=== PATIENT | female | born 1950 | race Caucasian/White ===

== ENCOUNTER 2019-10-28 10:25 | Outpatient (CLI) | payer MEDICARE, SELFPAY ==
--- NOTE | ~2019-10-28 | MM_ITS ---
EXAMINATION: screening [facility] BI w ashia HISTORY: Screening mammogram TECHNIQUE: Craniocaudal and mediolateral oblique 3-D tomosynthesis images were obtained and synthetic 2-D images were generated. CAD analysis was submitted and interpreted. COMPARISON: 10/14/2018, 09/26/2017, 02/28/2016, 02/22/2016 BREAST PARENCHYMAL COMPOSITION: The breasts are almost entirely fatty. FINDINGS: A stable mass in the middle third of the upper outer quadrant of the right breast is consis tent with a benign finding. There is no evidence of suspicious mass, calcification, or architectural distortion to suggest malignancy in either breast. There has been no suspicious interval change. IMPRESSION: 1. No mammographic evidence of malignancy. 2. Recommend routine screening mammography in one year. BI-RADS Category 2: Benign finding(s). Reviewed, dictated and finalized at location A. RINARY PHARMACOLOGIST
== END 2019-10-28 10:26 | disposition home or self-care (01) ==
PROVIDERS: PCP Family Medicine; Visit Provider Family Medicine
DX: Z12.31 Encounter for screening mammogram for malignant neoplasm of breast (principal)
CPT/HCPCS: 77063; 77067

== ENCOUNTER 2019-11-13 07:04 | Outpatient (CLI) | payer MEDICARE, SELFPAY ==
[2019-11-12 16:46] VITALS: BMI 50.1
[2019-11-13] VITALS (9 sets, daily range): BP systolic 119–151; BP diastolic 69–85; PULSE 66–72; RESP 14–19; TEMP 36.4–36.6; O2SAT 95–100
[2019-11-13 07:37] LABS: Basophils Percent Auto 0.5 % (0.2-1.2); Eosinophils Absolute Auto 0.3 K/mm3 (0-0.3); Eosinophils Percent Auto 3.4 % (0-4.4); Hematocrit 46.7 % (37.0-47.0); Hemoglobin 14.6 g/dL (12.0-15.0); Immature Granulocyte Absolute 0.04 K/mm3 (0.00-0.031); Immature Granulocyte Percent A 0.5 % (0-0.5); Lymphocytes Absolute Auto 1.58 K/mm3 (0.9-3.2); Lymphocytes Percent Auto 21.3 % (18.3-44.2); Mean Corpuscular HGB Conc 31.3 g/dl (32-36); Mean Corpuscular Hemoglobin 28.7 pg (26-34); Mean Corpuscular Volume 91.7 fl (80-100); Mean Platelet Volume 8.1 fl (7.4-10.4); Monocytes Absolute Auto 0.7 K/mm3 (0.1-0.6); Monocytes Percent Auto 8.8 % (2.6-8.5); Neutrophils Absolute Auto 4.9 K/mm3 (1.3-6.7); Neutrophils Percent Auto 65.5 % (45.5-73.1); Platelet Count Result 195 k/mm3 (150-375); Red Blood Count 5.09 M/mm3 (4.2-5.4); Red Cell Distribution Width 13.2 % (11.5-14.5); White Blood Count 7.4 K/mm3 (4.5-10.0)
--- NOTE | 2019-11-13 07:41 | SUR.PREOP ---
PATIENT ARRIVES TO [facility] ROOM [address] MADERA, ORIENTED TO UNIT, PROCEDURE EXPLAINED, ALL QUESTIONS ANSWERED, IV STARTED, LABS DRAWN AND SENT, CONSENT SIGNED AND VITALS OBTAINED.
[2019-11-13 07:49] LABS: Blood Urea Nitrogen 25 mg/dL (7-17); Calcium 9.2 mg/dL (8.4-10.2); Carbon Dioxide 28 mmol/L (22-30); Chloride 99 mmol/L (98-107); Estimated CRCL calculation 79 ml/min; Estimated Glomerular Filt Rate > 60; Glucose 103 mg/dL (65-105); Potassium 4.1 mmol/L (3.4-5.0); Sodium 142 mmol/L (137-145)
--- NOTE | 2019-11-13 08:36 | P.PCNCC_ITS ---
Cardiac Cath Procedure Note Date of procedure:: 11/13/19 Performing physician:: Ginger Mendoza MD DOS: 11/13/2019 Indication:: chest pain on exertion Brief clinical history:: this 69-year-old female with past medical history of hypertension, hyperlipidemia morbid obesity and strong family history for CAD who comes to my office for the evaluation for exertional chest pain. Last stress test January 2018 shows mild LVH and no ischemia. Due to persistence of symptoms she was brought into chemical laboratory tester to define coronary anatomy. Procedure Procedure performed:: 1-Moderate sedation that started at and ended at using mg of Versed and mg fentanyl. The registered nurse Miley Molina 2-Selective left and right coronary angiogram. 3-Left heart catheterization with measurement of LVEDP and measurement of gradient across aortic valve. 4-Right common femoral arterial angiogram. 5-Deployment of 6 [place] Angio-Seal. Sedation/Medication given:: Moderate sedation. Access site:: Right common femoral artery. Estimated blood loss:: 10cc Procedure note:: After informed consent patient was brought in to chemical laboratory tester with the was draped and prepped in usual manner. Moderate sedation was given and the right groin was infiltrated using 1% lidocaine. Five [place] sheath was obtained using micropuncture needle and the modified Seldinger technique. Selective left coronary angiogram was done using JL4 catheter with the tip of the catheter placed in the left main coronary artery. Selective right coronary angiogram was done using JR4 catheter with the tip of the catheter placed to the right coronary artery. After that 5 [place] pigtail catheter was advanced across the aortic valve into the left ventricle with measurement of LVEDP and measurement of gradient across aortic valve. LV angiogram was done as well. Right common femoral arterial angiogram was done. Findings:: 1- left coronary artery is a large artery that divides into large LAD, large circumflex artery. Left main is Free of disease. 2- left anterior descending artery is a large artery that runs and wraps around the apex. it is a free of disease. Gives rise to a large diagonal 1 branch proximally that is free of disease and small diagonal 2 branch in the mid segment that is free of disease. 3- left circumflex artery is a large artery And free of disease. Proximally and right after takes from the left main gives rise to a large OM1 branch that is free of disease and in the mid segment gives rise to small OM 2 branch that is free disease. 4- right coronary artery is large and dominant and has minimal coronary irregularities. 5- LVEDP was 22 mm Hg and no gradient across aortic valve. 6- opening arterial pressure was 120/80and closing pressure was 110/80. 6- LV angiogram shows normal LV systolic function with no wall motion abnormalities and estimated ejection fraction 55%. Ascending aortic caliber is normal. 7- right femoral artery angiogram shows no significant disease in the right common femoral artery. Conclusion:: 1- Minimal coronary irregularities in the right coronary artery otherwise no coronary artery disease. 2- normal LV systolic function and ascending aorta. Assessment and Plan Additional Plan continue aggressive risk factor modification for CAD
--- NOTE | 2019-11-13 08:36 | WPDMODSED ---
Moderate Sedation Note-Pt Data Patient Data Allergies Allergy/AdvReac Type Severity Reaction Status Date / Time No Known Allergies Allergy Unverified 12/25/17 06:45 Home Medications Medication Instructions Recorded Confirmed Type aspirin 81 mg tablet,delayed 81 mg PO DAILY 07/31/19 11/13/19 History release sertraline 50 mg tablet 50 mg PO BID #60 tablet 10/23/19 11/13/19 Rx carvedilol 3.125 mg tablet 3.125 mg PO Q12H #180 tablet 10/27/19 11/13/19 Rx fenofibrate 160 mg tablet 160 mg PO DAILY #90 tablet 10/27/19 11/13/19 Rx hydrochlorothiazide 12.5 mg tablet 12.5 mg PO DAILY #90 tablet 10/27/19 11/13/19 Rx losartan 100 mg tablet 100 mg PO DAILY #90 tablet 10/27/19 11/13/19 Rx simvastatin 40 mg tablet 40 mg PO DAILY #90 tablet 10/27/19 11/13/19 Rx cholecalciferol (vitamin D3) 25 mcg PO DAILY 11/13/19 11/13/19 History exenatide microspheres 2 mg SUBCUT WEEKLY 11/13/19 11/13/19 History furosemide 20 mg PO EVERY OTHER DAY 11/13/19 11/13/19 History ginkgo biloba 40 mg PO TID 11/13/19 11/13/19 History lutein 20 mg PO DAILY 11/13/19 11/13/19 History multivitamin 1 cap PO DAILY 11/13/19 11/13/19 History Current Medications: Active Medications Sodium Chloride (Normal Saline Iv) 500 mls @ 100 mls/hr IV CONT .Q5H GARY Sedation/Anesthesia: No previous sedation/anesthesia problems (including family history). [facility] Past Medical History Medical History Benign reactive hypertension CHF (congestive heart failure) Elevated cholesterol with high triglycerides Morbid obesity due to excess calories Family History Family History Sibling Patient's brother is in good health Family history of diabetes mellitus in first degree relative Mother Family history of heart disease in male family member before age 55, Onset Age: 88 Patient's mother is Other Diabetes mellitus Family history of arthritis Hypertension Social History Social History Social History: Single Smoking status: Never smoker Second hand tobacco smoke exposure: No Alcohol intake: never Substance use: never Substance use type: does not use Gender identity (if verbalized by the patient): Female Mod Sed Physical Exam Physical Exam Pre Procedural Exam: Normal: Appearance, Eyes, Ears, Nose, Neck, Throat, Airway, Lungs, Heart Size, Heart Rate, Heart Rhythm, Neuro Exam, Abdomen, Liver, Kidneys, Spleen, Breasts, Genitalia, Extremities and Skin Hours since solid foods: 8 Hours since liquid intake: 8 Internal Medicine - PN: Obj Da Vital Signs Vital Signs: Vital Signs - 24 hr 11/13/19 07:23 Temperature 36.4 C Pulse Rate 72 Respiratory Rate 19 Blood Pressure 151/83 H Pulse Oximetry 95 Meds/Results Medications: Active Medications Generic Name Dose Route Start Last Admin Trade Name Freq PRN Reason Stop Dose Admin Sodium Chloride 500 mls @ 100 mls/hr 11/13/19 06:05 Normal Saline Iv IV CONT .Q5H GARY Labs CBC & Chem 7: 11/13/19 07:29 11/13/19 07:29 Labs: Laboratory Results - last 24 hr 11/13/19 11/13/19 07:29 07:29 WBC 7.4 RBC 5.09 Hgb 14.6 Hct 46.7 MCV 91.7 MCH 28.7 MCHC 31.3 L RDW 13.2 Plt Count 195 MPV 8.1 Immature Gran % (Auto) 0.5 Neut % (Auto) 65.5 Lymph % (Auto) 21.3 Barry % (Auto) 8.8 H Eos % (Auto) 3.4 Baso % (Auto) 0.5 Lymph # (Auto) 1.58 Barry # (Auto) 0.7 H Eos # (Auto) 0.3 Baso # (Auto) 0.0 Abs Immat Gran (auto) 0.04 H Absolute Neuts (auto) 4.9 Absolute Nucleated RBC 0.0 Nucleated RBC % 0.0 Sodium 142 Potassium 4.1 Chloride 99 Carbon Dioxide 28 BUN 25 H Creatinine 0.80 Estim Creat Clear Calc 79 Estimated GFR > 60 Glucose 103 Calcium 9.2 ASA Classification/Sedation ASA Classification/Sedation ASA Class
--- NOTE | 2019-11-13 08:36 | WPDHPUPDATE1 ---
History and Physical Update Update Date/Time: 11/13/19 08:36 History and Physical has been reviewed, including an updated exam of the patient. There are NO changes in the patient's condition. Risks, benefits, and alternatives have been discussed and questions answered. Patient agrees to proceed with procedure.
--- NOTE | 2019-11-13 11:46 | SUR.PHASEII ---
PATIENT AMBULATED TO BATHROOM, AND THEN TO THE CHAIR BY MONCHO LEVIN. NO SIGNS OF BLEEDING OR HEMATOMA NOTED, WILL CONTINUE TO MONITOR. VITAL SIGNS STABLE.
== END 2019-11-13 12:30 | disposition home or self-care (01) ==
PROVIDERS: PCP Family Medicine; Visit Provider Internal Medicine Cardiovascular Disease
PROC: 4A023N7 Measurement of Cardiac Sampling and Pressure, Left Heart, Percutaneous Approach (ICD-10-PCS; CPT 93452; principal; 2019-11-13 08:30)
DX: R07.89 Other chest pain (principal); I10 Essential (primary) hypertension; E78.5 Hyperlipidemia, unspecified; I25.2 Old myocardial infarction; F32.9 Major depressive disorder, single episode, unspecified; Z82.49 Family history of ischemic heart disease and other diseases of the circulatory system; E66.01 Morbid (severe) obesity due to excess calories; Z68.43 Body mass index [BMI] 50.0-59.9, adult; Z79.82 Long term (current) use of aspirin
CPT/HCPCS: 36415; 80048; 85025; 93458; C1760; C1887; C1894; G0269; J1644; J2250; J3010; J7040

== ENCOUNTER 2020-11-05 07:55 | Outpatient (CLI) | payer MEDICARE, OTHER, SELFPAY ==
--- NOTE | ~2020-11-05 | US_ITS ---
US art doppler w press LE BI INDICATION: Peripheral vascular disease. Leg pain. TECHNIQUE: Segmental pressures and plethysmographic and Doppler waveforms of the brachial and lower e xtremity arteries were obtained. COMPARISON: None. FINDINGS: Right and left brachial artery pressures of 152 mm Hg and 147 mm Hg, respectively, are concordant (no rmal difference <= 30 mmHg). The right ankle-brachial index (ADILENE) is 1.18 (normal >= 0.9-1.0). The left ADILENE is 1.2. IMPRESSION: 1. Normal ankle-brachial indices. Reviewed, dictated and finalized at location B. ATTENDANT
== END 2020-11-05 07:56 | disposition home or self-care (01) ==
LOC: ANHIMG 08:00
PROVIDERS: PCP Family Medicine; Visit Provider Family Medicine
DX: I73.9 Peripheral vascular disease, unspecified (principal)
CPT/HCPCS: 93923

== ENCOUNTER 2020-11-26 09:09 | Outpatient (CLI) | payer MEDICARE, OTHER, SELFPAY ==
--- NOTE | ~2020-11-26 | MM_ITS ---
EXAMINATION: MM screening [facility] BI w ashia HISTORY: Screening TECHNIQUE: Craniocaudal and mediolateral oblique 3-D tomosynthesis images were obtained and synthetic 2-D images were generated. CAD analysis was submitted and interpreted. COMPARISON: Comparison to multiple prior studies sequentially, with oldest reviewed study dated 02/21. BREAST PARENCHYMAL COMPOSITION: There are scattered areas of fibroglandular density. FINDINGS: There is no evidence of suspicious mass, calcification, or architectural distortion to sugg est malignancy in either breast. There has been no suspicious interval change. IMPRESSION: 1. No mammographic evidence of malignancy. 2. Recommend routine screening mammography in one year. BI-RADS Category 1: Negative Reviewed, dictated and finalized at location A. TORING AND EVALUATION ADVISOR
== END 2020-11-26 09:10 | disposition home or self-care (01) ==
LOC: ANHIMG 09:11
PROVIDERS: PCP Family Medicine; Visit Provider Family Medicine
DX: Z12.31 Encounter for screening mammogram for malignant neoplasm of breast (principal)
CPT/HCPCS: 77063; 77067

== ENCOUNTER 2021-11-30 14:31 | Outpatient (CLI) | payer MEDICARE, OTHER, SELFPAY ==
--- NOTE | ~2021-11-30 | MM_ITS ---
EXAMINATION: MM screening [facility] BI w ashia HISTORY: Screening TECHNIQUE: Craniocaudal and mediolateral oblique 3-D tomosynthesis images were obtained and synthetic 2-D images were generated. CAD analysis was submitted and interpreted. COMPARISON: Comparison to multiple prior studies sequentially, with oldest reviewed study dated Gaston rison to multiple prior studies sequentially, with oldest reviewed study dated 02/22/2016. . BREAST PARENCHYMAL COMPOSITION: There are scattered areas of fibroglandular density. FINDINGS: There is no evidence of suspicious mass, calcification, or architectural distortion to sugg est malignancy in either breast. There has been no suspicious interval change. IMPRESSION: 1. No mammographic evidence of malignancy. 2. Recommend routine screening mammography in one year. BI-RADS Category 1: Negative Reviewed, dictated and finalized at location A. AZZO LAYER HELPER
== END 2021-11-30 14:32 | disposition home or self-care (01) ==
PROVIDERS: PCP Family Medicine; Visit Provider Nurse Practitioner Gerontology
DX: Z12.31 Encounter for screening mammogram for malignant neoplasm of breast (principal)
CPT/HCPCS: 77063; 77067

== ENCOUNTER 2022-03-08 14:54 | Outpatient (CLI) | payer MEDICARE, OTHER, SELFPAY ==
--- NOTE | ~2022-03-08 | DEXA_ITS ---
Bone Density Report Name: SUPRIYA SIDDIQUI Age: 71 Sex: Female Ethnicity: White Date of : 1950 Indication: postmenopausal; screening for osteoporosis; height loss; hysterectomy; Referring Provider: LUC CRUZ Study: Bone densitometry was performed. Exam Date: March 08, 2022 Accession number: [id number] Bone Density: Region BMD T-score Z-score Classification AP Spine(L1-L4) 1.057 0.1 2.3 Normal Femoral Neck (Left) 0.750 -0.9 0.9 Normal Total Hip (Left) 0.779 -1.3 0.2 Osteopenia World Health Organization criteria for BMD impression classify patients as: Normal (T-score at or above -1.0), Osteopenia (T-score between -1.0 and -2.5), or Osteoporosis (T-score at or below -2.5). 10-year Fracture Risk(1): Major Osteoporotic Fracture 7.3% Hip Fracture 0.7% Reported Risk Factors: [place] (), Neck BMD=0.750, BMI=46.6 Input outside FRAX(R) limits. Adjusted to:Ldsfpp=181 kg (1) FRAX(R) Version 3.08. Fracture probability calculated for an untreated patient. Fracture probability may be lower if the patient has received treatment. Clinical Information Provided by Patient: Has used the following medications: Vitamin D, Calcium Has the following medical conditions: Hysterectomy Patient maximum height was 66 Menopause Age: 55 No regular weight bearing exercise Drinks caffeinated beverages Onset of menses at age 12 Number of children 0 Impression: The patient has low bone mass, based on the Left Total Hip T-score. The patient has an estimated ten-year risk of hip fracture of 0.7% and an estimated ten-year risk of major fracture of 7.3%, based on the WHO FRAX algorithm. Discussion: BONE DENSITY IS LOW AT ONE OR MORE SKELETAL SITES. This patient's lowest T-score is low at one or more skeletal sites. It meets the World Health Organization's (WHO) criteria for ?low bone mass? (T-score between -1.0 and -2.5). The patient's 10-year risk of fracture as calculated by FRAX is less than the threshold where pharmacological therapy is recommended by the National Osteoporosis Foundation (NOF). However, all treatment decisions require clinical judgment and consideration of individual patient factors, including patient preferences, comorbidities, previous drug use, risk factors not captured in the FRAX model (e.g., frailty, falls, vitamin D deficiency, increased bone turnover, interval significant decline in bone density) and possible under or overestimation of fracture risk by FRAX. The patient should follow a healthful lifestyle (good nutrition with adequate calcium and vitamin D, and appropriate weight-bearing exercise). Follow-Up: Consider repeating this study in 2 to 3 years to reassess this patient's status, or sooner if there is some new clinical indication. Reported by: BRETT on 03/08/2022 3:24:00 PM.
== END 2022-03-08 14:55 | disposition home or self-care (01) ==
LOC: ANHIMG 14:55
PROVIDERS: PCP Family Medicine; Visit Provider Nurse Practitioner Gerontology
DX: Z78.0 Asymptomatic menopausal state (principal); M85.852 Other specified disorders of bone density and structure, left thigh
CPT/HCPCS: 77080

== ENCOUNTER 2022-09-13 12:10 | Inpatient (IN) | payer MEDICARE, OTHER, SELFPAY ==
[2022-09-13] VITALS (10 sets, daily range): BP systolic 122–152; BP diastolic 55–95; PULSE 74–94; RESP 17–26; TEMP 36.4–36.6; O2SAT 87–98; BMI 50.8
--- NOTE | ~2022-09-13 | US_ITS ---
EXAMINATION: US venous doppler [facility] DATE: 09/14/2022 09:11 INDICATION: Lower limb edema. TECHNIQUE: Grayscale ultrasound images without and with compression and Doppler ultrasound images of the bilateral lower extremity veins were obtained. COMPARISON: None. FINDINGS: The visualized portions of right common femoral vein, profunda (deep) femoral vein, femoral vein, pop liteal vein, peroneal veins, posterior tibial veins, and greater saphenous vein outflow are patent. The visualized portions of left common femoral vein, profunda femoral vein, femoral vein, popliteal v ein, peroneal veins, posterior tibial veins, and greater saphenous vein outflow are patent. IMPRESSION: 1. No deep venous thrombosis. Reviewed, dictated and finalized at location [facility]. [facility]
--- NOTE | ~2022-09-13 | XR_ITS ---
EXAMINATION: XR chest 2V DATE: 09/15/2022 08:28 INDICATION: Congestive heart failure. TECHNIQUE: Frontal and lateral views of the chest were obtained. COMPARISON: Chest single view 09/13/2022 FINDINGS: There are airspace opacities in the mid and lower lung zones. There are small pleural effus ions. No pneumothorax. Cardiomegaly is noted. IMPRESSION: 1. Stable airspace opacities in the mid and lower lung zones, consistent with pneumonia with or witho ut superimposed pulmonary edema. 2. Small pleural effusions. 3. Cardiomegaly. Reviewed, dictated and finalized at location A. SOLUTION ARCHITECT IMPRESSION: 1. Stable airspace opacities in the mid and lower lung zones, consistent with p neumonia with or without superimposed pulmonary edema. 2. Small pleural effusions. 3. Cardiomegaly.
--- NOTE | ~2022-09-13 | XR_ITS ---
Portable chest x-ray Comparison: None Clinical History: Cough Findings: There is extensive groundglass pulmonary disease in the perihilar regions and lung bases. No pleural effusion or pneumothorax. Cardiomediastinal silhouette is prominent, possibly due to AP t echnique. Bones and soft tissues are unremarkable. Impression: Moderate pulmonary edema pattern. Correlate clinically for infection. Reviewed, dictated and finalized at [facility]. ICAL ENGRAVER Impression: Moderate pulmonary edema pattern. Correlate clinically for infection.
--- NOTE | ~2022-09-13 | CT_ITS ---
CT Scan of the Chest without Contrast: Clinical Indication: Pulmonary edema Technique: Contiguous sections were acquired throughout the chest without intravenous contrast. Dose reduction technique was used on this scan by utilizing automated exposure control and iterative recon struction technique. The dose-length product (DLP) was 964.49 mGy-cm. Findings: There is no evidence of any significant mediastinal, hilar or axillary lymphadenopathy. The mediastin al soft tissues appear normal. There is no evidence of pleural or pericardial effusion. There is patchy bibasilar consolidative change, at the bilateral lung bases and in the anteromedial r ight middle lobe. Images through the upper abdomen reveal 2.5 cm right adrenal nodule, indeterminate by Hounsfield unit s. Impression: Patchy bibasilar consolidation. Findings are suspicious for pneumonia versus possibly bibasilar atele ctatic change. Indeterminate 2.5 cm right adrenal nodule. Follow-up abdominal MR recommended to attempt to confirm a denoma. Reviewed, dictated and finalized at location . MECHANIC Impression: Patchy bibasilar consolidation. Findings are suspicious for pneumonia versus po ssibly bibasilar atelectatic change. Indeterminate 2.5 cm right adrenal nodule. Follow-up abdominal MR recommended t o attempt to confirm adenoma.
--- NOTE | 2022-09-13 12:17 | ECG_ITS ---
Measurements Intervals [place] Rate: 81 P: 156 MD: 198 QRS: 230 QRSD: 135 T: 145 QT: 393 QTc: 457 Interpretive Statements SINUS RHYTHM WITH ABERRANT CONDUCTED PAC ARM LEADS REVERSED [INVERTED P AND QRS IN I] NO PREVIOUS ECG AVAILABLE FOR COMPARISON Electronically Signed On 09-13-2022 18:00:01 COOKER TENDER by Denise Cabrera M.D.
[2022-09-13 13:05] LABS: Basophils Percent Auto 0.3 % (0.2-1.2); Eosinophils Absolute Auto 0.1 K/mm3 (0-0.3); Eosinophils Percent Auto 1.4 % (0-4.4); Hematocrit 45.4 % (37.0-47.0); Immature Granulocyte Absolute 0.08 K/mm3 (0.00-0.031); Immature Granulocyte Percent A 0.8 % (0-0.5); Lymphocytes Absolute Auto 0.96 K/mm3 (0.9-3.2); Lymphocytes Percent Auto 9.5 % (18.3-44.2); Mean Corpuscular HGB Conc 30.8 g/dl (32-36); Mean Corpuscular Hemoglobin 28.2 pg (26-34); Mean Corpuscular Volume 91.3 fl (80-100); Mean Platelet Volume 7.8 fl (7.4-10.4); Monocytes Absolute Auto 0.6 K/mm3 (0.1-0.6); Monocytes Percent Auto 5.8 % (2.6-8.5); Neutrophils Absolute Auto 8.3 K/mm3 (1.3-6.7); Neutrophils Percent Auto 82.2 % (45.5-73.1); Platelet Count Result 209 k/mm3 (150-375); Red Blood Count 4.97 M/mm3 (4.2-5.4); Red Cell Distribution Width 14.5 % (11.5-14.5); White Blood Count 10.1 K/mm3 (4.5-10.0)
--- NOTE | 2022-09-13 13:05 | ED.GENADULT ---
HPI - General Adult General Chief complaint: Upper Respiratory Infection Stated complaint: URI Time Seen by Provider: 09/13/22 13:01 Source: RN notes reviewed History of Present Illness HPI narrative: Patient presents emergency department from home for shortness of breath. Patient states that she has been battling upper respiratory infection since . States that its been associate with a cough that been productive of yellow sputum as well as shortness of breath. She states that she has been feeling progressively worse this week and called her PCP and referred to the ER for further evaluation. She does note subjective fevers. States she does have a history of CHF and has chronic swelling of her lower extremities. She denies any chest pain she denies any abdominal pain nausea or vomiting or any other symptoms. Denies currently being on any antibiotics Related Data Home Medications Medication Instructions Recorded Confirmed aspirin 81 mg tablet,delayed 81 mg PO DAILY 07/31/19 07/27/22 release (Aspir-) ginkgo biloba 40 mg tablet 40 mg PO DAILY 11/13/19 07/27/22 lutein 20 mg capsule 20 mg PO DAILY 11/13/19 07/27/22 multivitamin 1 cap PO DAILY 11/13/19 07/27/22 Allergies Allergy/AdvReac Type Severity Reaction Status Date / Time No Known Allergies Allergy Verified 07/27/22 10:07 Review of Systems Review of Systems: Gen.: Report subjective fevers ENT: Denies congestion Respiratory: see HPI CV: Denies chest pain or palpitations GI: Denies abdominal pain nausea, emesis or diarrhea Musculoskeletal: Denies back pain or muscle pain Neuro: Denies numbness, tingling, weakness or focal weakness Skin: Denies rash Except as documented, all other systems reviewed and negative [facility] Past Medical History Medical History Benign reactive hypertension CHF (congestive heart failure) CHF (NYHA class II, ACC/AHA stage C) Elevated cholesterol with high triglycerides Major depressive disorder, recurrent, moderate Morbid obesity due to excess calories Family History Family History Sibling Patient's brother is in good health Family history of diabetes mellitus in first degree relative Mother Family history of heart disease in male family member before age 55, Onset Age: 88 Patient's mother is Other Diabetes mellitus Family history of arthritis Hypertension Social History Social History Social History: Single Smoking status: Never smoker Second hand tobacco smoke exposure: No Alcohol intake: never Substance use: never Substance use type: does not use Gender identity (if verbalized by the patient): Female Sexual Orientation (if Verbalized by the Patient): Straight or Heterosexual Exam Narrative: APPEARANCE: No acute distress, nontoxic, resting in bed EYES: EOMI HEENT: Normocephalic, atraumatic, OMM RESPIRATORY: No respiratory distress Clear to auscultation bilaterally with no rhonchi wheezing or rales. CARDIOVASCULAR: Regular rate and rhythm without murmurs rubs or gallops. ABDOMINAL: Soft, nontender, nondistended, no rebound or guarding MUSCULOSKELETAl: Moves all extremities. No clubbing, cyanosis 3+ edema of the bilateral lower extremities NEURO: Awake and alert. Following commands, speech normal, no focal deficits SKIN:: Warm, dry. No rashes lesions or abrasions PSYCHIATRIC: Normal affect/mood, Course Course Emergency Course: Discussed with MODELING AGENCY MANAGER Ludy Tracey agrees with admission Discussed with MUMTAZ Cabrera agrees with consult Discussed with patient and family results of workup and diagnosis. Discussed need for admission. Patient and family understand and agree to current treatment plan Vital Signs Vital signs: Vital Signs Temperature 97.6 F 09/13/22 12:14 Pulse Rate 94 1
[2022-09-13 13:16] LABS: Alanine Aminotransferase 29 U/L (6-35); Albumin Level 3.8 g/dL (3.5-5.1); Alkaline Phosphatase 55 U/L (38-126); Anion Gap 6 mmol/L (8-16); Aspartate Amino Transferase 30 U/L (14-36); Bilirubin,Total 0.4 mg/dL (0.2-1.3); Blood Urea Nitrogen 22 mg/dL (7-17); Calcium 8.8 mg/dL (8.4-10.2); Carbon Dioxide 37 mmol/L (22-30); Chloride 98 mmol/L (98-107); Estimated CRCL calculation 76 ml/min; Estimated Glomerular Filt Rate > 60; Glucose 134 mg/dL (65-110); Sodium 141 mmol/L (137-145)
[2022-09-13] MEDS: POTASSIUM CHLORIDE 20 MEQ TABLET 40 MEQ PO (14:07)
[2022-09-13 14:26] LABS: Influenza A QL RT-PCR Negative (Negative); Influenza B QL RT-PCR Negative (Negative); RSV RNA, RT-PCR Negative (Negative); SARS-CoV-2 RNA PCR Negative
[2022-09-13 14:58] LABS: NT Pro B Type Natriuretic Pept 1970 pg/mL (5-100)
[2022-09-13] MEDS: FUROSEMIDE INJ 40 MG/4 ML VIAL IV PUSH (16:06)
[2022-09-13 19:35] LABS: Troponin I 0.031 ng/mL (0.000-0.034)
--- NOTE | 2022-09-13 20:30 | PM.IMHP ---
H&P: HPI History of Present Illness Date/Time: 09/13/22 20:30 Chief Complaint: Upper respiratory infection Narrative: This is a 72-year-old female patient who has a history of congestive heart failure. The patient came to the emergency room with complaints of shortness of breath. The patient stated that she thought that she had the flu initially. The patient has had this upper respiratory infection since . She has had a cough of yellow sputum as well some shortness of breath. The patient has been feeling progressively feeling worse over the last week. She also has increased swelling to her lower extremities. The patient has been on Keflex for chronic cellulitis to left lower extremity. She has yellow drainage from the left lower extremity. She also missed a couple days of going to the wound care clinic for her wounds to her left lower extremity. Chest x-ray was read as moderate pulmonary edema pattern correlate clinically for infection. Her white counts 10.1. Her potassium was 3.0. The patient is not on a daily potassium but is on daily Lasix. Troponins have been nonreactive x2. She is found to be negative for influenza A/B RSV and COVID. The patient is being admitted to observation status on the date of service of 09/13/2022. Review of Systems Review of Systems: See HPI All systems reviewed & are unremarkable except as noted in HPI and below Constitutional: Constitutional: Reports as per HPI and Reports no additional constitutional complaints Eyes: Eyes: Reports as per HPI and Reports no additional eye complaints ENT: Reports system reviewed and no additional complaints, except as documented and Reports Normal hearing present Cardiovascular: Cardiovascular: Reports no additional cardiovascular complaints Respiratory: Respiratory: Reports no additional respiratory complaints and Reports no additional respiratory complaints Gastrointestinal: Gastrointestinal: Reports as per HPI and Reports no additional gastrointestinal complaints Musculoskeletal: Musculoskeletal: Reports no additional musculoskeletal complaints Integumentary/Breasts: Skin/Breast: Reports system reviewed and no additional complaints, except as docu and Reports as per HPI Neurologic: Reports system reviewed and no additional complaints, except as documented, Reports as per HPI and Reports Normal hearing present Psychiatric: Psychiatric: Reports no additional psychiatric complaints and Reports as per HPI Endocrine: Endocrine: Reports no additional endocrine complaints Hematologic/Lymphatic: Hematologic/Lymphatic: Reports no additional hematologic/lymphatic complaints Allergic/Immunologic: Allergic/Immunologic: Reports no additional allergic/immunologic complaints [facility] Past Medical History Medical History Benign reactive hypertension CHF (congestive heart failure) CHF (NYHA class II, ACC/AHA stage C) Elevated cholesterol with high triglycerides Major depressive disorder, recurrent, moderate Morbid obesity due to excess calories Surgical History Surgical History (Updated 09/13/22 @ 23:12 by Ludy Bull NP) H/O arthroscopic knee surgery Right side H/O cardiac catheterization History of partial hysterectomy History of tonsillectomy and adenoidectomy S/P hip replacement Family History Family History Sibling Patient's brother is in good health Family history of diabetes mellitus in first degree relative Mother Family history of heart disease in male family member before age 55, Onset Age: 88 Patient's mother is Other Diabetes mellitus Family history of arthritis Hypertension Social History Social History (Updated 09/13/22 @ 23:07 by Ludy Bull NP) Social History: The patient lives home alone and is Single. She has no biological children. She is a lifelong nonsmoker. She reti
--- NOTE | 2022-09-13 20:50 | PC.NURSE ---
report received from Esther OREILLY RN
--- NOTE | 2022-09-13 20:59 | PC.NURSE ---
This patient, Kelly Atkinson, was admitted to 3 [facility] Room 316-02. Patient/family oriented to hospital policies and general routines including ID bracelet, bed and alarms, visiting hours, pain management, procedures, bathroom and other care routines, personal items, smoking policy, room service/diet, and visiting hours. Information on how to activate the Rapid Response Team has been discussed. Patient/Family are encouraged to report perceived risks to care and to ask questions if they do not understand what they are told or what they should do. arrived at [id number]
--- NOTE | 2022-09-13 22:39 | PC.NURSE ---
unable to obtain wound photos, unable to find camera for photos at this time
--- NOTE | 2022-09-13 22:41 | PC.NURSE ---
trop trending up wnl still 0.031 reported to [facility].
--- NOTE | 2022-09-13 22:45 | PC.NURSE ---
wound rle culture sent to lab
--- NOTE | 2022-09-13 23:15 | PC.NURSE ---
arrived medication from pharmacy
[2022-09-13] MEDS: SERTRALINE HCL 50 MG TABLET BY MOUTH (23:23)
[2022-09-13] MEDS: carvediloL 6.25 MG TABLET BY MOUTH (23:23)
[2022-09-13] MEDS: ASPIRIN 81 MG ENTERIC TABLET PO (23:23)
[2022-09-13] MEDS: SIMVASTATIN 20 MG TABLET 40 MG PO (23:24)
[2022-09-14] VITALS (11 sets, daily range): BP systolic 108–122; BP diastolic 68–86; PULSE 51–84; RESP 18–20; TEMP 36–36.8; O2SAT 92–97
--- NOTE | 2022-09-14 | ECHO_ITS ---
Patient Info Name: Kelly Atkinson Age: 72 years : 1950 Gender: Female Ht: 65 in Wt: 310 lbs BSA: 2.63 m2 HR: 88 bpm BP: 122 / 84 mmHg Heart Rhythm: Sinus Rhythm Technical Quality: Fair Exam Date: 09/14/2022 10:11 AM Exam Location: [facility] Pulmonary Exam Room: [facility] Patient Status: Inpatient Admit Date: 09/14/2022 Staff Ordering Physician: Ludy Bull NP Brush Machine Setter: Kelly Gilbert RDCS Attending Provider: James Tracey MD Referring Physician: Jorgito ALDRICH; Exam Type: CA echo dop color flow w con Study Info Indications - edema plus pulmonary edema Complete two-dimensional, color flow and Doppler transthoracic echocardiogram is performed with contrast to opacify the left ventricle and to improve the deliniation of the left ventricle endocardial borders. Contrast/Agitated Saline Contrast/Ag. Saline: Definity Amount: 2.00 ml Administered By: Kelly Gilbert [facility] Existing IV Access: Yes Summary 1. Left ventricular chamber dimension is mildly enlarged. 2. Left ventricular systolic function is normal, estimated at 55-60%. 3. There is mildly increased left ventricular wall thickness. 4. The left ventricular diastolic function is grade I diastolic dysfunction. 5. The basal inferolateral wall is hypokinetic. 6. Right ventricular chamber dimension is moderately enlarged. 7. Right ventricular systolic function is reduced. 8. Left atrial chamber dimension is mildly enlarged. 9. There is mild mitral valve regurgitation. 10. There is mild tricuspid valve regurgitation. 11. Moderate pulmonary hypertension, estimated pulmonary arterial systolic pressure is 56 mmHg. Left Ventricle Left ventricular chamber dimension is mildly enlarged. Left ventricular systolic function is normal, estimated at 55-60%. There is mildly increased left ventricular wall thickness. The left ventricular diastolic function is grade I diastolic dysfunction. The basal inferolateral wall is hypokinetic. Right Ventricle Right ventricular chamber dimension is moderately enlarged. Right ventricular systolic function is reduced. Left Atria Left atrial chamber dimension is mildly enlarged. Right Atria Right atrial chamber dimension is normal. Atrial Septum Intact interatrial septum visualized by color flow imaging. Aortic Valve The aortic valve is trileaflet. There is mild aortic valve sclerosis. There is no aortic valve stenosis. There is trace aortic valve regurgitation. Pulmonic Valve The pulmonic valve is normal. There is no pulmonic valve stenosis. There is trace pulmonic regurgitation. Mitral Valve The mitral valve has normal leaflets. There is no mitral valve stenosis. There is mild mitral valve regurgitation. Tricuspid Valve The tricuspid valve leaflets are normal. There is no significant tricuspid valve stenosis. There is mild tricuspid valve regurgitation. Moderate pulmonary hypertension, estimated pulmonary arterial systolic pressure is 56 mmHg. Pericardium/Pleural The pericardium appears normal. There is trivial pericardial effusion. Inferior Vena Cava Normal inferior vena cava with >50% collapse upon inspiration consistent with normal right atrial pressure, 10 mmHg. Aorta The aortic root size at the sinus of Valsalva is normal. Left Ventricular Outflow Tract Name
[2022-09-14 00:10] LABS: Troponin I 0.027 ng/mL (0.000-0.034)
[2022-09-14 06:37] LABS: Basophils Percent Auto 0.3 % (0.2-1.2); Eosinophils Absolute Auto 0.1 K/mm3 (0-0.3); Eosinophils Percent Auto 0.9 % (0-4.4); Hematocrit 45.9 % (37.0-47.0); Hemoglobin 13.6 g/dL (12.0-15.0); Immature Granulocyte Absolute 0.09 K/mm3 (0.00-0.031); Immature Granulocyte Percent A 0.8 % (0-0.5); Lymphocytes Absolute Auto 0.97 K/mm3 (0.9-3.2); Lymphocytes Percent Auto 9.2 % (18.3-44.2); Mean Corpuscular HGB Conc 29.6 g/dl (32-36); Mean Corpuscular Hemoglobin 27.5 pg (26-34); Mean Corpuscular Volume 92.9 fl (80-100); Mean Platelet Volume 8.1 fl (7.4-10.4); Monocytes Absolute Auto 0.8 K/mm3 (0.1-0.6); Monocytes Percent Auto 7.5 % (2.6-8.5); Neutrophils Absolute Auto 8.6 K/mm3 (1.3-6.7); Neutrophils Percent Auto 81.3 % (45.5-73.1); Platelet Count Result 202 k/mm3 (150-375); Red Blood Count 4.94 M/mm3 (4.2-5.4); Red Cell Distribution Width 14.6 % (11.5-14.5); White Blood Count 10.6 K/mm3 (4.5-10.0)
[2022-09-14 06:42] LABS: Lactic Acid Reflex 0.8 mmol/L (0.7-2.0)
[2022-09-14 06:49] LABS: Alanine Aminotransferase 28 U/L (6-35); Albumin Level 3.7 g/dL (3.5-5.1); Alkaline Phosphatase 55 U/L (38-126); Anion Gap 7 mmol/L (8-16); Aspartate Amino Transferase 31 U/L (14-36); Bilirubin,Total 0.6 mg/dL (0.2-1.3); Blood Urea Nitrogen 21 mg/dL (7-17); Calcium 8.4 mg/dL (8.4-10.2); Carbon Dioxide 37 mmol/L (22-30); Chloride 99 mmol/L (98-107); Estimated CRCL calculation 91 ml/min; Estimated Glomerular Filt Rate > 60; Glucose 111 mg/dL (65-110); Magnesium 2.1 mg/dL (1.6-2.3); Potassium 3.4 mmol/L (3.4-5.0); Sodium 143 mmol/L (137-145)
--- NOTE | 2022-09-14 08:28 | PM.CNCAR ---
Assessment and Plan Assessment and plan (1) CHF (congestive heart failure): Code(s): I50.9 - Heart failure, unspecified Status: Acute Assessment and Plan: This is likely acute on chronic diastolic or right-sided heart failure. She has evidence of worsening CHF possibly brought on by pneumonia/bronchitis. Will increase her furosemide to 40 mg IV q.12 hours. Will check a basic metabolic panel tomorrow. Replace potassium 40 mg p.o. x1. Intake and output as well as daily weights will be monitored. 2D echocardiogram Doppler will also be ordered and reviewed. She will remain on her carvedilol but I am going to increase her dose of 12.5 mg p.o. b.i.d.. Continue losartan (2) Morbid obesity due to excess calories: Code(s): E66.01 - Morbid (severe) obesity due to excess calories Status: Acute Assessment and Plan: Dietary and lifestyle modification for weight loss (3) Acute respiratory failure with hypoxia: Code(s): J96.01 - Acute respiratory failure with hypoxia Status: Acute Assessment and Plan: CHF plus-minus pneumonia. Diuresis and antibiotic (4) Hypertension: Code(s): I10 - Essential (primary) hypertension Status: Acute Assessment and Plan: Losartan, carvedilol to be continued (5) Dyslipidemia: Code(s): E78.5 - Hyperlipidemia, unspecified Status: Acute Assessment and Plan: Continue statin (6) Hypokalemia: Code(s): E87.6 - Hypokalemia Status: Acute Assessment and Plan: KCL 40 mg p.o. x1 History of Present Illness History of Present Illness Consult date/time: 09/14/22 08:28 Requesting physician: Ap Goldberg DO Consult reason: congestive heart failure Reason For Visit: Acute Respiratory failure with hypoxia, CHF Narrative: Date of service 09/14/2022: Reason consultation: CHF Requesting provider: Dr. Goldberg History: Patient is a 72-year-old female with a history of CHF. Follows with Dr. Mendoza. She has not been feeling well since . She has had an upper respiratory tract infection as well as subjective fevers. She has had productive cough and sputum with multiple different color the sputum she states including some blood. Her sputum production has declined and it has cleared up somewhat but she is still coughing. Because she feels and has felt like she has not been getting significantly better she decided come to hospital for further evaluation. She is having shortness of breath but doing 10 in walking to and from the car. She denies any chest pain. No paroxysmal nocturnal dyspnea. She has worsening edema bilateral lower extremities also. She denies any palpitations, syncope or presyncope. She was given diuretics and is feeling a little bit better today. Review of Systems Review of Systems: All systems reviewed & are unremarkable except as noted in HPI and below Constitutional: Constitutional: Reports body ache(s) and Reports fatigue Eyes: Eyes: Denies blurry vision ENT: Reports Normal hearing present Cardiovascular: Cardiovascular: Denies chest pain, Denies diaphoresis and Reports leg edema Respiratory: Respiratory: Reports cough, Reports hemoptysis, Reports dyspnea and Reports dyspnea on exertion Gastrointestinal: Gastrointestinal: Denies abdominal pain Genitourinary: Genitourinary: Denies hematuria Musculoskeletal: Musculoskeletal: Denies myalgias Integumentary/Breasts: Skin/Breast: Denies skin pain Neurologic: Denies Abnormal speech present Psychiatric: Psychiatric: Denies behavioral changes and Denies confusion Endocrine: Endocrine: Denies excessive sweating Hematologic/Lymphatic: Hematologic/Lymphatic: Denies easy bleeding Allergic/Immunologic: Allergic/Immunologic: Denies GI upset with certain foods PMFSH Past Medical History Medical History Benign reactive hypertension CHF (congestive heart f
[2022-09-14 10:11] LABS: Thyroid Stimulating Hormone Reflex 0.719 uIU/mL (0.465-4.68)
[2022-09-14] MEDS: PERFLUTREN LIPID MICROSPHERES 1.5 ML VIAL DILUTED TO 10 ML TOTAL VOLUME IV PUSH (10:45)
[2022-09-14] MEDS: POTASSIUM CHLORIDE 20 MEQ PACKET (FOR LIQUID) 40 MEQ PO (10:54)
[2022-09-14] MEDS: POTASSIUM CHLORIDE 20 MEQ TABLET 40 MEQ PO (10:54)
[2022-09-14] MEDS: FENOFIBRATE 160 MG TABLET PO (10:54)
[2022-09-14] MEDS: ENOXAPARIN 40 MG/0.4 ML SYRINGE SUB-Q (10:54)
[2022-09-14] MEDS: MULTIVITAMINS THERAPEUTIC TAB (*BKC) 1 TABLET PO (10:54)
[2022-09-14] MEDS: SERTRALINE HCL 50 MG TABLET BY MOUTH ×2 (10:54→17:58)
[2022-09-14] MEDS: LOSARTAN POTASSIUM 100 MG TABLET BY MOUTH (10:54)
[2022-09-14] MEDS: hydroCHLOROthiazide 12.5 MG CAPSULE PO (10:54)
[2022-09-14] MEDS: TOLNAFTATE 1% POWDER 45 GM BTL 1 APPLIC TOPICAL ×2 (10:55→20:41)
[2022-09-14] MEDS: carvediloL 12.5 MG TABLET BY MOUTH ×2 (10:56→20:41)
[2022-09-14] MEDS: FUROSEMIDE INJ 40 MG/4 ML VIAL IV PUSH ×2 (12:04→17:58)
[2022-09-14] MEDS: SILVERGEL (ELTA) 45 ML 1 APPLIC TOPICAL (18:00)
--- NOTE | 2022-09-14 18:52 | PM.IMPN ---
Progress Note: A&P Assessment and Plan (1) Acute respiratory failure with hypoxia: Code(s): J96.01 - Acute respiratory failure with hypoxia Status: Acute Assessment and Plan: -the patient does not use any oxygen at home. She is currently placed on 2 L per nasal cannula. -patient has moderate pulmonary edema pattern. -the patient was given IV Lasix in the emergency room and has been diuresing without difficulty. (2) CHF (congestive heart failure): Code(s): I50.9 - Heart failure, unspecified Status: Acute Assessment and Plan: No recent echo is showing up in our system so I will order 1 for tomorrow. -continue with IV Lasix and I have added potassium supplement. Continue with Coreg Continue with hydrochlorothiazide Continue to monitor electrolytes (3) Recurrent cellulitis of lower extremity: Code(s): L03.119 - Cellulitis of unspecified part of limb Status: Acute Assessment and Plan: I started the patient on Ancef. Please tailor antibiotics to blood and wound cultures. -the patient has been going to the wound care clinic. She did miss some days going to the wound care clinic. (4) Major depressive disorder, recurrent, moderate: Code(s): F33.1 - Major depressive disorder, recurrent, moderate Status: Acute Assessment and Plan: -continue with the sertraline (5) Morbid obesity due to excess calories: Code(s): E66.01 - Morbid (severe) obesity due to excess calories Status: Acute Assessment and Plan: Heart healthy diet (6) Elevated cholesterol with high triglycerides: Code(s): E78.2 - Mixed hyperlipidemia Status: Acute Assessment and Plan: Continue with simvastatin and fenofibrate (7) Benign reactive hypertension: Code(s): I10 - Essential (primary) hypertension Status: Acute Assessment and Plan: -continue with losartan and Coreg. Subjective Date/time seen: 09/14/22 18:52 Patient is feeling slightly better. Decreased shortness of breath. No chest pain. No abdominal pain, nausea, no vomiting. Mood stable. Review of Systems Review of Systems: All systems reviewed & are unremarkable except as noted in HPI and below Constitutional: Constitutional: Reports as per HPI and Reports no additional constitutional complaints Eyes: Eyes: Reports as per HPI and Reports no additional eye complaints ENT: Reports system reviewed and no additional complaints, except as documented and Reports Normal hearing present Cardiovascular: Cardiovascular: Reports no additional cardiovascular complaints Respiratory: Respiratory: Reports no additional respiratory complaints and Reports no additional respiratory complaints Gastrointestinal: Gastrointestinal: Reports as per HPI and Reports no additional gastrointestinal complaints Musculoskeletal: Musculoskeletal: Reports no additional musculoskeletal complaints Integumentary/Breasts: Skin/Breast: Reports system reviewed and no additional complaints, except as docu and Reports as per HPI Neurologic: Reports system reviewed and no additional complaints, except as documented, Reports as per HPI and Reports Normal hearing present Psychiatric: Psychiatric: Reports no additional psychiatric complaints and Reports as per HPI Endocrine: Endocrine: Reports no additional endocrine complaints Hematologic/Lymphatic: Hematologic/Lymphatic: Reports no additional hematologic/lymphatic complaints Allergic/Immunologic: Allergic/Immunologic: Reports no additional allergic/immunologic complaints Exam Const: General: cooperative, healthy appearing, comfortable, no acute distress, well developed, alert, awake, Physically active and obese Nutritional Appearance: obese Orientation/consciousness: oriented to person, oriented to place, oriented to time and patient oriented x3 Limitations: no limitations HENMT: Head: normal to inspection, No palpable skull fracture present, no
[2022-09-14] MEDS: SIMVASTATIN 20 MG TABLET 40 MG PO (20:41)
[2022-09-14] MEDS: ASPIRIN 81 MG ENTERIC TABLET PO (20:41)
[2022-09-15] VITALS (11 sets, daily range): BP systolic 110–160; BP diastolic 66–87; PULSE 62–79; RESP 20; TEMP 36.1–37.3; O2SAT 96–100
--- NOTE | 2022-09-15 06:53 | PC.NURSE ---
iv bad, removed, unable to restart at this time, several RN attempts made. 6am cefazolin still needs to infuse, passed on to next RN in report.
--- NOTE | 2022-09-15 07:20 | PC.NURSE ---
Md Weinstein informed IV when bad, will continue to attempt restart for IV abt.
[2022-09-15] MEDS: hydroCHLOROthiazide 12.5 MG CAPSULE PO (08:41)
[2022-09-15] MEDS: SERTRALINE HCL 50 MG TABLET BY MOUTH ×2 (08:41→16:58)
[2022-09-15] MEDS: FENOFIBRATE 160 MG TABLET PO (08:41)
[2022-09-15] MEDS: LOSARTAN POTASSIUM 100 MG TABLET BY MOUTH (08:41)
[2022-09-15] MEDS: MULTIVITAMINS THERAPEUTIC TAB (*BKC) 1 TABLET PO (08:41)
[2022-09-15] MEDS: carvediloL 12.5 MG TABLET BY MOUTH ×2 (08:42→21:46)
[2022-09-15] MEDS: POTASSIUM CHLORIDE 20 MEQ PACKET (FOR LIQUID) 40 MEQ PO (08:42)
[2022-09-15] MEDS: ENOXAPARIN 40 MG/0.4 ML SYRINGE SUB-Q (08:42)
[2022-09-15] MEDS: SILVERGEL (ELTA) 45 ML 1 APPLIC TOPICAL (08:43)
[2022-09-15] MEDS: TOLNAFTATE 1% POWDER 45 GM BTL 1 APPLIC TOPICAL ×2 (08:43→21:46)
--- NOTE | 2022-09-15 11:48 | PM.IMPN ---
Progress Note: A&P Assessment and Plan (1) Acute respiratory failure with hypoxia: Code(s): J96.01 - Acute respiratory failure with hypoxia Status: Acute Assessment and Plan: -the patient does not use any oxygen at home. She is currently placed on 2 L per nasal cannula. -Home O2 evaluation by respiratory therapy. -patient has moderate pulmonary edema pattern. -the patient was given IV Lasix in the emergency room and has been diuresing without difficulty. Unable to find IV access today. Lasix was switched to 80 mg p.o. b.i.d.. (2) CHF (congestive heart failure): Code(s): I50.9 - Heart failure, unspecified Status: Acute Assessment and Plan: Heart failure with preserved ejection fraction EF 55-60%. -patient was started with IV Lasix and potassium supplement. -due to lack of access she was switched to Lasix 80 mg p.o. b.i.d. -potassium was supplemented. Continue with Coreg Continue with hydrochlorothiazide Continue to monitor electrolytes (3) Recurrent cellulitis of lower extremity: Code(s): L03.119 - Cellulitis of unspecified part of limb Status: Acute Assessment and Plan: Patient was originally started on Ancef. Blood culture with Gram-positive coccal in chains. No IV access available today patient was switched to K -the patient has been going to the wound care clinic. She did miss some days going to the wound care clinic. Wound care ordered. (4) Major depressive disorder, recurrent, moderate: Code(s): F33.1 - Major depressive disorder, recurrent, moderate Status: Acute Assessment and Plan: -continue with the sertraline (5) Morbid obesity due to excess calories: Code(s): E66.01 - Morbid (severe) obesity due to excess calories Status: Acute Assessment and Plan: Caloric restriction. Heart healthy diet Referral to obesity medicine as an outpatient at the time of discharge (6) Elevated cholesterol with high triglycerides: Code(s): E78.2 - Mixed hyperlipidemia Status: Acute Assessment and Plan: Continue with simvastatin and fenofibrate (7) Benign reactive hypertension: Code(s): I10 - Essential (primary) hypertension Status: Acute Assessment and Plan: -continue with losartan and Coreg. Time Spent With Patient Time with patient: 15 - 25 minutes Subjective Date/time seen: 12/23/22 11:48 Interval history: Patient was seen examined at the bedside. She was seated at the side of the bed. She was on oxygen 2 L per nasal cannula. She denies any complaint. She feels weak and requires physical therapy. Review of Systems Review of Systems: All systems reviewed & are unremarkable except as noted in HPI and below Constitutional: Constitutional: Reports as per HPI and Reports no additional constitutional complaints Eyes: Eyes: Reports as per HPI and Reports no additional eye complaints ENT: Reports system reviewed and no additional complaints, except as documented and Reports Normal hearing present Cardiovascular: Cardiovascular: Reports no additional cardiovascular complaints Respiratory: Respiratory: Reports no additional respiratory complaints and Reports no additional respiratory complaints Gastrointestinal: Gastrointestinal: Reports as per HPI and Reports no additional gastrointestinal complaints Musculoskeletal: Musculoskeletal: Reports no additional musculoskeletal complaints Integumentary/Breasts: Skin/Breast: Reports system reviewed and no additional complaints, except as docu and Reports as per HPI Neurologic: Reports system reviewed and no additional complaints, except as documented, Reports as per HPI and Reports Normal hearing present Psychiatric: Psychiatric: Reports no additional psychiatric complaints and Reports as per HPI Endocrine: Endocrine: Reports no additional endocrine complaints Hematologic/Lymphatic: Hematologic/Lymphatic: Reports no additional hematologic/lym
--- NOTE | 2022-09-15 16:17 | PM.PNCARD ---
Progress Note: A&P Assessment and Plan (1) CHF (congestive heart failure): Code(s): I50.9 - Heart failure, unspecified Status: Acute Plan this is a 72-year-old lady with chronic morbid obesity and edema came into the hospital with some shortness of breath some volume overload not much evidence of pulmonary congestion on exam or by admitting chest x-ray. There is really not much history that this lady has any serious cardiac pathology. She tells me today during this appointment that she has had over the years evaluations in the radiographer cardiac catheterization at several institutions as I mentioned above all with normal results. For some reason another echocardiogram was ordered and I will look at that when I am done making rounds today. At this point I would simply recommend continuing furosemide intravenously to improve her edema. There is no need for additional cardiac workup as she has undergone thorough evaluation a number of occasions. Obviously weight loss would be of great benefit Singh Mojica MD [facility] Subjective Date/time seen: date of service:09/15/22 16:17 Interval history: Follow-up visit in this 72-year-old lady with: Chronic morbid obesity presenting to the hospital with cough dyspnea and fluid volume overload. Seen in consultation by my partner yesterday loop diuretics have been ordered. Patient is receiving both furosemide as well as hydrochlorothiazide according to the record. The patient has no history of serious cardiac pathology she has a history of chronic dyspnea which has been attributed to her obesity and has had evaluations by 3 cardiologists over the years including catheterizations being done and [facility] and here at [facility] about 2 years ago. All of the studies have demonstrated no evidence of coronary disease and good left ventricular function. She states today that she is improving since admission her edema is responding to diuresis and she does not have any other complaints this evening. Exam Const: General: comfortable and no acute distress Other: Very pleasant morbidly obese lady HENMT: Mouth: Yes moist mucous membranes Eyes: Sclera: sclerae normal Pupils: Equal, round and reactive pupils present Neck: Neck: supple Other: not able to assess JVD given her body habitus Resp: Effort & Inspection: normal respiratory effort Auscultation: clear to auscultation bilaterally Other: breath sounds are distant because of her size but otherwise clear in both lung ruiz Cardio: Rate: regular rate Rhythm: regular rhythm Other: PMI is not palpable no audible murmur or gallop GI: GI Palp: Yes Soft to palpation Auscultation: normal bowel sounds Skin: General skin exam: normal color Neuro: Other: alert and oriented x3 Extrem: Other: chronic appearing pitting edema to the legs bilaterally moderate Objective Data Vital Signs Vital Signs: Vital Signs - 24 hr 09/14/22 20:41 09/14/22 20:00 09/14/22 22:00 Temperature 36.0 C L Pulse Rate 84 69 Respiratory Rate 18 Blood Pressure 116/68 Pulse Oximetry 96 93 Oxygen Delivery Nasal Cannula Oxygen Flow Rate 2 09/15/22 00:00 09/15/22 04:00 09/15/22 06:00 Temperature 37.3 C Pulse Rate 67 63 79 Respiratory Rate 20 Blood Pressure 160/70 H Pulse Oximetry 96 Oxygen Delivery Oxygen Flow Rate 09/15/22 08:42 09/15/22 08:40 09/15/22 08:00 Temperature Pulse Rate 79 75 Respiratory Rate Blood Pressure Pulse Oximetry Oxygen Delivery Room Air Oxygen Flow Rate 09/15/22 12:00 09/15/22 14:00 Temperature 36.6 C Pulse Rate 72 75 Respiratory Rate 20 Blood Pressure 128/66 Pulse Oximetry 96 Oxygen Delivery Oxygen Flow Rate Intake/Output Intake/Output: Intake & Output 09/12/22 09/13/22 09/14/22 09/15/22 23:59 23:59 23:59 23:59 Intake Total 50 2020 1700 Output Total 1500 Balance 50 520 1700 Meds/Results Medications: Active Medic
[2022-09-15] MEDS: levoFLOXacin 750 MG TABLET PO (16:58)
[2022-09-15] MEDS: FUROSEMIDE 80 MG TABLET PO (16:58)
[2022-09-15] MEDS: CEPHALEXIN 500 MG CAPSULE PO (17:00)
[2022-09-15] MEDS: ASPIRIN 81 MG ENTERIC TABLET PO (21:46)
[2022-09-15] MEDS: SIMVASTATIN 20 MG TABLET 40 MG PO (21:46)
[2022-09-16] VITALS (12 sets, daily range): BP systolic 105–132; BP diastolic 58–90; PULSE 65–80; RESP 19–22; TEMP 36.2–36.8; O2SAT 92–97
[2022-09-16] MEDS: CEPHALEXIN 500 MG CAPSULE PO ×2 (01:09→06:26)
--- NOTE | 2022-09-16 09:35 | PM.IMPN ---
Progress Note: A&P Assessment and Plan (1) Acute respiratory failure with hypoxia: Code(s): J96.01 - Acute respiratory failure with hypoxia Status: Acute Assessment and Plan: -the patient does not use any oxygen at home. She is currently placed on 2 L per nasal cannula. Continue oxygen supplementation. -Home O2 evaluation by respiratory therapy. -patient has moderate pulmonary edema pattern. - Resume Lasix 40 mg IV b.i.d... (2) CHF (congestive heart failure): Code(s): I50.9 - Heart failure, unspecified Status: Acute Assessment and Plan: Heart failure with preserved ejection fraction EF 55-60%. -patient was started with IV Lasix and potassium supplement. -due to lack of access she was switched to Lasix 80 mg p.o. b.i.d. -potassium was supplemented. - Resume IV Lasix 40 mg p.o. b.i.d.. Continue with Coreg Continue with hydrochlorothiazide Continue to monitor electrolytes (3) Recurrent cellulitis of lower extremity: Code(s): L03.119 - Cellulitis of unspecified part of limb Status: Acute Assessment and Plan: Patient was originally started on Ancef. Blood culture with Gram-positive coccal in chains. No IV access available today patient was switched to K -Resume IV ancef. -the patient has been going to the wound care clinic. She did miss some days going to the wound care clinic. Wound care ordered. (4) Major depressive disorder, recurrent, moderate: Code(s): F33.1 - Major depressive disorder, recurrent, moderate Status: Acute Assessment and Plan: -continue with the sertraline (5) Morbid obesity due to excess calories: Code(s): E66.01 - Morbid (severe) obesity due to excess calories Status: Acute Assessment and Plan: Caloric restriction. Heart healthy diet Referral to obesity medicine as an outpatient at the time of discharge (6) Elevated cholesterol with high triglycerides: Code(s): E78.2 - Mixed hyperlipidemia Status: Acute Assessment and Plan: Continue with simvastatin and fenofibrate (7) Benign reactive hypertension: Code(s): I10 - Essential (primary) hypertension Status: Acute Assessment and Plan: -continue with losartan and Coreg. Time Spent With Patient Time with patient: 15 - 25 minutes Subjective Date/time seen: 12/24/22 09:35 Interval history: Patient was seen examined at the bedside. She was seated at the side of the bed. She was on oxygen 2 L per nasal cannula. She denies any complaint. She feels weak and requires physical therapy. Review of Systems Review of Systems: All systems reviewed & are unremarkable except as noted in HPI and below Constitutional: Constitutional: Reports as per HPI and Reports no additional constitutional complaints Eyes: Eyes: Reports as per HPI and Reports no additional eye complaints ENT: Reports system reviewed and no additional complaints, except as documented and Reports Normal hearing present Cardiovascular: Cardiovascular: Reports no additional cardiovascular complaints Respiratory: Respiratory: Reports no additional respiratory complaints and Reports no additional respiratory complaints Gastrointestinal: Gastrointestinal: Reports as per HPI and Reports no additional gastrointestinal complaints Musculoskeletal: Musculoskeletal: Reports no additional musculoskeletal complaints Integumentary/Breasts: Skin/Breast: Reports system reviewed and no additional complaints, except as docu and Reports as per HPI Neurologic: Reports system reviewed and no additional complaints, except as documented, Reports as per HPI and Reports Normal hearing present Psychiatric: Psychiatric: Reports no additional psychiatric complaints and Reports as per HPI Endocrine: Endocrine: Reports no additional endocrine complaints Hematologic/Lymphatic: Hematologic/Lymphatic: Reports no additional hematologic/lymphatic complaints Allergic/Immunologic: All
[2022-09-16] MEDS: levoFLOXacin 750 MG TABLET PO (09:42)
[2022-09-16] MEDS: LOSARTAN POTASSIUM 100 MG TABLET BY MOUTH (09:43)
[2022-09-16] MEDS: POTASSIUM CHLORIDE 20 MEQ PACKET (FOR LIQUID) 40 MEQ PO (09:43)
[2022-09-16] MEDS: FUROSEMIDE 80 MG TABLET PO (09:43)
[2022-09-16] MEDS: ENOXAPARIN 40 MG/0.4 ML SYRINGE SUB-Q (09:43)
[2022-09-16] MEDS: FENOFIBRATE 160 MG TABLET PO (09:43)
[2022-09-16] MEDS: carvediloL 12.5 MG TABLET BY MOUTH ×2 (09:43→21:08)
[2022-09-16] MEDS: MULTIVITAMINS THERAPEUTIC TAB (*BKC) 1 TABLET PO (09:43)
[2022-09-16] MEDS: SERTRALINE HCL 50 MG TABLET BY MOUTH ×2 (09:43→16:11)
[2022-09-16] MEDS: TOLNAFTATE 1% POWDER 45 GM BTL 1 APPLIC TOPICAL ×2 (09:44→21:09)
[2022-09-16] MEDS: SILVERGEL (ELTA) 45 ML 1 APPLIC TOPICAL (09:44)
[2022-09-16 10:40] LABS: Hematocrit 45.8 % (37.0-47.0); Hemoglobin 13.5 g/dL (12.0-15.0); Mean Corpuscular HGB Conc 29.5 g/dl (32-36); Mean Corpuscular Hemoglobin 27.4 pg (26-34); Mean Corpuscular Volume 92.9 fl (80-100); Platelet Count Result 212 k/mm3 (150-375); Red Blood Count 4.93 M/mm3 (4.2-5.4); Red Cell Distribution Width 14.5 % (11.5-14.5); White Blood Count 8.2 K/mm3 (4.5-10.0)
[2022-09-16 10:51] LABS: Anion Gap 4 mmol/L (8-16); Blood Urea Nitrogen 27 mg/dL (7-17); Calcium 8.7 mg/dL (8.4-10.2); Carbon Dioxide 38 mmol/L (22-30); Chloride 97 mmol/L (98-107); Estimated CRCL calculation 80 ml/min; Estimated Glomerular Filt Rate > 60; Glucose 95 mg/dL (65-110); Sodium 139 mmol/L (137-145)
[2022-09-16] MEDS: FUROSEMIDE INJ 40 MG/4 ML VIAL IV PUSH ×2 (11:12→16:11)
[2022-09-16] MEDS: SIMVASTATIN 20 MG TABLET 40 MG PO (21:08)
[2022-09-16] MEDS: ASPIRIN 81 MG ENTERIC TABLET PO (21:08)
[2022-09-17] VITALS (12 sets, daily range): BP systolic 123–127; BP diastolic 50–64; PULSE 60–79; RESP 20–22; TEMP 36.4–36.8; O2SAT 83–98
[2022-09-17 07:05] LABS: Hemoglobin 12.8 g/dL (12.0-15.0); Mean Corpuscular HGB Conc 29.1 g/dl (32-36); Mean Corpuscular Hemoglobin 27.5 pg (26-34); Mean Corpuscular Volume 94.6 fl (80-100); Mean Platelet Volume 8.1 fl (7.4-10.4); Platelet Count Result 161 k/mm3 (150-375); Red Blood Count 4.65 M/mm3 (4.2-5.4); Red Cell Distribution Width 14.4 % (11.5-14.5)
[2022-09-17 07:21] LABS: Blood Urea Nitrogen 30 mg/dL (7-17); Calcium 8.2 mg/dL (8.4-10.2); Carbon Dioxide > 40 mmol/L (22-30); Chloride 95 mmol/L (98-107); Estimated CRCL calculation 79 ml/min; Estimated Glomerular Filt Rate > 60; Glucose 99 mg/dL (65-110); Potassium 3.9 mmol/L (3.4-5.0); Sodium 140 mmol/L (137-145)
[2022-09-17] MEDS: carvediloL 12.5 MG TABLET BY MOUTH ×2 (09:42→20:37)
[2022-09-17] MEDS: SERTRALINE HCL 50 MG TABLET BY MOUTH ×2 (09:42→16:17)
[2022-09-17] MEDS: TOLNAFTATE 1% POWDER 45 GM BTL 1 APPLIC TOPICAL ×2 (09:43→20:45)
[2022-09-17] MEDS: FENOFIBRATE 160 MG TABLET PO (09:43)
[2022-09-17] MEDS: FUROSEMIDE INJ 40 MG/4 ML VIAL IV PUSH ×2 (09:43→16:17)
[2022-09-17] MEDS: SILVERGEL (ELTA) 45 ML 1 APPLIC TOPICAL (09:43)
[2022-09-17] MEDS: LOSARTAN POTASSIUM 100 MG TABLET BY MOUTH (09:43)
[2022-09-17] MEDS: POTASSIUM CHLORIDE 20 MEQ PACKET (FOR LIQUID) 40 MEQ PO (09:43)
[2022-09-17] MEDS: ENOXAPARIN 40 MG/0.4 ML SYRINGE SUB-Q (09:43)
[2022-09-17] MEDS: MULTIVITAMINS THERAPEUTIC TAB (*BKC) 1 TABLET PO (09:43)
--- NOTE | 2022-09-17 13:37 | PM.IMPN ---
Progress Note: A&P Assessment and Plan (1) Acute respiratory failure with hypoxia: Code(s): J96.01 - Acute respiratory failure with hypoxia Status: Acute Assessment and Plan: -the patient does not use any oxygen at home. She is currently placed on 2 L per nasal cannula. Continue oxygen supplementation. -Home O2 evaluation by respiratory therapy. -patient has moderate pulmonary edema pattern. - Resume Lasix 40 mg IV b.i.d... (2) CHF (congestive heart failure): Code(s): I50.9 - Heart failure, unspecified Status: Acute Assessment and Plan: Heart failure with preserved ejection fraction EF 55-60%. -patient was started with IV Lasix and potassium supplement. -due to lack of access she was switched to Lasix 80 mg p.o. b.i.d. -potassium was supplemented. - Resume IV Lasix 40 mg p.o. b.i.d.. Continue with Coreg Continue with hydrochlorothiazide Continue to monitor electrolytes (3) Recurrent cellulitis of lower extremity: Code(s): L03.119 - Cellulitis of unspecified part of limb Status: Acute Assessment and Plan: Patient was originally started on Ancef. Blood culture with Gram-positive coccal in chains. No IV access available today patient was switched to K -Resume IV ancef. -the patient has been going to the wound care clinic. She did miss some days going to the wound care clinic. Wound care ordered. (4) Major depressive disorder, recurrent, moderate: Code(s): F33.1 - Major depressive disorder, recurrent, moderate Status: Acute Assessment and Plan: -continue with the sertraline (5) Morbid obesity due to excess calories: Code(s): E66.01 - Morbid (severe) obesity due to excess calories Status: Acute Assessment and Plan: Caloric restriction. Heart healthy diet Referral to obesity medicine as an outpatient at the time of discharge (6) Elevated cholesterol with high triglycerides: Code(s): E78.2 - Mixed hyperlipidemia Status: Acute Assessment and Plan: Continue with simvastatin and fenofibrate (7) Benign reactive hypertension: Code(s): I10 - Essential (primary) hypertension Status: Acute Assessment and Plan: -continue with losartan and Coreg. Subjective Date/time seen: 09/17/22 13:37 No new complaints Exam Const: General: cooperative, healthy appearing, comfortable, no acute distress, well developed, alert, awake, Physically active and obese Nutritional Appearance: obese Orientation/consciousness: oriented to person, oriented to place, oriented to time and patient oriented x3 Limitations: no limitations HENMT: Head: normal to inspection, No palpable skull fracture present, normocephalic and atraumatic Ears: hearing grossly normal bilaterally and external ears normal Face/Nose/Sinus: Normal external nose present and Normal nares present Eyes: General: appearance normal, both eyes and all related structures Alignment and Position: alignment normal Periorbital: periorbital findings normal Eyelids: eyelids normal Sclera: sclerae normal Pupils: Equal, round and reactive pupils present EOM: EOMs intact bilaterally Neck: Neck: normal visual inspection, full ROM, no lymphadenopathy, trachea midline and supple Other: Wide neck girth Chest: Chest palpation & inspection: normal inspection of the chest Resp: Effort & Inspection: normal respiratory effort Cardio: Palpation: normal PMI Rate: regular rate Rhythm: regular rhythm Heart sounds: S1 normal heart sound present and S2 normal heart sound present Peripheral pulses: Peripheral pulses 2+ throughout GI: Inspection: normal to inspection Auscultation: normal bowel sounds Rectal Exam: deferred Other: Large pannus Back/Spine/Pelvis: Cervical Spine: cervical ROM normal Skin: General skin exam: normal color and wounds noted Lesions: no lesions Rashes: no rashes Trauma: no lacerations or abrasions Wounds: wounds noted Hair: nor
[2022-09-17] MEDS: ASPIRIN 81 MG ENTERIC TABLET PO (20:36)
[2022-09-17] MEDS: SIMVASTATIN 20 MG TABLET 40 MG PO (20:37)
[2022-09-18] VITALS (11 sets, daily range): BP systolic 121–146; BP diastolic 67–116; PULSE 64–88; RESP 18; TEMP 36.3–36.5; O2SAT 84–98
[2022-09-18] MEDS: ALENDRONATE SODIUM 35 MG TABLET BY MOUTH (05:46)
[2022-09-18 07:24] LABS: Hematocrit 45.9 % (37.0-47.0); Hemoglobin 13.6 g/dL (12.0-15.0); Mean Corpuscular HGB Conc 29.6 g/dl (32-36); Mean Corpuscular Hemoglobin 27.3 pg (26-34); Platelet Count Result 182 k/mm3 (150-375); Red Blood Count 4.99 M/mm3 (4.2-5.4); Red Cell Distribution Width 14.1 % (11.5-14.5); White Blood Count 4.7 K/mm3 (4.5-10.0)
[2022-09-18 07:36] LABS: Blood Urea Nitrogen 29 mg/dL (7-17); Calcium 8.7 mg/dL (8.4-10.2); Carbon Dioxide > 40 mmol/L (22-30); Chloride 92 mmol/L (98-107); Estimated CRCL calculation 79 ml/min; Estimated Glomerular Filt Rate > 60; Glucose 97 mg/dL (65-110); Potassium 4.2 mmol/L (3.4-5.0); Sodium 138 mmol/L (137-145)
[2022-09-18] MEDS: POTASSIUM CHLORIDE 20 MEQ PACKET (FOR LIQUID) 40 MEQ PO (08:42)
[2022-09-18] MEDS: SERTRALINE HCL 50 MG TABLET BY MOUTH (08:42)
[2022-09-18] MEDS: MULTIVITAMINS THERAPEUTIC TAB (*BKC) 1 TABLET PO (08:42)
[2022-09-18] MEDS: FENOFIBRATE 160 MG TABLET PO (08:42)
[2022-09-18] MEDS: LOSARTAN POTASSIUM 100 MG TABLET BY MOUTH (08:42)
[2022-09-18] MEDS: carvediloL 12.5 MG TABLET BY MOUTH (08:42)
[2022-09-18] MEDS: TOLNAFTATE 1% POWDER 45 GM BTL 1 APPLIC TOPICAL (08:43)
[2022-09-18] MEDS: SILVERGEL (ELTA) 45 ML 1 APPLIC TOPICAL (08:43)
[2022-09-18] MEDS: ENOXAPARIN 40 MG/0.4 ML SYRINGE SUB-Q (08:43)
--- NOTE | 2022-09-18 10:58 | PC.NURSE ---
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 Called and talked to Dr Reeves and he said we can leave the IV out because he will be discharging.
--- NOTE | 2022-09-18 12:16 | PM.DS ---
DS: Admitting Diagnosis Discharge Date September 18, 2022 Admitting Diagnosis Pneumonia, cellulitis DS: Discharge Diagnosis Discharge Diagnosis (1) Acute respiratory failure with hypoxia: Code(s): J96.01 - Acute respiratory failure with hypoxia Status: Acute Assessment and Plan: -the patient does not use any oxygen at home. She is currently placed on 2 L per nasal cannula. Continue oxygen supplementation. -Home O2 evaluation by respiratory therapy. (2) CHF (congestive heart failure): Code(s): I50.9 - Heart failure, unspecified Status: Acute Assessment and Plan: Heart failure with preserved ejection fraction EF 55-60%. -patient was started with IV Lasix and potassium supplement. -due to lack of access she was switched to Lasix 80 mg p.o. b.i.d. -potassium was supplemented. - Resume IV Lasix 40 mg p.o. b.i.d.. Continue with Coreg -adjust dose for blood pressure Continue with hydrochlorothiazide Continue to monitor electrolytes (3) Recurrent cellulitis of lower extremity: Code(s): L03.119 - Cellulitis of unspecified part of limb Status: Acute Assessment and Plan: Patient was originally started on Ancef. Blood culture with Gram-positive coccal in chains. No IV access available today patient was switched to K -Resume IV ancef. -the patient has been going to the wound care clinic. She did miss some days going to the wound care clinic. Wound care ordered. (4) Major depressive disorder, recurrent, moderate: Code(s): F33.1 - Major depressive disorder, recurrent, moderate Status: Acute Assessment and Plan: -continue with the sertraline (5) Morbid obesity due to excess calories: Code(s): E66.01 - Morbid (severe) obesity due to excess calories Status: Acute Assessment and Plan: Caloric restriction. Heart healthy diet Referral to obesity medicine as an outpatient at the time of discharge (6) Elevated cholesterol with high triglycerides: Code(s): E78.2 - Mixed hyperlipidemia Status: Acute Assessment and Plan: Continue with simvastatin and fenofibrate (7) Benign reactive hypertension: Code(s): I10 - Essential (primary) hypertension Status: Acute Assessment and Plan: -continue with losartan and Coreg. DS: Summary Hospital Course Hospital Course: Patient is a 72-year-old female who has a history of diastolic CHF. She came in with shortness of breath was found to have pneumonia on chest x-ray. She was started on antibiotics and improved. She was also giving increasing dose of Lasix to help with some volume overloaded. Patient may need oxygen at baseline. We will have her evaluated for home O2. Otherwise she will resume a cardiac regimen and we increased her carvedilol and hospitalization with blood pressure control. Otherwise patient has no chest pain she reports her breathing is back to normal she can be discharged home. She will be discharged on Levaquin for her pneumonia and also Levaquin for a cellulitis in her lower extremity. She will follow with wound care for this. Time Spent with Patient Time attestation: Total time spent providing and/or coordinating discharge services: Exam Const: General: cooperative, healthy appearing, comfortable, no acute distress, well developed, alert, awake, Physically active and obese Nutritional Appearance: obese Orientation/consciousness: oriented to person, oriented to place, oriented to time and patient oriented x3 Limitations: no limitations HENMT: Head: normal to inspection, No palpable skull fracture present, normocephalic and atraumatic Ears: hearing grossly normal bilaterally and external ears normal Face/Nose/Sinus: Normal external nose present and Normal nares present Eyes: General: appearance normal, both eyes and all related structures Alignment and Position: alignment normal Periorbital: periorbital findings normal Eyelids: eyelids no
--- NOTE | 2022-09-18 13:26 | HOMEO2EVAL ---
Evaluation was performed at [facility] Home Oxygen Evaluation RC: Home Oxygen (O2) Evaluation Start: 09/18/22 12:13 Freq: ONCE Status: Active Protocol: RPE Activity Type Activity Date Activity User E-sign Co-sign Detail Recorded Client Recorded Date Recorded By Document 09/18/22 12:40 ALEXA [email or web address] 09/18/22 13:09 ALEXA Document 09/18/22 12:45 ALEXA [email or web address] 09/18/22 13:10 ALEXA Document 09/18/22 12:50 ALEXA [email or web address] 09/18/22 13:11 ALEXA Document 09/18/22 12:55 ALEXA [email or web address] 09/18/22 13:12 ALEXA Document 09/18/22 13:00 ALEXA [email or web address] 09/18/22 13:13 ALEXA 09/18/22 09/18/22 09/18/22 12:40 12:45 12:50 Home O2 Evaluation [Oxygen] -Test Phase Resting Exercise Exercise -Oxygen Delivery Room Air Nasal Cannula Nasal Cannula -Oxygen Flow Rate (L/min) 1 2 [Pulse Oximetry] -Pulse Oximetry (90-100 %) 84 L 87 L 91 [Pulse Rate] -Pulse Rate (60-100 beats/min) 68 75 82 [Evaluation] -Activity Tolerance Good Good [Exercise] -Ambulation Distance (feet) 15 15 -Ambulation Distance (meters) 4.57 4.57 [Charges] -Treatment Charges O2 Evaluation - Inpatient 09/18/22 09/18/22 12:55 13:00 Home O2 Evaluation [Oxygen] -Test Phase Exercise Resting -Oxygen Delivery Nasal Cannula Nasal Cannula -Oxygen Flow Rate (L/min) 2 2 [Pulse Oximetry] -Pulse Oximetry (90-100 %) 92 94 [Pulse Rate] -Pulse Rate (60-100 beats/min) 88 80 [Evaluation] -Activity Tolerance Good [Exercise] -Ambulation Distance (feet) 15 -Ambulation Distance (meters) 4.57 [Charges] -Treatment Charges
--- NOTE | 2022-09-18 14:21 | PCRCNOTE ---
Patient requires 2L O2 continuously. Patient has been set up with [facility] [place] #: [phone]. Tank is in patients room
== END 2022-09-18 16:25 | disposition home or self-care (01) | DRG 291 ==
LOC: ANHED 16:09 → ANH3MEDSUR 17:51
PROVIDERS: Internal Medicine; Nurse Practitioner; Admitting Provider Internal Medicine; Emergency Provider Emergency Medicine; PCP Family Medicine; Visit Provider Chiropractor
DX: I11.0 Hypertensive heart disease with heart failure (principal); I50.33 Acute on chronic diastolic (congestive) heart failure; J18.9 Pneumonia, unspecified organism; J96.01 Acute respiratory failure with hypoxia; F33.1 Major depressive disorder, recurrent, moderate; Z68.42 Body mass index [BMI] 45.0-49.9, adult; L03.116 Cellulitis of left lower limb; E66.01 Morbid (severe) obesity due to excess calories; E78.2 Mixed hyperlipidemia; Z20.822 Contact with and (suspected) exposure to COVID-19; Z79.899 Other long term (current) drug therapy; Z79.82 Long term (current) use of aspirin; Z83.3 Family history of diabetes mellitus; Z82.49 Family history of ischemic heart disease and other diseases of the circulatory system
CPT/HCPCS: 36415; 71045; 71046; 71250; 80048; 80053; 83605; 83735; 83880; 84443; 84484; 85025; 85027; 87040; 87070; 87077; 87186; 87205; 87637; 93005; 93970; 94618; 94762; 96365; 96372; 96375; 96376; 97161; 99291; A9270; C8929; G0378; J0690; J1650; J1940; J1956; Q9957

== ENCOUNTER 2022-10-13 07:31 | Outpatient (RCR) | payer MEDICARE, OTHER, SELFPAY ==
[2022-07-27 10:23] VITALS: BMI 50.9
--- NOTE | 2022-08-31 12:04 | PCWOUND ---
CWON NOTE patient cancelled appointment for today due to having a cold. Patient to return on Sunday09/04/22 at 12:30PM
--- NOTE | 2022-09-07 13:14 | PCWOUND ---
wocn note patient cancelled due to illness.
--- NOTE | 2022-09-28 12:28 | PCWOUND ---
WOCN NOTE patient called to cancel appointment, states the oxygen people had not arrived to her house yet. Rescheduled for Sunday10/02/22 at 1230
== END 2022-10-25 23:59 | disposition home or self-care (01) ==
LOC: ANHWOC 07:31
PROVIDERS: PCP Family Medicine; Visit Provider Physician Assistant
DX: L03.119 Cellulitis of unspecified part of limb (principal)
CPT/HCPCS: 29581; 99213; A9270; G0463

== ENCOUNTER 2022-10-20 11:05 | Outpatient (CLI) | payer MEDICARE, OTHER, SELFPAY ==
--- NOTE | ~2022-10-20 | MR_ITS ---
EXAMINATION: MR abdomen wo/w con INDICATION: Adrenal mass TECHNIQUE: Coronal SSFSE ARC, WATER:coronal LAVA-FLEX, Coronal 2D FIESTA FatSat, Axial SSFSE BH ARC, axial and coronal 3D DualEcho BH, Axial SSFSE-IR, Axial DWI b=500, Axial 2D FIESTA FatSat, pre and dy namic postcontrast Axial LAVA ARC, postcontrast Coronal In and Opposed phase LAVA FLEX COMPARISON: CT, 09/15/2022 CONTRAST: Multihance, 20 cc FINDINGS: Motion artifact significantly limits multiple sequences. There is a 2.4 cm mass in the righ t adrenal gland which demonstrates loss of signal intensity on opposed phase imaging, consistent with an adenoma. The liver, spleen, pancreas, gallbladder, and left adrenal gland are normal. Cysts of th e kidneys measure up to 11 mm on the right. There are no pathologically enlarged abdominal lymph node s. No abnormal enhancement is present after contrast administration. There are no dilated loops of kerry wel. IMPRESSION: 1. Right adrenal adenoma corresponding to the mass in question on recent CT. Reviewed, dictated and finalized at location L. [facility]
== END 2022-10-20 11:06 | disposition home or self-care (01) ==
PROVIDERS: PCP Family Medicine; Visit Provider Nurse Practitioner Gerontology
DX: E27.9 Disorder of adrenal gland, unspecified (principal); R93.5 Abnormal findings on diagnostic imaging of other abdominal regions, including retroperitoneum; D35.01 Benign neoplasm of right adrenal gland
CPT/HCPCS: 74183; A9577

== ENCOUNTER 2022-11-21 14:33 | Outpatient (CLI) | payer MEDICARE, OTHER, SELFPAY ==
[2022-11-21 14:50] VITALS: PULSE 96; O2SAT 89
[2022-11-21 14:52] VITALS: PULSE 128; O2SAT 85
[2022-11-21 14:53] VITALS: O2SAT 88
[2022-11-21 14:55] VITALS: O2SAT 89
[2022-11-21 14:56] LABS: Alveolar/Arterial O2 Gradient 34.2 mmHg; Base Excess ABG 6.3 mEq/l (+/-2.0); Carboxyhemoglobin 0.5 % THb (0-2.0); Device ROOM AIR; Fractional Inspired Oxygen 21 %; Methemoglobin ABG 0.1 %THb (0-1.5); Modified Allen's Test Pass; Oxygen Content ABG 17.9 %vol (16.0-22.0); Oxygen Saturation ABG 89.6 % (95.0-100.0); Oxyhemoglobin 89.2 % THb (90.0-100.0); PCO2 ABG 49.6 mmHg (35.0-45.0); PO2 ABG 56.1 mmHg (80.0-100.0); PO2 FiO2 Ratio Arterial Blood 2.67 %; Reduced Hemoglobin 10.2 %THb (0-5.0); Total Hemoglobin 14.3 g/dL (12.0-18.0); pH ABG 7.427 (7.350-7.450)
[2022-11-21 15:00] VITALS: O2SAT 89
--- NOTE | 2022-11-21 15:47 | HOMEO2EVAL ---
Evaluation was performed at [facility] Home Oxygen Evaluation RC: Home Oxygen (O2) Evaluation Start: 11/21/22 15:45 Freq: Status: Active Protocol: RPE Activity Type Activity Date Activity User E-sign Co-sign Detail Recorded Client Recorded Date Recorded By Document 11/21/22 14:50 HERNAN [email or web address] 11/21/22 15:47 HERNAN Document 11/21/22 14:52 HERNAN [email or web address] 11/21/22 15:47 HERNAN Document 11/21/22 14:53 HERNAN [email or web address] 11/21/22 15:47 HERNAN Document 11/21/22 14:55 HERNAN [email or web address] 11/21/22 15:47 HERNAN Document 11/21/22 15:00 HERNAN [email or web address] 11/21/22 15:47 HERNAN 11/21/22 11/21/22 11/21/22 14:50 14:52 14:53 Home O2 Evaluation [Oxygen] -Test Phase Resting Exercise Exercise -Oxygen Delivery Room Air Room Air Nasal Cannula -Oxygen Flow Rate (L/min) 2 [Pulse Oximetry] -Pulse Oximetry (90-100 %) 89 L 85 L 88 L [Pulse Rate] -Pulse Rate (60-100 beats/min) 96 128 H [Comments] -Home Oxygen Evaluation Comments [Charges] -Treatment Charges O2 Evaluation - Outpatient 11/21/22 11/21/22 14:55 15:00 Home O2 Evaluation [Oxygen] -Test Phase Exercise Resting -Oxygen Delivery Nasal Cannula Room Air -Oxygen Flow Rate (L/min) 3 [Pulse Oximetry] -Pulse Oximetry (90-100 %) 89 L 89 L [Pulse Rate] -Pulse Rate (60-100 beats/min) [Comments] -Home Oxygen Evaluation Comments PT REQUIRES 3 L WITH ACTIVITY [Charges] -Treatment Charges
--- NOTE | 2022-11-27 22:42 | P.PCNPFT_ITS ---
PFT Procedure Performed PFT Procedure Performed Spirometry with Pre/Post Bronchodilator Plethysmography (Lung Vol) Diffusing Cap (DLCO) Flow Vol Loop PFT Interpretation DOS: 11/21/2022 REQUESTING: Soham Michael APRN REASON FOR TESTING: Respiratory failure with hypoxia PULMONARY FUNCTION TESTS Results are reliable and reproducible. Spirometry: Pre-bronchodilator FEV1 is 1.20 L, 55%, reduced. Pre- bronchodilator FVC is 1.74 L, 62%, reduced. the slow vital capacity measured with the lung volumes shows a value of 2.24 L, 79%, normal. The slow vital capacity is significantly larger than the forced vital capacity. This difference demonstrates dynamic airflow obstruction. FEV1/ Slow VC is 48%, decreased, consistent with airflow obstruction. After bronchodilator, there is a 28% increase in the FEV1, 1.53 L, 70% predicted. There is a 20% increase in the FVC, 2.09 L, 74%. The FEV1 / FVC ratio is 73%, normal. These increases are robust, greater than 12% and greater than 200 mL. Lung volumes: Total lung capacity 4.23 L, 83% predicted, normal. Residual volume is 1.99 L, 90%, normal. RV/TLC % is 47%, normal. Raw 73%. Diffusion: DLCO is 17.5, 86%, normal. DLCO/VA is 4.84, 113%, normal. Flow volume loop: There is a concave pattern in the expiratory limb. IMPRESSION: There is a moderate obstructive ventilatory impairment with good response to bronchodilator, normal lung volumes, normal diffusion. No prior studies are available to compare. Maegan Engle MD
== END 2022-11-21 14:34 | disposition home or self-care (01) ==
LOC: ANHPFT 14:35
PROVIDERS: PCP Family Medicine; Visit Provider Nurse Practitioner Family
DX: J96.01 Acute respiratory failure with hypoxia (principal); E66.2 Morbid (severe) obesity with alveolar hypoventilation; R94.2 Abnormal results of pulmonary function studies
CPT/HCPCS: 36600; 82375; 82805; 83050; 94060; 94618; 94726; 94729

== ENCOUNTER 2022-11-23 08:45 | Outpatient (CLI) | payer MEDICARE, OTHER, SELFPAY ==
--- NOTE | 2022-12-18 18:58 | WPDSLEEPSTUD ---
Sleep Study Date of Study: 11/23/22 Ordering Provider: Soham Michael APRN Interpreting Physician: Maegan Engle MD Sleep Study Type: Split Polysomnogram Height: 1.65 m Weight: 143.335 kg Body Mass Index: 52.5 Neck Circumference (inches): 16 [place]: 4 Reason for Sleep Study Obstructive sleep apnea, home sleep test 03/09/2022 through [facility] showing mild obstructive sleep apnea, AHI 9.9, average saturation 86%, lowest desaturation 55% and 192 minute spent below 88%. Sleep History Kelly Atkinson is a 72-year-old female with congestive heart failure, hypertension, bipolar depression who has difficulty falling asleep and staying asleep. She had home sleep test 03/09/2022 with mild sleep apnea with severe hypoxemia. She did not ever get set up on CPAP. She has had adjustments in her carvedilol and Lasix as well as hydrochlorothiazide by her operator lights. She she wakes up during the night. She rarely awakens from sleep feeling short of breath. She rarely awakens at night with heartburn, belching or coughing. She frequently snores loudly enough that others complain about it. She rarely has trouble sleeping with a cold. She rarely wakes up gasping for breath at night. She occasionally has breathing problems at night observed by others. She rarely sweats excessively at night and rarely notices her heart pounding or beating irregularly at night. She rarely falls asleep during the day. She does not fall asleep involuntarily or while driving. She does not have loss of muscle tone with strong emotion. She does not have daytime difficulties due to excessive sleepiness. She does not feel paralyzed on waking or falling asleep. She frequently has vivid dreamlike scenes on waking or falling asleep. She does not feel afraid to go to sleep and does not have nightmares. She wakes twice at night to urinate. She does not have morning headaches. She props herself up with pillows at night. She has oxygen at home that she uses at 2 L around the clock. She does not use it and public because she feels self-conscious. The patient does not have nightmares. She occasionally remembers her dreams. She occasionally has racing thoughts. She occasionally feels sad, depressed or anxious. She rarely has muscular tension and rarely notices parts of her body jerking. She does not kick at night. She rarely has crawling and aching feelings in her legs. She rarely has any kind of leg pain at night. She rarely has morning jaw pain. She does not grind her teeth at night. She frequently is bothered by pain during the day. She occasionally is awakened by pain at night, occasionally wakes up feeling stiff in the morning with sore achy muscles and pain in the neck and spine. Normal bedtime is 11:00 p.m. falling asleep within 45 minutes waking once at night to urinate. She is able to return to sleep within 10-15 minutes. She wakes the morning at 6:00 a.m.. Weekend schedule is similar, goes to bed at midnight wakes at 6 in the morning. She takes naps 3 or 4 days out of the week. A short nap lasting 10 or 15 minutes may be refreshing. She feels better in the afternoon compared to other times of day. Habits: No tobacco. Caffeine 2 glasses of iced tea per day. No alcohol or recreational drugs. [facility] Past Medical History Medical History (Updated 12/18/22 @ 19:36 by Maegan Engle MD) Benign reactive hypertension CHF (congestive heart failure) CHF (NYHA class II, ACC/AHA stage C) Elevated cholesterol with high triglycerides Major depressive disorder, recurrent, moderate Morbid obesity due to excess calories Obstructive sleep apnea Surgical History Surgical History H/O arthroscopic knee surgery Right side H/O cardiac catheterization History of partial hysterectomy History of tonsillectomy and adenoidectomy S/P hip replacement Family History Family History (Reviewed 12/18/22 @
[2022-12-18 19:48] VITALS: BMI 52.5
== END 2022-11-24 08:40 | disposition home or self-care (01) ==
LOC: ANHCSM 09:00
PROVIDERS: PCP Family Medicine; Visit Provider Nurse Practitioner Family
DX: G47.33 Obstructive sleep apnea (adult) (pediatric) (principal); G47.34 Idiopathic sleep related nonobstructive alveolar hypoventilation; I47.29 Other ventricular tachycardia; I50.9 Heart failure, unspecified; I11.0 Hypertensive heart disease with heart failure; E66.01 Morbid (severe) obesity due to excess calories; Z68.43 Body mass index [BMI] 50.0-59.9, adult
CPT/HCPCS: 95811

== ENCOUNTER 2023-01-09 10:47 | Emergency (ER) | payer MEDICARE, OTHER, SELFPAY ==
[2023-01-09 11:04] VITALS: BP 118/52; PULSE 73; RESP 24; TEMP 36.6; O2SAT 92
--- NOTE | 2023-01-09 11:08 | ED.SKABFB ---
HPI - Skin/Abscess/Foreign Bdy General Chief complaint: Wound/Laceration Stated complaint: open wound on both legs Time Seen by Provider: 01/09/23 11:08 Source: patient Mode of arrival: ambulatory Limitations: no limitations History of Present Illness HPI narrative: 72 yo F with hx of CHF, morbidly obese presents with c/o celllulitis to bilatearl LEs starting about 10 days ago and getting progressively worse. Did not come sooner because she states she has a hard time getting around, can no longer drive herself and doens't have a lot of help at home . afebrile. Pt's O2 saturation on RA on arrival to [facility] was 67%. She is suppose to be wearing 2L O2 at all times but does not know how to use the portable oxygen when she leaves the house. She is gasping for air when talking. She had pneumonia in august and was intubated and states lungs never recovered and went home on oxygen . She has an appt with her PCP in 2 days. She use to see wound care for cellulitis but says it got better and they wouldnt see her anymore. She cannot get home care due to being a hoarder . She is unable to wrap her legs herself due to her obesity. all systems reviewed and negative except as noted above. Related Data Home Medications Medication Instructions Recorded Confirmed aspirin 81 mg tablet,delayed 81 mg PO HS 07/31/19 11/06/22 release (Aspir-) multivitamin 1 cap PO DAILY 11/13/19 11/06/22 Allergies Allergy/AdvReac Type Severity Reaction Status Date / Time No Known Allergies Allergy Verified 01/09/23 11:34 Review of Systems Review of Systems: CONSTITUTIONAL: Denies fever, chills, or sweats. EYES: Denies visual changes, redness, or discharge. ENT: Denies rhinorrhea, congestion, sore throat, or otalgia. CARDIOVASCULAR: Denies chest pain, palpitations, or edema. RESPIRATORY: Denies cough. Reports dyspnea. GASTROINTESTINAL: Denies abdominal pain, nausea, vomiting, or diarrhea. GENITOURINARY: Denies dysuria or hematuria. SKIN: reports erythema, weeping, swelling, pain to bilateral lower extremities. MUSCULOSKELETAL: Denies back pain, joint pain, or myalgia. NEUROLOGIC: Denies headache, numbness, or weakness. PSYCHIATRIC: Denies anxiety or depression. All other systems reviewed are negative, except as documented in HPI. [facility] Past Medical History Medical History (Updated 01/09/23 @ 11:38 by Arti Rand NP) Benign reactive hypertension CHF (congestive heart failure) CHF (NYHA class II, ACC/AHA stage C) Elevated cholesterol with high triglycerides Major depressive disorder, recurrent, moderate Morbid obesity due to excess calories Obstructive sleep apnea Surgical History Surgical History H/O arthroscopic knee surgery Right side H/O cardiac catheterization History of partial hysterectomy History of tonsillectomy and adenoidectomy S/P hip replacement Family History Family History Sibling Patient's brother is in good health Family history of diabetes mellitus in first degree relative Mother Family history of heart disease in male family member before age 55, Onset Age: 88 Patient's mother is Other Diabetes mellitus Family history of arthritis Hypertension Social History Social History Social History: The patient lives home alone and is Single. She has no biological children. She is a lifelong nonsmoker. 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 Code status full code Smoking status: Never smoker Second hand tobacco smoke exposure: No Alcohol intake: never Substance use: never Substance use type: does not use Lack of Transportation: No Lack of Food: Never True Current Housing: I Have Housing Concerned About Future Housing: No Difficulty Paying Gas/Electric Bills: No Difficulty Paying for Meds: No Currently Unempl
== END 2023-01-09 11:57 | disposition short-term general hospital (02) ==
PROVIDERS: Emergency Provider Nurse Practitioner Family; PCP Family Medicine
DX: L03.116 Cellulitis of left lower limb (principal); L03.115 Cellulitis of right lower limb; E66.01 Morbid (severe) obesity due to excess calories; Z68.43 Body mass index [BMI] 50.0-59.9, adult; I11.0 Hypertensive heart disease with heart failure; I50.9 Heart failure, unspecified; Z79.82 Long term (current) use of aspirin; E78.00 Pure hypercholesterolemia, unspecified; F32.9 Major depressive disorder, single episode, unspecified; Z90.711 Acquired absence of uterus with remaining cervical stump
CPT/HCPCS: 99215; G0463

== ENCOUNTER 2023-01-09 12:11 | Inpatient (IN) | payer MEDICARE, OTHER, SELFPAY ==
[2023-01-09] VITALS (7 sets, daily range): BP systolic 138–160; BP diastolic 72–94; PULSE 73–85; RESP 20–24; TEMP 36.8–37.1; O2SAT 91–100; BMI 57.4
--- NOTE | ~2023-01-09 | US_ITS ---
US arterial ankle brachial ind INDICATION: Chronic wounds. TECHNIQUE: Segmental pressures and plethysmographic and Doppler waveforms of the brachial and lower e xtremity arteries were obtained. COMPARISON: None. FINDINGS: Right and left brachial artery pressures of 107 mm Hg and 97 mm Hg, respectively, are concordant (nor mal difference <= 30 mmHg). The right ankle-brachial index (ADILENE) is 1.5 (normal >= 0.9-1.0). The right great toe-brachial index ( TBI) is 1.11 (normal >= 0.60). The left ADILENE is 1.67. The left TBI is 0.72. IMPRESSION: 1. Normal bilateral ankle-brachial indices. Reviewed, dictated and finalized at location A.
--- NOTE | ~2023-01-09 | XR_ITS ---
EXAMINATION: XR chest 2V DATE: 01/09/2023 12:43 INDICATION: Congestive heart failure presenting with dyspnea and bilateral lower limb swelling with w eeping wounds. TECHNIQUE: frontal and lateral views of the chest were obtained. COMPARISON: Chest radiograph and CT dated 09/15/2022 FINDINGS: Cardiomegaly with pulmonary vascular congestion. Opacities in the bilateral lower lung zones with janina nting at the posterior sulci consistent with small bilateral pleural effusions and associated basilar atelectasis, pneumonia, pulmonary edema or some combination thereof. No pneumothorax. Moderate thora cic spondylosis. IMPRESSION: 1. Opacities in the bilateral lower lung zones consistent with small bilateral pleural effusions and associated basilar atelectasis, pneumonia, pulmonary edema or some combination thereof. 2. Cardiomegaly. Reviewed, dictated and finalized at location A. IMPRESSION: 1. Opacities in the bilateral lower lung zones consistent with small bilateral pleural effusions and associated basilar atelectasis, pneumonia, pulmonary nestor a or some combination thereof. 2. Cardiomegaly.
--- NOTE | ~2023-01-09 | US_ITS ---
EXAMINATION:US venous doppler LE BI INDICATION:Leg edema TECHNIQUE: Multiple grayscale, color flow and Doppler images of the right and left lower extremity de ep venous systems were obtained and reviewed. COMPARISON:09/14/2022 FINDINGS: The common femoral, superficial femoral and popliteal veins demonstrate normal respiratory variation, augmentation and compressibility. Color flow is also seen within the greater saphenous an d profunda veins. Limited evaluation of the left posterior tibial, left peroneal and right peroneal v eins. IMPRESSION: 1: No lower extremity deep venous thrombosis. Limited study. Reviewed, dictated and finalized at location A.
--- NOTE | 2023-01-09 12:27 | ECG_ITS ---
Measurements Intervals [place] Rate: 76 P: 36 [place]: 207 QRS: -20 QRSD: 134 T: 46 QT: 340 QTc: 383 Interpretive Statements SINUS RHYTHM WITH OCCASIONAL VENTRICULAR PREMATURE COMPLEXES INTRAVENTRICULAR CONDUCTION DELAY [130+ ms QRS DURATION] COMPARED TO ECG 09/13/2022 12:22:44 ARM LEAD REVERSAL HAS BEEN CORRECTED Electronically Signed On 01-09-2023 18:00:34 CDT by Denise Cabrera M.D.
[2023-01-09 12:36] LABS: Basophils Percent Auto 0.2 % (0.2-1.2); Eosinophils Absolute Auto 0.1 K/mm3 (0-0.3); Eosinophils Percent Auto 0.9 % (0-4.4); Hematocrit 42.2 % (37.0-47.0); Hemoglobin 12.5 g/dL (12.0-15.0); Immature Granulocyte Absolute 0.03 K/mm3 (0.00-0.031); Immature Granulocyte Percent A 0.4 % (0-0.5); Lymphocytes Absolute Auto 0.77 K/mm3 (0.9-3.2); Lymphocytes Percent Auto 9.4 % (18.3-44.2); Mean Corpuscular HGB Conc 29.6 g/dl (32-36); Mean Corpuscular Hemoglobin 28.1 pg (26-34); Mean Corpuscular Volume 94.8 fl (80-100); Mean Platelet Volume 10.1 fl (7.4-10.4); Monocytes Absolute Auto 0.6 K/mm3 (0.1-0.6); Monocytes Percent Auto 7.4 % (2.6-8.5); Neutrophils Absolute Auto 6.7 K/mm3 (1.3-6.7); Neutrophils Percent Auto 81.7 % (45.5-73.1); Platelet Count Result 171 k/mm3 (150-375); Red Blood Count 4.45 M/mm3 (4.2-5.4); Red Cell Distribution Width 14.5 % (11.5-14.5); White Blood Count 8.2 K/mm3 (4.5-10.0)
[2023-01-09 12:56] LABS: Alanine Aminotransferase 17 U/L (6-35); Albumin Level 4.2 g/dL (3.5-5.1); Alkaline Phosphatase 57 U/L (38-126); Aspartate Amino Transferase 23 U/L (14-36); Bilirubin,Total 0.9 mg/dL (0.2-1.3); Blood Urea Nitrogen 30 mg/dL (7-17); Calcium 9.3 mg/dL (8.4-10.2); Carbon Dioxide > 40 mmol/L (22-30); Chloride 94 mmol/L (98-107); Estimated CRCL calculation 101 ml/min; Estimated Glomerular Filt Rate > 60; Glucose 98 mg/dL (65-110); Sodium 141 mmol/L (137-145)
[2023-01-09 13:02] LABS: NT Pro B Type Natriuretic Pept 4930 pg/mL (19.9-100); Troponin I 0.015 ng/mL (0.000-0.034)
[2023-01-09 13:05] LABS: INR 1.3; Partial Thromboplastin Time 26.6 SECONDS (22.3-36.8); Prothrombin Time 15.7 Seconds (11.1-14.7)
[2023-01-09 13:08] LABS: Hypochromasia 1+ (NORMAL); Platelet Estimate Adequate (Adequate)
[2023-01-09 13:09] LABS: Schistocytes None Seen (NORMAL)
--- NOTE | 2023-01-09 13:16 | PC.NURSE ---
Lab called regarding patient second set of blood cultures. Lab to come draw blood d/t [facility] ED staff attempt without success.
[2023-01-09 14:28] LABS: Lactic Acid Reflex 0.7 mmol/L (0.7-2.0)
--- NOTE | 2023-01-09 14:31 | ED.GENADULT ---
HPI - General Adult General Chief complaint: Skin/Abscess/Foreign Body Stated complaint: bilat lower ext swelling/redness Time Seen by Provider: 01/09/23 14:13 History of Present Illness HPI narrative: 72-year-old female presents from the local urgent care for evaluation of bilateral lower extremity cellulitis. Patient states that she had been seeing wound care regularly but was stopped. Her legs have become more edematous, red, inflamed and painful. She also states that she is supposed to wear 2 L via nasal cannula at all times when at home. She is less than compliant with these recommendations. She admits to worsening shortness of breath and denies chest pain. Related Data Home Medications Medication Instructions Recorded Confirmed aspirin 81 mg tablet,delayed 81 mg PO HS 07/31/19 01/09/23 release (Aspir-) multivitamin 1 cap PO DAILY 11/13/19 01/09/23 Allergies Allergy/AdvReac Type Severity Reaction Status Date / Time No Known Allergies Allergy Verified 01/09/23 11:34 Review of Systems Review of Systems: CONSTITUTIONAL: Denies fever, chills, or sweats. EYES: Denies visual changes, redness, or discharge. ENT: Denies rhinorrhea, congestion, sore throat, or otalgia. CARDIOVASCULAR: Denies chest pain, palpitations, or edema. RESPIRATORY: Denies cough or dyspnea. GASTROINTESTINAL: Denies abdominal pain, nausea, vomiting, or diarrhea. GENITOURINARY: Denies dysuria or hematuria. SKIN: Denies rash or itching. MUSCULOSKELETAL: Denies back pain, joint pain, or myalgia. NEUROLOGIC: Denies headache, numbness, or weakness. PSYCHIATRIC: Denies anxiety or depression. [facility] Past Medical History Medical History Benign reactive hypertension CHF (congestive heart failure) CHF (NYHA class II, ACC/AHA stage C) Elevated cholesterol with high triglycerides Major depressive disorder, recurrent, moderate Morbid obesity due to excess calories Obstructive sleep apnea Surgical History Surgical History H/O arthroscopic knee surgery Right side H/O cardiac catheterization History of partial hysterectomy History of tonsillectomy and adenoidectomy S/P hip replacement Family History Family History Sibling Patient's brother is in good health Family history of diabetes mellitus in first degree relative Mother Family history of heart disease in male family member before age 55, Onset Age: 88 Patient's mother is Other Diabetes mellitus Family history of arthritis Hypertension Social History Social History Social History: The patient lives home alone and is Single. She has no biological children. She is a lifelong nonsmoker. She retired from [employer]. Code status full code Smoking status: Never smoker Second hand tobacco smoke exposure: No Alcohol intake: never Substance use: never Substance use type: does not use Lack of Transportation: No Lack of Food: Never True Current Housing: I Have Housing Concerned About Future Housing: No Difficulty Paying Gas/Electric Bills: No Difficulty Paying for Meds: No Currently Unemployed: No Education: Decline to Answer Difficulty w/ Childcare or Family Care: No Living arrangements: with family Occupation/Education: retired Gender identity (if verbalized by the patient): Female Sexual Orientation (if Verbalized by the Patient): Straight or Heterosexual Spiritual care concerns: No Exam Narrative: GENERAL: Morbidly obese, and in no acute distress. HEAD: Normocephalic, atraumatic. EYES: PERRLA and EOMI. ENT: Nares clear, no rhinorrhea or epistaxis. Mucous membranes moist. NECK: Supple. CHEST: Clear to auscultation. No respiratory distress. HEART: Regular rate and rhythm. No murmur hear
--- NOTE | 2023-01-09 15:07 | PC.NURSE ---
pt in ultrasound
[2023-01-09] MEDS: NITROGLYCERIN OINTMENT 1 INCH DOSE TRANSDERM (15:28)
[2023-01-09] MEDS: FUROSEMIDE INJ 40 MG/4 ML VIAL IV PUSH (15:28)
[2023-01-09] MEDS: PIPERACILLN/TAZ 3.375GM/NS50ML 3.375 GM/50 ML BAG IVPB (15:28)
[2023-01-09] MEDS: POTASSIUM CHLORIDE INJ 40 MEQ in SODIUM CHLORIDE 0.9% IV 500 ML 130 MEQ IVPB (17:12)
[2023-01-09] MEDS: POTASSIUM CHLORIDE 20 MEQ PACKET (FOR LIQUID) 40 MEQ PO (17:40)
--- NOTE | 2023-01-09 18:29 | ADMGEN ---
This patient, Kelly Atkinson, was admitted to Medical Room 349-01. Patient/family oriented to hospital policies and general routines including ID bracelet, bed and alarms, visiting hours, pain management, procedures, bathroom and other care routines, personal items, smoking policy, room service/diet, and visiting hours. Information on how to activate the Rapid Response Team has been discussed. Patient/Family are encouraged to report perceived risks to care and to ask questions if they do not understand what they are told or what they should do.
--- NOTE | 2023-01-09 19:40 | PC.NURSE ---
Patient came up with Vancomycin running which was not scanned in prior to admission to the floor. Patient has bag 1 of two running. Bag was completed.
--- NOTE | 2023-01-09 21:45 | PM.IMHP ---
H&P: HPI History of Present Illness Date/Time: 01/09/23 21:45 Chief Complaint: Redness and swelling in both legs. Narrative: This is a pleasant 72-year-old female with history of congestive heart failure, hypertension, hyperlipidemia, chronic respiratory failure on 2 L, sleep apnea, and morbid obesity who presented to the emergency department from urgent care for evaluation of redness and swelling in both legs. Patient provides the following history. She has chronic lower extremity edema with associated wounds for which she was seeing wound care regularly however stopped going for unclear reasons. More recently her legs have become increasingly swollen, red, and painful. In the last couple of days they have started weeping. She was sent to the ER from urgent care with concerns for cellulitis and also because her SpO2 was reportedly 65% at their facility. She is supposed to be on 2 L nasal cannula at baseline but she has been having issues with her portable oxygen. She has chronic shortness of breath and does not think it is any worse than usual. She denies fever, chills, sweats, chest pain, pleuritic pain, palpitations, cough, sore throat, nausea, and vomiting. She has no known history of multidrug resistant organisms or venous thromboembolism. Review of Systems Review of Systems: Twelve systems were reviewed. She ambulates with a walker. She is hoping to get into assisted living at [facility]. She has falls on occasion, last week she fell and had to call for lift assist. There was no head trauma, loss of consciousness, or injuries. Except as documented, all other systems were reviewed and are negative. [facility] Past Medical History Medical History Chronic respiratory failure with hypoxia Diastolic dysfunction Grade 1 diastolic dysfunction on echocardiogram in August 2022. EF was 55 to 60%. Basal inferolateral wall was hypokinetic. Diverticulitis Dyslipidemia Hypertension Major depressive disorder, recurrent, moderate Moderate pulmonary hypertension Estimated PASP was 56 mmHg on echocardiogram in August 2022. Morbid obesity Obstructive sleep apnea Right-sided heart failure Right ventricle is moderately enlarged with reduced systolic function on echocardiogram in August 2022. Also with moderate pulmonary hypertension. Surgical History Surgical History History of arthroscopy of right knee History of cardiac catheterization History of partial hysterectomy History of tonsillectomy and adenoidectomy History of total right hip arthroplasty Family History Family History Sibling Patient's brother is in good health Family history of diabetes mellitus in first degree relative Mother Family history of heart disease in male family member before age 55, Onset Age: 88 Patient's mother is Other Diabetes mellitus Family history of arthritis Hypertension Social History Social History Social History: Healthcare power of compliance attorney: Indigo Atkinson, niece. Code status: Full code. Smoking status: Never smoker Second hand tobacco smoke exposure: No Alcohol intake: never Substance use: never Substance use type: does not use Lack of Transportation: YES Lack of Food: Never True Current Housing: I Have Housing Concerned About Future Housing: No Difficulty Paying Gas/Electric Bills: No Difficulty Paying for Meds: No Currently Unemployed: No Education: Master's Degree or Higher Difficulty w/ Childcare or Family Care: No Living arrangements: with family Additional living arrangements comments: Single. No children. Lives alone. 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 Spiritual care concerns: No M
[2023-01-09] MEDS: ACETAMINOPHEN 325 MG TABLET 650 MG PO (22:07)
[2023-01-09] MEDS: carvediloL 12.5 MG TABLET PO (22:07)
[2023-01-09] MEDS: ASPIRIN 81 MG ENTERIC TABLET PO (22:12)
[2023-01-09 22:26] LABS: CRP 2.6 mg/dL (<1.0); Magnesium 1.9 mg/dL (1.6-2.3); Potassium 3.3 mmol/L (3.4-5.0)
[2023-01-10] VITALS (12 sets, daily range): BP systolic 110–138; BP diastolic 50–80; PULSE 54–80; RESP 18–24; TEMP 36.2–36.6; O2SAT 92–99
[2023-01-10] MEDS: PIPERACILLN/TAZ 3.375GM/NS50ML 3.375 GM/50 ML BAG IVPB ×2 (03:45→09:10)
[2023-01-10] MEDS: POTASSIUM CHLORIDE 20 MEQ TABLET 40 MEQ PO (03:50)
[2023-01-10 05:48] LABS: Hematocrit 36.8 % (37.0-47.0); Hemoglobin 10.8 g/dL (12.0-15.0); Mean Corpuscular HGB Conc 29.3 g/dl (32-36); Mean Corpuscular Hemoglobin 27.4 pg (26-34); Mean Corpuscular Volume 93.4 fl (80-100); Mean Platelet Volume 8.9 fl (7.4-10.4); Platelet Count Result 131 k/mm3 (150-375); Red Blood Count 3.94 M/mm3 (4.2-5.4); Red Cell Distribution Width 14.6 % (11.5-14.5); White Blood Count 6.6 K/mm3 (4.5-10.0)
[2023-01-10 05:59] LABS: Blood Urea Nitrogen 22 mg/dL (7-17); Calcium 8.7 mg/dL (8.4-10.2); Carbon Dioxide > 40 mmol/L (22-30); Chloride 94 mmol/L (98-107); Estimated CRCL calculation 94 ml/min; Estimated Glomerular Filt Rate > 60; Glucose 111 mg/dL (65-110); Magnesium 1.8 mg/dL (1.6-2.3); Potassium 3.2 mmol/L (3.4-5.0); Sodium 142 mmol/L (137-145)
[2023-01-10] MEDS: ENOXAPARIN 40 MG/0.4 ML SYRINGE SUB-Q (09:09)
[2023-01-10] MEDS: LOSARTAN POTASSIUM 100 MG TABLET BY MOUTH (09:09)
[2023-01-10] MEDS: SERTRALINE HCL 50 MG TABLET BY MOUTH ×2 (09:09→21:13)
[2023-01-10] MEDS: FENOFIBRATE 160 MG TABLET BY MOUTH (09:09)
[2023-01-10] MEDS: hydroCHLOROthiazide 12.5 MG CAPSULE PO (09:11)
[2023-01-10] MEDS: FUROSEMIDE INJ 40 MG/4 ML VIAL IV PUSH ×2 (09:11→17:55)
[2023-01-10] MEDS: carvediloL 12.5 MG TABLET PO ×2 (09:19→21:13)
[2023-01-10 11:12] LABS: Hemoglobin A1C 4.9 % (<5.7)
--- NOTE | 2023-01-10 11:23 | PM.IMPN ---
Progress Note: A&P Assessment and Plan (1) Left leg cellulitis: Code(s): L03.116 - Cellulitis of left lower limb Status: Acute Assessment and Plan: Patient started vancomycin IV with pharmacy to dose, 1st dose 01/09/2023 Zosyn changed to cefepime and Flagyl, to avoid ORTEGA; she appears to have venous insufficiency ulcers. CRP 2.6. Wound nurse consulted and appreciate recommendations for wound care. elevate bilateral lower extremities to help with edema control. Patient may benefit from compression dressings outpatient: ABIs obtained and no evidence of PAD. (2) Recurrent cellulitis of lower extremity: Code(s): L03.119 - Cellulitis of unspecified part of limb Status: Chronic Assessment and Plan: Secondary to chronic lower extremity edema. Continue management as above. (3) Acute on chronic diastolic congestive heart failure: Code(s): I50.33 - Acute on chronic diastolic (congestive) heart failure Status: Acute Assessment and Plan: Acute on chronic right CHF. 09/14 transthoracic echocardiogram shows normal systolic LV function, EF 55-60%, mild LVH, right ventricle systolic dysfunction and grade 1 diastolic dysfunction and moderate pulmonary hypertension She has had increasing edema and now weeping of the lower extremities. Continue diuresis- furosemide 40 mg IV b.i.d. Daily weight and strict I/O monitoring. Daily BMP and magnesium. (4) Right-sided heart failure: Code(s): I50.810 - Right heart failure, unspecified Status: Chronic Assessment and Plan: as above. (5) Chronic respiratory failure with hypoxia: Code(s): J96.11 - Chronic respiratory failure with hypoxia Status: Chronic Assessment and Plan: Possible acute on chronic exacerbation. Patient arrived to urgent care SpO2 was in the 60s though her portable oxygen tank was malfunctioning. She is currently at her home oxygen requirement. Pulmonary embolism seems less likely by history; venous Doppler ultrasounds were negative for DVT. Continue overnight CPAP autotitrate. 11/21/22 ABG shows chronic respiratory acidosis and hypoxia on room air. pH 7.42, pCO2 49, pO2 56, HCO3 32. Monitor respiratory status. (6) Hypokalemia: Code(s): E87.6 - Hypokalemia Status: Acute Assessment and Plan: K 3.2 today, magnesium 1.8. Hold HCTZ while on IV furosemide. Give 80 mEQ PO KCl x1 today and start 40 mEQ PO daily in am. (7) Hypertension: Code(s): I10 - Essential (primary) hypertension Status: Chronic Assessment and Plan: Blood pressures reviewed. Continue losartan, carvedilol and furosemide IV. Hold HCTZ for now. (8) Obstructive sleep apnea: Code(s): G47.33 - Obstructive sleep apnea (adult) (pediatric) Status: Chronic Assessment and Plan: CPAP will be provided for the patient to use while hospitalized. She reports a recent outpatient sleep study and is awaiting home cpap. Will try to confirm this. (9) Moderate pulmonary hypertension: Code(s): I27.20 - Pulmonary hypertension, unspecified Status: Chronic Assessment and Plan: Continue supplemental O2. Plan CODE STATUS: FULL CODE Discharge disposition: from home. PT/OT evaluation. Care coordination following. Lines: bautista catheter placed 01/09/23 Time Spent With Patient Time: 35 minutes Subjective Date/time seen: 01/10/23 11:23 Patient is a 72-year-old female with chronic diastolic congestive heart failure, hypertension, hyperlipidemia, chronic respiratory failure on 2 L supplemental oxygen daily, sleep apnea currently not using CPAP and morbid obesity. She presented to the emergency department for further evaluation of redness and swelling to both legs with associated wounds. Patient found lying in bed sleeping. She denies complaints of shortness of breath, chest pain, cough or sputum, abdominal pain, nausea, vom
[2023-01-10] MEDS: POTASSIUM CHLORIDE 20 MEQ TABLET 80 MEQ PO (11:24)
[2023-01-10] MEDS: SILVERGEL (ELTA) 45 ML 1 APPLIC TOPICAL (11:26)
[2023-01-10] MEDS: SIMVASTATIN 20 MG TABLET 40 MG BY MOUTH (12:09)
[2023-01-10] MEDS: metroNIDAZOLE 500 MG/ISO 100ML 500 MG/100 ML BAG 100 MG IVPB ×2 (15:41→21:44)
[2023-01-10] MEDS: CEFEPIME 2 GM/NS 50 ML 2 GM/50 ML BAG IVPB ×2 (15:41→21:13)
[2023-01-10] MEDS: ASPIRIN 81 MG ENTERIC TABLET PO (21:13)
[2023-01-11] VITALS (13 sets, daily range): BP systolic 133–150; BP diastolic 52–83; PULSE 59–82; RESP 17–20; TEMP 36.2–36.7; O2SAT 92–96
[2023-01-11] MEDS: metroNIDAZOLE 500 MG/ISO 100ML 500 MG/100 ML BAG 100 MG IVPB ×2 (05:00→13:34)
[2023-01-11 05:44] LABS: Basophils Percent Auto 0.5 % (0.2-1.2); Eosinophils Absolute Auto 0.1 K/mm3 (0-0.3); Eosinophils Percent Auto 1.6 % (0-4.4); Hematocrit 36.1 % (37.0-47.0); Hemoglobin 10.7 g/dL (12.0-15.0); Immature Granulocyte Absolute 0.01 K/mm3 (0.00-0.031); Immature Granulocyte Percent A 0.2 % (0-0.5); Lymphocytes Absolute Auto 0.83 K/mm3 (0.9-3.2); Lymphocytes Percent Auto 13.5 % (18.3-44.2); Mean Corpuscular HGB Conc 29.6 g/dl (32-36); Mean Corpuscular Hemoglobin 27.6 pg (26-34); Mean Corpuscular Volume 93.3 fl (80-100); Monocytes Absolute Auto 0.7 K/mm3 (0.1-0.6); Monocytes Percent Auto 11.7 % (2.6-8.5); Neutrophils Absolute Auto 4.5 K/mm3 (1.3-6.7); Neutrophils Percent Auto 72.5 % (45.5-73.1); Platelet Count Result 133 k/mm3 (150-375); Red Blood Count 3.87 M/mm3 (4.2-5.4); Red Cell Distribution Width 14.5 % (11.5-14.5); White Blood Count 6.2 K/mm3 (4.5-10.0)
[2023-01-11] MEDS: CEFEPIME 2 GM/NS 50 ML 2 GM/50 ML BAG IVPB ×2 (05:49→13:34)
[2023-01-11 05:54] LABS: Alanine Aminotransferase 16 U/L (6-35); Albumin Level 3.6 g/dL (3.5-5.1); Alkaline Phosphatase 50 U/L (38-126); Aspartate Amino Transferase 23 U/L (14-36); Bilirubin,Total 0.9 mg/dL (0.2-1.3); Blood Urea Nitrogen 26 mg/dL (7-17); Calcium 8.5 mg/dL (8.4-10.2); Carbon Dioxide > 40 mmol/L (22-30); Chloride 95 mmol/L (98-107); Estimated CRCL calculation 67 ml/min; Estimated Glomerular Filt Rate 55; Glucose 99 mg/dL (65-110); Magnesium 1.9 mg/dL (1.6-2.3); Potassium 3.5 mmol/L (3.4-5.0); Sodium 141 mmol/L (137-145)
[2023-01-11 05:58] LABS: Vancomycin Trough 18.3 ug/mL (10.0-20.0)
[2023-01-11 06:04] LABS: Platelet Estimate Adequate (Adequate)
[2023-01-11 06:05] LABS: Anisocytosis 1+ (NORMAL); Macrocytosis 2+ (NORMAL); Schistocytes None Seen (NORMAL)
[2023-01-11 06:06] LABS: Hypochromasia 1+ (NORMAL)
[2023-01-11] MEDS: FENOFIBRATE 160 MG TABLET BY MOUTH (08:57)
[2023-01-11] MEDS: POTASSIUM CHLORIDE 20 MEQ TABLET.ER 40 MEQ PO ×2 (08:57→17:00)
[2023-01-11] MEDS: WATER FOR IRRIGATION, STERILE 1,000 ML BOTTLE 1000 ML (08:57)
[2023-01-11] MEDS: SERTRALINE HCL 50 MG TABLET BY MOUTH ×2 (08:58→20:45)
[2023-01-11] MEDS: LOSARTAN POTASSIUM 100 MG TABLET BY MOUTH (08:58)
[2023-01-11] MEDS: ENOXAPARIN 40 MG/0.4 ML SYRINGE SUB-Q (08:58)
[2023-01-11] MEDS: SIMVASTATIN 20 MG TABLET 40 MG BY MOUTH (08:58)
[2023-01-11] MEDS: carvediloL 12.5 MG TABLET PO ×2 (08:59→20:45)
[2023-01-11] MEDS: FUROSEMIDE INJ 40 MG/4 ML VIAL IV PUSH ×2 (08:59→17:01)
--- NOTE | 2023-01-11 09:23 | PM.IMPN ---
Progress Note: A&P Assessment and Plan (1) Left leg cellulitis: Code(s): L03.116 - Cellulitis of left lower limb Status: Acute Assessment and Plan: Patient started vancomycin IV with pharmacy to dose, 1st dose 01/09/2023 Zosyn changed to cefepime and Flagyl, to avoid ORTEGA; she appears to have venous insufficiency ulcers. CRP 2.6. Wound nurse consulted and appreciate recommendations for wound care. elevate bilateral lower extremities to help with edema control. Patient wound benefit from compression dressings outpatient, such as unna boots for edema control. ABIs obtained and no evidence of PAD. 01/11 Improving. Change to levaquin 750 mg PO daily x 10 days. She has h/o pseudomonas growth in her left leg wound in 08/2022. will cover strep/staph microbes. (2) Recurrent cellulitis of lower extremity: Code(s): L03.119 - Cellulitis of unspecified part of limb Status: Chronic Assessment and Plan: Secondary to chronic lower extremity edema. Continue management as above. (3) Acute on chronic diastolic congestive heart failure: Code(s): I50.33 - Acute on chronic diastolic (congestive) heart failure Status: Acute Assessment and Plan: Acute on chronic right CHF. 09/14 transthoracic echocardiogram shows normal systolic LV function, EF 55-60%, mild LVH, right ventricle systolic dysfunction and grade 1 diastolic dysfunction and moderate pulmonary hypertension She has had increasing edema and now weeping of the lower extremities. Continue diuresis- furosemide 40 mg IV b.i.d. Daily weight and strict I/O monitoring. Daily BMP and magnesium. 01/11 She reports improvement in respiratory status but still with LE edema. Continue IV diuretics. Strict I/O. DC michele (4) Right-sided heart failure: Code(s): I50.810 - Right heart failure, unspecified Status: Chronic Assessment and Plan: as above. (5) Chronic respiratory failure with hypoxia: Code(s): J96.11 - Chronic respiratory failure with hypoxia Status: Chronic Assessment and Plan: Possible acute on chronic exacerbation. Patient arrived to urgent care SpO2 was in the 60s though her portable oxygen tank was malfunctioning. She is currently at her home oxygen requirement. Pulmonary embolism seems less likely by history; venous Doppler ultrasounds were negative for DVT. Continue overnight CPAP autotitrate. 11/21/22 ABG shows chronic respiratory acidosis and hypoxia on room air. pH 7.42, pCO2 49, pO2 56, HCO3 32. Monitor respiratory status. (6) Hypokalemia: Code(s): E87.6 - Hypokalemia Status: Acute Assessment and Plan: K 3.2 today, magnesium 1.8. Hold HCTZ while on IV furosemide. Give 80 mEQ PO KCl x1 today and start 40 mEQ PO daily in am. 01/11 K 3.5. Increase KCl 40 mEQ PO BID. Daily BMP. (7) Hypertension: Code(s): I10 - Essential (primary) hypertension Status: Chronic Assessment and Plan: Blood pressures reviewed. Continue losartan, carvedilol and furosemide IV. Hold HCTZ for now. (8) Obstructive sleep apnea: Code(s): G47.33 - Obstructive sleep apnea (adult) (pediatric) Status: Chronic Assessment and Plan: CPAP will be provided for the patient to use while hospitalized. She reports a recent outpatient sleep study and is awaiting home cpap. Will try to confirm this. 01/11 Patient is tolerating pap therapy (9) Moderate pulmonary hypertension: Code(s): I27.20 - Pulmonary hypertension, unspecified Status: Chronic Assessment and Plan: Continue supplemental O2. Plan CODE STATUS: FULL CODE Discharge disposition: from home. PT/OT evaluation. Care coordination following. Lines: bautista catheter placed 01/09/23. DC bautista 01/11 Time Spent With Patient Time: 35 minutes Subjective Date/time seen: 01/11/23 09:23 She does feel better today. She is agreeable to rehab at discharge.
[2023-01-11] MEDS: SILVERGEL (ELTA) 45 ML 1 APPLIC TOPICAL (13:45)
[2023-01-11] MEDS: SACCHAROMYCES BOULARDII 250 MG CAPSULE PO (17:00)
[2023-01-11] MEDS: ASPIRIN 81 MG ENTERIC TABLET PO (20:45)
[2023-01-12] VITALS (14 sets, daily range): BP systolic 144–146; BP diastolic 60–82; PULSE 65–78; RESP 18–22; TEMP 36.1–36.8; O2SAT 94–98
[2023-01-12 05:43] LABS: Basophils Percent Auto 0.5 % (0.2-1.2); Eosinophils Absolute Auto 0.1 K/mm3 (0-0.3); Eosinophils Percent Auto 2.1 % (0-4.4); Hematocrit 36.4 % (37.0-47.0); Hemoglobin 10.8 g/dL (12.0-15.0); Immature Granulocyte Absolute 0.02 K/mm3 (0.00-0.031); Immature Granulocyte Percent A 0.4 % (0-0.5); Lymphocytes Absolute Auto 0.82 K/mm3 (0.9-3.2); Lymphocytes Percent Auto 14.4 % (18.3-44.2); Mean Corpuscular HGB Conc 29.7 g/dl (32-36); Mean Corpuscular Hemoglobin 28.1 pg (26-34); Mean Corpuscular Volume 94.8 fl (80-100); Mean Platelet Volume 9.1 fl (7.4-10.4); Monocytes Absolute Auto 0.7 K/mm3 (0.1-0.6); Monocytes Percent Auto 11.8 % (2.6-8.5); Neutrophils Percent Auto 70.8 % (45.5-73.1); Platelet Count Result 145 k/mm3 (150-375); Red Blood Count 3.84 M/mm3 (4.2-5.4); Red Cell Distribution Width 14.5 % (11.5-14.5); White Blood Count 5.7 K/mm3 (4.5-10.0)
[2023-01-12 05:56] LABS: Alanine Aminotransferase 16 U/L (6-35); Albumin Level 3.4 g/dL (3.5-5.1); Alkaline Phosphatase 41 U/L (38-126); Aspartate Amino Transferase 26 U/L (14-36); Bilirubin,Total 0.7 mg/dL (0.2-1.3); Blood Urea Nitrogen 32 mg/dL (7-17); Calcium 8.4 mg/dL (8.4-10.2); Carbon Dioxide > 40 mmol/L (22-30); Chloride 96 mmol/L (98-107); Estimated CRCL calculation 57 ml/min; Estimated Glomerular Filt Rate 44; Glucose 103 mg/dL (65-110); Potassium 3.9 mmol/L (3.4-5.0); Sodium 141 mmol/L (137-145)
[2023-01-12 06:38] LABS: Hypochromasia 1+ (NORMAL); Schistocytes None Seen (NORMAL)
--- NOTE | 2023-01-12 08:11 | P.PNIM_ITS ---
Progress Note: A&P Assessment and Plan (1) Left leg cellulitis: Code(s): L03.116 - Cellulitis of left lower limb Status: Acute Assessment and Plan: Patient started vancomycin IV with pharmacy to dose, 1st dose 01/09/2023 * Zosyn changed to cefepime and Flagyl, to avoid ORTEGA; she appears to have venous insufficiency ulcers. * CRP 2.6. * Wound nurse consulted and appreciate recommendations for wound care. * elevate bilateral lower extremities to help with edema control. * Patient wound benefit from compression dressings outpatient, such as unna boots for edema control. * ABIs obtained and no evidence of PAD. * 01/11 Improving. Change to levaquin 750 mg PO daily x 10 days. She has h/o pseudomonas growth in her left leg wound in 08/2022. will cover strep/staph microbes. (2) Recurrent cellulitis of lower extremity: Code(s): L03.119 - Cellulitis of unspecified part of limb Status: Chronic Assessment and Plan: Secondary to chronic lower extremity edema. Continue management as above. (3) Acute on chronic diastolic congestive heart failure: Code(s): I50.33 - Acute on chronic diastolic (congestive) heart failure Status: Acute Assessment and Plan: Acute on chronic right CHF. 09/14 transthoracic echocardiogram shows normal systolic LV function, EF 55-60%, mild LVH, right ventricle systolic dysfunction and grade 1 diastolic dysfunction and moderate pulmonary hypertension * She has had increasing edema and now weeping of the lower extremities. * Continue diuresis- furosemide 40 mg IV b.i.d. * Daily weight and strict I/O monitoring. * Daily BMP and magnesium. * 01/11 She reports improvement in respiratory status but still with LE edema. Continue IV diuretics. Strict I/O. DC michele * 01/12 still with LE edema. Slight bump in BUN/creatinine noted today. Will decrease diuretic to 40 mg furosemide IV daily and repeat labs tomorrow. (4) Right-sided heart failure: Code(s): I50.810 - Right heart failure, unspecified Status: Chronic Assessment and Plan: as above. (5) Chronic respiratory failure with hypoxia: Code(s): J96.11 - Chronic respiratory failure with hypoxia Status: Chronic Assessment and Plan: Possible acute on chronic exacerbation. * Patient arrived to urgent care SpO2 was in the 60s though her portable oxygen tank was malfunctioning. She is currently at her home oxygen requirement. * Pulmonary embolism seems less likely by history; venous Doppler ultrasounds were negative for DVT. * Continue overnight CPAP autotitrate. 11/21/22 ABG shows chronic respiratory acidosis and hypoxia on room air. pH 7.42, pCO2 49, pO2 56, HCO3 32. * Monitor respiratory status. * Improving. spO2 98% on 3L NC. Wean to home levels if spO2>96% but keep >90% (6) Hypokalemia: Code(s): E87.6 - Hypokalemia Status: Acute Assessment and Plan: K 3.2 today, magnesium 1.8. * Hold HCTZ while on IV furosemide. * Give 80 mEQ PO KCl x1 today and start 40 mEQ PO daily in am. * 01/11 K 3.5. Increase KCl 40 mEQ PO BID. * 01/12 K 3.9. Continue BID potassium. * Daily BMP. (7) Hypertension: Code(s): I10 - Essential (primary) hypertension Status: Chronic Assessment and Plan: Blood pressures reviewed. * Continue losartan, carvedilol and furosemide IV. Hold HCTZ for now. (8) Obstructive sleep apnea: Code(s): G47.33 - Obstructive sleep apnea (adult) (pediatric) Status: Chronic Assessment and Plan: CPAP
--- NOTE | 2023-01-12 08:11 | PM.IMPN ---
Progress Note: A&P Assessment and Plan (1) Left leg cellulitis: Code(s): L03.116 - Cellulitis of left lower limb Status: Acute Assessment and Plan: Patient started vancomycin IV with pharmacy to dose, 1st dose 01/09/2023 Zosyn changed to cefepime and Flagyl, to avoid ORTEGA; she appears to have venous insufficiency ulcers. CRP 2.6. Wound nurse consulted and appreciate recommendations for wound care. elevate bilateral lower extremities to help with edema control. Patient wound benefit from compression dressings outpatient, such as unna boots for edema control. ABIs obtained and no evidence of PAD. 01/11 Improving. Change to levaquin 750 mg PO daily x 10 days. She has h/o pseudomonas growth in her left leg wound in 08/2022. will cover strep/staph microbes. (2) Recurrent cellulitis of lower extremity: Code(s): L03.119 - Cellulitis of unspecified part of limb Status: Chronic Assessment and Plan: Secondary to chronic lower extremity edema. Continue management as above. (3) Acute on chronic diastolic congestive heart failure: Code(s): I50.33 - Acute on chronic diastolic (congestive) heart failure Status: Acute Assessment and Plan: Acute on chronic right CHF. 09/14 transthoracic echocardiogram shows normal systolic LV function, EF 55-60%, mild LVH, right ventricle systolic dysfunction and grade 1 diastolic dysfunction and moderate pulmonary hypertension She has had increasing edema and now weeping of the lower extremities. Continue diuresis- furosemide 40 mg IV b.i.d. Daily weight and strict I/O monitoring. Daily BMP and magnesium. 01/11 She reports improvement in respiratory status but still with LE edema. Continue IV diuretics. Strict I/O. DC bautista 01/12 still with LE edema. Slight bump in BUN/creatinine noted today. Will decrease diuretic to 40 mg furosemide IV daily and repeat labs tomorrow. (4) Right-sided heart failure: Code(s): I50.810 - Right heart failure, unspecified Status: Chronic Assessment and Plan: as above. (5) Chronic respiratory failure with hypoxia: Code(s): J96.11 - Chronic respiratory failure with hypoxia Status: Chronic Assessment and Plan: Possible acute on chronic exacerbation. Patient arrived to urgent care SpO2 was in the 60s though her portable oxygen tank was malfunctioning. She is currently at her home oxygen requirement. Pulmonary embolism seems less likely by history; venous Doppler ultrasounds were negative for DVT. Continue overnight CPAP autotitrate. 11/21/22 ABG shows chronic respiratory acidosis and hypoxia on room air. pH 7.42, pCO2 49, pO2 56, HCO3 32. Monitor respiratory status. Improving. spO2 98% on 3L NC. Wean to home levels if spO2>96% but keep >90% (6) Hypokalemia: Code(s): E87.6 - Hypokalemia Status: Acute Assessment and Plan: K 3.2 today, magnesium 1.8. Hold HCTZ while on IV furosemide. Give 80 mEQ PO KCl x1 today and start 40 mEQ PO daily in am. 01/11 K 3.5. Increase KCl 40 mEQ PO BID. 01/12 K 3.9. Continue BID potassium. Daily BMP. (7) Hypertension: Code(s): I10 - Essential (primary) hypertension Status: Chronic Assessment and Plan: Blood pressures reviewed. Continue losartan, carvedilol and furosemide IV. Hold HCTZ for now. (8) Obstructive sleep apnea: Code(s): G47.33 - Obstructive sleep apnea (adult) (pediatric) Status: Chronic Assessment and Plan: CPAP will be provided for the patient to use while hospitalized. She reports a recent outpatient sleep study and is awaiting home cpap. Will try to confirm this. 01/11 Patient is tolerating pap therapy (9) Moderate pulmonary hypertension: Code(s): I27.20 - Pulmonary hypertension, unspecified Status: Chronic Assessment and Plan: Continue supplemental O2. Plan CODE STATUS: FULL CODE Discharge di
[2023-01-12] MEDS: FENOFIBRATE 160 MG TABLET BY MOUTH (09:54)
[2023-01-12] MEDS: carvediloL 12.5 MG TABLET PO ×2 (09:54→20:25)
[2023-01-12] MEDS: SACCHAROMYCES BOULARDII 250 MG CAPSULE PO ×2 (09:54→17:42)
[2023-01-12] MEDS: SERTRALINE HCL 50 MG TABLET BY MOUTH ×2 (09:54→20:25)
[2023-01-12] MEDS: SIMVASTATIN 20 MG TABLET 40 MG BY MOUTH (09:55)
[2023-01-12] MEDS: levoFLOXacin 750 MG TABLET PO (09:55)
[2023-01-12] MEDS: POTASSIUM CHLORIDE 20 MEQ TABLET.ER 40 MEQ PO ×2 (09:56→17:41)
[2023-01-12] MEDS: FUROSEMIDE INJ 40 MG/4 ML VIAL IV PUSH (09:56)
[2023-01-12] MEDS: ENOXAPARIN 40 MG/0.4 ML SYRINGE SUB-Q (09:56)
[2023-01-12] MEDS: SILVERGEL (ELTA) 45 ML 1 APPLIC TOPICAL (09:57)
[2023-01-12] MEDS: ASPIRIN 81 MG ENTERIC TABLET PO (20:25)
[2023-01-13] VITALS (13 sets, daily range): BP systolic 124–144; BP diastolic 73–77; PULSE 64–80; RESP 15–22; TEMP 36.7–37.1; O2SAT 93–96
[2023-01-13 06:58] LABS: Basophils Percent Auto 0.6 % (0.2-1.2); Eosinophils Absolute Auto 0.1 K/mm3 (0-0.3); Eosinophils Percent Auto 2.3 % (0-4.4); Hematocrit 37.6 % (37.0-47.0); Hemoglobin 11.1 g/dL (12.0-15.0); Immature Granulocyte Absolute 0.02 K/mm3 (0.00-0.031); Immature Granulocyte Percent A 0.4 % (0-0.5); Lymphocytes Absolute Auto 0.83 K/mm3 (0.9-3.2); Lymphocytes Percent Auto 15.7 % (18.3-44.2); Mean Corpuscular HGB Conc 29.5 g/dl (32-36); Mean Corpuscular Hemoglobin 28.1 pg (26-34); Mean Corpuscular Volume 95.2 fl (80-100); Mean Platelet Volume 8.7 fl (7.4-10.4); Monocytes Absolute Auto 0.6 K/mm3 (0.1-0.6); Monocytes Percent Auto 11.3 % (2.6-8.5); Neutrophils Absolute Auto 3.7 K/mm3 (1.3-6.7); Neutrophils Percent Auto 69.7 % (45.5-73.1); Platelet Count Result 153 k/mm3 (150-375); Red Blood Count 3.95 M/mm3 (4.2-5.4); Red Cell Distribution Width 14.3 % (11.5-14.5); White Blood Count 5.3 K/mm3 (4.5-10.0)
[2023-01-13 07:11] LABS: Alanine Aminotransferase 16 U/L (6-35); Albumin Level 3.6 g/dL (3.5-5.1); Alkaline Phosphatase 42 U/L (38-126); Aspartate Amino Transferase 22 U/L (14-36); Bilirubin,Total 0.7 mg/dL (0.2-1.3); Blood Urea Nitrogen 31 mg/dL (7-17); Calcium 8.6 mg/dL (8.4-10.2); Carbon Dioxide > 40 mmol/L (22-30); Chloride 97 mmol/L (98-107); Estimated CRCL calculation 49 ml/min; Estimated Glomerular Filt Rate 37; Glucose 92 mg/dL (65-110); Potassium 4.3 mmol/L (3.4-5.0); Sodium 143 mmol/L (137-145)
[2023-01-13 07:24] LABS: Hypochromasia 2+ (NORMAL); Platelet Estimate Adequate (Adequate); Schistocytes None Seen (NORMAL)
[2023-01-13 07:25] LABS: Anisocytosis 1+ (NORMAL)
--- NOTE | 2023-01-13 08:36 | P.PNIM_ITS ---
Progress Note: A&P Assessment and Plan (1) Left leg cellulitis: Code(s): L03.116 - Cellulitis of left lower limb Status: Acute Assessment and Plan: Patient started vancomycin IV with pharmacy to dose, 1st dose 01/09/2023 * Zosyn changed to cefepime and Flagyl, to avoid ORTEGA; she appears to have venous insufficiency ulcers. * CRP 2.6. * Wound nurse consulted and appreciate recommendations for wound care. * elevate bilateral lower extremities to help with edema control. * Patient wound benefit from compression dressings outpatient, such as unna boots for edema control. * ABIs obtained and no evidence of PAD. * 01/11 Improving. Changed to levaquin 750 mg PO daily x 10 days, starting 01/12/2023. She has h/o pseudomonas growth in her left leg wound in 08/2022. will cover strep/staph microbes. * 01/13/23 bilateral lower extremities improving. Patient is afebrile and without leukocytosis. Continue Levaquin 750 mg but change to Q 48 hours due to creatinine clearance 49 today. (antibiotic day 4). (2) Recurrent cellulitis of lower extremity: Code(s): L03.119 - Cellulitis of unspecified part of limb Status: Chronic Assessment and Plan: Secondary to chronic lower extremity edema. Continue management as above. Lower extremity edema improving (3) Acute on chronic diastolic congestive heart failure: Code(s): I50.33 - Acute on chronic diastolic (congestive) heart failure Status: Acute Assessment and Plan: Acute on chronic right CHF. 09/14 transthoracic echocardiogram shows normal systolic LV function, EF 55-60%, mild LVH, right ventricle systolic dysfunction and grade 1 diastolic dysfunction and moderate pulmonary hypertension * She has had increasing edema and now weeping of the lower extremities. * Continue diuresis- furosemide 40 mg IV b.i.d. * Daily weight and strict I/O monitoring. * Daily BMP and magnesium. * 01/11 She reports improvement in respiratory status but still with LE edema. Continue IV diuretics. Strict I/O. DC bautista * 01/12 still with LE edema. Slight bump in BUN/creatinine noted today. Will decrease diuretic to 40 mg furosemide IV daily and repeat labs tomorrow. * 01/13 BUN 31, creatinine 1.4, GFR 37. Change patient to oral diuretics 40 mg p.o. b.i.d. repeat renal function panel tomorrow (4) Right-sided heart failure: Code(s): I50.810 - Right heart failure, unspecified Status: Chronic Assessment and Plan: as above. (5) Chronic respiratory failure with hypoxia: Code(s): J96.11 - Chronic respiratory failure with hypoxia Status: Chronic Assessment and Plan: Possible acute on chronic exacerbation. * Patient arrived to urgent care SpO2 was in the 60s though her portable oxygen tank was malfunctioning. She is currently at her home oxygen requirement. * Pulmonary embolism seems less likely by history; venous Doppler ultrasounds were negative for DVT. * Continue overnight CPAP autotitrate. 11/21/22 ABG shows chronic respiratory acidosis and hypoxia on room air. pH 7.42, pCO2 49, pO2 56, HCO3 32. * Monitor respiratory status. * Improving. spO2 98% on 3L NC. Wean to home levels if spO2>96% but keep >90% (6) Hypokalemia: Code(s): E87.6 - Hypokalemia Status: Resolved Assessment and Plan: K 3.2 today, magnesium 1.8. * Hold HCTZ while on IV furosemide. * Give 80 mEQ PO KCl x1 today and start 40 mEQ PO daily in am. * 01/11 K 3.5. Increase KCl 40 mEQ PO BID. * 01/12 K 3.9. Continue BID potassium. * Daily BMP. (7) Hypertension:
--- NOTE | 2023-01-13 08:36 | PM.IMPN ---
Progress Note: A&P Assessment and Plan (1) Left leg cellulitis: Code(s): L03.116 - Cellulitis of left lower limb Status: Acute Assessment and Plan: Patient started vancomycin IV with pharmacy to dose, 1st dose 01/09/2023 Zosyn changed to cefepime and Flagyl, to avoid ORTEGA; she appears to have venous insufficiency ulcers. CRP 2.6. Wound nurse consulted and appreciate recommendations for wound care. elevate bilateral lower extremities to help with edema control. Patient wound benefit from compression dressings outpatient, such as unna boots for edema control. ABIs obtained and no evidence of PAD. 01/11 Improving. Changed to levaquin 750 mg PO daily x 10 days, starting 01/12/2023. She has h/o pseudomonas growth in her left leg wound in 08/2022. will cover strep/staph microbes. 01/13/23 bilateral lower extremities improving. Patient is afebrile and without leukocytosis. Continue Levaquin 750 mg but change to Q 48 hours due to creatinine clearance 49 today. (antibiotic day 4). (2) Recurrent cellulitis of lower extremity: Code(s): L03.119 - Cellulitis of unspecified part of limb Status: Chronic Assessment and Plan: Secondary to chronic lower extremity edema. Continue management as above. Lower extremity edema improving (3) Acute on chronic diastolic congestive heart failure: Code(s): I50.33 - Acute on chronic diastolic (congestive) heart failure Status: Acute Assessment and Plan: Acute on chronic right CHF. 09/14 transthoracic echocardiogram shows normal systolic LV function, EF 55-60%, mild LVH, right ventricle systolic dysfunction and grade 1 diastolic dysfunction and moderate pulmonary hypertension She has had increasing edema and now weeping of the lower extremities. Continue diuresis- furosemide 40 mg IV b.i.d. Daily weight and strict I/O monitoring. Daily BMP and magnesium. 01/11 She reports improvement in respiratory status but still with LE edema. Continue IV diuretics. Strict I/O. DC bautista 01/12 still with LE edema. Slight bump in BUN/creatinine noted today. Will decrease diuretic to 40 mg furosemide IV daily and repeat labs tomorrow. 01/13 BUN 31, creatinine 1.4, GFR 37. Change patient to oral diuretics 40 mg p.o. b.i.d. repeat renal function panel tomorrow (4) Right-sided heart failure: Code(s): I50.810 - Right heart failure, unspecified Status: Chronic Assessment and Plan: as above. (5) Chronic respiratory failure with hypoxia: Code(s): J96.11 - Chronic respiratory failure with hypoxia Status: Chronic Assessment and Plan: Possible acute on chronic exacerbation. Patient arrived to urgent care SpO2 was in the 60s though her portable oxygen tank was malfunctioning. She is currently at her home oxygen requirement. Pulmonary embolism seems less likely by history; venous Doppler ultrasounds were negative for DVT. Continue overnight CPAP autotitrate. 11/21/22 ABG shows chronic respiratory acidosis and hypoxia on room air. pH 7.42, pCO2 49, pO2 56, HCO3 32. Monitor respiratory status. Improving. spO2 98% on 3L NC. Wean to home levels if spO2>96% but keep >90% (6) Hypokalemia: Code(s): E87.6 - Hypokalemia Status: Resolved Assessment and Plan: K 3.2 today, magnesium 1.8. Hold HCTZ while on IV furosemide. Give 80 mEQ PO KCl x1 today and start 40 mEQ PO daily in am. 01/11 K 3.5. Increase KCl 40 mEQ PO BID. 01/12 K 3.9. Continue BID potassium. Daily BMP. (7) Hypertension: Code(s): I10 - Essential (primary) hypertension Status: Chronic Assessment and Plan: Blood pressures reviewed. Continue losartan, carvedilol and furosemide IV. Hold HCTZ for now. (8) Obstructive sleep apnea: Code(s): G47.33 - Obstructive sleep apnea (adult) (pediatric) Status: Chronic Assessment and Plan: CPAP will be provided for the patient to use while
[2023-01-13] MEDS: ENOXAPARIN 40 MG/0.4 ML SYRINGE SUB-Q (09:19)
[2023-01-13] MEDS: SIMVASTATIN 20 MG TABLET 40 MG BY MOUTH (09:20)
[2023-01-13] MEDS: SERTRALINE HCL 50 MG TABLET BY MOUTH ×2 (09:21→20:16)
[2023-01-13] MEDS: carvediloL 12.5 MG TABLET PO ×2 (09:21→20:16)
[2023-01-13] MEDS: SACCHAROMYCES BOULARDII 250 MG CAPSULE PO ×2 (09:22→17:42)
[2023-01-13] MEDS: POTASSIUM CHLORIDE 20 MEQ TABLET.ER 40 MEQ PO ×2 (09:22→17:41)
[2023-01-13] MEDS: FENOFIBRATE 160 MG TABLET BY MOUTH (09:22)
[2023-01-13] MEDS: SILVERGEL (ELTA) 45 ML 1 APPLIC TOPICAL (09:22)
[2023-01-13] MEDS: PSYLLIUM POWDER PACKET 1 PACKET PO (09:22)
[2023-01-13] MEDS: ASPIRIN 81 MG ENTERIC TABLET PO (20:16)
[2023-01-14] VITALS (7 sets, daily range): BP systolic 140–146; BP diastolic 77–80; PULSE 63–86; RESP 20; TEMP 36.4–36.8; O2SAT 93–97
[2023-01-14 05:46] LABS: Basophils Percent Auto 0.6 % (0.2-1.2); Eosinophils Absolute Auto 0.1 K/mm3 (0-0.3); Eosinophils Percent Auto 2.4 % (0-4.4); Hematocrit 37.7 % (37.0-47.0); Hemoglobin 11.1 g/dL (12.0-15.0); Immature Granulocyte Absolute 0.01 K/mm3 (0.00-0.031); Immature Granulocyte Percent A 0.2 % (0-0.5); Lymphocytes Absolute Auto 0.74 K/mm3 (0.9-3.2); Lymphocytes Percent Auto 14.6 % (18.3-44.2); Mean Corpuscular HGB Conc 29.4 g/dl (32-36); Mean Platelet Volume 9.1 fl (7.4-10.4); Monocytes Absolute Auto 0.5 K/mm3 (0.1-0.6); Monocytes Percent Auto 9.8 % (2.6-8.5); Neutrophils Absolute Auto 3.7 K/mm3 (1.3-6.7); Neutrophils Percent Auto 72.4 % (45.5-73.1); Platelet Count Result 145 k/mm3 (150-375); Red Blood Count 3.97 M/mm3 (4.2-5.4); Red Cell Distribution Width 14.3 % (11.5-14.5); White Blood Count 5.1 K/mm3 (4.5-10.0)
[2023-01-14 06:15] LABS: Alanine Aminotransferase 16 U/L (6-35); Albumin Level 3.6 g/dL (3.5-5.1); Alkaline Phosphatase 42 U/L (38-126); Aspartate Amino Transferase 21 U/L (14-36); Bilirubin,Total 0.7 mg/dL (0.2-1.3); Blood Urea Nitrogen 31 mg/dL (7-17); Calcium 8.8 mg/dL (8.4-10.2); Carbon Dioxide > 40 mmol/L (22-30); Chloride 100 mmol/L (98-107); Estimated CRCL calculation 56 ml/min; Estimated Glomerular Filt Rate 44; Glucose 99 mg/dL (65-110); Potassium 4.7 mmol/L (3.4-5.0); Sodium 142 mmol/L (137-145)
[2023-01-14] MEDS: ENOXAPARIN 40 MG/0.4 ML SYRINGE SUB-Q (08:46)
[2023-01-14] MEDS: POTASSIUM CHLORIDE 20 MEQ TABLET.ER 40 MEQ PO ×2 (08:46→17:59)
[2023-01-14] MEDS: PSYLLIUM POWDER PACKET 1 PACKET PO (08:46)
[2023-01-14] MEDS: carvediloL 12.5 MG TABLET PO (08:47)
[2023-01-14] MEDS: SIMVASTATIN 20 MG TABLET 40 MG BY MOUTH (08:47)
[2023-01-14] MEDS: SERTRALINE HCL 50 MG TABLET BY MOUTH (08:47)
[2023-01-14] MEDS: SACCHAROMYCES BOULARDII 250 MG CAPSULE PO ×2 (08:47→17:59)
[2023-01-14] MEDS: levoFLOXacin 750 MG TABLET PO (08:48)
[2023-01-14] MEDS: FUROSEMIDE 40 MG TABLET PO ×2 (08:48→17:58)
[2023-01-14] MEDS: FENOFIBRATE 160 MG TABLET BY MOUTH (08:48)
--- NOTE | 2023-01-14 08:57 | P.DS_ITS ---
DS: Admitting Diagnosis Discharge Date 01/14/23 Admitting Diagnosis Left leg cellulitis Acute on chronic diastolic congestive heart failure Chronic respiratory failure with hypoxia Hypokalemia Hypertension Obstructive sleep apnea DS: Discharge Diagnosis Discharge Diagnosis (1) Left leg cellulitis: Code(s): L03.116 - Cellulitis of left lower limb Status: Acute Assessment and Plan: Patient started vancomycin IV with pharmacy to dose, 1st dose 01/09/2023 * Zosyn changed to cefepime and Flagyl, to avoid ORTEGA. * CRP 2.6. * Wound nurse consulted and appreciate recommendations for wound care. Silver gel with dry gauze dressing changes daily * elevate bilateral lower extremities to help with edema control. * Patient wound benefit from compression dressings outpatient, such as unna boots for edema control. * ABIs obtained and no evidence of PAD. * 01/11 Improving. Changed to levaquin 750 mg PO daily x 10 days, starting 01/12/2023. She has h/o pseudomonas growth in her left leg wound in 08/2022. will cover strep/staph microbes. * 01/13/23 bilateral lower extremities improving. * Continue Levaquin 750 mg but change to Q 48 hours due to creatinine clearance. (2) Recurrent cellulitis of lower extremity: Code(s): L03.119 - Cellulitis of unspecified part of limb Status: Chronic Assessment and Plan: Secondary to chronic lower extremity edema. Continue management as above. Lower extremity edema improving (3) Acute on chronic diastolic congestive heart failure: Code(s): I50.33 - Acute on chronic diastolic (congestive) heart failure Status: Acute Assessment and Plan: Acute on chronic right CHF. 09/14 transthoracic echocardiogram shows normal systolic LV function, EF 55-60%, mild LVH, right ventricle systolic dysfunction and grade 1 diastolic dysfunction and moderate pulmonary hypertension * She has had increasing edema and now weeping of the lower extremities. * Continue diuresis- furosemide 40 mg IV b.i.d. * Daily weight and strict I/O monitoring. * Daily BMP and magnesium. * 01/11 She reports improvement in respiratory status but still with LE edema. Continue IV diuretics. Strict I/O. DC bautista * 01/12 still with LE edema. Slight bump in BUN/creatinine noted today. Will decrease diuretic to 40 mg furosemide IV daily and repeat labs tomorrow. * 01/13 BUN 31, creatinine 1.4, GFR 37. Change patient to oral diuretics 40 mg p.o. b.i.d. repeat renal function panel tomorrow, continue x6 more tablets (4) Right-sided heart failure: Code(s): I50.810 - Right heart failure, unspecified Status: Chronic Assessment and Plan: as above. (5) Chronic respiratory failure with hypoxia: Code(s): J96.11 - Chronic respiratory failure with hypoxia Status: Chronic Assessment and Plan: Possible acute on chronic exacerbation. * Patient arrived to urgent care SpO2 was in the 60s though her portable oxygen tank was malfunctioning. She is currently at her home oxygen requirement. * Pulmonary embolism seems less likely by history; venous Doppler ultrasounds were negative for DVT. * Continue overnight CPAP autotitrate. 11/21/22 ABG shows chronic respiratory acidosis and hypoxia on room air. pH 7.42, pCO2 49, pO2 56, HCO3 32. * Monitor respiratory status. * Improving. spO2 98% on 3L NC. Wean to home levels if spO2>96% but keep >90% (6) Hypokalemia: Code(s): E87.6 - Hypokalemia Status: Resolved Assessment and Plan: K 3.2 today, magnesium 1.8. *
--- NOTE | 2023-01-14 08:57 | PM.DS ---
DS: Admitting Diagnosis Discharge Date 01/14/23 Admitting Diagnosis Left leg cellulitis Acute on chronic diastolic congestive heart failure Chronic respiratory failure with hypoxia Hypokalemia Hypertension Obstructive sleep apnea DS: Discharge Diagnosis Discharge Diagnosis (1) Left leg cellulitis: Code(s): L03.116 - Cellulitis of left lower limb Status: Acute Assessment and Plan: Patient started vancomycin IV with pharmacy to dose, 1st dose 01/09/2023 Zosyn changed to cefepime and Flagyl, to avoid ORTEGA. CRP 2.6. Wound nurse consulted and appreciate recommendations for wound care. Silver gel with dry gauze dressing changes daily elevate bilateral lower extremities to help with edema control. Patient wound benefit from compression dressings outpatient, such as unna boots for edema control. ABIs obtained and no evidence of PAD. 01/11 Improving. Changed to levaquin 750 mg PO daily x 10 days, starting 01/12/2023. She has h/o pseudomonas growth in her left leg wound in 08/2022. will cover strep/staph microbes. 01/13/23 bilateral lower extremities improving. Continue Levaquin 750 mg but change to Q 48 hours due to creatinine clearance. (2) Recurrent cellulitis of lower extremity: Code(s): L03.119 - Cellulitis of unspecified part of limb Status: Chronic Assessment and Plan: Secondary to chronic lower extremity edema. Continue management as above. Lower extremity edema improving (3) Acute on chronic diastolic congestive heart failure: Code(s): I50.33 - Acute on chronic diastolic (congestive) heart failure Status: Acute Assessment and Plan: Acute on chronic right CHF. 09/14 transthoracic echocardiogram shows normal systolic LV function, EF 55-60%, mild LVH, right ventricle systolic dysfunction and grade 1 diastolic dysfunction and moderate pulmonary hypertension She has had increasing edema and now weeping of the lower extremities. Continue diuresis- furosemide 40 mg IV b.i.d. Daily weight and strict I/O monitoring. Daily BMP and magnesium. 01/11 She reports improvement in respiratory status but still with LE edema. Continue IV diuretics. Strict I/O. DC bautista 01/12 still with LE edema. Slight bump in BUN/creatinine noted today. Will decrease diuretic to 40 mg furosemide IV daily and repeat labs tomorrow. 01/13 BUN 31, creatinine 1.4, GFR 37. Change patient to oral diuretics 40 mg p.o. b.i.d. repeat renal function panel tomorrow, continue x6 more tablets (4) Right-sided heart failure: Code(s): I50.810 - Right heart failure, unspecified Status: Chronic Assessment and Plan: as above. (5) Chronic respiratory failure with hypoxia: Code(s): J96.11 - Chronic respiratory failure with hypoxia Status: Chronic Assessment and Plan: Possible acute on chronic exacerbation. Patient arrived to urgent care SpO2 was in the 60s though her portable oxygen tank was malfunctioning. She is currently at her home oxygen requirement. Pulmonary embolism seems less likely by history; venous Doppler ultrasounds were negative for DVT. Continue overnight CPAP autotitrate. 11/21/22 ABG shows chronic respiratory acidosis and hypoxia on room air. pH 7.42, pCO2 49, pO2 56, HCO3 32. Monitor respiratory status. Improving. spO2 98% on 3L NC. Wean to home levels if spO2>96% but keep >90% (6) Hypokalemia: Code(s): E87.6 - Hypokalemia Status: Resolved Assessment and Plan: K 3.2 today, magnesium 1.8. Hold HCTZ while on IV furosemide. Give 80 mEQ PO KCl x1 today and start 40 mEQ PO daily in am. 01/11 K 3.5. Increase KCl 40 mEQ PO BID. 01/12 K 3.9. Continue BID potassium. Daily BMP. 01/14 K 4.7 potassium changed to 20 mEq p.o. b.i.d. (7) Hypertension: Code(s): I10 - Essential (primary) hypertension Status: Chronic Assessment and Plan: Blood pressures reviewed. Continue losartan, c
[2023-01-14] MEDS: MIRABEGRON 25 MG ER TABLET PO (12:27)
[2023-01-14] MEDS: SILVERGEL (ELTA) 45 ML 1 APPLIC TOPICAL (12:28)
[2023-01-14 12:54] LABS: EDCOVIDSCREEN Negative (Negative)
== END 2023-01-14 18:30 | DRG 602 ==
LOC: ANHED 16:24 → ANH3MED 17:59
PROVIDERS: Emergency Medicine; Physician Assistant; Admitting Provider Family Medicine; Emergency Provider Emergency Medicine; PCP Family Medicine; Visit Provider Nurse Practitioner Family
DX: L03.116 Cellulitis of left lower limb (principal); I50.33 Acute on chronic diastolic (congestive) heart failure; J96.21 Acute and chronic respiratory failure with hypoxia; Z68.43 Body mass index [BMI] 50.0-59.9, adult; N17.9 Acute kidney failure, unspecified; E78.5 Hyperlipidemia, unspecified; E87.6 Hypokalemia; E66.01 Morbid (severe) obesity due to excess calories; F32.A Depression, unspecified; G47.33 Obstructive sleep apnea (adult) (pediatric); I50.810 Right heart failure, unspecified; I11.0 Hypertensive heart disease with heart failure; I27.20 Pulmonary hypertension, unspecified; K59.09 Other constipation; Z96.641 Presence of right artificial hip joint; Z20.822 Contact with and (suspected) exposure to COVID-19; Z91.199 Patient's noncompliance with other medical treatment and regimen due to unspecified reason; Z90.710 Acquired absence of both cervix and uterus; Z79.82 Long term (current) use of aspirin
CPT/HCPCS: 36415; 71046; 80048; 80053; 80202; 83036; 83605; 83735; 83880; 84132; 84443; 84484; 85025; 85027; 85610; 85730; 86140; 87040; 87081; 87426; 93005; 93922; 93970; 94660; 96365; 97110; 97116; 97161; 97165; 97530; 97535; 99215; 99285; A9270; C9803; G0463; J0692; J1650; J1940; J2543; J3370; J3480; J7040

== ENCOUNTER 2023-04-19 15:31 | Outpatient (CLI) | payer MEDICARE, OTHER, SELFPAY ==
--- NOTE | ~2023-04-19 | MM_ITS ---
EXAMINATION: MM screening jak BI w [facility] HISTORY: Screening mammogram, family history of breast cancer in her mother. TECHNIQUE: Craniocaudal and mediolateral oblique 3-D tomosynthesis images were obtained and synthetic 2-D images were generated. CAD analysis was submitted and interpreted. COMPARISON: 11/30/2021, 11/26/2020, 10/28/2019 BREAST PARENCHYMAL COMPOSITION: The breasts are almost entirely fatty. FINDINGS: No suspicious mass, calcification, or architectural distortion are identified in either prem ast to suggest malignancy. There has been no suspicious interval change. IMPRESSION: 1. No mammographic evidence of malignancy. 2. Recommend routine screening mammography in one year. BI-RADS Category 1: Negative Reviewed, dictated and finalized at location A.
== END 2023-04-19 15:32 | disposition home or self-care (01) ==
PROVIDERS: PCP Family Medicine; Visit Provider Family Medicine
DX: Z12.31 Encounter for screening mammogram for malignant neoplasm of breast (principal)
CPT/HCPCS: 77063; 77067

== ENCOUNTER 2024-08-28 15:15 | Emergency (ER) | payer MEDICARE, BC, SELFPAY ==
[2024-08-28] VITALS (9 sets, daily range): BP systolic 110–124; BP diastolic 48–67; PULSE 74–89; RESP 17–22; TEMP 36.8; O2SAT 97–99
--- NOTE | 2024-08-28 16:54 | ED_ITS ---
HPI - Wound/Laceration General Chief Complaint: Wound/Laceration Stated Complaint: abd wound Time Seen by Provider: 08/28/24 15:15 Source: patient Mode of arrival: EMS Limitations: no limitations History of Present Illness HPI narrative: This is a 74-year-old female, with history of hypertension and hyperlipidemia, who underwent hernia repair in early July, complicated by perforation and cardiac arrest, brought in by EMS from her [place] [facility] facility with concern for a lesion on the left side of her abdomen. The patient states the wound has strain purulent appearing fluid but is not painful. She states it is not associated with any of her surgical sites. She also states her [place] [facility] care facility as requested the patient be given a CPAP. She states she has a machine though it is missing a part that her family member has. She denies fevers, chest pain, shortness of breath, abdominal pain, nausea or vomiting. She has no other complaints at this time Related Data Home Medications Medication Instructions Recorded Confirmed aspirin 81 mg tablet,delayed 81 mg PO HS 07/31/19 03/24/24 release (Aspir-) Allergies Allergy/AdvReac Type Severity Reaction Status Date / Time No Known Allergies Allergy Verified 03/24/24 13:44 Review of Systems Review of Systems: All systems reviewed & are unremarkable except as noted in HPI and below PMFSH Past Medical History Medical History Chronic respiratory failure with hypoxia Diastolic dysfunction Grade 1 diastolic dysfunction on echocardiogram in August 2022. EF was 55 to 60%. Basal inferolateral wall was hypokinetic. Diverticulitis Dyslipidemia Hypertension Major depressive disorder, recurrent, moderate Moderate pulmonary hypertension Estimated PASP was 56 mmHg on echocardiogram in August 2022. Morbid obesity Obstructive sleep apnea Right-sided heart failure Right ventricle is moderately enlarged with reduced systolic function on e chocardiogram in August 2022. Also with moderate pulmonary hypertension. Surgical History Surgical History History of arthroscopy of right knee History of cardiac catheterization History of partial hysterectomy History of tonsillectomy and adenoidectomy History of total right hip arthroplasty Family History Family History Sibling Patient's brother is in good health Family history of diabetes mellitus in first degree relative Mother Family history of heart disease in male family member before age 55, Onset Age: 88 Patient's mother is Other Diabetes mellitus Family history of arthritis Hypertension Social History Social History Social History: Healthcare power of senior attorney: Indigo Atkinson, [place]. Code status: Full code. Smoking status: Never smoker Second hand tobacco smoke exposure: No Alcohol intake: never Substance use: never Substance use type: does not use Do You Feel Safe in your Home?: Yes Lack of Transportation: YES Lack of Food: Never True Current Housing: I Have Housing Concerned About Future Housing: No Difficulty Paying Gas/Electric Bills: No Difficulty Paying for Meds: No Currently Unemployed: No Education: Master's Degree or Higher Difficulty w/ Childcare or Family Care: No Living arrangements: with family Additional living arrangements comments: Single. No children. Lives alone. 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 Gender identity (if verbalized by the patient): Female Sexual Orientation (if Verbalized by the Patient): Straight or Heterosexual Spiritual care concerns: No Exam Narrative: GENERAL: Well-developed, well-nourished, and in no acute distress. morbidly obese HEAD: Normocephalic, atraumatic. EYES: PERRLA and EOMI. CHEST: Clear to auscultation. No respiratory distress. No wheezes rales or rhonchi HEART: Regular rate and rhythm. No murmur heard. Normal peripheral pulses. ABDOMEN: Soft, nontender, nondistended, normal active bowel sounds. there is a well-healed midline surgical scar consistent with exploratory laparotomy. At the inferior aspect of the scar, there is packing noted without purulent drainage, surrounding erythema or induration. EXTREMITIES: Normal range of motion. No edema. SKIN: In the left lower quadrant of the abdomen, there is a 7 cm diameter lesion with granulomatous appearing tissue and drainage of purulent fluid along with crusting. There is no noted induration, fluctuance mass or tenderness to palpation. Skin otherwise warm, dry, no rash. NEURO: Alert and oriented x3. No focal deficit. Moving all 4 limbs spontaneously PSYCH: Normal mood and affect. Course Course Emergency Course: 16:57 - The patient's exam appears consistent with impetigo. I do not suspect an underlying abscess or intra-abdominal infectious process. Will discharge with oral and topical antibiotics and recommendation primary care follow-up. We contacted care coordination to help facilitate acquiring a CPAP for the patient. Unfortunately this will not be able to be completed today. the patient does not appear to be in any respiratory distress and wears O2 at baseline. I discussed the findings and recommendations with The patient. Discussed return and emergency precautions including signs/symptoms of antibiotic failure, acute abdomen and intractable vomiting. The patient voiced understanding and agreement with the plan. All questions answered to her satisfaction. Vital Signs Vital signs: Vital Signs Temperature 98.3 F 08/28/24 15:15 Pulse Rate 74 08/28/24 15:15 Respiratory Rate 19 08/28/24 15:15 Blood Pressure 110/58 L 08/28/24 15:15 Pulse Oximetry 99 08/28/24 15:15 Oxygen Delivery Nasal Cannula 08/28/24 15:15 Oxygen Flow Rate 4 08/28/24 15:15 Temperature 98.3 F 08/28/24 15:15 Pulse Rate 89 08/28/24 19:16 Respiratory Rate 21 H 08/28/24 19:16 Blood Pressure 124/63 08/28/24 19:16 Pulse Oximetry 97 08/28/24 19:16 Oxygen Delivery Nasal Cannula 08/28/24 15:15 Oxygen Flow Rate 4 08/28/24 15:15 MDM - Wound/Laceration MDM Narrative Medical decision making narrative: plan: Antibiotics, care coordination consult, primary care follow-up Differential Diagnosis Differential diagnosis: Likely other ( cellulitis, impetigo, LEVI, other) Discharge Plan Discharge Clinical Impression: Impetigo Patient Disposition: NH Retirement/Asst Living Condition: Stable Instructions: Antibiotic Form, Impetigo (ED) Additional Instructions: You were seen in the emergency department. your exam appears consistent with impetigo. I recommend oral and topical antibiotics and follow-up with your primary care doctor. If you develop rapidly spreading severe rash, severe abdominal pain, abdominal pain with fevers, or if you have other emergent concerns for life, limb, or eyesight, return to the emergency department. Patient Language: Citizen [place] Prescriptions: New mupirocin 2 % ointment 1 applic topical TID 5 Days Qty: 22 0RF clindamycin HCl 150 mg capsule 450 mg PO Q8H 7 Days Qty: 63 0RF No Action hydrochlorothiazide 12.5 mg tablet See Rx Instructions .ROUTE .COMPLEX Qty: 90 3RF Dose Instruction: TAKE 1 TABLET BY MOUTH EVERY DAY Rx Instructions: TAKE 1 TABLET BY MOUTH EVERY DAY acetaminophen [Mapap (acetaminophen)] 325 mg Tablet 650 mg PO Q6H PRN (Reason: Mild Pain (1-3) Or Fever) Qty: 8 0RF aspirin [Aspir-81] 81 mg tablet,delayed release (DR/EC) 81 mg PO HS potassium chloride 20 mEq tablet extended release See Rx Instructions .ROUTE .COMPLEX Qty: 90 0RF Dose Instruction: TAKE 1 TABLET BY MOUTH DAILY Rx Instructions: TAKE 1 TABLET BY MOUTH DAILY alendronate 35 mg tablet See Rx Instructions .ROUTE .COMPLEX Qty: 12 1RF Dose Instruction: TAKE 1 TABLET (35 MG) BY MOUTH WEEKLY ON SUNDAY Rx Instructions: TAKE 1 TABLET (35 MG) BY MOUTH WEEKLY ON SUNDAY losartan 100 mg tablet See Rx Instructions .ROUTE .COMPLEX Qty: 90 3RF Dose Instruction: TAKE 1 TABLET BY MOUTH EVERY DAY Rx Instructions: TAKE 1 TABLET BY MOUTH EVERY DAY simvastatin 40 mg tablet See Rx Instructions .ROUTE .COMPLEX Qty: 90 2RF Dose Instruction: TAKE 1 TABLET BY MOUTH EVERY DAY Rx Instructions: TAKE 1 TABLET BY MOUTH EVERY DAY sertraline 50 mg tablet See Rx Instructions .ROUTE .COMPLEX Qty: 180 1RF Dose Instruction: TAKE 1 TABLET BY MOUTH TWICE A DAY Rx Instructions: TAKE 1 TABLET BY MOUTH TWICE A DAY carvedilol 12.5 mg tablet See Rx Instructions .ROUTE .COMPLEX Qty: 180 0RF Dose Instruction: TAKE 1 TABLET BY MOUTH EVERY 12 HOURS-MUST ADMINISTER WITH A MEAL/FOOD Rx Instructions: TAKE 1 TABLET BY MOUTH EVERY 12 HOURS-MUST ADMINISTER WITH A MEAL/FOOD furosemide 20 mg tablet See Rx Instructions .ROUTE .COMPLEX Qty: 90 0RF Dose Instruction: TAKE 1 TABLET BY MOUTH EVERY MORNING. Rx Instructions: TAKE 1 TABLET BY MOUTH EVERY MORNING. fenofibrate 160 mg tablet See Rx Instructions .ROUTE .COMPLEX Qty: 90 0RF Dose Instruction: TAKE 1 TABLET BY MOUTH EVERY DAY Rx Instructions: TAKE 1 TABLET BY MOUTH EVERY DAY Follow-up/Referrals: Lili Corey MD [Primary Care Provider] - 2 Weeks Stand Alone Forms: [facility] Discharge Time of Disposition: 16:57
--- NOTE | 2024-08-28 17:34 | PC.NURSE ---
attempted to call report at this time to pt facility but the nurse did not answer
== END 2024-08-28 20:19 ==
PROVIDERS: Emergency Provider Preventive Medicine Aerospace Medicine; PCP Family Medicine
DX: L01.00 Impetigo, unspecified (principal); J96.11 Chronic respiratory failure with hypoxia; I11.0 Hypertensive heart disease with heart failure; I50.810 Right heart failure, unspecified; I27.20 Pulmonary hypertension, unspecified; E78.5 Hyperlipidemia, unspecified; E66.01 Morbid (severe) obesity due to excess calories; Z68.43 Body mass index [BMI] 50.0-59.9, adult; G47.33 Obstructive sleep apnea (adult) (pediatric); Z90.711 Acquired absence of uterus with remaining cervical stump; Z96.641 Presence of right artificial hip joint
CPT/HCPCS: 99283

== ENCOUNTER 2024-09-11 08:57 | Outpatient (CLI) | payer MEDICARE, SELFPAY ==
--- NOTE | ~2024-09-11 | CT_ITS ---
CT of the Abdomen: Indication: Abdominal pain Technique: 2.5 mm axial scans were obtained through the abdomen following intravenous administration of 100 cc of Omnipaque 350. Dose reduction technique was used on this scan by utilizing automated ex posure control and iterative reconstruction technique. The dose-length product (DLP) was 2330.57 mGy- cm. Findings: Scans through the lung bases demonstrate small left pleural effusion. Probable cardiomegal y. The liver, pancreas, right adrenal gland, and kidneys are within normal limits. Gallbladder sludge pr esent. Probable mild splenomegaly. Stable 2.1 cm right adrenal nodule. No evidence of aortic aneurysm . No lymphadenopathy. Visualized bowel loops are unremarkable. Probable postoperative changes in the anterior subcutaneous soft tissues.. No ascites. Impression: Small left pleural effusion. Stable 2.1 cm right adrenal nodule, compatible with adenoma based on prior MR. Postoperative changes in the anterior subcutaneous soft tissues. Mild splenomegaly. Probable gallbladder sludge. Reviewed, dictated and finalized at [facility]. [employer] Impression: Small left pleural effusion. Stable 2.1 cm right adrenal nodule, compatible with adenoma based on prior MR. Postoperative changes in the anterior subcutaneous soft tissues. Mild splenomegaly. Probable gallbladder sludge.
[2024-09-11 09:26] LABS: Estimated Glomerular Filt Rate 49
== END 2024-09-11 08:58 | disposition home or self-care (01) ==
PROVIDERS: PCP Family Medicine; Visit Provider Internal Medicine
DX: J90 Pleural effusion, not elsewhere classified (principal); E27.9 Disorder of adrenal gland, unspecified; R16.1 Splenomegaly, not elsewhere classified; R10.9 Unspecified abdominal pain
CPT/HCPCS: 74160; Q9967

== ENCOUNTER 2025-01-01 13:51 | Inpatient (IN) | payer MEDICARE, SELFPAY ==
[2025-01-01] VITALS (17 sets, daily range): BP systolic 103–143; BP diastolic 48–68; PULSE 52–78; RESP 16–39; TEMP 36.4–36.9; O2SAT 89–100; BMI 56.2
--- NOTE | ~2025-01-01 | XR_ITS ---
Portable chest x-ray Comparison: 01/01/2025 Clinical History: CHF Findings: There is central congestive change with possible minimal bibasilar pulmonary edema. Cardi omediastinal silhouette is stable. Bones and soft tissues are unremarkable. Impression: Central congestive change and possible minimal bibasilar pulmonary edema. Stable cardiomegaly. Reviewed, dictated and finalized at location . Impression: Central congestive change and possible minimal bibasilar pulmonary edema. Stable cardiomegaly.
--- NOTE | ~2025-01-01 | XR_ITS ---
EXAMINATION: XR chest 1V portable DATE: 01/01/2025 14:30 INDICATION: Shortness of breath and cough TECHNIQUE: AP view of the chest was obtained. COMPARISON: Chest radiograph dated 01/09/[address] studies dated 09/15/2022 and 09/11/2024 FINDINGS: Cardiomegaly with pulmonary vascular congestion. Unchanged opacity laterally at the left lower lung z one consistent with no other airspace opacities, pulmonary edema, pneumothorax or definitive pleural effusion. Atelectasis along side a left paracardial fat pad. IMPRESSION: 1. Cardiomegaly with pulmonary vascular congestion. 2. Unchanged opacity at the lateral left lower lung zone most likely persistent lingular atelectasis/ scarring along side a prominent left paracardial fat pad although the differential includes less like ly pneumonia or small pleural effusion. Reviewed, dictated and finalized at location B. IMPRESSION: 1. Cardiomegaly with pulmonary vascular congestion. 2. Unchanged opacity at the lateral left lower lung zone most likely persistent lingular atelectasis/scarring along side a prominent left paracardial fat pad although the differential includes less likely pneumonia or small pleural effus ion.
--- NOTE | 2025-01-01 14:01 | ECG_ITS ---
Test Date: 2025-01-01 14:03:41 Measurements Intervals [place] Rate: 62 P: 32 LA: 232 QRS: -31 QRSD: 155 T: 30 QT: 450 QTc: 459 Interpretive Statements SINUS RHYTHM WITH FIRST DEGREE AV BLOCK LEFT AXIS DEVIATION LEFT BUNDLE BRANCH BLOCK BASELINE ARTIFACT- I, II, AVR, AVL, AVF, V3 ABNORMAL ECG No previous ECG available for comparison Electronically Signed On 01-01-2025 14:10:26 CDT by Kevin Sullivan D.O.
--- NOTE | 2025-01-01 14:19 | ED_ITS ---
HPI - SOB/Dyspnea General Chief Complaint: Shortness of Breath/Dyspnea Stated Complaint: low 02 sat Time Seen by Provider: 01/01/25 14:07 Source: patient and old records reviewed Mode of arrival: ambulatory Limitations: no limitations History of Present Illness HPI Narrative: Patient is a 74 y/o female, with PMH of LEVI, CKD, CHF, HTN, pHTN, AFIB on eliquis/amiodarone, chronic respiratory failure on 3L NC, who presents to the ED from her PCP's office with report of hypoxia, shortness of breath. Patient reports she has been feeling increasingly short of breath over the past few weeks. Had previously been in rehab at [facility] and was discharged back to independent living at the end of November. States she has home health care, but has been struggling some at home by herself. States her oxygen saturations have been dropping into the 70s at home with any sort of exertion. She thought she just needed more time to adjust to being back at home. Today she went to her PCPs office for a follow-up visit and was found to be markedly hypoxic down into this 60s on her home O2. She was near syncopal at that time. She was sent here for further evaluation. Patient reports recent dry cough, congestion, rhinorrhea. Denies chest pain. Denies fevers. Denies worsening lower extremity swelling compared to usual. Patient does mention that she only took 1 dose of her Eliquis the past 2 days. Takes Lasix 80mg daily. Related Data Home Medications ?Medication ?Instructions ?Recorded ?Confirmed ?Last Taken ?Type aspirin 81 mg tablet,delayed 81 mg PO HS 07/31/19 01/01/25 01/01/25 History release (Aspir-) amiodarone 200 mg tablet 200 mg PO BID 12/30/24 01/01/25 01/01/25 History apixaban 5 mg tablet (Eliquis) 5 mg PO BID 12/30/24 01/01/25 01/01/25 History furosemide 80 mg tablet 80 mg PO QAM 12/30/24 01/01/25 Unknown History losartan 50 mg tablet 50 mg PO DAILY 12/30/24 01/01/25 01/01/25 History pantoprazole 40 mg tablet,delayed 40 mg PO DAILY 12/30/24 01/01/25 01/01/25 History release silver sulfadiazine 1 % topical 1 applic topical DAILY 01/01/25 01/01/25 Unknown History cream Allergies Allergy/AdvReac Type Severity Reaction Status Date / Time No Known Allergies Allergy Verified 01/01/25 18:13 Review of Systems 2 Review of Systems: All systems reviewed & are unremarkable except as noted in HPI. All systems reviewed & are unremarkable except as noted in HPI and below PMFSH Past Medical History Medical History Chronic respiratory failure with hypoxia Diverticulitis Diastolic dysfunction Grade 1 diastolic dysfunction on echocardiogram in August 2022. EF was 55 to 60%. Basal inferolateral wall was hypokinetic. Right-sided heart failure Right ventricle is moderately enlarged with reduced systolic function on echocardiogram in August 2022. Also with moderate pulmonary hypertension. Moderate pulmonary hypertension Estimated PASP was 56 mmHg on echocardiogram in August 2022. Morbid obesity Dyslipidemia Hypertension Obstructive sleep apnea Major depressive disorder, recurrent, moderate Surgical History Surgical History History of total right hip arthroplasty History of cardiac catheterization History of arthroscopy of right knee History of partial hysterectomy History of tonsillectomy and adenoidectomy Family History Family History Sibling Patient's brother is in good health Family history of diabetes mellitus in first degree relative Mother Family history of heart disease in male family member before age 55, Onset Age: 88 Patient's mother is Other Diabetes mellitus Family history of arthritis Hypertension Social History Social History Social History: Healthcare power of compliance attorney: Indigo Atkinson, niece. Code status: Full code. Smoking status: Never smoker Second hand tobacco smoke exposure: No Alcohol intake: never Substance use: never Substance use type: does not use Do You Feel Safe in your Home?: Yes Lack of Transportation: No Lack of Food: Never True Current Housing: I Have Housing Concerned About Future Housing: No Difficulty Paying Gas/Electric Bills: No Difficulty Paying for Meds: No Currently Unemployed: No Education: Master's Degree or Higher Difficulty w/ Childcare or Family Care: No Living arrangements: with family Additional living arrangements comments: Single. No children. Lives alone. 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 Gender identity (if verbalized by the patient): Female Sexual Orientation (if Verbalized by the Patient): Straight or Heterosexual Spiritual care concerns: Yes Exam 2 Narrative: GENERAL: Chronically ill-appearing, morbidly obese with BMI of 56.3, in mild acute respiratory distress. HEAD: Normocephalic, atraumatic. RESPIRATORY: Airway patent, respirations tachypneic and somewhat labored. Decreased breath sounds throughout. Rhonchi in bibasilar lungs CARDIOVASCULAR: Regular rate and rhythm without murmurs, rubs, or gallops. Peripheral pulses intact. MUSCULOSKELETAL: Moves all extremities. No gross deformities. Venous stasis changes to bilateral lower extremities, chronic pitting edema. No tenderness. SKIN: Warm, dry, normal color. NEURO: A&O X3. Speech clear. Cranial nerves II-XII grossly intact. No ataxic movements. PSYCHIATRIC: Appropriate mood and affect. Normal interaction. Course Vital Signs Vital signs: Vital Signs Temperature 97.9 F 01/01/25 13:55 Pulse Rate 78 01/01/25 13:55 Respiratory Rate 18 01/01/25 13:55 Blood Pressure 115/65 01/01/25 13:55 Pulse Oximetry 89 L 01/01/25 13:55 Oxygen Delivery Nasal Cannula 01/01/25 13:55 Oxygen Flow Rate 3 01/01/25 13:55 Temperature 98.4 F 01/01/25 18:28 Pulse Rate 56 L 01/01/25 18:28 Respiratory Rate 26 H 01/01/25 18:28 Blood Pressure 143/57 H 01/01/25 18:28 Pulse Oximetry 98 01/01/25 18:28 Oxygen Delivery BiPAP 01/01/25 18:11 Oxygen Flow Rate 5 01/01/25 14:19 MDM - SOB/Dyspnea MDM Narrative Medical decision making narrative: Patient presented to ED with acute on chronic hypoxia. Hx CHF. Typically on 3 L nasal cannula. Reports having increased shortness breath and low oxygen saturations at home over the last few weeks. Patient's oxygen saturation was in the 60s at her PCPs office. She was 89% on 3 L upon arrival here. Increased to 5 L which did improve oxygen saturations to 97. Respiratory was notified. ABG was obtained and showing CO2 retention with pCO2 of 70.4. Mild acidosis pH of 7.34. There is some metabolic compensation. Patient will be placed on BiPAP. EKG with sinus rhythm, QRS is slightly wide, no concerning ischemic changes. Baseline troponin undetectable. Patient is denying chest pain at this time. BNP is elevated to 3160. Chest x-ray with cardiomegaly and pulmonary vascular congestion. Patient given IV Lasix 40mg in the ED. Viral swabs negative. Remainder of basic laboratory studies fairly unremarkable. Anemia noted at 9.3. Normocytic. No recent records to compare to. Patient denies any bleeding. Patient will be admitted for further eval. Doing much better on BiPAP. Maintaining oxygen saturations. Discussed case with Florina Pierce NP hospitalist, accepted patient for admission. Patient in agreement with plan and admission. Medical Records Attestation: I reviewed the patient's medical records. Lab Data Attestation: I reviewed the patient's lab results. 01/01/25 14:12 01/01/25 14:12 Labs: Lab Results 01/01/25 01/01/25 Range/Units 14:12 14:25 WBC 7.3 (4.5-10.0) K/mm3 RBC 3.73 L (4.2-5.4) M/mm3 Hgb 9.3 L (12.0-15.0) g/dL Hct 33.9 L (37.0-47.0) % MCV 90.9 (80-100) fl MCH 24.9 L (26-34) pg MCHC 27.4 L (32-36) g/dl RDW 16.8 H (11.5-14.5) % Plt Count 127 L (150-375) k/mm3 MPV 8.6 (7.4-10.4) fl Immature Gran % (Auto) 0.6 H (0-0.5) % Neut % (Auto) 75.4 H (45.5-73.1) % Lymph % (Auto) 12.7 L (18.3-44.2) % [place] % (Auto) 9.6 H (2.6-8.5) % Eos % (Auto) 1.4 (0-4.4) % Baso % (Auto) 0.3 (0.2-1.2) % Lymph # (Auto) 0.92 (0.9-3.2) K/mm3 [place] # (Auto) 0.7 H (0.1-0.6) K/mm3 Eos # (Auto) 0.1 (0-0.3) K/mm3 Baso # (Auto) 0.0 (0.0-0.1) K/mm3 Abs Immat Gran (auto) 0.04 H (0.00-0.031) K/mm3 Absolute Neuts (auto) 5.5 (1.3-6.7) K/mm3 Absolute Nucleated RBC 0.000 (0.0-0.012) K/mm3 Band Neutrophils % Not Reportable Nucleated RBC % 0.0 (0.0-0.2) % Platelet Estimate Decreased (Adequate) Hypochromasia 1+ Ovalocytes 1+ Schistocytes None seen PT 16.3 H (11.1-14.7) Seconds INR 1.3 APTT 31.9 (22.3-36.8) Seconds Methemoglobin 0.1 (0-1.5) %THb Sodium 143 (137-145) mmol/L Potassium 4.8 (3.4-5.0) mmol/L Chloride 97 L (98-107) mmol/L Carbon Dioxide 36 H (22-30) mmol/L Anion Gap 10 (4-12) mmol/L BUN 30 H (7-17) mg/dL Creatinine 0.97 (0.7-1.0) mg/dL Estim Creat Clear Calc Not Reportable Estimated GFR 56 L (59 - ) Glucose 115 H (65-110) mg/dL Calcium 8.9 (8.4-10.2) mg/dL Total Bilirubin 0.5 (0.2-1.3) mg/dL AST 27 (14-36) U/L ALT 23 (6-35) U/L Alkaline Phosphatase 70 (38-126) U/L Troponin I < 0.012 (0.000-0.034) ng/mL NT-Pro-B Natriuret Pep 3160 H (19.9-100) pg/mL Total Protein 8.0 (6.3-8.2) g/dL Albumin 4.0 (3.5-5.1) g/dL Influenza A (RT-PCR) Negative (Negative) Influenza B (RT-PCR) Negative (Negative) RSV (RT-PCR) Negative (Negative) SARS-CoV-2 RNA (RT-PCR) Negative (Negative) ABG Data ABG results: 01/01/25 14:25 Puncture Site Left radial ABG pH 7.340 L ABG pCO2 70.4 H* ABG pO2 65.4 L ABG PO2/FiO2 Ratio 1.63 ABG HCO3 37.1 H ABG O2 Saturation 90.8 L ABG O2 Content 12.9 L ABG Base Excess 9.4 A-a Gradient 138.8 Oxyhemoglobin 90.3 Carboxyhemoglobin 1.5 Reduced Hemoglobin 8.1 H Total Hemoglobin 10.1 L O2 Delivery Device Nasal cannula O2 Liters/Min 5.0 FiO2 40 Attestation: I personally reviewed and interpreted this ABG as follows: Imaging Data Attestation: I personally reviewed and interpreted this imaging study as follows: Radiologist's impression: ITS Impressions Chest X-Ray 01/01/25 14:40 IMPRESSION: 1. Cardiomegaly with pulmonary vascular congestion. 2. Unchanged opacity at the lateral left lower lung zone most likely persistent lingular atelectasis/scarring along side a prominent left paracardial fat pad although the differential includes less likely pneumonia or small pleural effusion. ECG Data EKG #1: Attestation: I personally reviewed and interpreted this ECG as follows: ECG completion date: 01/01/25 ECG completion time: 14:03 EKG Interpretation: normal rate (62), sinus rhythm, non-specific ST changes and widened QRS Discharge Plan Discharge Clinical Impression: Acute on chronic respiratory failure with hypoxia and hypercapnia Acute exacerbation of CHF (congestive heart failure) Qualifiers: Heart failure type: unspecified Qualified Code(s): I50.9 - Heart failure, unspecified Patient Disposition: Still a Patient Condition: Stable
[2025-01-01 14:20] LABS: Basophils Percent Auto 0.3 % (0.2-1.2); Eosinophils Absolute Auto 0.1 K/mm3 (0-0.3); Eosinophils Percent Auto 1.4 % (0-4.4); Hematocrit 33.9 % (37.0-47.0); Hemoglobin 9.3 g/dL (12.0-15.0); Immature Granulocyte Absolute 0.04 K/mm3 (0.00-0.031); Immature Granulocyte Percent A 0.6 % (0-0.5); Lymphocytes Absolute Auto 0.92 K/mm3 (0.9-3.2); Lymphocytes Percent Auto 12.7 % (18.3-44.2); Mean Corpuscular HGB Conc 27.4 g/dl (32-36); Mean Corpuscular Hemoglobin 24.9 pg (26-34); Mean Corpuscular Volume 90.9 fl (80-100); Mean Platelet Volume 8.6 fl (7.4-10.4); Monocytes Absolute Auto 0.7 K/mm3 (0.1-0.6); Monocytes Percent Auto 9.6 % (2.6-8.5); Neutrophils Absolute Auto 5.5 K/mm3 (1.3-6.7); Neutrophils Percent Auto 75.4 % (45.5-73.1); Platelet Count Result 127 k/mm3 (150-375); Red Blood Count 3.73 M/mm3 (4.2-5.4); Red Cell Distribution Width 16.8 % (11.5-14.5); White Blood Count 7.3 K/mm3 (4.5-10.0)
--- OUTSIDE RECORDS SUMMARY | 2025-01-01 14:20 | XMS_ITS | Clinical Summary ---
Author Organization [facility] Address [address] [place] [id number] Care Team Providers Care Assistant Auto Center Manager Name Role Phone Chandler Petit MD Primary Care Provider Allergies No known active allergies Medications sertraline (ZOLOFT) 50 mg tablet Take 1 tablet (50 mg total) by mouth 2 (two) times a day 11/07/2017 Active simvastatin (ZOCOR) 40 mg tablet Take 1 tablet (40 mg total) by mouth nightly 11/07/2017 Active aspirin 81 mg tablet Take 1 tablet (81 mg total) by mouth daily Active multivitamin capsule Take 1 capsule by mouth daily Active losartan (COZAAR) 100 mg tablet 1 tablet (100 mg total) daily 08/07/2019 Active hydroCHLOROthia zide (HYDRODIURIL) 12.5 mg tablet Take 1 tablet (12.5 mg total) by mouth daily 10/27/2019 Active furosemide (LASIX) 20 mg tablet Take 1 tablet (20 mg total) by mouth daily 10/27/2019 Active fenofibrate (TRIGLIDE) 160 mg tablet Take 1 tablet (160 mg total) by mouth daily 01/31/2021 Active alendronate (FOSAMAX) 35 mg tablet TAKE 1 TABLET BY MOUTH WEEKLY 05/29/2022 Active potassium chloride ER 20 mEq CR tablet Take 1 tablet (20 mEq total) by mouth daily 11/14/2023 Active carvediloL (COREG) 12.5 mg tablet Take 1 tablet (12.5 mg total) by mouth 2 (two) times a day with meals 10/24/2023 Active Active Problems Problem Noted Date Diagnosed Date Chronic hypoxic respiratory failure, on home oxy gen therapy 01/14/2024 ROMERO (dyspnea on exertion) 08/12/2018 Assessment & Plan (08/12/2018 10:41 AM AUDIT MGR): An echocardiogram to assess cardiac function and valve function. Other chest pain 08/12/2018 Assessment & Plan (08/12/2018 10:42 AM AUDIT MGR): At this time given it is atypical chest pain, will continue to observe. I will reassess her symptoms in September 2018. However if her chest pain persists, then we will consider cardiac catheterization. She does have strong family history for CAD. Hypertriglyceridemia 12/03/2017 Abnormal EKG 11/19/2017 Assessment & Plan (12/03/2017 8:39 AM CDT): Negative stress test for ischemia. Assessment & Plan (11/19/2017 10:30 AM AUDIT MGR): EKG is concerning for ischemia at rest. Will schedule a Lexiscan nuclear stress test to rule out ischemia. Preop cardiovascular exam 11/19/2017 Assessment & Plan (12/03/2017 8:38 AM CDT): Stress test is negative. May proceed for the hip surgery Assessment & Plan (11/19/2017 10:30 AM AUDIT MGR): Preoperative clearance pending stress test result Essential hypertension 11/19/2017 Assessment & Plan (08/12/2018 10:42 AM AUDIT MGR): Blood pressure is controlled. Continue current treatment Assessment & Plan (12/03/2017 8:39 AM CDT): Blood pressure is controlled. Continue current treatment Assessment & Plan (11/19/2017 10:33 AM AUDIT MGR): Blood pressure is controlled. Continue current treatment Mixed hyperlipidemia 11/19/2017 Assessment & Plan (08/12/2018 10:42 AM AUDIT MGR): Patient will undergo lipid panel to checking at an outside lab this week. I will ask patient to send me the results. Assessment & Plan (12/03/2017 8:41 AM CDT): Elevated triglycerides. Continue Zocor. Add Lovaza. Discontinue [id number] fish oil. Reassess lipid panel in 6 months Assessment & Plan (11/19/2017 10:33 AM AUDIT MGR): Continue simvastatin. Triglyceride levels are elevated today on this nonfasting blood sample. She is going next week to have another lipid panel and therefore I advised her to at least fast 12 hr. Morbid obesity with body mas s index (BMI) of 45.0 to 49.9 in adult 11/19/2017 Assessment & Plan (08/12/2018 10:42 AM AUDIT MGR): Advised about diet modification to help her lose weight. Assessment & Plan (12/03/2017 8:40 AM CDT): Advised about diet modification specially cutting down fried food and carbohydrate. Hard for the patient to exercise given her knee pain. Assessment & Plan (11/19/2017 10:33 AM AUDIT MGR): Patient was advised to adjust diet to help her lose weight. She cannot exercise because of severe hip pain. Surgical History Surgery Date Site/Laterality Comments HYSTERECTOMY COLONOSCOPY TONSILLECTOMY Medical History Medical History Date Comments Hypertension Heart attack (HCC) Hyperlipidemia Sinusitis Obesity Diverticulitis Depression Family History Medical History Relation Name Comments Heart attack Father Clotting disorder Mother Relation Name Status Comments Father Mother Alive Social History Tobacco Use Types Packs/Day Years Used Date Smoking Tobacco: Never Smokeless Tobacco: Never Alcohol Use Standard Drinks/Week Comments No 0 (1 standard drink = 0.6 oz pur e alcohol) Comments Unknown Sex and Gender Information Value Date Recorded Sex Assigned at Not on file Legal Sex Female 10:52 AM AUDIT MGR Gender Identity Not on file Sexual Orientation Not on file Obstetrics History Last Filed Vital Signs Vital Sign Reading Time Taken Comments Blood Pressure 130/70 01/14/2024 11:19 AM CDT Pulse 60 01/14/2024 11:19 AM CDT Temperature - - Respiratory Rate - - Oxygen Saturation 91% 01/14/2024 11:19 AM CDT 2.5 L O2 Inhaled Oxygen Concentration - - Weight 143.3 kg (316 lb) 01/14/2024 11:19 AM CDT Height 162.6 cm (5' 4 ) 01/14/2024 11:19 AM CDT Body Mass Index 54.24 01/14/2024 11:19 AM CDT Plan of Treatment Health Maintenance Due Date Last Done Comments Breast Cancer Screening-Mammogram 1950 Colon Cancer Screening-Colonoscopy 1950 Depression Screening 1950 Fall Risk Assessment 1950 Hepatitis C Screening 1950 Osteoporosis Screening-Bone Density Scan 1951 Hepatitis B Screening 1969 Well Visit 65+ 2016 Zoster Vaccine (2 of 3) 05/17/2016 03/22/2016 Pneumococcal vaccine 65+ (2 of 2 - PCV) 02/10/2020 02/09/2019 Influenza Vaccine (#1) 2024 9, 07/07/2018, 07/11/2017, Additional history exists DTaP/Tdap/Td Vaccine (2 - Td or Tdap) 07/07/2028 07/07/2018 Insurance MEDICARE MEDICARE [facility] MEDICARE SUPPLEMENT Care Teams Assistant Auto Center Manager Relationship Specialty Start Date End Date Chandler Petit MD [address] [facility] [address] [place] [address] PCP - General Family Medicine 11/26/24
--- OUTSIDE RECORDS SUMMARY | 2025-01-01 14:20 | XMS_ITS | CONTINUITY OF CARE DOCUMENT ---
Author Name catia bardales Address Unknown Organization [facility] Address [address] [facility] [facility] [address] [place] [address] Phone [phone] Care Team Providers Care Devulcanizer Charger Name Role Phone Shravan Aguilar MD Unavailable [phone] Shravan Aguilar MD Unavailable CUATE SHERMAN MD Unavailable PROBLEMS Condition Status Date Provider Notes Cardiology examination active Arti Ventim iglia MOTOR EXPRESS CLERK Pulmonary hypertension active Arti Ventim iglia MOTOR EXPRESS CLERK LEVI, adult active Arti Ventimiglia MOTOR EXPRESS CLERK Morbid obesity active Arti Ventimiglia FN P Gastric ulcer active Arti Ventimiglia MOTOR EXPRESS CLERK with GIB requiring transfusion Tricuspid regurgitation, moderate active Arti Ventimiglia MOTOR EXPRESS CLERK Atrial fibrillation active Arti Ventimigl ia MOTOR EXPRESS CLERK Hypertension benign essential active Arti Ventimiglia MOTOR EXPRESS CLERK ENCOUNTERS Date Type Provider Location Encounter Diag nosis - In-person encounter Office Visit Scar Cherry MD [facility] - In-person encounter Office Visit Shravan Aguilar MD [facility] Cardiology examinationPulmonary hypertensionOSA, adultMorbid obesityGastric ulcerTricuspid regurgitation, moderateAtrial fibrillationHypertension benign essential VITAL SIGNS Date Observation Value Provider Body Mass Index (Ratio) 49.92 kg/m2 Riki Cherry MD blood pressure, diastolic 68 mm[Hg] Cristino Leblanc blood pressure, systolic 136 mm[Hg] Lian Leblanc pulse rate 60 /min Paula obando oxygen saturation, oximetry 95 % Paula Leblanc blood pressure, cuff size regular Cristino Leblanc weight E&M 300 [lb_av] Paula obando height E&M 65 [in_i] Paula obando Body Mass Index (Ratio) 49.92 kg/m2 Loy Aguilar MD blood pressure, diastolic 97 mm[Hg] Elena nkLogic blood pressure, systolic 157 mm[Hg] Raina kLogic blood pressure, cuff size regular Nando hatfield [facility] blood pressure, diastolic 97 mm[Hg] Nando hatfield Ruple blood pressure, systolic 157 mm[Hg] Karie jorgensen [facility] oxygen saturation, oximetry 96 % Camille [facility] pulse rate 73 /min Camille [facility] weight E&M 300 [lb_av] Camille [facility] height E&M 65 [in_i] [facility] HISTORY OF MEDICATION USE Medication Status Instructions Dates Provider Indications Com ments carvedilol 12.5 mg tablet active Arti Ventimiglia MOTOR EXPRESS CLERK amiodarone 200 mg tablet completed TAKE 1 TABLET BY MOUTH TWICE DAILY - Arti Ventimiglia MOTOR EXPRESS CLERK Protonix 40 mg tablet,delayed release (DR/EC) active 1 tablet by mouth twice a day Arti Ventimiglia MOTOR EXPRESS CLERK potassium chloride 20 mEq tablet extended release active Take 1 tablet by mouth once a day Arti Ventimiglia MOTOR EXPRESS CLERK fenofibrate 160 mg tablet active TAKE 1 TABLET DAILY Arti Ventimiglia MOTOR EXPRESS CLERK hydrochlorothiazide 12.5 mg tablet completed - Arti Ventimiglia MOTOR EXPRESS CLERK alendronate 35 mg tablet active 1 tablet by mouth once a day Arti Ventimiglia MOTOR EXPRESS CLERK furosemide 80 mg tablet active TAKE 1 TABLET BY MOUTH ONCE DAILY Arti Ventimiglia MOTOR EXPRESS CLERK sertraline 50 mg tablet active 1 tablet by mouth once a day Arti Ventimiglia MOTOR EXPRESS CLERK mupirocin 2% ointment active Camille [place] simvastatin 40 mg tablet completed - Arti Ventimiglia MOTOR EXPRESS CLERK clindamycin HCl 150 mg capsule active Camille [place] carvedilol 12.5 mg tablet completed - Arti Ventimiglia MOTOR EXPRESS CLERK losartan 50 mg tablet active Take 1 tab let by mouth once a day Arti Ventimiglia MOTOR EXPRESS CLERK SOCIAL HISTORY Date Observation Value Provider personal history of marijuana use no Scar Cherry MD drug use no Scar trammell MD alcohol use no Scar trammell MD smoking status Never smoker Scar moran MD personal history of marijuana use no Arti Ventimiglia MOTOR EXPRESS CLERK drug use no Arti Ventimig floyd MOTOR EXPRESS CLERK alcohol use no Arti Ventimig floyd MOTOR EXPRESS CLERK smoking status Never smoker Arti Ventim iglia [facility] INSURANCE PROVIDERS Payer name Policy type / Coverage type [employer] red democrat ID [facility] [id number] [place] MED[place] Medicare [id number] ADVANCE DIRECTIVES Name Date DISCUSSED - NO DECISION MADE TREATMENT PLAN Date Name Performer Cardiology:This visi t has been a part of the consistent, comprehensive, and ongoing management of the chronic medical condition(s) listed above for the patient. Scar Cherry MD Cardiology:following with surgeon in 11/2024 n ow on PPI Scar Cherry MD Cardiology: H er updated medication list for this problem includes: Carvedilol 12.5 Mg Tablet (Carvedilol) Furosemide 80 Mg Tablet (Furosemide) ..... Take 1 tablet by mouth once daily Losartan 50 Mg Tablet (Losartan) ..... Take 1 tablet by mouth once a day BP today: 136/68 P rior BP: 157/97 (09/02/2024) Scar Cherry MD Cardiology:Severe wi th RVSP of 82mmHg on last echo M ay qualify with for Level study Sees radiologic technology teacher at [place] Scar Cherry MD Cardiology:Cannot be on AC d/t gastric ulcer perforation requiring surgical repair, will refer her for left atrial appendage closure Was seen by Lauren, apparently had extensive stay at [facility] in ICU, not a safe candidate for eliquis. At present she is in [place], will arrange for telemonitor and have her get JOSE and CT. Apparently had transfusions while in [facility], saw Coby 2 week telemonitor Scar Cherry MD Date Name Monitor - Telemetry (Mobile Cardiac) HISTORY OF PROCEDURES Procedure Date Procedure Name Provider Procedure Notes S tatus Complex e/m visit add on Scar Cherry MD completed EKG Scar Cherry MD compl eted EKG Shravan Aguilar MD complete d
--- OUTSIDE RECORDS SUMMARY | 2025-01-01 14:20 | XMS_ITS | Encounter Summary ---
Author Organization [facility] Address [address] [place] [address] Care Team Providers Care Manager Specialty Name Role Phone Lili Corey MD Primary Care Provider Raúl rodarte Encounter Details Date Type Department Care Team (Late st Contact Info) Description 10/10/2024 Lab Requisition [facility] [address] [place] [address] Chandler Petit MD [address] [place] [address] Social History Tobacco Use Types Packs/Day Years Used Date Smoking Tobacco: Never Assessed Sex and Gender Information Value Date Recorded Sex Assigned at Not on file Gender Identity Not on file Sexual Orientation Not on file documented as of this encounter Plan of Treatment Not on file documented as of this encounter Procedures Procedure Name Priority Date/Time Associated Diagnosis Comments D-DIMER STAT 10/10/2024 6:30 AM CRIME LABORATORY ANALYST documented in this encounter Results * (ABNORMAL) D-DIMER (10/10/2024 6:30 AM CRIME LABORATORY ANALYST) D-Dimer 1.59(H) 0.27 - 0.50 ug/mL FEU 10/10/2024 1:49 PM CRIME LABORATORY ANALYST [facility] Blood BLOOD SPECIMEN / Unknown Venipuncture / Unknown 10/10/2024 6:30 AM CRIME LABORATORY ANALYST 10/10/2024 12:53 PM CRIME LABORATORY ANALYST Narrative [facility] - 10/10/2024 1:49 PM CRIME LABORATORY ANALYST In the absence of clinical symptoms, a value less than or equal to 0.5 mcg/mL FEU significantly decreases the probability of PE/DVT (negative predictive value >95%). 1 mcg/ml FEU = 1 Fibrinogen Equivalent Unit (approximates 0.5 mcg/mL of D- dimer). Chandler Petit MD LAB - COAGULATION OR DERABLES [facility] [address] [place] [address] documented in this encounter Visit Diagnoses Not on filedocumented in this encounter Care Teams Manager Specialty Relationship Specialty Start Date End Date Lili Corey MD [address] [place] [address] PCP - General Family Medicine 12/04/24 documented as of this encounter
--- OUTSIDE RECORDS SUMMARY | 2025-01-01 14:20 | XMS_ITS | Clinical Summary ---
Author Organization [facility] Address [address] [facility] [place] [address] Care Team Providers Care Surgeon Partner Name Role Phone Lili Corey MD Primary Care Provider Raúl rodarte Source Comments [facility],non-owned Affiliates and Associated Physician Practices is amultiple site organization consisting of ambulatory clinics and hospital sitesin [place], [place], [place] and [place]. This disclosure is being madepursuant to the Care Everywhere program and may not contain all information available regarding this patient. Last updated 18.[facility] [employer] Encounters Date Type Department Care Team Description 10/10/2024 Lab Requisition [facility] [address] [place] [address] Chandler Petit MD from Last 3 Months Social History Tobacco Use Types Packs/Day Years Used Date Smoking Tobacco: Never Assessed Sex and Gender Information Value Date Recorded Sex Assigned at Not on file Gender Identity Not on file Sexual Orientation Not on file Plan of Treatment Health Maintenance Due Date Last Done Comments BONE DENSITY TESTING 1950 COLOGUARD (AGES 45-75) - COL ON CA SCREENING 1950 COLON MONITORING 1950 COLONOSCOPY - COLON CA SCREENING 1951 CT COLONOGRAPHY - COLON CA SCREENING 1950 Colorectal Cancer Screening 1950 FIT - COLON CA SCREENING 1951 FLEX SIG - COLON CA SCREENING 1950 LIPID TESTING 1950 MAMMOGRAM 1950 MEDICARE AWV 12 MONTHS 1950 HEPATITIS C SCREENING 05/09/1969 DTAP/TDAP/TD VACCINES (1 - Tdap) 1970 PNEUMOCOCCAL VACCINE 50+ (1 of 1 - PCV) 2001 ZOSTER VACCINE (1 of 2) 2001 COVID-19 VACCINE (1 - 2023-2 5 season) 2024 DEPRESSION SCREENING 09/24/2024 INFLUENZA VACCINE (Season Ended) 2025 Respiratory Syncytial Virus (RSV) Vaccine Pt: or over 60 yrs (1 - 1-dose 75+ series) 2026 HEPATITIS B VACCINE Aged Out No longe r eligible based on patient's age to complete this topic HIB VACCINE Aged Out No longer eligi ble based on patient's age to complete this topic HPV VACCINE Aged Out No longer eligi ble based on patient's age to complete this topic MENINGOCOCCAL (Group B) VACC INE SHARED DECISION-MAKING Aged Out No longer eligibl e based on patient's age to complete this topic MENINGOCOCCAL GROUPS A/C/Y/W VACCINE Aged Out No longer eligible b ased on patient's age to complete this topic Procedures Procedure Name Priority Date/Time Associated Diagnosis Comments D-DIMER STAT 10/10/2024 6:30 AM SHEET ROCK HANGER from Last 3 Months Results * (ABNORMAL) D-DIMER (10/10/2024 6:30 AM SHEET ROCK HANGER) D-Dimer 1.59(H) 0.27 - 0.50 ug/mL FEU 10/10/2024 1:49 PM SHEET ROCK HANGER [facility] Blood BLOOD SPECIMEN / Unknown Venipuncture / Unknown 10/10/2024 6:30 AM SHEET ROCK HANGER 10/10/2024 12:53 PM SHEET ROCK HANGER Narrative [facility] - 10/10/2024 1:49 PM SHEET ROCK HANGER In the absence of clinical symptoms, a value less than or equal to 0.5 mcg/mL FEU significantly decreases the probability of PE/DVT (negative predictive value >95%). 1 mcg/ml FEU = 1 Fibrinogen Equivalent Unit (approximates 0.5 mcg/mL of D- dimer). Chandler Petit MD LAB - COAGULATION OR DERABLES [facility] [address] [place] [address] from Last 3 Months Care Teams Surgeon Partner Relationship Specialty Start Date End Date Lili Corey MD [address] [place] [address] PCP - General Family Medicine 12/04/24
--- OUTSIDE RECORDS SUMMARY | 2025-01-01 14:20 | XMS_ITS | Referral Summary ---
Author Organization [facility] Address [facility] [place] [address] Care Team Providers Care Keno Dealer Name Role Phone Chandler Petit MD Primary [...] 08/12/2018 Assessment & Plan (08/12/2018 10:41 AM CATTLE FEEDER): An echocardiogram to assess cardiac function and valve function. Other chest pain 08/12/2018 Assessment & Plan (08/12/2018 10:42 AM CATTLE FEEDER): At this time given it is atypical [...] ischemia. Assessment & Plan (11/19/2017 10:30 AM CATTLE FEEDER): EKG is concerning for ischemia at rest. Will schedule a Lexiscan nuclear stress test to rule out ischemia. Preop cardiovascular exam 11/19/2017 Assessment & Plan (12/03/2017 8:38 AM CDT): Stress test is negative. May proceed for the hip surgery Assessment & Plan (11/19/2017 10:30 AM CATTLE FEEDER): Preoperative clearance pending stress test result Essential hypertension 11/19/2017 Assessment & Plan (08/12/2018 10:42 AM CATTLE FEEDER): Blood pressure is controlled. Continue current treatment Assessment & Plan (12/03/2017 8:39 AM CDT): Blood pressure is controlled. Continue current treatment Assessment & Plan (11/19/2017 10:33 AM CATTLE FEEDER): Blood pressure is controlled. Continue current treatment Mixed hyperlipidemia 11/19/2017 Assessment & Plan (08/12/2018 10:42 AM CATTLE FEEDER): Patient will undergo lipid panel to checking at an outside lab this week. I will ask patient to send me the results. Assessment & Plan (12/03/2017 8:41 AM CDT): Elevated triglycerides. Continue Zocor. Add Lovaza. Discontinue txhj-jvn-mwzjtaj fish oil. Reassess lipid panel in 6 months Assessment & Plan (11/19/2017 10:33 AM CATTLE FEEDER): Continue simvastatin. Triglyceride levels are elevated today on this nonfasting blood sample. She is going next week to have another lipid panel and therefore I advised her to at least fast 12 hr. Morbid obesity with body mas s index (BMI) of 45.0 to 49.9 in adult 11/19/2017 Assessment & Plan (08/12/2018 10:42 AM CATTLE FEEDER): Advised about diet modification to help her lose weight. Assessment & Plan (12/03/2017 8:40 AM CDT): Advised about diet modification specially cutting down fried food and carbohydrate. Hard for the patient to exercise given her knee pain. Assessment & Plan (11/19/2017 10:33 AM CATTLE FEEDER): Patient was advised to adjust diet to help her lose weight. She cannot exercise because of severe hip pain. Social History Tobacco Use Types Packs/Day Years Used Date Smoking Tobacco: Never Smokeless Tobacco: Never Alcohol Use Standard Drinks/Week Comments No 0 (1 standard drink = 0.6 oz pur e alcohol) Comments Unknown Sex and Gender Information Value Date Recorded Sex Assigned at Not on file Legal Sex Female 10:52 AM CATTLE FEEDER Gender Identity Not on file Sexual Orientation Not on file Last Filed Vital Signs Vital Sign Reading [...] 01/14/2024 11:19 AM CDT Plan of Treatment Not on file Insurance MEDICARE MEDICARE [facility] MEDICARE SUPPLEMENT Care Teams Keno Dealer Relationship Specialty Start Date End Date Chandler Petit MD [address] [facility] [address] [place] [address] PCP - General Family Medicine 11/26/24
[2025-01-01 14:24] LABS: Alveolar/Arterial O2 Gradient 138.8 mmHg; Base Excess ABG 9.4 mEq/l (+/-2.0); Carboxyhemoglobin 1.5 % THb (0-2.0); Fractional Inspired Oxygen 40 %; HCO3 ABG 37.1 mEq/l (22.0-26.0); Methemoglobin ABG 0.1 %THb (0-1.5); Oxygen Content ABG 12.9 %vol (16.0-22.0); Oxygen Saturation ABG 90.8 % (95.0-100.0); Oxyhemoglobin 90.3 % THb (90.0-100.0); PO2 ABG 65.4 mmHg (80.0-100.0); PO2 FiO2 Ratio Arterial Blood 1.63 %; Reduced Hemoglobin 8.1 %THb (0-5.0); Total Hemoglobin 10.1 g/dL (12.0-18.0)
[2025-01-01 14:25] LABS: Device NASAL CANNULA; Modified Allen's Test Pass; PCO2 ABG 70.4 mmHg (35.0-45.0); Site Drawn LEFT RADIAL
[2025-01-01 14:33] LABS: Alanine Aminotransferase 23 U/L (6-35); Alkaline Phosphatase 70 U/L (38-126); Anion Gap 10 mmol/L (4-12); Aspartate Amino Transferase 27 U/L (14-36); Bilirubin,Total 0.5 mg/dL (0.2-1.3); Blood Urea Nitrogen 30 mg/dL (7-17); Calcium 8.9 mg/dL (8.4-10.2); Carbon Dioxide 36 mmol/L (22-30); Chloride 97 mmol/L (98-107); Estimated Glomerular Filt Rate 56; Glucose 115 mg/dL (65-110); Potassium 4.8 mmol/L (3.4-5.0); Sodium 143 mmol/L (137-145)
[2025-01-01 14:34] LABS: INR 1.3; Partial Thromboplastin Time 31.9 Seconds (22.3-36.8); Prothrombin Time 16.3 Seconds (11.1-14.7)
[2025-01-01 14:35] LABS: Platelet Estimate Decreased (Adequate)
[2025-01-01 14:36] LABS: Hypochromasia 1+; Ovalocytes 1+; Schistocytes None Seen
[2025-01-01 14:45] LABS: NT Pro B Type Natriuretic Pept 3160 pg/mL (19.9-100); Troponin I < 0.012 ng/mL (0.000-0.034)
[2025-01-01 14:55] LABS: Influenza A QL RT-PCR Negative (Negative); Influenza B QL RT-PCR Negative (Negative); RSV RNA, RT-PCR Negative (Negative); SARS-CoV-2 RNA PCR Negative (Negative)
[2025-01-01] MEDS: FUROSEMIDE INJ 40 MG/4 ML VIAL IV PUSH ×2 (15:13→21:49)
--- OUTSIDE RECORDS SUMMARY | 2025-01-01 15:16 | XMS_ITS | Encounter Summary ---
Author Organization [facility] Address [address] [place] [address] Care Team Providers Care Fireman Name Role Phone Lili Corey MD Primary Care Provider Raúl rodarte Encounter Details Date Type Department Care Team (Late st Contact Info) Description 10/10/2024 Lab Requisition [facility] [address] [place] [address] Chandler Petit MD [address] [place] [address] Social History Tobacco Use Types [...] Diagnosis Comments D-DIMER STAT 10/10/2024 6:30 AM CHANGE PERSON documented in this encounter Results * (ABNORMAL) D-DIMER (10/10/2024 6:30 AM CHANGE PERSON) D-Dimer 1.59(H) 0.27 - 0.50 ug/mL FEU 10/10/2024 1:49 PM CHANGE PERSON [facility] Blood BLOOD SPECIMEN / Unknown Venipuncture / Unknown 10/10/2024 6:30 AM CHANGE PERSON 10/10/2024 12:53 PM CHANGE PERSON Narrative [facility] - 10/10/2024 1:49 PM CHANGE PERSON In the absence of clinical symptoms, a value less than or equal to 0.5 mcg/mL FEU significantly decreases the probability of PE/DVT (negative predictive value >95%). 1 mcg/ml FEU = 1 Fibrinogen Equivalent Unit (approximates 0.5 mcg/mL of D- dimer). Chandler Petit MD LAB - COAGULATION OR DERABLES [facility] [address] [place] [address] documented in this encounter Visit Diagnoses Not on filedocumented in this encounter Care Teams Fireman Relationship Specialty Start Date End Date Lili Corey MD [address] [place] [address] PCP - General Family Medicine 12/04/24 documented as of this encounter
--- OUTSIDE RECORDS SUMMARY | 2025-01-01 15:16 | XMS_ITS | Clinical Summary ---
Author Organization [facility] Address [address] [place] [address] Care Team Providers Care Butadiene Converter Operator Name Role Phone Lili Corey MD Primary Care Provider Raúl rodarte Source Comments [facility],non-owned Affiliates and Associated Physician Practices is amultiple site organization consisting of ambulatory clinics and hospital sitesin [place], [place], [place] and [place]. This disclosure is being madepursuant to the Care Everywhere program and may not contain all information available regarding this patient. Last updated 18.[facility] Brigade Encounters Date Type Department Care Team Description 10/10/2024 Lab Requisition [facility] [address] [place] [address] Chandler Petit MD from Last 3 Months [...] Diagnosis Comments D-DIMER STAT 10/10/2024 6:30 AM BLOOD BANK ASSISTANT from Last 3 Months Results * (ABNORMAL) D-DIMER (10/10/2024 6:30 AM BLOOD BANK ASSISTANT) D-Dimer 1.59(H) 0.27 - 0.50 ug/mL FEU 10/10/2024 1:49 PM BLOOD BANK ASSISTANT [facility] Blood BLOOD SPECIMEN / Unknown Venipuncture / Unknown 10/10/2024 6:30 AM BLOOD BANK ASSISTANT 10/10/2024 12:53 PM BLOOD BANK ASSISTANT Narrative [facility] - 10/10/2024 1:49 PM BLOOD BANK ASSISTANT In the absence of clinical symptoms, a value less than or equal to 0.5 mcg/mL FEU significantly decreases the probability of PE/DVT (negative predictive value >95%). 1 mcg/ml FEU = 1 Fibrinogen Equivalent Unit (approximates 0.5 mcg/mL of D- dimer). Chandler Petit MD LAB - COAGULATION OR DERABLES [facility] [address] [place] [address] from Last 3 Months Care Teams Butadiene Converter Operator Relationship Specialty Start Date End Date Lili Corey MD [address] [place] [address] PCP - General Family Medicine 12/04/24
--- OUTSIDE RECORDS SUMMARY | 2025-01-01 15:16 | XMS_ITS | CONTINUITY OF CARE DOCUMENT ---
Author Name catia bardales Address Unknown Organization [facility] Address [address] [place] [address] Phone [phone] Care Team Providers Care Security Site Supervisor Name Role Phone Shravan Aguilar MD Unavailable [phone] Shravan Aguilar MD Unavailable CUATE SHERMAN MD Unavailable PROBLEMS Condition Status Date Provider Notes Cardiology examination active Arti Ventim iglia MEDICAL BILLING SPECIALIST Pulmonary hypertension active Arti Ventim iglia MEDICAL BILLING SPECIALIST LEVI, adult active Arti Ventimiglia MEDICAL BILLING SPECIALIST Morbid obesity active Arti Ventimiglia FN P Gastric ulcer active Arti Ventimiglia MEDICAL BILLING SPECIALIST with GIB requiring transfusion Tricuspid regurgitation, moderate active Arti Ventimiglia MEDICAL BILLING SPECIALIST Atrial fibrillation active Arti Ventimigl ia MEDICAL BILLING SPECIALIST Hypertension benign essential active Arti Ventimiglia MEDICAL BILLING SPECIALIST ENCOUNTERS Date Type Provider Location Encounter Diag nosis - In-person encounter Office Visit Scar Cherry MD [facility] Office - In-person encounter Office Visit Shravan Aguilar MD [place] [facility] Cardiology examinationPulmonary hypertensionOSA, adultMorbid obesityGastric ulcerTricuspid regurgitation, moderateAtrial fibrillationHypertension benign essential VITAL SIGNS Date Observation Value Provider Body Mass Index (Ratio) 49.92 kg/m2 Riki Cherry MD blood pressure, diastolic 68 mm[Hg] Cristino Leblanc blood pressure, systolic 136 mm[Hg] Lian Leblanc pulse rate 60 /min Paual obando oxygen saturation, oximetry 95 % Paula Leblanc blood pressure, cuff size regular Cristino Leblanc weight E&M 300 [lb_av] Paula obando height E&M 65 [in_i] Paula obando Body Mass Index (Ratio) 49.92 kg/m2 Loy Aguilar MD blood pressure, diastolic 97 mm[Hg] Elena nkLogic blood pressure, systolic 157 mm[Hg] Raina kLogic blood pressure, cuff size regular [facility] hatfield [facility], diastolic 97 mm[Hg] Nando hatfield Ruple blood pressure, systolic 157 mm[Hg] Karie jorgensen [facility] oxygen saturation, oximetry 96 % Camille [facility] pulse rate 73 /min Camille [facility] weight E&M 300 [lb_av] Camille [facility] height E&M 65 [in_i] [facility] HISTORY OF MEDICATION USE Medication Status Instructions Dates Provider Indications Com ments carvedilol 12.5 mg tablet active Arti Ventimiglia MEDICAL BILLING SPECIALIST amiodarone 200 mg tablet completed TAKE 1 TABLET BY MOUTH TWICE DAILY - Arti Ventimiglia MEDICAL BILLING SPECIALIST Protonix 40 mg tablet,delayed release (DR/EC) active 1 tablet by mouth twice a day Arti Ventimiglia MEDICAL BILLING SPECIALIST potassium chloride 20 mEq tablet extended release active Take 1 tablet by mouth once a day Arti Ventimiglia MEDICAL BILLING SPECIALIST fenofibrate 160 mg tablet active TAKE 1 TABLET DAILY Arti Ventimiglia MEDICAL BILLING SPECIALIST hydrochlorothiazide 12.5 mg tablet completed - Arti Ventimiglia MEDICAL BILLING SPECIALIST alendronate 35 mg tablet active 1 tablet by mouth once a day Arti Ventimiglia MEDICAL BILLING SPECIALIST furosemide 80 mg tablet active TAKE 1 TABLET BY MOUTH ONCE DAILY Arti Ventimiglia MEDICAL BILLING SPECIALIST sertraline 50 mg tablet active 1 tablet by mouth once a day Arti Ventimiglia MEDICAL BILLING SPECIALIST mupirocin 2% ointment active Camille Rowland simvastatin 40 mg tablet completed - Arti Ventimiglia MEDICAL BILLING SPECIALIST clindamycin HCl 150 mg capsule active Camille Rowland carvedilol 12.5 mg tablet completed - Arti Ventimiglia MEDICAL BILLING SPECIALIST losartan 50 mg tablet active Take 1 tab let by mouth once a day Arti Ventimiglia MEDICAL BILLING SPECIALIST SOCIAL HISTORY Date Observation Value Provider personal history of marijuana use no Scar Cherry MD drug use no Scar trammell MD alcohol use no Scar trammell MD smoking status Never smoker Scar moran MD personal history of marijuana use no Arti Ventimiglia MEDICAL BILLING SPECIALIST drug use no Arti Ventimig floyd MEDICAL BILLING SPECIALIST alcohol use no Arti Ventimig floyd MEDICAL BILLING SPECIALIST smoking status Never smoker Arti Ventim iglia [facility] [employer] PROVID[employer] Payer name Policy type / Coverage type [place] red libertarian ID [facility] [id number] [place] MEDICARE Medicare [id number] ADVANCE DIRECTIVES Name Date DISCUSSED - NO [...] ay qualify with for Level study 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 At present she is in [facility], will arrange for telemonitor and have her get JOSE and CT. Apparently had transfusions while in [facility], saw Coby 2 week telemonitor Scar Cherry MD Date Name Monitor - Telemetry (Mobile Cardiac) HISTORY OF PROCEDURES Procedure Date Procedure Name Provider Procedure Notes S tatus Complex e/m visit add on Scar Cherry MD completed EKG Scar Cherry MD compl eted EKG Shravan Aguilar MD complete d
--- OUTSIDE RECORDS SUMMARY | 2025-01-01 15:16 | XMS_ITS | Clinical Summary ---
Author Organization [facility] Address [address] [place] [id number] Care Team Providers Care Political Analyst Name Role Phone Chandler Petit MD Primary [...] 08/12/2018 Assessment & Plan (08/12/2018 10:41 AM POTLINE MONITOR): An echocardiogram to assess cardiac function and valve function. Other chest pain 08/12/2018 Assessment & Plan (08/12/2018 10:42 AM POTLINE MONITOR): At this time given it is atypical [...] ischemia. Assessment & Plan (11/19/2017 10:30 AM POTLINE MONITOR): EKG is concerning for ischemia at rest. Will schedule a Lexiscan nuclear stress test to rule out ischemia. Preop cardiovascular exam 11/19/2017 Assessment & Plan (12/03/2017 8:38 AM CDT): Stress test is negative. May proceed for the hip surgery Assessment & Plan (11/19/2017 10:30 AM POTLINE MONITOR): Preoperative clearance pending stress test result Essential hypertension 11/19/2017 Assessment & Plan (08/12/2018 10:42 AM POTLINE MONITOR): Blood pressure is controlled. Continue current treatment Assessment & Plan (12/03/2017 8:39 AM CDT): Blood pressure is controlled. Continue current treatment Assessment & Plan (11/19/2017 10:33 AM POTLINE MONITOR): Blood pressure is controlled. Continue current treatment Mixed hyperlipidemia 11/19/2017 Assessment & Plan (08/12/2018 10:42 AM POTLINE MONITOR): Patient will undergo lipid panel to checking at an outside lab this week. I will ask patient to send me the results. Assessment & Plan (12/03/2017 8:41 AM CDT): Elevated triglycerides. Continue Zocor. Add Lovaza. Discontinue [id number] fish oil. Reassess lipid panel in 6 months Assessment & Plan (11/19/2017 10:33 AM POTLINE MONITOR): Continue simvastatin. Triglyceride levels are elevated today on this nonfasting blood sample. She is going next week to have another lipid panel and therefore I advised her to at least fast 12 hr. Morbid obesity with body mas s index (BMI) of 45.0 to 49.9 in adult 11/19/2017 Assessment & Plan (08/12/2018 10:42 AM POTLINE MONITOR): Advised about diet modification to help her lose weight. Assessment & Plan (12/03/2017 8:40 AM CDT): Advised about diet modification specially cutting down fried food and carbohydrate. Hard for the patient to exercise given her knee pain. Assessment & Plan (11/19/2017 10:33 AM POTLINE MONITOR): Patient was advised to adjust diet to [...] on file Legal Sex Female 10:52 AM POTLINE MONITOR Gender Identity Not on file Sexual Orientation [...] 2 - PCV) 02/10/2020 02/09/2019 Influenza Vaccine (Season Ended) 2025 07/27/2019, 07/07/2018, 07/11/2017, Additional history exists DTaP/Tdap/Td Vaccine (2 - Td or Tdap) 07/07/2028 07/07/2018 Insurance MEDICARE MEDICARE [facility] MEDICARE SUPPLEMENT Care Teams Political Analyst Relationship Specialty Start Date End Date Chandler Petit MD [address] [facility] [address] [place] [address] PCP - General Family Medicine 11/26/24
--- OUTSIDE RECORDS SUMMARY | 2025-01-01 15:16 | XMS_ITS | Referral Summary ---
Author Organization [facility] Address [facility] [place] [address] Care Team Providers Care Steel Pourer Name Role Phone Chandler Petit MD Primary [...] 08/12/2018 Assessment & Plan (08/12/2018 10:41 AM FURNACE COMBUSTION ANALYST): An echocardiogram to assess cardiac function and valve function. Other chest pain 08/12/2018 Assessment & Plan (08/12/2018 10:42 AM FURNACE COMBUSTION ANALYST): At this time given it is atypical [...] ischemia. Assessment & Plan (11/19/2017 10:30 AM FURNACE COMBUSTION ANALYST): EKG is concerning for ischemia at rest. Will schedule a Lexiscan nuclear stress test to rule out ischemia. Preop cardiovascular exam 11/19/2017 Assessment & Plan (12/03/2017 8:38 AM CDT): Stress test is negative. May proceed for the hip surgery Assessment & Plan (11/19/2017 10:30 AM FURNACE COMBUSTION ANALYST): Preoperative clearance pending stress test result Essential hypertension 11/19/2017 Assessment & Plan (08/12/2018 10:42 AM FURNACE COMBUSTION ANALYST): Blood pressure is controlled. Continue current treatment Assessment & Plan (12/03/2017 8:39 AM CDT): Blood pressure is controlled. Continue current treatment Assessment & Plan (11/19/2017 10:33 AM FURNACE COMBUSTION ANALYST): Blood pressure is controlled. Continue current treatment Mixed hyperlipidemia 11/19/2017 Assessment & Plan (08/12/2018 10:42 AM FURNACE COMBUSTION ANALYST): Patient will undergo lipid panel to checking at an outside lab this week. I will ask patient to send me the results. Assessment & Plan (12/03/2017 8:41 AM CDT): Elevated triglycerides. Continue Zocor. Add Lovaza. Discontinue [id number] fish oil. Reassess lipid panel in 6 months Assessment & Plan (11/19/2017 10:33 AM FURNACE COMBUSTION ANALYST): Continue simvastatin. Triglyceride levels are elevated today on this nonfasting blood sample. She is going next week to have another lipid panel and therefore I advised her to at least fast 12 hr. Morbid obesity with body mas s index (BMI) of 45.0 to 49.9 in adult 11/19/2017 Assessment & Plan (08/12/2018 10:42 AM FURNACE COMBUSTION ANALYST): Advised about diet modification to help her lose weight. Assessment & Plan (12/03/2017 8:40 AM CDT): Advised about diet modification specially cutting down fried food and carbohydrate. Hard for the patient to exercise given her knee pain. Assessment & Plan (11/19/2017 10:33 AM FURNACE COMBUSTION ANALYST): Patient was advised to adjust diet to [...] on file Legal Sex Female 10:52 AM FURNACE COMBUSTION ANALYST Gender Identity Not on file Sexual Orientation [...] Treatment Not on file Insurance MEDICARE MEDICARE [facility] MEDICARE SUPPLEMENT Care Teams Steel Pourer Relationship Specialty Start Date End Date Chandler Petit MD [address] [facility] [address] [place] [address] PCP - General Family Medicine 11/26/24
--- NOTE | 2025-01-01 18:35 | ADMGEN ---
This patient, Kelly Atkinson, was admitted to IMU Room 201-01 at 1732. Patient/family oriented to hospital policies and general routines including ID bracelet, bed and alarms, visiting hours, pain management, procedures, bathroom and other care routines, personal items, smoking policy, room service/diet, and visiting hours. Information on how to activate the Rapid Response Team has been discussed. Patient/Family are encouraged to report perceived risks to care and to ask questions if they do not understand what they are told or what they should do.
--- NOTE | 2025-01-01 21:41 | PM.IMHP ---
H&P: HPI History of Present Illness Date/Time: 01/01/25 21:41 Chief Complaint: Hypoxia Narrative: 74 y/o F with PMH of HTN, CAD, CHF, CKD, prediabetes, HLD, TORRE, asthma, LEVI, MDD, chronic venostasis, recurrent cellulitis, and obesity presents here with hypoxia. The patient presents here on 01/01 from her PCP office for further evaluation of hypoxia. She was at the office to establish care. During this visit she reported progressive shortness of breath since her discharge last month, previously admitted for pneumonia. She was found to be transiently hypotensive (80/46 -> 106/69) and hypoxic in the 40s to high 60s on her home O2, chronically on 3L NC for the past few years (CHF contributing factor vs PCD hypoventilation syndrome). The patient reports the shortness of breath is accompanied by general malaise and lower extremity edema. She denies chest pain, nausea, vomiting, diarrhea, fever, chills, body aches, more palpitations. She has a history of severe LEVI, history of poor compliance to BiPAP. She reports non-compliance since arrival back to her facility stating she only does it when someone makes her. Currently residing at [facility]. Initial VS at presentation: 97.9? F, HR 78, R 18, 115/65, and 89% on 3L NC. ED workup showed: No leukocytosis, hemoglobin 9.3 (14.3 in 11/2023), INR 1.3, ABG showed pH 7.34/CO2 70.4/0-65.4/HC03 37.1/90.8% on 5L, no significant electrolyte derangements, creatinine 0.97 and GFR 56, glucose 115, initial troponin negative, BNP 3160, and viral PCR negative. CXR showed cardiomegaly with pulmonary vascular congestion, unchanged opacity at the lateral left lower lung zone most likely persistent lingular atelectasis/scarring along side a prominent left pericardial fat pad although the differential includes less likely pneumonia or small pleural effusion. Review of Systems Review of Systems: All systems reviewed & are unremarkable except as noted in HPI and below FOR[facility]LY [facility] Past Medical History Medical History (Updated 01/01/25 @ 22:08 by Florina Pierce, HORTENCIA) Obesity hypoventilation syndrome Chronic kidney disease, stage 3b TORRE (nonalcoholic steatohepatitis) Major depressive disorder, recurrent, moderate [place] (myocardial infarction) Dyslipidemia Moderate pulmonary hypertension Estimated PASP was 56 mmHg on echocardiogram in August 2022. Right-sided heart failure Right ventricle is moderately enlarged with reduced systolic function on echocardiogram in August 2022. Also with moderate pulmonary hypertension. Diastolic dysfunction Grade 1 diastolic dysfunction on echocardiogram in August 2022. EF was 55 to 60%. Basal inferolateral wall was hypokinetic. Chronic respiratory failure with hypoxia Diverticulitis Morbid obesity Hypertension Obstructive sleep apnea Surgical History Surgical History History of total right hip arthroplasty History of cardiac catheterization no stent placement History of arthroscopy of right knee History of partial hysterectomy History of tonsillectomy and adenoidectomy Family History Family History Sibling Patient's brother is in good health Family history of diabetes mellitus in first degree relative Mother Family history of heart disease in male family member before age 55, Onset Age: 88 Patient's mother is Other Diabetes mellitus Family history of arthritis Hypertension Social History Social History Social History: Healthcare power of prosecuting attorney: Indigo Atkinson, geni. Code status: Full code. Smoking status: Never smoker Second hand tobacco smoke exposure: No Alcohol intake: never Substance use: never Substance use type: does not use Do You Feel Safe in your Home?: Yes Lack of Transportation: No Lack of Food: Never True Current Housing: I Have Housing Concerned About Future Housing: No Difficulty Paying Gas/Electric Bills: No Difficulty Paying for Meds: No Currently Unemployed: No Education: Master's Degree or Higher Difficulty w/ Childcare or Family Care: No Living arrangements: with family Additional living arrangements comments: Single. No children. Lives alone. 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 Gender identity (if verbalized by the patient): Female Sexual Orientation (if Verbalized by the Patient): Straight or Heterosexual Spiritual care concerns: Yes Meds Home Medications and Allergies Home Medications ?Medication ?Instructions ?Recorded ?Confirmed ?Type aspirin 81 mg tablet,delayed 81 mg PO HS 07/31/19 01/01/25 History release (Aspir-) acetaminophen 325 mg tablet (Mapap 650 mg (2 x 325 mg) PO Q6H PRN 01/14/23 01/01/25 Rx (acetaminophen)) Mild Pain (1-3) Or Fever #8 tabs potassium chloride 20 mEq See Rx Instructions .Route 01/09/24 01/01/25 Rx tablet,extended release .COMPLEX #90 tabs sertraline 50 mg tablet See Rx Instructions .Route 07/04/24 01/01/25 Rx .COMPLEX #180 tabs carvedilol 12.5 mg tablet See Rx Instructions .Route 07/25/24 01/01/25 Rx .COMPLEX #180 tabs fenofibrate 160 mg tablet See Rx Instructions .Route 07/28/24 01/01/25 Rx .COMPLEX #90 tabs alendronate 35 mg tablet See Rx Instructions .Route 09/08/24 01/01/25 Rx .COMPLEX #12 tabs amiodarone 200 mg tablet 200 mg PO BID 12/30/24 01/01/25 History apixaban 5 mg tablet (Eliquis) 5 mg PO BID 12/30/24 01/01/25 History furosemide 80 mg tablet 80 mg PO QAM 12/30/24 01/01/25 History losartan 50 mg tablet 50 mg PO DAILY 12/30/24 01/01/25 History pantoprazole 40 mg tablet,delayed 40 mg PO DAILY 12/30/24 01/01/25 History release silver sulfadiazine 1 % topical 1 applic topical DAILY 01/01/25 01/01/25 History cream Allergies Allergy/AdvReac Type Severity Reaction Status Date / Time No Known Allergies Allergy Verified 01/01/25 18:13 Vital Signs Vital Signs - 24 hr 01/01/25 13:55 01/01/25 14:09 01/01/25 14:19 Temperature 97.9 F Pulse Rate 78 61 Respiratory Rate 18 Blood Pressure 115/65 Pulse Oximetry 89 L 93 Oxygen Delivery Nasal Cannula Nasal Cannula Oxygen Flow Rate 3 5 Fraction of Inspired Oxygen 01/01/25 14:36 01/01/25 14:39 01/01/25 14:45 Temperature Pulse Rate 58 L 62 Respiratory Rate 28 H 22 H Blood Pressure 120/66 Pulse Oximetry 97 97 97 Oxygen Delivery BiPAP BiPAP Oxygen Flow Rate Fraction of Inspired Oxygen 01/01/25 15:16 01/01/25 15:46 01/01/25 17:16 Temperature Pulse Rate 61 54 L 58 L Respiratory Rate 25 H 16 29 H Blood Pressure 103/48 L 119/65 135/66 Pulse Oximetry 98 100 91 Oxygen Delivery Oxygen Flow Rate Fraction of Inspired Oxygen 01/01/25 17:37 01/01/25 18:00 01/01/25 18:11 Temperature Pulse Rate 59 L 57 L Respiratory Rate 39 H Blood Pressure Pulse Oximetry 99 Oxygen Delivery BiPAP BiPAP Oxygen Flow Rate Fraction of Inspired Oxygen 01/01/25 18:28 01/01/25 20:00 01/01/25 20:30 Temperature 98.4 F 97.6 F Pulse Rate 56 L 66 64 Respiratory Rate 26 H 26 H 20 Blood Pressure 143/57 H 118/68 Pulse Oximetry 98 94 99 Oxygen Delivery BiPAP Oxygen Flow Rate Fraction of Inspired Oxygen 01/01/25 21:22 Temperature Pulse Rate Respiratory Rate Blood Pressure Pulse Oximetry 94 Oxygen Delivery BiPAP Oxygen Flow Rate Fraction of Inspired Oxygen 40 Exam Const: General: comfortable and no acute distress Other: , female, nontoxic appearance, obese body habitus HENMT: Face/Nose/Sinus: Normal nares present Mouth: Yes dry mucous membranes Eyes: General: appearance normal, both eyes and all related structures Sclera: sclerae normal Pupils: Equal, round and reactive pupils present EOM: EOMs intact bilaterally Resp: Other: + tachypnea without accessory muscle use. Tolerating BiPAP. No adventitious lung sounds on exam. Cardio: Rate: regular rate Rhythm: regular rhythm Other: S1-S2 present without murmur, rub, ectopy GI: Other: Abdomen soft, nondistended, nontender. Normoactive bowel sounds in all quadrants. Skin: Other: erythema to anterior left paz, small skin tear/abrasion without signs of infection. scant erythema to right paz. 1+ pitting edema that is symmetric bilaterally. Neuro: Speech: normal speech Motor exam (neuro): 5/5 motor strength present throughout Sensory Exam: normal sensation Other: A&O x4 Extrem: General: normal exam except as noted (See skin exam) Psych: Mental Status: mental status grossly normal Affect: normal affect Other: Good insight and judgment, pleasant H&P: Results Labs Labs: Short CBC 01/01/25 Range/Units 14:12 WBC 7.3 (4.5-10.0) K/mm3 Hgb 9.3 L (12.0-15.0) g/dL Hct 33.9 L (37.0-47.0) % Plt Count 127 L (150-375) k/mm3 BMP 01/01/25 14:12 Sodium 143 Potassium 4.8 Chloride 97 L Carbon Dioxide 36 H BUN 30 H Creatinine 0.97 Glucose 115 H Calcium 8.9 Cardiac Enzymes 01/01/25 Range/Units 14:12 Troponin I < 0.012 (0.000-0.034) ng/mL Liver Function 01/01/25 Range/Units 14:12 Total Bilirubin 0.5 (0.2-1.3) mg/dL AST 27 (14-36) U/L ALT 23 (6-35) U/L Alkaline Phosphatase 70 (38-126) U/L Albumin 4.0 (3.5-5.1) g/dL Assessment and Plan Assessment and plan (1) Acute on chronic respiratory failure with hypoxia and hypercapnia: Code(s): J96.21 - Acute and chronic respiratory failure with hypoxia; J96.22 - Acute and chronic respiratory failure with hypercapnia Status: Acute Assessment and Plan: Baseline requirement of 3L, currently on BiPAP. Initial ABG showed a CO2 of 70.4 and mild acidosis, repeat this evening. Patient subsequently placed on BiPAP. Chronic respiratory failure felt to be secondary to possible CHF factors versus obesity hypoventilation syndrome. CXR showed cardiomegaly with pulmonary vascular congestion and an unchanged opacity at the lateral left lower lung zone most likely persistent lingular atelectasis/scarring along side a prominent left paracardial fat pad although the differential includes less likely pneumonia or small pleural effusion. BNP elevated, update echo. No leukocytosis, trend WBC. Viral PCR negative. Suspect worsening hypoxia secondary to CHF exacerbation. Low suspicion for pneumonia, no leukocytosis, however cannot be excluded. Possible anemia component, hemoglobin reduced compared to previous 1 year ago, however there is no recent baseline. Patient also hypercapnic, reports noncompliance with CPAP since arrival back to her independent living. Currently reporting subjective improvement with BiPAP. (2) Acute exacerbation of CHF (congestive heart failure): Qualifiers: Heart failure type: unspecified Qualified Code(s): I50.9 - Heart failure, unspecified Code(s): I50.9 - Heart failure, unspecified Status: Acute Assessment and Plan: BNP 3160. Last echo done in 2021 which showed an estimated EF of 55-60% and grade 1 diastolic dysfunction, moderate pulmonary hypertension (see report for full details). Will update echo. Currently on Lasix 80 mg p.o. daily, will continue as Lasix 40 mg IV b.i.d.. Monitor I&Os and daily weights. (3) Anemia: Qualifiers: Anemia type: unspecified type Qualified Code(s): D64.9 - Anemia, unspecified Code(s): D64.9 - Anemia, unspecified Status: Acute Assessment and Plan: Hgb 9.3, previously 14.3 on 12/12/2023. Check iron, TIBC, ferritin, B12, folic acid, and TSH. transfuse if <7. Denies bleeding, will continue home Eliquis at this time. (4) Hypertension: Qualifiers: Hypertension type: primary hypertension Qualified Code(s): I10 - Essential (primary) hypertension Code(s): I10 - Essential (primary) hypertension Status: Chronic Assessment and Plan: Chronic, currently normotensive at 118/68. Briefly soft at her PCP office (80/46 around 1:00 p.m.). Continue Coreg 12.5 mg b.i.d., losartan 50 mg daily. Monitor toleration. (5) Obstructive sleep apnea: Code(s): G47.33 - Obstructive sleep apnea (adult) (pediatric) Status: Chronic Assessment and Plan: Continue home CPAP. Plan Diet: Heart healthy GI Prophylaxis: Not currently indicated DVT Prophylaxis: Eliquis Lines: Peripheral Code Status: Full code Quality VTE Prophylaxis VTE prophylaxis: pharmacologic ordered Hospitalist MIPS Advance Care Plan I have confirmed that the patient's Advanced Care Plan is present, code status is documented, or surrogate decision maker is listed in patient medical record.: Yes Medication Reconciliation I have utilized all available resources to obtain, update and review the patients current medications (includes all prescriptions, OTC, herbals, cannabis, and nutritional supplements).: Yes
[2025-01-01] MEDS: APIXABAN 5 MG TABLET PO (22:04)
[2025-01-01 22:41] LABS: Alveolar/Arterial O2 Gradient 108.8 mmHg; Base Excess ABG 12.5 mEq/l (+/-2.0); Fractional Inspired Oxygen 40 %; Oxygen Saturation ABG 96.6 % (95.0-100.0); Oxyhemoglobin 95.9 % THb (90.0-100.0); PO2 ABG 93.5 mmHg (80.0-100.0); PO2 FiO2 Ratio Arterial Blood 2.34 %; Total Hemoglobin 9.5 g/dL (12.0-18.0); pH ABG 7.362 (7.350-7.450)
[2025-01-01 22:45] LABS: PCO2 ABG 72.1 mmHg (35.0-45.0)
[2025-01-01 22:46] LABS: Device NON-INVASIVE VENT; Modified Allen's Test Pass; Non-Invasive Inspiratory Pressure 12 CMH2O; Site Drawn RIGHT RADIAL
[2025-01-01 22:47] LABS: Non-Invasive Expiratory Pressure 6 CMH2O
[2025-01-02] VITALS (27 sets, daily range): BP systolic 120–152; BP diastolic 50–77; PULSE 48–80; RESP 11–31; TEMP 36.3–37; O2SAT 82–97
[2025-01-02 00:36] LABS: Alveolar/Arterial O2 Gradient 92.3 mmHg; Base Excess ABG 11.5 mEq/l (+/-2.0); Fractional Inspired Oxygen 35 %; HCO3 ABG 38.2 mEq/l (22.0-26.0); Oxygen Content ABG 12.8 %vol (16.0-22.0); Oxygen Saturation ABG 95.8 % (95.0-100.0); PO2 ABG 83.1 mmHg (80.0-100.0); PO2 FiO2 Ratio Arterial Blood 2.37 %; Total Hemoglobin 9.5 g/dL (12.0-18.0); pH ABG 7.395 (7.350-7.450)
[2025-01-02 00:39] LABS: Device NON-INVASIVE VENT; Modified Allen's Test Pass; PCO2 ABG 63.8 mmHg (35.0-45.0); Site Drawn RIGHT RADIAL
[2025-01-02 00:40] LABS: Non-Invasive Expiratory Pressure 5 CMH2O; Non-Invasive Inspiratory Pressure 20 CMH2O; Non-Invasive Vent Rate 10 /MIN
[2025-01-02 05:19] LABS: Basophils Percent Auto 0.4 % (0.2-1.2); Eosinophils Absolute Auto 0.1 K/mm3 (0-0.3); Eosinophils Percent Auto 2.2 % (0-4.4); Hematocrit 31.5 % (37.0-47.0); Hemoglobin 8.6 g/dL (12.0-15.0); Immature Granulocyte Absolute 0.02 K/mm3 (0.00-0.031); Immature Granulocyte Percent A 0.4 % (0-0.5); Lymphocytes Absolute Auto 0.77 K/mm3 (0.9-3.2); Lymphocytes Percent Auto 16.7 % (18.3-44.2); Mean Corpuscular HGB Conc 27.3 g/dl (32-36); Mean Corpuscular Hemoglobin 24.4 pg (26-34); Mean Corpuscular Volume 89.2 fl (80-100); Mean Platelet Volume 9.1 fl (7.4-10.4); Monocytes Absolute Auto 0.5 K/mm3 (0.1-0.6); Monocytes Percent Auto 10.8 % (2.6-8.5); Neutrophils Absolute Auto 3.2 K/mm3 (1.3-6.7); Neutrophils Percent Auto 69.5 % (45.5-73.1); Platelet Count Result 131 k/mm3 (150-375); Red Blood Count 3.53 M/mm3 (4.2-5.4); White Blood Count 4.6 K/mm3 (4.5-10.0)
[2025-01-02 05:23] LABS: Alveolar/Arterial O2 Gradient 111.4 mmHg; Base Excess ABG 15.2 mEq/l (+/-2.0); Carboxyhemoglobin 1.3 % THb (0-2.0); Fractional Inspired Oxygen 35 %; HCO3 ABG 42.5 mEq/l (22.0-26.0); Oxygen Content ABG 11.7 %vol (16.0-22.0); PO2 ABG 54.8 mmHg (80.0-100.0); PO2 FiO2 Ratio Arterial Blood 1.57 %; Reduced Hemoglobin 12.5 %THb (0-5.0); Total Hemoglobin 9.6 g/dL (12.0-18.0); pH ABG 7.391 (7.350-7.450)
[2025-01-02 05:26] LABS: Oxyhemoglobin 86.2 % THb (90.0-100.0)
[2025-01-02 05:26] LABS: Iron 37 ug/dL (37-170)
[2025-01-02 05:27] LABS: Device NON-INVASIVE VENT; Modified Allen's Test Pass; Oxygen Saturation ABG 86.8 % (95.0-100.0); PCO2 ABG 71.7 mmHg (35.0-45.0); Site Drawn RIGHT RADIAL
[2025-01-02 05:28] LABS: Non-Invasive Expiratory Pressure 5 CMH2O; Non-Invasive Inspiratory Pressure 20 CMH2O; Non-Invasive Vent Rate 10 /MIN
[2025-01-02 05:31] LABS: Alanine Aminotransferase 22 U/L (6-35); Albumin Level 3.6 g/dL (3.5-5.1); Alkaline Phosphatase 58 U/L (38-126); Aspartate Amino Transferase 26 U/L (14-36); Bilirubin,Total 0.5 mg/dL (0.2-1.3); Blood Urea Nitrogen 32 mg/dL (7-17); Calcium 8.3 mg/dL (8.4-10.2); Carbon Dioxide > 40 mmol/L (22-30); Chloride 96 mmol/L (98-107); Estimated CRCL calculation 71 ml/min; Estimated Glomerular Filt Rate > 60; Glucose 69 mg/dL (65-110); Potassium 4.2 mmol/L (3.4-5.0); Sodium 142 mmol/L (137-145)
[2025-01-02 05:36] LABS: Percent Iron Saturation 8 % (20-50)
[2025-01-02] MEDS: PROCHLORPERAZINE MALEATE 5 MG TABLET PO ×2 (05:42→20:26)
[2025-01-02 06:39] LABS: Folic Acid > 20.0 ng/mL (2.76->20)
[2025-01-02 06:43] LABS: Free T4 Free Thyroxine Reflex 1.29 ng/dL (0.78-2.19)
[2025-01-02 07:52] LABS: Total Triiodothyronine (T3) 0.86 NG/ML (0.97-1.69)
[2025-01-02] MEDS: AMIODARONE HCL 200 MG TABLET PO ×2 (09:03→16:39)
[2025-01-02] MEDS: APIXABAN 5 MG TABLET PO ×2 (09:04→20:25)
[2025-01-02] MEDS: PANTOPRAZOLE 40 MG TABLET PO (09:04)
[2025-01-02] MEDS: LOSARTAN POTASSIUM 50 MG TABLET PO (09:04)
[2025-01-02] MEDS: FUROSEMIDE INJ 40 MG/4 ML VIAL IV PUSH ×2 (09:05→20:25)
[2025-01-02] MEDS: SERTRALINE HCL 50 MG TABLET PO ×2 (09:05→20:24)
[2025-01-02] MEDS: POTASSIUM CHLORIDE 20 MEQ ER TABLET PO (09:05)
[2025-01-02] MEDS: carvediloL 12.5 MG TABLET PO ×2 (09:05→20:24)
--- NOTE | 2025-01-02 11:43 | PC.NURSE ---
On 01/02/25, the student, [Lexie Hennessy], provided care and completed [facility] documentation on this patient. I have reviewed the student's documentation and agree with the findings.
--- NOTE | 2025-01-02 16:47 | PM.IMPN ---
Progress Note: A&P Assessment and Plan (1) Acute on chronic respiratory failure with hypoxia and hypercapnia: Code(s): J96.21 - Acute and chronic respiratory failure with hypoxia; J96.22 - Acute and chronic respiratory failure with hypercapnia Status: Acute Assessment and Plan: Baseline requirement of 3L and she is noncompliant with bipap. ABG 7.34/70.4/65.4 5L. BiPAP started CXR showed cardiomegaly with pulmonary vascular congestion and an unchanged opacity at the lateral LLL BNP 3160. Viral PCR negative. Echo pending. Acute/chronic respiratory failure felt to be secondary to possible CHF factors versus obesity hypoventilation syndrome. Low suspicion for pneumonia with no leukocytosis. Possible anemia component Better with bipap treatment. Continue bipap at night, with naps and as needed. Continue diuresis. Pulm consult. (2) Acute exacerbation of CHF (congestive heart failure): Qualifiers: Heart failure type: unspecified Qualified Code(s): I50.9 - Heart failure, unspecified Code(s): I50.9 - Heart failure, unspecified Status: Acute Assessment and Plan: BNP 3160. Last echo done in 2021 which showed an estimated EF of 55-60%, grade 1 diastolic dysfunction, moderate pulmonary HTN. Echo pending. Contineu IV Lasix. Monitor I&Os and daily weights. (3) Anemia: Qualifiers: Anemia type: unspecified type Qualified Code(s): D64.9 - Anemia, unspecified Code(s): D64.9 - Anemia, unspecified Status: Acute Assessment and Plan: Hgb 9.3, previously 14.3 on 12/12/2023. Iron and TIBC normal with iron sat 8% and ferritin 42. B12 low end of normal. TSH 5.1 with normal FT4. Denies bleeding, will continue home Eliquis at this time. Follow HH. Check MMA. (4) Hypertension: Qualifiers: Hypertension type: primary hypertension Qualified Code(s): I10 - Essential (primary) hypertension Code(s): I10 - Essential (primary) hypertension Status: Chronic Assessment and Plan: Patient's blood pressure was reviewed on 01/02 Blood pressure was low prior to admission but more stable now. Will continue to follow. (5) Obstructive sleep apnea: Code(s): G47.33 - Obstructive sleep apnea (adult) (pediatric) Status: Chronic Assessment and Plan: As above Plan AFib - EKG showing NSR with LAD and LBBB suspected to be chronic. Continue Coreg, Amio. Continue Eliquis. DVT Prophylaxis: Eliquis Code Status: Full code Subjective Date/time seen: 01/02/25 16:47 Interval history: 74yo female with HTN, CAD, CHF, CKD, prediabetes, HLD, TORRE, asthma, LEVI, MDD, chronic venostasis, recurrent cellulitis, and obesity presents here with hypoxia. Feels 'a lot better' and now off bipap and on oxygen via nasal cannula. Wears 3L at home. Has LEVI with bipap at home but is noncompliant and can not tolerate bipap therapy. She follows with Dr Engle. no Cp. Cough is nonproductive. No fever or chills. Exam Narrative: AF 97.4 121/51 55 22 93% 5L Gen - NARD sitting up in chair Chest - bibasilar inspiratory crackles CV - RRR S1/S2. Tele showing PVCs Abd - Soft, obese, NT Ext - 1-2+ pedal edema with lower legs in VARSHA wraps. Neuro - Alert and appropriate Psych - Nml mood and affect Skin - Warm and dry Objective Data Vital Signs Vital Signs: Vital Signs - 24 hr 01/01/25 17:16 01/01/25 17:37 01/01/25 18:00 Temperature Pulse Rate 58 L 59 L 57 L Respiratory Rate 29 H 39 H Blood Pressure 135/66 Pulse Oximetry 91 99 Oxygen Delivery BiPAP Oxygen Flow Rate Fraction of Inspired Oxygen 01/01/25 18:11 01/01/25 18:28 01/01/25 20:00 Temperature 98.4 F 97.6 F Pulse Rate 56 L 66 Respiratory Rate 26 H 26 H Blood Pressure 143/57 H 118/68 Pulse Oximetry 98 94 Oxygen Delivery BiPAP Oxygen Flow Rate Fraction of Inspired Oxygen 01/01/25 20:00 01/01/25 20:00 01/01/25 20:30 Temperature Pulse Rate 64 64 Respiratory Rate 20 Blood Pressure Pulse Oximetry 94 99 Oxygen Delivery BiPAP BiPAP Oxygen Flow Rate Fraction of Inspired Oxygen 40 01/01/25 21:22 01/01/25 22:00 01/01/25 23:23 Temperature Pulse Rate 60 52 L Respiratory Rate 23 H Blood Pressure Pulse Oximetry 94 97 Oxygen Delivery BiPAP BiPAP Oxygen Flow Rate Fraction of Inspired Oxygen 40 01/02/25 00:00 01/02/25 00:00 01/02/25 00:00 Temperature 97.4 F L Pulse Rate 51 L 49 L Respiratory Rate 22 H Blood Pressure 120/53 L Pulse Oximetry 94 94 Oxygen Delivery BiPAP Oxygen Flow Rate Fraction of Inspired Oxygen 40 01/02/25 02:00 01/02/25 02:37 01/02/25 04:00 Temperature Pulse Rate 51 L 52 L Respiratory Rate 11 L Blood Pressure Pulse Oximetry 97 95 Oxygen Delivery BiPAP BiPAP Oxygen Flow Rate Fraction of Inspired Oxygen 35 01/02/25 04:00 01/02/25 04:00 01/02/25 04:12 Temperature 97.5 F L Pulse Rate 52 L 51 L 48 L Respiratory Rate 14 11 L Blood Pressure 135/53 L Pulse Oximetry 95 95 Oxygen Delivery BiPAP Oxygen Flow Rate Fraction of Inspired Oxygen 01/02/25 05:00 01/02/25 06:00 01/02/25 07:51 Temperature 97.5 F L Pulse Rate 61 64 Respiratory Rate 28 H Blood Pressure 152/77 H Pulse Oximetry 95 93 Oxygen Delivery High Flow Nasal Cannula Oxygen Flow Rate 6 Fraction of Inspired Oxygen 01/02/25 07:53 01/02/25 08:00 01/02/25 08:00 Temperature Pulse Rate 80 Respiratory Rate Blood Pressure Pulse Oximetry 95 95 Oxygen Delivery High Flow Therapy with Na High Flow Nasal Cannula Oxygen Flow Rate 6 5 Fraction of Inspired Oxygen 01/02/25 09:03 01/02/25 09:05 01/02/25 10:00 Temperature Pulse Rate 60 60 58 L Respiratory Rate Blood Pressure Pulse Oximetry Oxygen Delivery Oxygen Flow Rate Fraction of Inspired Oxygen 01/02/25 11:25 01/02/25 11:58 01/02/25 12:00 Temperature 98.6 F Pulse Rate 57 L Respiratory Rate 20 Blood Pressure 129/50 L Pulse Oximetry 95 92 94 Oxygen Delivery High Flow Nasal Cannula High Flow Nasal Cannula Oxygen Flow Rate 5 5 Fraction of Inspired Oxygen 01/02/25 12:00 01/02/25 14:00 01/02/25 16:00 Temperature Pulse Rate 54 L 56 L Respiratory Rate Blood Pressure Pulse Oximetry 93 Oxygen Delivery High Flow Nasal Cannula Oxygen Flow Rate 5 Fraction of Inspired Oxygen 01/02/25 16:00 01/02/25 16:00 01/02/25 16:39 Temperature 97.4 F L Pulse Rate 53 L 53 L 55 L Respiratory Rate 22 H Blood Pressure 121/51 L Pulse Oximetry 93 Oxygen Delivery Oxygen Flow Rate Fraction of Inspired Oxygen Intake/Output Intake/Output: Intake & Output 12/30/24 12/31/24 01/01/25 01/02/25 23:59 23:59 23:59 23:59 Intake Total 1030 Output Total 1000 1000 Balance -1000 30 Meds/Results Medications: Active Medications Generic Name Dose Route Start Last Admin Trade Name Freq PRN Reason Stop Dose Admin Acetaminophen 650 mg 01/01/25 21:15 Acetaminophen 325 Mg Tablet PO Q6H PRN Mild Pain (1-3) Or Fever Alendronate Sodium 35 mg 01/05/25 09:00 Alendronate Sodium 35 Mg Tablet PO WEEKLY GARY Amiodarone HCl 200 mg 01/02/25 09:00 01/02/25 16:39 Amiodarone Hcl 200 Mg Tablet PO 200 mg BID GARY Administration Apixaban 5 mg 01/02/25 09:00 01/02/25 09:04 Apixaban 5 Mg Tablet PO 5 mg Q12HR GARY Administration Aspirin 81 mg 01/02/25 21:00 Aspirin 81 Mg Enteric Tablet PO HS GARY Carvedilol 12.5 mg 01/02/25 09:00 01/02/25 09:05 Carvedilol 12.5 Mg Tablet PO 12.5 mg Q12HR GARY Administration Fenofibrate 145 mg 01/03/25 09:00 Fenofibrate Nanocrystallized 145 Mg Tablet PO QAM GARY Furosemide 40 mg 01/01/25 21:00 01/02/25 09:05 Furosemide Inj 40 Mg/4 Ml Vial IV PUSH 40 mg Q12HR GARY Administration Losartan Potassium 50 mg 01/02/25 09:00 01/02/25 09:04 Losartan Potassium 50 Mg Tablet PO 50 mg DAILY GARY Administration Pantoprazole Sodium 40 mg 01/02/25 09:00 01/02/25 09:04 Pantoprazole 40 Mg Tablet PO 40 mg DAILY GARY Administration Potassium Chloride 20 meq 01/02/25 09:00 01/02/25 09:05 Potassium Chloride 20 Meq Er Tablet PO 20 meq DAILY GARY Administration Prochlorperazine Maleate 5 mg 01/02/25 05:13 01/02/25 05:42 Prochlorperazine Maleate 5 Mg Tablet PO 5 mg Q6H PRN Administration Nausea And Vomiting Sertraline HCl 50 mg 01/02/25 09:00 01/02/25 09:05 Sertraline Hcl 50 Mg Tablet PO 50 mg Q12HR GARY Administration Silver Sulfadiazine 1 applic 01/02/25 09:00 01/02/25 10:58 Silver Sulfadiazine 1% Cr 400 Gm Jar (*Bkc) TOPICAL Not Given DAILY [facility] Radiology Results: ITS Impressions Chest X-Ray 01/01/25 14:40 IMPRESSION: 1. Cardiomegaly with pulmonary vascular congestion. 2. Unchanged opacity at the lateral left lower lung zone most likely persistent lingular atelectasis/scarring along side a prominent left paracardial fat pad although the differential includes less likely pneumonia or small pleural effusion. Labs Labs: Laboratory Results - last 24 hr 01/01/25 01/02/25 01/02/25 22:38 00:33 04:30 WBC 4.6 RBC 3.53 L Hgb 8.6 L Hct 31.5 L MCV 89.2 MCH 24.4 L MCHC 27.3 L RDW 17.0 H Plt Count 131 L MPV 9.1 Immature Gran % (Auto) 0.4 Neut % (Auto) 69.5 Lymph % (Auto) 16.7 L [place] % (Auto) 10.8 H Eos % (Auto) 2.2 Baso % (Auto) 0.4 Lymph # (Auto) 0.77 L [place] # (Auto) 0.5 Eos # (Auto) 0.1 Baso # (Auto) 0.0 Abs Immat Gran (auto) 0.02 Absolute Neuts (auto) 3.2 Absolute Nucleated RBC 0.000 Nucleated RBC % 0.0 Puncture Site Right radial Right radial ABG pH 7.362 7.395 ABG pCO2 72.1 H* 63.8 H* ABG pO2 93.5 83.1 ABG PO2/FiO2 Ratio 2.34 2.37 ABG HCO3 40.0 H 38.2 H ABG O2 Saturation 96.6 95.8 ABG O2 Content 13.0 L 12.8 L ABG Base Excess 12.5 11.5 A-a Gradient 108.8 92.3 Oxyhemoglobin 95.9 95.0 Carboxyhemoglobin Methemoglobin Reduced Hemoglobin Total Hemoglobin 9.5 L 9.5 L O2 Delivery Device Non-invasive vent Non-invasive vent O2 Liters/Min Not Reportable Not Reportable Vent Rate Not Reportable 10 FiO2 40 35 Expiratory Pressure 6 5 Inspiratory Pressure 12 20 Sodium 142 Potassium 4.2 Chloride 96 L Carbon Dioxide > 40 H Anion Gap BUN 32 H Creatinine 0.90 Estim Creat Clear Calc 71 Estimated GFR > 60 Glucose 69 Calcium 8.3 L Iron 37 TIBC 450 % Saturation 8 L Ferritin 41.90 Total Bilirubin 0.5 AST 26 ALT 22 Alkaline Phosphatase 58 Total Protein 7.0 Albumin 3.6 Vitamin B12 354.0 Folate > 20.0 H TSH (Reflex) 5.110 H Free T4 1.29 Total T3 0.86 L 01/02/25 05:20 WBC RBC Hgb Hct MCV MCH MCHC RDW Plt Count MPV Immature Gran % (Auto) Neut % (Auto) Lymph % (Auto) [place] % (Auto) Eos % (Auto) Baso % (Auto) Lymph # (Auto) [place] # (Auto) Eos # (Auto) Baso # (Auto) Abs Immat Gran (auto) Absolute Neuts (auto) Absolute Nucleated RBC Nucleated RBC % Puncture Site Right radial ABG pH 7.391 ABG pCO2 71.7 H* ABG pO2 54.8 L ABG PO2/FiO2 Ratio 1.57 ABG HCO3 42.5 H ABG O2 Saturation 86.8 L* ABG O2 Content 11.7 L ABG Base Excess 15.2 A-a Gradient 111.4 Oxyhemoglobin 86.2 L* Carboxyhemoglobin 1.3 Methemoglobin 0.0 Reduced Hemoglobin 12.5 H Total Hemoglobin 9.6 L O2 Delivery Device Non-invasive vent O2 Liters/Min Not Reportable Vent Rate 10 FiO2 35 Expiratory Pressure 5 Inspiratory Pressure 20 Sodium Potassium Chloride Carbon Dioxide Anion Gap BUN Creatinine Estim Creat Clear Calc Estimated GFR Glucose Calcium Iron TIBC % Saturation Ferritin Total Bilirubin AST ALT Alkaline Phosphatase Total Protein Albumin Vitamin B12 Folate TSH (Reflex) Free T4 Total T3
[2025-01-02] MEDS: ASPIRIN 81 MG ENTERIC TABLET PO (20:24)
[2025-01-03] VITALS (24 sets, daily range): BP systolic 118–152; BP diastolic 45–75; PULSE 45–66; RESP 16–36; TEMP 36.4–37; O2SAT 93–99
--- NOTE | 2025-01-03 | ECHO_ITS ---
Patient Info Name: Kelly Atkinson Age: 74 years : 1950 Gender: Female Ht: 64 in Wt: 330 lbs BSA: 2.70 m2 HR: 58 bpm BP: 150 / 56 mmHg Heart Rhythm: Sinus Arrhythmia Technical Quality: Fair Exam Date: 01/03/2025 7:29 AM Exam Location: Echo Lab Patient Status: Inpatient Admit Date: 01/01/2025 Staff Ordering Physician: James Tracey MD Reconciliation Machine Operator: Meron Spence RDCS Attending Provider: James Tracey MD Exam Type: CA echo dop bubble study w con Study Info Indications - Hypoxia Complete two-dimentional, color flow and Doppler transthoracic echocardiogram is performed with agitated saline and with contrast to opacify the left ventricle and to improve the delineation of the left ventricle endocardial borders. Contrast/Agitated Saline Contrast/Ag. Saline: Agitated Saline Amount: 8.00 ml New IV Access: Outer Forearm and Right Contrast/Ag. Saline: Definity Amount: 5.00 ml New IV Access: Outer Forearm and Right Summary 1. The left ventricle is mildly dilated with moderately reduced systolic function. There is severe concentric left ventricular hypertrophy. The left ventricular ejection fraction is visually estimated to be 35-40%. 2. The right ventricle is normal size mildly reduced systolic function. 3. There is moderate pulmonary hypertension. The PASP is calculated to be 69 mm Hg. 4. There is no [id number] shunt on bubble study. 5. The left atrium is severely dilated. 6. The right atrium is moderately dilated. Left Ventricle The left ventricle is mildly dilated with moderately reduced systolic function. There is severe concentric left ventricular hypertrophy. The left ventricular ejection fraction is visually estimated to be 35-40%. Right Ventricle The right ventricle is normal size mildly reduced systolic function. Left Atria The left atrium is severely dilated. Right Atria The right atrium is moderately dilated. Atrial Septum There is no [id number] shunt on bubble study. Aortic Valve The aortic valve opens well. There is no aortic regurgitation. Pulmonic Valve The pulmonic valve is not well visualized. There is no color Doppler evidence of pulmonic valve regurgitation. Mitral Valve The mitral valve leaflets are opening well. There is tenting of the mitral valve leaflets with subsequent mild mitral regurgitation. Tricuspid Valve The tricuspid valves are normal. There is trace tricuspid regurgitation. There is moderate pulmonary hypertension. The PASP is calculated to be 69 mm Hg. Pericardium/Pleural Pericardium is normal in appearance with no evidence for significant pericardial effusion. Inferior Vena Cava Dilated inferior vena cava with <50% collapse upon inspiration consistent with significantly elevated right atrial pressure, 15 mmHg. Dilated inferior vena cava with <50% collapse upon inspiration consistent with significantly elevated right atrial pressure, 15 mmHg. Aorta The visualized portions of the ascending aorta measures 3.8 cm in diameter. Left Ventricular Outflow Tract Name Value Normal LVOT 2D LVOT Diameter 2.0 cm LVOT Doppler LVOT Peak Gradient 5 mmHg LVOT Mean Gradient 3 mmHg LVOT VTI 27 cm LVOT VTI/AV VTI Ratio 0.9 LVOT Stroke Volume 85 ml LVOT CO 4.9 l/min LVOT CI 1.8 l/min/m2 Pulmonic Valve Name Value Normal RVOT Doppler RVOT Peak Gradient 3 mmHg PV Doppler PV Peak Gradient 6 mmHg Mitral Valve Name Value Normal MV Doppler MV Decel [place] 546 cm/s2 MV PHT 54 ms MV Area (PHT) 4.1 cm2 4.0-5.0 MV Diastolic Function MV E Peak Velocity 101 cm/s MV A Peak Velocity 77 cm/s MV E/A 1.3 MV Decel Time 185 ms MV Annular TDI MV E/e' (Septal) 19.2 <=8.0 MV E/e' (Lateral) 13.5 <=8.0 MV E/e' (Average) 16.4 Tricuspid Valve Name Value Normal TV Regurgitation Doppler TR Peak Velocity 369 cm/s TR Peak Gradient 54 mmHg Estimated PAP/RSVP RA Pressure 15 mmHg <=5 PA Systolic Pressure 69 mmHg <36 RV Systolic Pressure 69 mmHg <36 Aortic Valve Name Value Normal AV Doppler AV Peak Velocity 130 cm/s AV Peak Gradient 7 mmHg AV Mean Gradient 4 mmHg AV VTI 30 cm AV Area (Cont Eq VTI) 2.9 cm2 >=3.0 AV Area (Cont Eq Erich) 2.8 cm2 AV Regurgitation 2D LVOT Area 3.2 cm2 Ventricles Name Value Normal LV Dimensions 2D/MM IVS Diastolic Thickness (2D) 1.4 cm 0.6-1.0 LVID Diastole (2D) 5.6 cm 3.8-5.2 LVIW Diastolic Thickness (2D) 1.4 cm 0.6-0.9 LVID Systole (2D) 3.8 cm 2.2-3.5 LVOT Diameter 2.0 cm LV Mass (2D Cubed) 351.44 g 67.00-162.00 LV Mass Index (2D Cubed) 130 g/m2 43-95 Relative Wall Thickness (2D) 0.49 LV Fractional Shortening/Ejection Fraction 2D/MM LV Fractional Shortening (2D) 33 % 27-45 LV EF (2D Teicholz) 60 % 54-74 LV Diastolic Volume (4C MOD) 221 ml LV EF (4C MOD) 62 % LV Diastolic Volume (2C MOD) 216 ml LV EF (2C MOD) 59 % LV Diastolic Volume (BP MOD) 219 ml 46-106 LV Diastolic Volume Index (BP MOD) 81 ml/m2 29-61 LV Systolic Volume (BP MOD) 86 ml 14-42 LV Systolic Volume Index (BP MOD) 32 ml/m2 8-24 LV EF (BP MOD) 61 % 54-74 LV Diastolic Length (4C) 9.3 cm LV Systolic Length (4C) 8.0 cm LV Stroke Volume (4C MOD) 137 ml Atria Name Value Normal LA Dimensions LA Volume (4C A-L) 140 ml LA Volume (BP A-L) 153 ml RA Dimensions RA Area (4C) 24.6 cm2 <=18.0 Report Signatures
[2025-01-03 06:08] LABS: Hematocrit 29.9 % (37.0-47.0); Hemoglobin 8.5 g/dL (12.0-15.0); Mean Corpuscular HGB Conc 28.4 g/dl (32-36); Mean Corpuscular Hemoglobin 24.9 pg (26-34); Mean Corpuscular Volume 87.7 fl (80-100); Mean Platelet Volume 8.8 fl (7.4-10.4); Platelet Count Result 131 k/mm3 (150-375); Red Blood Count 3.41 M/mm3 (4.2-5.4); White Blood Count 4.5 K/mm3 (4.5-10.0)
[2025-01-03 06:18] LABS: Blood Urea Nitrogen 26 mg/dL (7-17); Calcium 8.6 mg/dL (8.4-10.2); Chloride 93 mmol/L (98-107); Estimated CRCL calculation 67 ml/min; Estimated Glomerular Filt Rate 57; Glucose 79 mg/dL (65-110); Potassium 3.9 mmol/L (3.4-5.0); Sodium 141 mmol/L (137-145)
[2025-01-03 06:23] LABS: Carbon Dioxide > 40 mmol/L (22-30)
[2025-01-03] MEDS: PERFLUTREN LIPID MICROSPHERES 1.5 ML VIAL DILUTED TO 10 ML TOTAL VOLUME IV PUSH (08:20)
[2025-01-03 08:30] LABS: NT Pro B Type Natriuretic Pept 1790 pg/mL (19.9-100)
--- NOTE | 2025-01-03 09:31 | IVDEFINITY ---
Prior to administration of IV Definity the patient was educated on the risks and benefits of the imaging enhancing agent including potential adverse side effects. The patient verbalized understanding. Allergies were verified. No exclusion criteria were identified and at least one of the following inclusion criteria were met: 1) physician request, 2) patient technically difficult to image (per the [place] [employer] guidelines of two or more segments not discernable within the apical view), or 3) questionable left ventricular function. ?
[2025-01-03] MEDS: LOSARTAN POTASSIUM 50 MG TABLET PO (09:43)
[2025-01-03] MEDS: POTASSIUM CHLORIDE 20 MEQ ER TABLET PO (09:43)
[2025-01-03] MEDS: carvediloL 12.5 MG TABLET PO ×2 (09:43→20:37)
[2025-01-03] MEDS: AMIODARONE HCL 200 MG TABLET PO ×2 (09:43→17:52)
[2025-01-03] MEDS: FENOFIBRATE NANOCRYSTALLIZED 145 MG TABLET PO (09:43)
[2025-01-03] MEDS: PANTOPRAZOLE 40 MG TABLET PO (09:44)
[2025-01-03] MEDS: FUROSEMIDE INJ 40 MG/4 ML VIAL IV PUSH ×2 (09:44→20:37)
[2025-01-03] MEDS: SERTRALINE HCL 50 MG TABLET PO ×2 (09:44→20:37)
[2025-01-03] MEDS: APIXABAN 5 MG TABLET PO ×2 (09:44→20:37)
--- NOTE | 2025-01-03 10:47 | PM.CNPUL ---
Assessment and Plan Assessment and plan (1) Obesity hypoventilation syndrome: Code(s): E66.2 - Morbid (severe) obesity with alveolar hypoventilation Status: Acute Assessment and Plan: patient with morbid obesity, BMI 56.7, chronic hypercarbic respiratory failure with a ABG on 5 L of 7.34/70/65. free T4 1.29 on 01/02/2025. Patient has obesity hypoventilation syndrome and would benefit from a noninvasive ventilator to prevent further deterioration and subsequent hospitalizations. Patient has been on outpatient BiPAP but Her compliance is low and she cannot tolerate this at home. She has been on BiPAP this admission but cannot tolerate the high pressures and high flows. I will initiate noninvasive ventilation with the AVAPS mode. 01/04/2024 the patient told me she could not tolerate the by pressures last night and had difficulty sleeping. I placed her on a noninvasive ventilation with the AVAPS mode and adjusted the settings for comfort resulting in: Respiratory rate 14, tidal volume 500, EPAP 8, minimal inspiratory pressure 9, maximal inspiratory pressure 25, inspiratory time 0.8, rise of 1 (fastest), 32% FiO2. peak inspiratory pressure was 11 and saturations were 100%. Patient tells me these settings are comfortable and she will be able to wear this tonight. Plan: Continue AVAPS p.r.n. during the day and tonight when she sleeps. I will check an ApneaLink and an ABG prior to removal of the AVAPS in the morning. Discussed with Dr. Tracey, will follow with you (2) Acute exacerbation of CHF (congestive heart failure): Qualifiers: Heart failure type: unspecified Qualified Code(s): I50.9 - Heart failure, unspecified Code(s): I50.9 - Heart failure, unspecified Status: Acute Assessment and Plan: 01/04/2024 patient is sitting in chair on 6 L nasal cannula with saturations 94%. Overall the patient tells me she is breathing better. She denied fever, chills, rigors. Overall she tells me she is breathing back to her normal. White blood cell count 4.5, creatinine 0.96, BNP improved to 1790. Since admission she has diuresed 2.4 L. Plan: agree with as aggressive diuresis as tolerated by her cardiac and renal systems. Currently she is on Lasix 40 IV q.12 hours. Continue amiodarone 200 b.i.d., apixaban 5 q.12, losartan 50 q.day, carvedilol 12.5 q.12 per hospitalist team. Goal saturation 90-94%, adjust oxygen accordingly. History of Present Illness History of Present Illness Consult date: 01/03/25 Chief complaint: acute on chronic hypoxic/hypercapnic resp failure Narrative: 01/03/2025: This is a new pulmonary consult for hypoxemic and hypercarbic respiratory failure. 74-year-old with a history of hypertension, diabetes, chronic venous stasis, AFib on eliquis, pulmonary hypertension, Chronic hypoxemic respiratory failure on 3 L nasal cannula, and obstructive sleep apnea on BiPAp 08/31 with 3 L bleed in. Patient is followed in the Pulmonary Clinic in last seen on 10/14/2024. this is a copy of the note. Last visit 03/2024 Kelly is here for follow up regarding LEVI and respiratory failure with hypoxia. PCP is REUBEN Mcnamara. Hx: diastolic CHF, respiratory failure, sleep apnea, MDD, HLD, HTN, obesity, CAD. 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 Patient was hospitalized for 5 nights back in August 2022 for acute respiratory failure with hypoxia, CHF exacerbation, pneumonia, and cellulitis. Patient has shortness of breath and was found to have pneumonia on the chest x-ray and was given antibiotics. She was given increased dose of Lasix to help with some fluid volume overload. She was evaluated for home O2 and she required 2L 24/7. This was new for her. Today she reports much has changed with her health since our last visit. She states Jul 2024 she had a ruptured hernia requiring surgery and she was on a ventilator for 20 days. This was at [facility]. Required multiple blood transfusions. She discharged end of Jul 2024 to rehab at [facility] and still there. She is doing PT/OT 6 days per week and also doing speech therapy as she's had dysphagia after being intubated that long. Previously she was living at [facility] since 2022. She anticipates a heart surgery 10/22/24 at [facility]. She reports she saw cardiology, Dr Aguilar, after her hospital discharge. Will request records. ROMERO stable. She is in a wheelchair for longer distances today but working on walking with a rollator walker at rehab. Reports she is a shallow breather. Large abdomen compressing her breathing she says. Last week had URI symptoms with sore throat, sneezing, runny nose, overall improved now. Not much coughing. Denies wheezing. She is not on any inhaled medications. She has supplemental O2 for home use. Her last walk study was 10/2022 and showed a requirement for 3L/min with activity and none at rest. Today she tells me she uses 3L/min O2 all day and night - with rest, walking. She has small portable tanks and wants to get a portable oxygen concentrator. She is prescribed BiPAP 12/8cm, she is using more than she was at last visit but still having trouble she says. Currently wearing BiPAP nightly for avg of 4 to 5 hours. SOB with laying flat and trouble tolerating BiPAP mask due to claustrophobia and anxiety. She got a new tape maker/lounger recliner chair she wants to start sleeping in. She was a never smoker. 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 01/01/2025: Patient went to her PCP office visit with shortness of breath for a month and on her home 3 L nasal cannula her saturations were ranged between 40 and 60. Her weight was 318 and she was sent to the emergency department. The patient tells me she had not been using her home BiPAP since approximately 12/06/2024. In the emergency department her blood pressure is 115/65, heart rate 78, respirations 18, saturations on 3 L nasal cannula 89%. White blood cell count was 7.3, creatinine was 0.97, BNP was 3160, COVID, influenza, RSV RT PCR. Negative. Patient had a blood gas on 5 L nasal cannula the pH of 7.34/70/65 and was placed on BiPAP 12/6 with a repeat blood gas 7.36 / 72/94. Her BiPAP was increased to 20/5 with a repeat blood gas of 7.40/64/83 on 35% FiO2. Patient was treated for fluid overload with IV Lasix. 01/04/2024 patient is sitting in chair on 6 L nasal cannula with saturations 94%. Overall the patient tells me she is breathing better. She denied fever, chills, rigors. Overall she tells me she is breathing back to her normal. White blood cell count 4.5, creatinine 0.96, BNP improved to 1790. Since admission she has diuresed 2.4 L. the patient told me she could not tolerate the by pressures last night and had difficulty sleeping. I placed her on a noninvasive ventilation with the AVAPS mode and adjusted the settings for comfort resulting in: Respiratory rate 14, tidal volume 500, EPAP 8, minimal inspiratory pressure 9, maximal inspiratory pressure 25, inspiratory time 0.8, rise of 1, 32% FiO2. peak inspiratory pressure was 11 and saturations were 100%. DATA: Download 09/10/2024 through 10/09/2024. Patient is on BiPAP spontaneous mode, pressures 12/8. Room usage days greater than or equal to 4 hours was 67%. AHI 2.8, apnea index 2.5, hypopnea index 0.3, central apnea index 0.0, median leak 108, 95th percentile leak 119, maximal leak 119. Median tidal volume 207, median respiratory rate 22, median minute ventilation 4.7. I interpret this download as poor compliance, low tidal volume, adequate pressures and high leak. 11/23/22 - Split PSG - Severe LEVI with AHI 54.4 and desaturation to 81%. BiPAP 12/8cmH2O with 2L/min O2 bleed in recommended. 11/21/22 - PFT - There is a moderate obstructive ventilatory impairment with good response to bronchodilator, normal lung volumes, normal diffusion. No prior studies are available to compare. 11/21/22 - Home O2 eval - Patient requires 3L/min O2 with activity and none at rest. Home O2 Eval 09/18/22 - need 2L O2 rest+activity. Chest CT 09/14/22 - Patchy bibasilar consolidation. Findings are suspicious for pneumonia versus possibly bibasilar atelectatic change. Indeterminate 2.5 cm right adrenal nodule (PCP following this). Patient reports nodule was benign. Echo 09/14/22 - Summary 1. Left ventricular chamber dimension is mildly enlarged. 2. Left ventricular systolic function is normal, estimated at 55-60%. 3. There is mildly increased left ventricular wall thickness. 4. The left ventricular diastolic function is grade I diastolic dysfunction. 5. The basal inferolateral wall is hypokinetic. 6. Right ventricular chamber dimension is moderately enlarged. 7. Right ventricular systolic function is reduced. 8. Left atrial chamber dimension is mildly enlarged. 9. There is mild mitral valve regurgitation. 10. There is mild tricuspid valve regurgitation. 11. Moderate pulmonary hypertension, estimated pulmonary arterial systolic pressure is 56 mmHg. Left Ventricle Left ventricular chamber dimension is mildly enlarged. Left ventricular systolic function is normal, estimated at 55-60%. There is mildly increased left ventricular wall thickness. The left ventricular diastolic function is grade I diastolic dysfunction. The basal inferolateral wall is hypokinetic. Right Ventricle Right ventricular chamber dimension is moderately enlarged. Right ventricular systolic function is reduced. Left Atria Left atrial chamber dimension is mildly enlarged. Right Atria Right atrial chamber dimension is normal. Atrial Septum Intact interatrial septum visualized by color flow imaging. HST 03/09/22 through [facility] - mild sleep apnea, AHI 9.9, avg saturation 86%, minimum sleep saturation 55%. 192 minutes spent below 88%. Review of Systems Constitutional: Constitutional: Reports no additional constitutional complaints Eyes: Eyes: Reports no additional eye complaints ENT: Reports system reviewed and no additional complaints, except as documented Cardiovascular: Cardiovascular: Reports no additional cardiovascular complaints Respiratory: Respiratory: Reports no additional respiratory complaints Gastrointestinal: Gastrointestinal: Reports no additional gastrointestinal complaints Musculoskeletal: Musculoskeletal: Reports no additional musculoskeletal complaints Neurologic: Reports system reviewed and no additional complaints, except as documented Psychiatric: Psychiatric: Reports no additional psychiatric complaints Endocrine: Endocrine: Reports no additional endocrine complaints Hematologic/Lymphatic: Hematologic/Lymphatic: Reports no additional hematologic/lymphatic complaints Allergic/Immunologic: Allergic/Immunologic: Reports no additional allergic/immunologic complaints [facility] Past Medical History Medical History (Updated 01/01/25 @ 22:08 by Florina Pierce APRN) Obesity hypoventilation syndrome Chronic kidney disease, stage 3b TORRE (nonalcoholic steatohepatitis) Major depressive disorder, recurrent, moderate AL (myocardial infarction) Dyslipidemia Moderate pulmonary hypertension Estimated PASP was 56 mmHg on echocardiogram in August 2022. Right-sided heart failure Right ventricle is moderately enlarged with reduced systolic function on echocardiogram in August 2022. Also with moderate pulmonary hypertension. Diastolic dysfunction Grade 1 diastolic dysfunction on echocardiogram in August 2022. EF was 55 to 60%. Basal inferolateral wall was hypokinetic. Chronic respiratory failure with hypoxia Diverticulitis Morbid obesity Hypertension Obstructive sleep apnea Surgical History Surgical History History of total right hip arthroplasty History of cardiac catheterization no stent placement History of arthroscopy of right knee History of partial hysterectomy History of tonsillectomy and adenoidectomy Family History Family History Sibling Patient's brother is in good health Family history of diabetes mellitus in first degree relative Mother Family history of heart disease in male family member before age 55, Onset Age: 88 Patient's mother is Other Diabetes mellitus Family history of arthritis Hypertension Social History Social History Social History: Healthcare power of public relations player: Indigo Atkinson, niece. Code status: Full code. Smoking status: Never smoker Second hand tobacco smoke exposure: No Alcohol intake: never Substance use: never Substance use type: does not use Do You Feel Safe in your Home?: Yes Lack of Transportation: No Lack of Food: Never True Current Housing: I Have Housing Concerned About Future Housing: No Difficulty Paying Gas/Electric Bills: No Difficulty Paying for Meds: No Currently Unemployed: No Education: Master's Degree or Higher Difficulty w/ Childcare or Family Care: No Living arrangements: with family Additional living arrangements comments: Single. No children. Lives alone. 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 Gender identity (if verbalized by the patient): Female Sexual Orientation (if Verbalized by the Patient): Straight or Heterosexual Spiritual care concerns: Yes Meds Home Medications and Allergies Home Medications ?Medication ?Instructions ?Recorded ?Confirmed ?Type aspirin 81 mg tablet,delayed 81 mg PO HS 07/31/19 01/01/25 History release (Aspir-) acetaminophen 325 mg tablet (Mapap 650 mg (2 x 325 mg) PO Q6H PRN 01/14/23 01/01/25 Rx (acetaminophen)) Mild Pain (1-3) Or Fever #8 tabs potassium chloride 20 mEq See Rx Instructions .Route 01/09/24 01/01/25 Rx tablet,extended release .COMPLEX #90 tabs sertraline 50 mg tablet See Rx Instructions .Route 07/04/24 01/01/25 Rx .COMPLEX #180 tabs carvedilol 12.5 mg tablet See Rx Instructions .Route 07/25/24 01/01/25 Rx .COMPLEX #180 tabs fenofibrate 160 mg tablet See Rx Instructions .Route 07/28/24 01/01/25 Rx .COMPLEX #90 tabs alendronate 35 mg tablet See Rx Instructions .Route 09/08/24 01/01/25 Rx .COMPLEX #12 tabs amiodarone 200 mg tablet 200 mg PO BID 12/30/24 01/01/25 History apixaban 5 mg tablet (Eliquis) 5 mg PO BID 12/30/24 01/01/25 History furosemide 80 mg tablet 80 mg PO QAM 12/30/24 01/01/25 History losartan 50 mg tablet 50 mg PO DAILY 12/30/24 01/01/25 History pantoprazole 40 mg tablet,delayed 40 mg PO DAILY 12/30/24 01/01/25 History release silver sulfadiazine 1 % topical 1 applic topical DAILY 01/01/25 01/01/25 History cream Allergies Allergy/AdvReac Type Severity Reaction Status Date / Time No Known Allergies Allergy Verified 01/01/25 18:13 Vital Signs Vital Signs - 24 hr 01/02/25 11:25 01/02/25 11:58 01/02/25 12:00 Temperature 37.0 C Pulse Rate 57 L Respiratory Rate 20 Blood Pressure 129/50 L Pulse Oximetry 95 92 94 Oxygen Delivery High Flow Nasal Cannula High Flow Nasal Cannula Oxygen Flow Rate 5 5 Fraction of Inspired Oxygen 01/02/25 12:00 01/02/25 14:00 01/02/25 16:00 Temperature Pulse Rate 54 L 56 L Respiratory Rate Blood Pressure Pulse Oximetry 93 Oxygen Delivery High Flow Nasal Cannula Oxygen Flow Rate 5 Fraction of Inspired Oxygen 01/02/25 16:00 01/02/25 16:00 01/02/25 16:39 Temperature 36.3 C L Pulse Rate 53 L 53 L 55 L Respiratory Rate 22 H Blood Pressure 121/51 L Pulse Oximetry 93 Oxygen Delivery Oxygen Flow Rate Fraction of Inspired Oxygen 01/02/25 19:52 01/02/25 20:00 01/02/25 20:19 Temperature 37.0 C Pulse Rate 69 66 Respiratory Rate 22 H Blood Pressure 140/52 L Pulse Oximetry 91 82 L Oxygen Delivery High Flow Therapy with Na Oxygen Flow Rate 6 Fraction of Inspired Oxygen 01/02/25 20:20 01/02/25 20:21 01/02/25 20:24 Temperature Pulse Rate 61 Respiratory Rate Blood Pressure Pulse Oximetry 94 95 Oxygen Delivery High Flow Nasal Cannula High Flow Therapy with Na Oxygen Flow Rate 6 8 Fraction of Inspired Oxygen 01/02/25 21:20 01/02/25 22:00 01/03/25 00:00 Temperature 36.4 C L Pulse Rate 62 51 L 54 L Respiratory Rate 31 H 20 Blood Pressure 122/62 Pulse Oximetry 93 98 Oxygen Delivery BiPAP Oxygen Flow Rate Fraction of Inspired Oxygen 01/03/25 00:00 01/03/25 00:10 01/03/25 01:00 Temperature Pulse Rate 46 L 45 L Respiratory Rate 16 Blood Pressure Pulse Oximetry 95 97 Oxygen Delivery BiPAP BiPAP Oxygen Flow Rate Fraction of Inspired Oxygen 30 01/03/25 02:00 01/03/25 04:00 01/03/25 04:00 Temperature 36.6 C Pulse Rate 45 L 49 L 48 L Respiratory Rate 16 Blood Pressure 130/56 L Pulse Oximetry 96 Oxygen Delivery Oxygen Flow Rate Fraction of Inspired Oxygen 01/03/25 04:20 01/03/25 06:00 01/03/25 07:51 Temperature 36.9 C Pulse Rate 57 L 58 L Respiratory Rate 21 H Blood Pressure 152/75 H Pulse Oximetry 99 97 Oxygen Delivery BiPAP Oxygen Flow Rate Fraction of Inspired Oxygen 30 01/03/25 08:00 01/03/25 09:43 01/03/25 09:43 Temperature Pulse Rate 53 L 53 L Respiratory Rate Blood Pressure Pulse Oximetry 97 Oxygen Delivery High Flow Nasal Cannula Oxygen Flow Rate 6 Fraction of Inspired Oxygen Exam Const: General: cooperative and comfortable Orientation/consciousness: oriented to person, oriented to place and oriented to time Other: Morbidly obese HENMT: Head: normal to inspection Ears: hearing grossly normal bilaterally Eyes: General: appearance normal, both eyes and all related structures Neck: Neck: normal visual inspection Chest: Chest palpation & inspection: normal inspection of the chest Resp: Effort & Inspection: normal respiratory effort and able to speak in complete sentences Auscultation: no crackles, no rales, no rhonchi, no wheezes and diminished lung sounds Other: morbidly obese, no wheezes Cardio: Jugular venous distension: no JVD GI: Inspection: normal to inspection GI Palp: No abdominal tenderness Skin: General skin exam: normal color Neuro: General: oriented to person, oriented to place and oriented to time Extrem: General: normal to inspection and edema Psych: Appearance: grossly normal Results Laboratory Findings 01/03/25 05:22 01/03/25 05:22 ABG, PT/INR, D-dimer: ABG ABG pH 7.391 (7.350-7.450) 01/02/25 05:20 ABG pCO2 71.7 mmHg (35.0-45.0) H* 01/02/25 05:20 ABG pO2 54.8 mmHg (80.0-100.0) L 01/02/25 05:20 ABG O2 Saturation 86.8 % (95.0-100.0) L* 01/02/25 05:20 PT/INR, D-dimer PT 16.3 Seconds (11.1-14.7) H 01/01/25 14:12 INR 1.3 01/01/25 14:12 Abnormal lab findings: Abnormal Labs 01/01/25 01/01/25 01/01/25 14:12 14:25 22:38 RBC 3.73 L Hgb 9.3 L Hct 33.9 L MCH 24.9 L MCHC 27.4 L RDW 16.8 H Plt Count 127 L Immature Gran % (Auto) 0.6 H Neut % (Auto) 75.4 H Lymph % (Auto) 12.7 L Stephens % (Auto) 9.6 H Lymph # (Auto) Stephens # (Auto) 0.7 H Abs Immat Gran (auto) 0.04 H PT 16.3 H ABG pH 7.340 L ABG pCO2 70.4 H* 72.1 H* ABG pO2 65.4 L ABG HCO3 37.1 H 40.0 H ABG O2 Saturation 90.8 L ABG O2 Content 12.9 L 13.0 L Oxyhemoglobin Reduced Hemoglobin 8.1 H Total Hemoglobin 10.1 L 9.5 L Chloride 97 L Carbon Dioxide 36 H BUN 30 H Estimated GFR 56 L Glucose 115 H Calcium % Saturation NT-Pro-B Natriuret Pep 3160 H Folate TSH (Reflex) Total T3 01/02/25 01/02/25 01/02/25 00:33 04:30 05:20 RBC 3.53 L Hgb 8.6 L Hct 31.5 L MCH 24.4 L MCHC 27.3 L RDW 17.0 H Plt Count 131 L Immature Gran % (Auto) Neut % (Auto) Lymph % (Auto) 16.7 L Stephens % (Auto) 10.8 H Lymph # (Auto) 0.77 L Stephens # (Auto) Abs Immat Gran (auto) PT ABG pH ABG pCO2 63.8 H* 71.7 H* ABG pO2 54.8 L ABG HCO3 38.2 H 42.5 H ABG O2 Saturation 86.8 L* ABG O2 Content 12.8 L 11.7 L Oxyhemoglobin 86.2 L* Reduced Hemoglobin 12.5 H Total Hemoglobin 9.5 L 9.6 L Chloride 96 L Carbon Dioxide > 40 H BUN 32 H Estimated GFR Glucose Calcium 8.3 L % Saturation 8 L NT-Pro-B Natriuret Pep Folate > 20.0 H TSH (Reflex) 5.110 H Total T3 0.86 L 01/03/25 01/03/25 05:16 05:22 RBC 3.41 L Hgb 8.5 L Hct 29.9 L MCH 24.9 L MCHC 28.4 L RDW 17.0 H Plt Count 131 L Immature Gran % (Auto) Neut % (Auto) Lymph % (Auto) Stephens % (Auto) Lymph # (Auto) Stephens # (Auto) Abs Immat Gran (auto) PT ABG pH ABG pCO2 ABG pO2 ABG HCO3 ABG O2 Saturation ABG O2 Content Oxyhemoglobin Reduced Hemoglobin Total Hemoglobin Chloride 93 L Carbon Dioxide > 40 H BUN 26 H Estimated GFR 57 L Glucose Calcium % Saturation NT-Pro-B Natriuret Pep 1790 H Folate TSH (Reflex) Total T3
--- NOTE | 2025-01-03 13:05 | P.PNIM_ITS ---
Progress Note: A&P Assessment and Plan (1) Acute on chronic respiratory failure with hypoxia and hypercapnia: Code(s): J96.21 - Acute and chronic respiratory failure with hypoxia; J96.22 - Acute and chronic respiratory failure with hypercapnia Status: Acute Assessment and Plan: Baseline requirement of 3L and she is noncompliant with bipap. ABG 7.34/70.4/65.4 5L. BiPAP started CXR showed cardiomegaly with pulmonary vascular congestion and an unchanged opacity at the lateral LLL BNP 3160. Viral PCR negative. Echo as mentioned below Acute/chronic respiratory failure felt to be secondary to possible CHF versus obesity hypoventilation syndrome. Low suspicion for pneumonia with no leukocytosis. Possible anemia component Discussed with pulmonary. Better with bipap treatment. Continue bipap at night, with naps and as needed. Continue diuresis. Wean O2 to baseline 3L. Encourage BiPAP use. (2) Acute exacerbation of CHF (congestive heart failure): Qualifiers: Heart failure type: unspecified Qualified Code(s): I50.9 - Heart failure, unspecified Code(s): I50.9 - Heart failure, unspecified Status: Acute Assessment and Plan: BNP 3160. Last echo done in 2021 which showed an estimated EF of 55-60%, grade 1 diastolic dysfunction, moderate pulmonary HTN. Echo showing mildly dilated and moderately reduced systolic fxn with EF 35-40%,reduced RV systolic function, moderate pHTN, severely dilated left atrium and moderately dilated right atrium. Patient with acute on chronic systolic CHF. Continue IV Lasix. Continue Coreg and Cozaar. Add Aldactone and Empagliflozin. Monitor I&Os and daily weights. (3) Anemia: Qualifiers: Anemia type: unspecified type Qualified Code(s): D64.9 - Anemia, unspecified Code(s): D64.9 - Anemia, unspecified Status: Acute Assessment and Plan: Hgb 9.3, previously 14.3 on 12/12/2023. Iron and TIBC normal with iron sat 8% and ferritin 42. B12 low end of normal. TSH 5.1 with normal FT4. Denies bleeding, will continue home Eliquis at this time. Follow HH. (4) Hypertension: Qualifiers: Hypertension type: primary hypertension Qualified Code(s): I10 - Essential (primary) hypertension Code(s): I10 - Essential (primary) hypertension Status: Chronic Assessment and Plan: Patient's blood pressure was reviewed on 01/03 Blood pressure stable Will continue to follow. (5) Obstructive sleep apnea: Code(s): G47.33 - Obstructive sleep apnea (adult) (pediatric) Status: Chronic Assessment and Plan: As above Plan AFib - EKG showing NSR with LAD and LBBB suspected to be chronic. Continue Coreg, Amio. Continue Eliquis. DVT Prophylaxis: Eliquis Code Status: Full code Subjective Date/time seen: 01/03/25 13:05 Interval history: 74yo female with HTN, CAD, CHF, CKD, prediabetes, HLD, TORRE, asthma, LEVI, MDD, chronic venostasis, recurrent cellulitis, and obesity presents here with hypoxia. Good UOP. Wore BiPAP last night. Slept well. Slept well. no CP. Exam Narrative: AF 98.1 119/55 57 22 98% 6L Gen - NARD sitting up in chair Chest - basilar inspiratory rhonchi. CV - RRR S1/S2. Tele showing sinus joe at night Abd - Soft, obese, NT Ext - 1-2+ pedal edema Neuro - Alert and appropriate Psych - Nml mood and affect Skin - Warm and dry. No open areas in the LE. Small eschar left paz Objective Data Vital Signs Vital Signs: Vital Signs - 24 hr 01/02/25 14:00 01/02/25 16:00 01/02/25 16:00 Temperature Pulse Rate 56 L 53 L Respiratory Rate Blood Pressure Pulse Oximetry 93 Oxygen Delivery High Flow Nasal Cannula Oxygen Flow Rate 5 Fraction of Inspired Oxygen 01/02/25 16:00 01/02/25 16:39 01/02/25 19:52 Temperature 97.4 F L 98.6 F Pulse Rate 53 L 55 L 69 Respiratory Rate 22 H 22 H Blood Pressure 121/51 L 140/52 L Pulse Oximetry 93 91 Oxygen Delivery Oxygen Flow Rate Fraction of Inspired Oxygen 01/02/25 20:00 01/02/25 20:19 01/02/25 20:20 Temperature Pulse Rate 66 Respiratory Rate Blood Pressure Pulse Oximetry 82 L 94 Oxygen Delivery High Flow Therapy with Na High Flow Nasal Cannula Oxygen Flow Rate 6 6 Fraction of Inspired Oxygen 01/02/25 20:21 01/02/25 20:24 01/02/25 21:20 Temperature Pulse Rate 61 62 Respiratory Rate 31 H Blood Pressure Pulse Oximetry 95 93 Oxygen Delivery High Flow Therapy with Na BiPAP Oxygen Flow Rate 8 Fraction of Inspired Oxygen 01/02/25 22:00 01/03/25 00:00 01/03/25 00:00 Temperature 97.5 F L Pulse Rate 51 L 54 L 46 L Respiratory Rate 20 Blood Pressure 122/62 Pulse Oximetry 98 Oxygen Delivery Oxygen Flow Rate Fraction of Inspired Oxygen 01/03/25 00:10 01/03/25 01:00 01/03/25 02:00 Temperature Pulse Rate 45 L 45 L Respiratory Rate 16 Blood Pressure Pulse Oximetry 95 97 Oxygen Delivery BiPAP BiPAP Oxygen Flow Rate Fraction of Inspired Oxygen 30 01/03/25 04:00 01/03/25 04:00 01/03/25 04:20 Temperature 97.8 F Pulse Rate 49 L 48 L Respiratory Rate 16 Blood Pressure 130/56 L Pulse Oximetry 96 99 Oxygen Delivery BiPAP Oxygen Flow Rate Fraction of Inspired Oxygen 30 01/03/25 06:00 01/03/25 07:51 01/03/25 08:00 Temperature 98.4 F Pulse Rate 57 L 58 L Respiratory Rate 21 H Blood Pressure 152/75 H Pulse Oximetry 97 97 Oxygen Delivery High Flow Nasal Cannula Oxygen Flow Rate 6 Fraction of Inspired Oxygen 01/03/25 08:00 01/03/25 09:43 01/03/25 09:43 Temperature Pulse Rate 66 53 L 53 L Respiratory Rate Blood Pressure Pulse Oximetry Oxygen Delivery Oxygen Flow Rate Fraction of Inspired Oxygen 01/03/25 10:00 01/03/25 12:00 01/03/25 12:00 Temperature 98.1 F Pulse Rate 53 L 57 L Respiratory Rate 22 H Blood Pressure 119/55 L Pulse Oximetry 98 98 Oxygen Delivery High Flow Nasal Cannula Oxygen Flow Rate 6 Fraction of Inspired Oxygen Intake/Output Intake/Output: Intake & Output 12/31/24 01/01/25 01/02/25 01/03/25 23:59 23:59 23:59 23:59 Intake Total 1270 540 Output Total 1000 1500 1500 Balance -3329 -868 -574 Meds/Results Medications: Active Medications Generic Name Dose Route Start Last Admin Trade Name Freq PRN Reason Stop Dose Admin Acetaminophen 650 mg 01/01/25 21:15 Acetaminophen 325 Mg Tablet PO Q6H PRN Mild Pain (1-3) Or Fever Alendronate Sodium 35 mg 01/05/25 09:00 Alendronate Sodium 35 Mg Tablet PO WEEKLY GARY Amiodarone HCl 200 mg 01/02/25 09:00 01/03/25 09:43 Amiodarone Hcl 200 Mg Tablet PO 200 mg BID GARY Administration Apixaban 5 mg 01/02/25 09:00 01/03/25 09:44 Apixaban 5 Mg Tablet PO 5 mg Q12HR GARY Administration Aspirin 81 mg 01/02/25 21:00 01/02/25 20:24 Aspirin 81 Mg Enteric Tablet PO 81 mg HS GARY Administration Carvedilol 12.5 mg 01/02/25 09:00 01/03/25 09:43 Carvedilol 12.5 Mg Tablet PO 12.5 mg Q12HR GARY Administration Fenofibrate 145 mg 01/03/25 09:00 01/03/25 09:43 Fenofibrate Nanocrystallized 145 Mg Tablet PO 145 mg QAM GARY Administration Furosemide 40 mg 01/01/25 21:00 01/03/25 09:44 Furosemide Inj 40 Mg/4 Ml Vial IV PUSH 40 mg Q12HR GARY Administration Losartan Potassium 50 mg 01/02/25 09:00 01/03/25 09:43 Losartan Potassium 50 Mg Tablet PO 50 mg DAILY GARY Administration Pantoprazole Sodium 40 mg 01/02/25 09:00 01/03/25 09:44 Pantoprazole 40 Mg Tablet PO 40 mg DAILY GARY Administration Potassium Chloride 20 meq 01/02/25 09:00 01/03/25 09:43 Potassium Chloride 20 Meq Er Tablet PO 20 meq DAILY GARY Administration Prochlorperazine Maleate 5 mg 01/02/25 05:13 01/02/25 20:26 Prochlorperazine Maleate 5 Mg Tablet PO 5 mg Q6H PRN Administration Nausea And Vomiting Sertraline HCl 50 mg 01/02/25 09:00 01/03/25 09:44 Sertraline Hcl 50 Mg Tablet PO 50 mg Q12HR GARY Administration Silver Sulfadiazine 1 applic 01/02/25 09:00 01/03/25 09:44 Silver Sulfadiazine 1% Cr 400 Gm Jar (*Bkc) TOPICAL Not Given DAILY [facility] Radiology Results: ITS Impressions Chest X-Ray 01/01/25 14:40 IMPRESSION: 1. Cardiomegaly with pulmonary vascular congestion. 2. Unchanged opacity at the lateral left lower lung zone most likely persistent lingular atelectasis/scarring along side a prominent left paracardial fat pad although the differential includes less likely pneumonia or small pleural effusion. Labs Labs: Laboratory Results - last 24 hr 01/03/25 01/03/25 05:16 05:22 WBC 4.5 RBC 3.41 L Hgb 8.5 L Hct 29.9 L MCV 87.7 MCH 24.9 L MCHC 28.4 L RDW 17.0 H Plt Count 131 L MPV 8.8 Sodium 141 Potassium 3.9 Chloride 93 L Carbon Dioxide > 40 H Anion Gap BUN 26 H Creatinine 0.96 Estim Creat Clear Calc 67 Estimated GFR 57 L Glucose 79 Calcium 8.6 NT-Pro-B Natriuret Pep 1790 H
[2025-01-03] MEDS: ASPIRIN 81 MG ENTERIC TABLET PO (20:37)
[2025-01-04] VITALS (25 sets, daily range): BP systolic 108–155; BP diastolic 37–67; PULSE 43–72; RESP 16–28; TEMP 36.4–36.8; O2SAT 91–100
[2025-01-04 05:23] LABS: Alveolar/Arterial O2 Gradient 74.5 mmHg; Fractional Inspired Oxygen 32 %; HCO3 ABG 38.3 mEq/l (22.0-26.0); Oxygen Content ABG 13.2 %vol (16.0-22.0); Oxyhemoglobin 94.1 % THb (90.0-100.0); PO2 ABG 82.4 mmHg (80.0-100.0); PO2 FiO2 Ratio Arterial Blood 2.58 %; Total Hemoglobin 9.9 g/dL (12.0-18.0); pH ABG 7.417 (7.350-7.450)
[2025-01-04 05:35] LABS: Hemoglobin 8.4 g/dL (12.0-15.0); Mean Corpuscular Hemoglobin 24.7 pg (26-34); Mean Corpuscular Volume 88.2 fl (80-100); Mean Platelet Volume 8.9 fl (7.4-10.4); Platelet Count Result 122 k/mm3 (150-375); White Blood Count 4.4 K/mm3 (4.5-10.0)
[2025-01-04 05:49] LABS: Blood Urea Nitrogen 29 mg/dL (7-17); Calcium 8.5 mg/dL (8.4-10.2); Carbon Dioxide > 40 mmol/L (22-30); Chloride 93 mmol/L (98-107); Estimated CRCL calculation 74 ml/min; Estimated Glomerular Filt Rate > 60; Glucose 80 mg/dL (65-110); Sodium 140 mmol/L (137-145)
[2025-01-04] MEDS: SPIRONOLACTONE 25 MG TABLET PO (08:26)
[2025-01-04] MEDS: carvediloL 12.5 MG TABLET PO ×2 (08:26→20:59)
[2025-01-04] MEDS: APIXABAN 5 MG TABLET PO ×2 (08:26→20:59)
[2025-01-04] MEDS: FENOFIBRATE NANOCRYSTALLIZED 145 MG TABLET PO (08:26)
[2025-01-04] MEDS: LOSARTAN POTASSIUM 50 MG TABLET PO (08:27)
[2025-01-04] MEDS: PANTOPRAZOLE 40 MG TABLET PO (08:27)
[2025-01-04] MEDS: SERTRALINE HCL 50 MG TABLET PO ×2 (08:27→20:59)
[2025-01-04] MEDS: EMPAGLIFLOZIN 10 MG TABLET PO (08:27)
[2025-01-04] MEDS: FUROSEMIDE INJ 40 MG/4 ML VIAL IV PUSH ×2 (08:27→21:01)
[2025-01-04] MEDS: AMIODARONE HCL 200 MG TABLET PO ×2 (08:27→17:08)
--- NOTE | 2025-01-04 08:40 | P.PNPL_ITS ---
Progress Note: A&P Assessment and Plan (1) Obesity hypoventilation syndrome: Code(s): E66.2 - Morbid (severe) obesity with alveolar hypoventilation Status: Acute Assessment and Plan: patient with morbid obesity, BMI 56.7, chronic hypercarbic respiratory failure with a ABG on 5 L of 7.34/70/65. free T4 1.29 on 01/02/2025. Patient has obesity hypoventilation syndrome and would benefit from a noninvasive ventilator to prevent further deterioration and subsequent hospitalizations. Patient has been on outpatient BiPAP but Her compliance is low and she cannot tolerate this at home. She has been on BiPAP this admission but cannot tolerate the high pressures and high flows. I will initiate noninvasive ventilation with the AVAPS mode. 01/04/2024 the patient told me she could not tolerate the by pressures last night and had difficulty sleeping. I placed her on a noninvasive ventilation with the AVAPS mode and adjusted the settings for comfort resulting in: Respiratory rate 14, tidal volume 500, EPAP 8, minimal inspiratory pressure 9, maximal inspiratory pressure 25, inspiratory time 0.8, rise of 1 (fastest), 32% FiO2. peak inspiratory pressure was 11 and saturations were 100%. Patient tells me these settings are comfortable and she will be able to wear this tonight. Plan: Continue AVAPS p.r.n. during the day and tonight when she sleeps. I will check an ApneaLink and an ABG prior to removal of the AVAPS in the morning. 01/04/2025: Patient wore the noninvasive ventilator with the AVAPS mode on 32% FiO2 and had an overnight oximetry with recording duration of 6 hours and 58 minutes. Average saturation 92%. Low saturation 77%. Time with saturation less than or equal to 88% was 49 minutes. Oxygen desaturation index 8. Patient tells me she had an ABG prior to removal of the mass but there are no results in the computer. Plan: Patient tells me she slept well and was comfortable on the machine. I will continue current settings and check a blood gas in the morning prior to removal of AVAPS. I will increase her FiO2 to 40% and check an overnight oximetry on these settings with 40%. Tomorrow when the preparation center coordinator is in the office, will initiate the process for a home noninvasive ventilator through her [employer]. Discussed with Dr. Tracey, will follow with you (2) Acute exacerbation of CHF (congestive heart failure): Qualifiers: Heart failure type: unspecified Qualified Code(s): I50.9 - Heart failure, unspecified Code(s): I50.9 - Heart failure, unspecified Status: Acute Assessment and Plan: 01/04/2024 patient is sitting in chair on 6 L nasal cannula with saturations 94%. Overall the patient tells me she is breathing better. She denied fever, chills, rigors. Overall she tells me she is breathing back to her normal. White blood cell count 4.5, creatinine 0.96, BNP improved from 3160 on 01/01/2025 to 1790. Since admission she has diuresed 2.4 L. Plan: agree with as aggressive diuresis as tolerated by her cardiac and renal systems. Currently she is on Lasix 40 IV q.12 hours. Continue amiodarone 200 b.i.d., apixaban 5 q.12, losartan 50 q.day, carvedilol 12.5 q.12 per hospitalist team. Goal saturation 90-94%, adjust oxygen accordingly. 01/04/2025: patient is out of the bed sitting in a chair. She is breathing normal in tells me she is breathing better than she has in the last year. She slept well with the noninvasive ventilator in the fullface mask. She has no cough, phlegm or hemoptysis. She is afebrile. White blood cell count 4.4, creatinine 0.87. She diuresed 640 mL yesterday and cumulative she has diuresed 3.5 L since admission. Her weight is 146.7 kg With an admission weight listed as 144.2. when I enter the room she was on 7 L nasal cannula with saturations 96%. I decreased her to 5 L nasal cannula her saturations were 94%. Plan: agree with as aggressive diuresis as tolerated by her cardiac and renal systems currently on Lasix 40 IV b.i.d., amiodarone, apixaban, losartan and carvedilol Per hospitalist team. Goal saturation 90-94%, adjust accordingly. Subjective Date/time seen: 01/04/25 08:40 Interval history: 01/03/2025: This is a new pulmonary consult for hypoxemic and hypercarbic respiratory failure. 74-year-old with a history of hypertension, diabetes, chronic venous stasis, AFib on eliquis, pulmonary hypertension, Chronic hypoxemic respiratory failure on 3 L nasal cannula, and obstructive sleep apnea on BiPAp 08/31 with 3 L bleed in. Patient is followed in the [facility] in last seen on 10/14/2024. this is a copy of the note. Last visit 03/2024 Kelly is here for follow up regarding LEVI and respiratory failure with hypoxia. PCP is REUBEN Mcnamara. * Hx: diastolic CHF, respiratory failure, sleep apnea, MDD, HLD, HTN, obesity, CAD. 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 * Patient was hospitalized for 5 nights back in August 2022 for acute respirat ory failure with hypoxia, CHF exacerbation, pneumonia, and cellulitis. Patient has shortness of breath and was found to have pneumonia on the chest x-ray and was given antibiotics. She was given increased dose of Lasix to help with some fluid volume overload. She was evaluated for home O2 and she required 2L 16/04. This was new for her.Today she reports much has changed with her health since our last visit. She states Jul 2024 she had a ruptured hernia requiring surgery and she was on a ventilator for 20 days. This was at [place]. Required multiple blood transfusions. She discharged end of Jul 2024 to rehab at [facility] and still there. She is doing PT/OT 6 days per week and also doing speech therapy as she's had dysphagia after being intubated that long. Previously she was living at [facility] since 2022. She anticipates a heart surgery 10/22/24 at [place]. She reports she saw cardiology, Dr Aguilar, after her hospital discharge. Will request records. ROMERO stable. She is in a wheelchair for longer distances today but working on walking with a rollator walker at rehab. Reports she is a shallow breather. Large abdomen compressing her breathing she says. Last week had URI symptoms with sore throat, sneezing, runny nose, overall improved now. Not much coughing. Denies wheezing. She is not on any inhaled medications. She has supplemental O2 for home use. Her last walk study was 10/2022 and showed a requirement for 3L/min with activity and none at rest. Today she tells me she uses 3L/min O2 all day and night - with rest, walking. She has small portable tanks and wants to get a portable oxygen concentrator. She is prescribed BiPAP 12/8cm, she is using more than she was at last visit but still having trouble she says. Currently wearing BiPAP nightly for avg of 4 to 5 hours. SOB with laying flat and trouble tolerating BiPAP mask due to claustrophobia and anxiety. 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 She was a never smoker. 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 01/01/2025: Patient went to her PCP office visit with shortness of breath for a month and on her home 3 L nasal cannula her saturations were ranged between 40 and 60. Her weight was 318 and she was sent to the emergency department. The patient tells me she had not been using her home BiPAP since approximately 12/06/2024. In the emergency department her blood pressure is 115/65, heart rate 78, respirations 18, saturations on 3 L nasal cannula 89%. White blood cell count was 7.3, creatinine was 0.97, BNP was 3160, COVID, influenza, RSV RT PCR. Negative. Patient had a blood gas on 5 L nasal cannula the pH of 7.34/70/65 and was placed on BiPAP 12/6 with a repeat blood gas 7.36 / 72/94. Her BiPAP was increased to 20/5 with a repeat blood gas of 7.40/64/83 on 35% FiO2. Patient was treated for fluid overload with IV Lasix. 01/03/2025 patient is sitting in chair on 6 L nasal cannula with saturations 94%. Overall the patient tells me she is breathing better. She denied fever, chills, rigors. Overall she tells me she is breathing back to her normal. White blood cell count 4.5, creatinine 0.96, BNP improved to 1790. Since admission she has diuresed 2.4 L. the patient told me she could not tolerate the by pressures last night and had difficulty sleeping. I placed her on a noninvasive ventilation with the AVAPS mode and adjusted the settings for comfort resulting in: Respiratory rate 14, tidal volume 500, EPAP 8, minimal inspiratory pressure 9, maximal inspiratory pressure 25, inspiratory time 0.8, rise of 1, 32% FiO2. peak inspiratory pressure was 11 and saturations were 100%. 01/04/2025: patient is out of the bed sitting in a chair. She is breathing normal in tells me she is breathing better than she has in the last year. She slept well with the noninvasive ventilator in the fullface mask. She has no cough, phlegm or hemoptysis. She is afebrile. White blood cell count 4.4, creatinine 0.87. She diuresed 640 mL yesterday and cumulative she has diuresed 3.5 L since admission. Her weight is 146.7 kg With an admission weight listed as 144.2. When I enter the room she was on 7 L nasal cannula with saturations 96%. I decreased her to 5 L nasal cannula her saturations were 94%. Patient wore the noninvasive ventilator with the AVAPS mode on 32% FiO2 and had an overnight oximetry with recording duration of 6 hours and 58 minutes. Average saturation 92%. Low saturation 77%. Time with saturation less than or equal to 88% was 49 minutes. Oxygen desaturation index 8. Patient tells me she had an ABG prior to removal of the mass but there are no results in the computer. DATA: Download 09/10/2024 through 10/09/2024. Patient is on BiPAP spontaneous mode, pressures 12/8. Room usage days greater than or equal to 4 hours was 67%. AHI 2.8, apnea index 2.5, hypopnea index 0.3, central apnea index 0.0, median leak 108, 95th percentile leak 119, maximal leak 119. Median tidal volume 207, median respiratory rate 22, median minute ventilation 4.7. I interpret this download as poor compliance, low tidal volume, adequate pressures and high leak. * 11/23/22 - Split PSG - Severe LEVI with AHI 54.4 and desaturation to 81%. BiPAP 12/8cmH2O with 2L/min O2 bleed in recommended. * 11/21/22 - PFT - There is a moderate obstructive ventilatory impairment with good response to bronchodilator, normal lung volumes, normal diffusion. No prior studies are available to compare. * 11/21/22 - Home O2 eval - Patient requires 3L/min O2 with activity and none at rest. * Home O2 Eval 09/18/22 - need 2L O2 rest+activity. * Chest CT 09/14/22 - Patchy bibasilar consolidation. Findings are suspicious for pneumonia versus possibly bibasilar atelectatic change. Indeterminate 2.5 cm right adrenal nodule (PCP following this). Patient reports nodule was benign. Echo 09/14/22 - Summary 1. Left ventricular chamber dimension is mildly enlarged. 2. Left ventricular systolic function is normal, estimated at 55-60%. 3. There is mildly increased left ventricular wall thickness. 4. The left ventricular diastolic function is grade I diastolic dysfunction. 5. The basal inferolateral wall is hypokinetic. 6. Right ventricular chamber dimension is moderately enlarged. 7. Right ventricular systolic function is reduced. 8. Left atrial chamber dimension is mildly enlarged. 9. There is mild mitral valve regurgitation. 10. There is mild tricuspid valve regurgitation. 11. Moderate pulmonary hypertension, estimated pulmonary arterial systolic pressure is 56 mmHg. Left Ventricle Left ventricular chamber dimension is mildly enlarged. Left ventricular systolic function is normal, estimated at 55-60%. There is mildly increased left ventricular wall thickness. The left ventricular diastolic function is grade I diastolic dysfunction. The basal inferolateral wall is hypokinetic. Right Ventricle Right ventricular chamber dimension is moderately enlarged. Right ventricular systolic function is reduced. Left Atria Left atrial chamber dimension is mildly enlarged. Right Atria Right atrial chamber dimension is normal. Atrial Septum Intact interatrial septum visualized by color flow imaging. * HST 03/09/22 through [facility] - mild sleep apnea, AHI 9.9, avg saturation 86%, minimum sleep saturation 55%. 192 minutes spent below 88%. Review of Systems Constitutional: Constitutional: Reports no additional constitutional complaints Eyes: Eyes: Reports no additional eye complaints ENT: Reports system reviewed and no additional complaints, except as documented Cardiovascular: Cardiovascular: Reports no additional cardiovascular complaints Respiratory: Respiratory: Reports no additional respiratory complaints Gastrointestinal: Gastrointestinal: Reports no additional gastrointestinal complaints Musculoskeletal: Musculoskeletal: Reports no additional musculoskeletal complaints Neurologic: Reports system reviewed and no additional complaints, except as documented Psychiatric: Psychiatric: Reports no additional psychiatric complaints Endocrine: Endocrine: Reports no additional endocrine complaints Hematologic/Lymphatic: Hematologic/Lymphatic: Reports no additional hematologic/lymphatic complaints Allergic/Immunologic: Allergic/Immunologic: Reports no additional allergic/immunologic complaints Exam Const: General: cooperative and comfortable Orientation/consciousness: oriented to person, oriented to place and oriented to time Other: Morbidly obese HENMT: Head: normal to inspection Ears: hearing grossly normal bilaterally Eyes: General: appearance normal, both eyes and all related structures Neck: Neck: normal visual inspection Chest: Chest palpation & inspection: normal inspection of the chest Resp: Effort & Inspection: normal respiratory effort and able to speak in complete sentences Auscultation: no crackles, no rales, no rhonchi, no wheezes and diminished lung sounds Other: morbidly obese, no wheezes Cardio: Jugular venous distension: no JVD GI: Inspection: normal to inspection Skin: General skin exam: normal color Neuro: General: oriented to person, oriented to place and oriented to time Extrem: General: normal to inspection and edema Psych: Appearance: grossly normal Objective Data Vital Signs Vital Signs: Vital Signs - 24 hr 01/03/25 09:43 01/03/25 09:43 01/03/25 10:00 Temperature Pulse Rate 53 L 53 L 53 L Respiratory Rate Blood Pressure Pulse Oximetry Oxygen Delivery Oxygen Flow Rate Fraction of Inspired Oxygen 01/03/25 12:00 01/03/25 12:00 01/03/25 12:00 Temperature 36.7 C Pulse Rate 57 L 56 L Respiratory Rate 22 H Blood Pressure 119/55 L Pulse Oximetry 98 98 Oxygen Delivery High Flow Nasal Cannula Oxygen Flow Rate 6 Fraction of Inspired Oxygen 01/03/25 14:00 01/03/25 14:15 01/03/25 15:31 Temperature 36.5 C Pulse Rate 57 L 54 L Respiratory Rate 20 Blood Pressure 118/47 L Pulse Oximetry 94 Oxygen Delivery High Flow Nasal Cannula Oxygen Flow Rate 6 Fraction of Inspired Oxygen 01/03/25 16:00 01/03/25 16:00 01/03/25 17:52 Temperature Pulse Rate 55 L 59 L Respiratory Rate Blood Pressure Pulse Oximetry 94 Oxygen Delivery High Flow Nasal Cannula Oxygen Flow Rate 6 Fraction of Inspired Oxygen 01/03/25 18:00 01/03/25 19:37 01/03/25 20:00 Temperature 37.0 C Pulse Rate 60 61 57 L Respiratory Rate 22 H Blood Pressure 133/45 L Pulse Oximetry 96 Oxygen Delivery Oxygen Flow Rate Fraction of Inspired Oxygen 01/03/25 20:01 01/03/25 20:35 01/03/25 20:37 Temperature Pulse Rate 58 L Respiratory Rate Blood Pressure Pulse Oximetry 94 96 Oxygen Delivery High Flow Therapy with Na High Flow Nasal Cannula Oxygen Flow Rate 7 6 Fraction of Inspired Oxygen 01/03/25 22:00 01/03/25 22:10 01/04/25 00:00 Temperature Pulse Rate 58 L 60 47 L Respiratory Rate 36 H Blood Pressure Pulse Oximetry 93 Oxygen Delivery BiPAP Oxygen Flow Rate Fraction of Inspired Oxygen 01/04/25 00:05 01/04/25 02:00 01/04/25 04:00 Temperature 36.6 C Pulse Rate 44 L 50 L Respiratory Rate 18 Blood Pressure 138/65 Pulse Oximetry 91 100 Oxygen Delivery BiPAP Oxygen Flow Rate Fraction of Inspired Oxygen 30 01/04/25 04:00 01/04/25 04:15 01/04/25 05:51 Temperature Pulse Rate 45 L 43 L Respiratory Rate 19 Blood Pressure Pulse Oximetry 96 95 Oxygen Delivery BiPAP BiPAP Oxygen Flow Rate Fraction of Inspired Oxygen 30 01/04/25 06:00 01/04/25 08:00 01/04/25 08:26 Temperature 36.6 C Pulse Rate 55 L 60 60 Respiratory Rate 18 Blood Pressure 155/65 H Pulse Oximetry 94 Oxygen Delivery Oxygen Flow Rate Fraction of Inspired Oxygen 01/04/25 08:27 Temperature Pulse Rate 60 Respiratory Rate Blood Pressure Pulse Oximetry Oxygen Delivery Oxygen Flow Rate Fraction of Inspired Oxygen Intake/Output Intake/Output: Intake & Output 01/01/25 01/02/25 01/03/25 01/04/25 23:59 23:59 23:59 23:59 Intake Total 1270 1460 300 Output Total 1000 1500 2100 1999 Balance -1000 -230 -640 -1700 Meds/Results Medications: Active Medications Generic Name Dose Route Start Last Admin Trade Name Freq PRN Reason Stop Dose Admin Acetaminophen 650 mg 01/01/25 21:15 Acetaminophen 325 Mg Tablet PO Q6H PRN Mild Pain (1-3) Or Fever Alendronate Sodium 35 mg 01/05/25 09:00 Alendronate Sodium 35 Mg Tablet PO WEEKLY [facility] Amiodarone HCl 200 mg 01/02/25 09:00 01/04/25 08:27 Amiodarone Hcl 200 Mg Tablet PO 200 mg BID GARY Administration Apixaban 5 mg 01/02/25 09:00 01/04/25 08:26 Apixaban 5 Mg Tablet PO 5 mg Q12HR GARY Administration Aspirin 81 mg 01/02/25 21:00 01/03/25 20:37 Aspirin 81 Mg Enteric Tablet PO 81 mg HS GARY Administration Carvedilol 12.5 mg 01/02/25 09:00 01/04/25 08:26 Carvedilol 12.5 Mg Tablet PO 12.5 mg Q12HR GARY Administration Empagliflozin 10 mg 01/04/25 09:00 01/04/25 08:27 Empagliflozin 10 Mg Tablet PO 10 mg DAILY GARY Administration Fenofibrate 145 mg 01/03/25 09:00 01/04/25 08:26 Fenofibrate Nanocrystallized 145 Mg Tablet PO 145 mg QAM GARY Administration Furosemide 40 mg 01/01/25 21:00 01/04/25 08:27 Furosemide Inj 40 Mg/4 Ml Vial IV PUSH 40 mg Q12HR GARY Administration Losartan Potassium 50 mg 01/02/25 09:00 01/04/25 08:27 Losartan Potassium 50 Mg Tablet PO 50 mg DAILY GARY Administration Pantoprazole Sodium 40 mg 01/02/25 09:00 01/04/25 08:27 Pantoprazole 40 Mg Tablet PO 40 mg DAILY GARY Administration Potassium Chloride 20 meq 01/02/25 09:00 01/03/25 09:43 Potassium Chloride 20 Meq Er Tablet PO 20 meq DAILY GARY Administration Prochlorperazine Maleate 5 mg 01/02/25 05:13 01/02/25 20:26 Prochlorperazine Maleate 5 Mg Tablet PO 5 mg Q6H PRN Administration Nausea And Vomiting Sertraline HCl 50 mg 01/02/25 09:00 01/04/25 08:27 Sertraline Hcl 50 Mg Tablet PO 50 mg Q12HR GARY Administration Silver Sulfadiazine 1 applic 01/02/25 09:00 01/04/25 08:30 Silver Sulfadiazine 1% Cr 400 Gm Jar (*Bkc) TOPICAL Not Given DAILY GARY Spironolactone 25 mg 01/04/25 09:00 01/04/25 08:26 Spironolactone 25 Mg Tablet PO 25 mg QAM GARY Administration Radiology Results: ITS Impressions Chest X-Ray 01/01/25 14:40 IMPRESSION: 1. Cardiomegaly with pulmonary vascular congestion. 2. Unchanged opacity at the lateral left lower lung zone most likely persistent lingular atelectasis/scarring along side a prominent left paracardial fat pad although the differential includes less likely pneumonia or small pleural effusion. Labs Labs: Laboratory Results - last 24 hr 01/04/25 05:17 WBC 4.4 L RBC 3.40 L Hgb 8.4 L Hct 30.0 L MCV 88.2 MCH 24.7 L MCHC 28.0 L RDW 17.0 H Plt Count 122 L MPV 8.9 Sodium 140 Potassium 4.0 Chloride 93 L Carbon Dioxide > 40 H Anion Gap BUN 29 H Creatinine 0.87 Estim Creat Clear Calc 74 Estimated GFR > 60 Glucose 80 Calcium 8.5
[2025-01-04] MEDS: WATER FOR IRRIGATION, STERILE 1,000 ML BOTTLE 1000 ML (08:44)
--- NOTE | 2025-01-04 13:53 | PM.IMPN ---
Progress Note: A&P Assessment and Plan (1) Acute on chronic respiratory failure with hypoxia and hypercapnia: Code(s): J96.21 - Acute and chronic respiratory failure with hypoxia; J96.22 - Acute and chronic respiratory failure with hypercapnia Status: Acute Assessment and Plan: Baseline requirement of 3L and she is noncompliant with bipap. ABG 7.34/70.4/65.4 5L. BiPAP started CXR showed cardiomegaly with pulmonary vascular congestion and an unchanged opacity at the lateral LLL BNP 3160. Viral PCR negative. Echo as mentioned below Acute/chronic respiratory failure felt to be secondary to possible CHF and/or obesity hypoventilation syndrome. Possible anemia component. Low suspicion for pneumonia with no leukocytosis. Discussed with pulmonary. Better with bipap treatment. Able to wean down on bipap Continue bipap at night, with naps and as needed. Continue diuresis. Wean O2 to baseline 3L. Encourage BiPAP compliance (2) Acute exacerbation of CHF (congestive heart failure): Qualifiers: Heart failure type: unspecified Qualified Code(s): I50.9 - Heart failure, unspecified Code(s): I50.9 - Heart failure, unspecified Status: Acute Assessment and Plan: BNP 3160. Echo in 2021 showed EF of 55-60%, grade 1 diastolic dysfunction, moderate pulmonary HTN. Echo at [facility] in July with EF 54% Echo here showing mildly dilated and moderately reduced systolic fxn with EF 35-40%,reduced RV systolic function, moderate pHTN, severely dilated left atrium and moderately dilated right atrium. EF lower then baseline. LHC in 2019 showed minimal coronary disease. Patient with acute on chronic systolic CHF. Lower EF could be related to recent cardiac arrest when hospitalized at [facility] in July 2024. Good UOP with negative fluid balance. Continue IV Lasix. Continue Coreg and Cozaar. Aldactone and Empagliflozin added. Monitor I&Os and daily weights. (3) Anemia: Qualifiers: Anemia type: unspecified type Qualified Code(s): D64.9 - Anemia, unspecified Code(s): D64.9 - Anemia, unspecified Status: Acute Assessment and Plan: Hgb 9.3, previously 14.3 on 12/12/2023. Iron and TIBC normal with iron sat 8% and ferritin 42. B12 low end of normal. TSH 5.1 with normal FT4. Denies bleeding, will continue home Eliquis at this time. Follow HH. (4) Hypertension: Qualifiers: Hypertension type: primary hypertension Qualified Code(s): I10 - Essential (primary) hypertension Code(s): I10 - Essential (primary) hypertension Status: Chronic Assessment and Plan: Patient's blood pressure was reviewed on 01/04 Blood pressure stable Will continue to follow. (5) Obstructive sleep apnea: Code(s): G47.33 - Obstructive sleep apnea (adult) (pediatric) Status: Chronic Assessment and Plan: As above (6) Atrial fibrillation: Code(s): I48.91 - Unspecified atrial fibrillation Status: Acute Assessment and Plan: EKG on admission showing NSR With first degree AVB, LAD and LBBB. She was seen by [facility] in August and taken of her Amio. Eliquis was on hold due to recent gastric ulcer perforation. Plan was for her to be referred for Watchman procedure. She presents here back on Eliquis and AMio which was continued Monitor on tele. Plan DVT Prophylaxis: Eliquis Code Status: Full code Subjective Date/time seen: 01/04/25 13:53 Interval history: 74yo female with HTN, CAD, CHF, CKD, prediabetes, HLD, TORRE, asthma, LEVI, MDD, chronic venostasis, recurrent cellulitis, and obesity presents here with hypoxia. Eating okay. Wore the mask last night again. Was able to stand and walk with therapy. Wants to go home after this hospitalization. [place] >10yrs ago that was negative Exam Narrative: AF 97.5 108/37 56 16 96% 5L Gen - NARD sitting up in chair Chest - bibasilar crackles, nml RR CV - RRR S1/S2. Tele showing sinus joe at times Abd - Soft, obese, NT Ext - 1-2+ pedal edema that are VARSHA wrapped Psych - Nml mood and affect Skin - Warm and dry. Objective Data Vital Signs Vital Signs: Vital Signs - 24 hr 01/03/25 14:00 01/03/25 14:15 01/03/25 15:31 Temperature 97.7 F Pulse Rate 57 L 54 L Respiratory Rate 20 Blood Pressure 118/47 L Pulse Oximetry 94 Oxygen Delivery High Flow Nasal Cannula Oxygen Flow Rate 6 Fraction of Inspired Oxygen 01/03/25 16:00 01/03/25 16:00 01/03/25 17:52 Temperature Pulse Rate 55 L 59 L Respiratory Rate Blood Pressure Pulse Oximetry 94 Oxygen Delivery High Flow Nasal Cannula Oxygen Flow Rate 6 Fraction of Inspired Oxygen 01/03/25 18:00 01/03/25 19:37 01/03/25 20:00 Temperature 98.6 F Pulse Rate 60 61 57 L Respiratory Rate 22 H Blood Pressure 133/45 L Pulse Oximetry 96 Oxygen Delivery Oxygen Flow Rate Fraction of Inspired Oxygen 01/03/25 20:01 01/03/25 20:35 01/03/25 20:37 Temperature Pulse Rate 58 L Respiratory Rate Blood Pressure Pulse Oximetry 94 96 Oxygen Delivery High Flow Therapy with Na High Flow Nasal Cannula Oxygen Flow Rate 7 6 Fraction of Inspired Oxygen 01/03/25 22:00 01/03/25 22:10 01/04/25 00:00 Temperature Pulse Rate 58 L 60 47 L Respiratory Rate 36 H Blood Pressure Pulse Oximetry 93 Oxygen Delivery BiPAP Oxygen Flow Rate Fraction of Inspired Oxygen 01/04/25 00:05 01/04/25 02:00 01/04/25 04:00 Temperature 97.9 F Pulse Rate 44 L 50 L Respiratory Rate 18 Blood Pressure 138/65 Pulse Oximetry 91 100 Oxygen Delivery BiPAP Oxygen Flow Rate Fraction of Inspired Oxygen 30 01/04/25 04:00 01/04/25 04:15 01/04/25 05:51 Temperature Pulse Rate 45 L 43 L Respiratory Rate 19 Blood Pressure Pulse Oximetry 96 95 Oxygen Delivery BiPAP BiPAP Oxygen Flow Rate Fraction of Inspired Oxygen 30 01/04/25 06:00 01/04/25 08:00 01/04/25 08:00 Temperature 97.9 F Pulse Rate 55 L 60 Respiratory Rate 18 Blood Pressure 155/65 H Pulse Oximetry 94 94 Oxygen Delivery High Flow Nasal Cannula Oxygen Flow Rate 6 Fraction of Inspired Oxygen 01/04/25 08:00 01/04/25 08:26 01/04/25 08:27 Temperature Pulse Rate 62 60 60 Respiratory Rate Blood Pressure Pulse Oximetry Oxygen Delivery Oxygen Flow Rate Fraction of Inspired Oxygen 01/04/25 08:57 01/04/25 10:00 01/04/25 11:50 Temperature 97.5 F L Pulse Rate 53 L 56 L Respiratory Rate 16 Blood Pressure 109/40 L Pulse Oximetry 97 96 Oxygen Delivery High Flow Nasal Cannula Oxygen Flow Rate 4 Fraction of Inspired Oxygen 01/04/25 11:51 01/04/25 12:00 Temperature Pulse Rate Respiratory Rate Blood Pressure 108/37 L Pulse Oximetry 96 Oxygen Delivery High Flow Nasal Cannula Oxygen Flow Rate 6 Fraction of Inspired Oxygen Intake/Output Intake/Output: Intake & Output 01/01/25 01/02/25 01/03/25 01/04/25 23:59 23:59 23:59 23:59 Intake Total 1270 1460 660 Output Total 1000 1500 2100 2800 Balance -1000 -230 -640 -2140 Meds/Results Medications: Active Medications Generic Name Dose Route Start Last Admin Trade Name Freq PRN Reason Stop Dose Admin Acetaminophen 650 mg 01/01/25 21:15 Acetaminophen 325 Mg Tablet PO Q6H PRN Mild Pain (1-3) Or Fever Alendronate Sodium 35 mg 01/05/25 09:00 Alendronate Sodium 35 Mg Tablet PO WEEKLY GARY Amiodarone HCl 200 mg 01/02/25 09:00 01/04/25 08:27 Amiodarone Hcl 200 Mg Tablet PO 200 mg BID GARY Administration Apixaban 5 mg 01/02/25 09:00 01/04/25 08:26 Apixaban 5 Mg Tablet PO 5 mg Q12HR GARY Administration Aspirin 81 mg 01/02/25 21:00 01/03/25 20:37 Aspirin 81 Mg Enteric Tablet PO 81 mg HS GARY Administration Carvedilol 12.5 mg 01/02/25 09:00 01/04/25 08:26 Carvedilol 12.5 Mg Tablet PO 12.5 mg Q12HR GARY Administration Empagliflozin 10 mg 01/04/25 09:00 01/04/25 08:27 Empagliflozin 10 Mg Tablet PO 10 mg DAILY GARY Administration Fenofibrate 145 mg 01/03/25 09:00 01/04/25 08:26 Fenofibrate Nanocrystallized 145 Mg Tablet PO 145 mg QAM GARY Administration Furosemide 40 mg 01/01/25 21:00 01/04/25 08:27 Furosemide Inj 40 Mg/4 Ml Vial IV PUSH 40 mg Q12HR GARY Administration Losartan Potassium 50 mg 01/02/25 09:00 01/04/25 08:27 Losartan Potassium 50 Mg Tablet PO 50 mg DAILY GARY Administration Pantoprazole Sodium 40 mg 01/02/25 09:00 01/04/25 08:27 Pantoprazole 40 Mg Tablet PO 40 mg DAILY GARY Administration Potassium Chloride 20 meq 01/02/25 09:00 01/03/25 09:43 Potassium Chloride 20 Meq Er Tablet PO 20 meq DAILY GARY Administration Prochlorperazine Maleate 5 mg 01/02/25 05:13 01/02/25 20:26 Prochlorperazine Maleate 5 Mg Tablet PO 5 mg Q6H PRN Administration Nausea And Vomiting Sertraline HCl 50 mg 01/02/25 09:00 01/04/25 08:27 Sertraline Hcl 50 Mg Tablet PO 50 mg Q12HR GARY Administration Silver Sulfadiazine 1 applic 01/02/25 09:00 01/04/25 08:30 Silver Sulfadiazine 1% Cr 400 Gm Jar (*Bkc) TOPICAL Not Given DAILY GARY Spironolactone 25 mg 01/04/25 09:00 01/04/25 08:26 Spironolactone 25 Mg Tablet PO 25 mg QAM GARY Administration Radiology Results: ITS Impressions Chest X-Ray 01/01/25 14:40 IMPRESSION: 1. Cardiomegaly with pulmonary vascular congestion. 2. Unchanged opacity at the lateral left lower lung zone most likely persistent lingular atelectasis/scarring along side a prominent left paracardial fat pad although the differential includes less likely pneumonia or small pleural effusion. Labs Labs: Laboratory Results - last 24 hr 01/04/25 05:17 WBC 4.4 L RBC 3.40 L Hgb 8.4 L Hct 30.0 L MCV 88.2 MCH 24.7 L MCHC 28.0 L RDW 17.0 H Plt Count 122 L MPV 8.9 Sodium 140 Potassium 4.0 Chloride 93 L Carbon Dioxide > 40 H Anion Gap BUN 29 H Creatinine 0.87 Estim Creat Clear Calc 74 Estimated GFR > 60 Glucose 80 Calcium 8.5
[2025-01-04] MEDS: ASPIRIN 81 MG ENTERIC TABLET PO (20:59)
[2025-01-05] VITALS (21 sets, daily range): BP systolic 118–145; BP diastolic 41–78; PULSE 42–86; RESP 16–23; TEMP 36.6–36.8; O2SAT 91–99
[2025-01-05 07:48] LABS: Basophils Percent Auto 0.5 % (0.2-1.2); Eosinophils Absolute Auto 0.1 K/mm3 (0-0.3); Eosinophils Percent Auto 2.6 % (0-4.4); Hematocrit 32.8 % (37.0-47.0); Hemoglobin 9.3 g/dL (12.0-15.0); Immature Granulocyte Absolute 0.01 K/mm3 (0.00-0.031); Immature Granulocyte Percent A 0.2 % (0-0.5); Lymphocytes Absolute Auto 0.88 K/mm3 (0.9-3.2); Lymphocytes Percent Auto 21.1 % (18.3-44.2); Mean Corpuscular HGB Conc 28.4 g/dl (32-36); Mean Corpuscular Hemoglobin 24.9 pg (26-34); Mean Corpuscular Volume 87.9 fl (80-100); Mean Platelet Volume 8.7 fl (7.4-10.4); Monocytes Absolute Auto 0.5 K/mm3 (0.1-0.6); Monocytes Percent Auto 12.7 % (2.6-8.5); Neutrophils Absolute Auto 2.6 K/mm3 (1.3-6.7); Neutrophils Percent Auto 62.9 % (45.5-73.1); Platelet Count Result 126 k/mm3 (150-375); Red Blood Count 3.73 M/mm3 (4.2-5.4); Red Cell Distribution Width 17.2 % (11.5-14.5); White Blood Count 4.2 K/mm3 (4.5-10.0)
[2025-01-05 08:03] LABS: Albumin Level 3.7 g/dL (3.5-5.1); Blood Urea Nitrogen 28 mg/dL (7-17); Calcium 8.9 mg/dL (8.4-10.2); Carbon Dioxide > 40 mmol/L (22-30); Chloride 93 mmol/L (98-107); Estimated CRCL calculation 59 ml/min; Estimated Glomerular Filt Rate 50; Glucose 81 mg/dL (65-110); Magnesium 2.1 mg/dL (1.6-2.3); Phosphorus 5.1 mg/dL (2.5-4.5); Potassium 4.1 mmol/L (3.4-5.0); Sodium 141 mmol/L (137-145)
[2025-01-05 08:11] LABS: NT Pro B Type Natriuretic Pept 1010 pg/mL (19.9-100)
[2025-01-05 08:12] LABS: Hypochromasia 2+; Platelet Estimate Slightly Decreased (Adequate); Schistocytes None Seen
[2025-01-05 08:13] LABS: Anisocytosis 1+; Atypical Lymphocytes Present
--- NOTE | 2025-01-05 08:28 | P.PNPL_ITS ---
Progress Note: A&P Assessment and Plan (1) Obesity hypoventilation syndrome: Code(s): E66.2 - Morbid (severe) obesity with alveolar hypoventilation Status: Acute Assessment and Plan: patient with morbid obesity, BMI 56.7, chronic hypercarbic respiratory failure with a ABG on 5 L of 7.34/70/65. free T4 1.29 on 01/02/2025. Patient has obesity hypoventilation syndrome and would benefit from a noninvasive ventilator to prevent further deterioration and subsequent hospitalizations. Patient has been on outpatient BiPAP but Her compliance is low and she cannot tolerate this at home. She has been on BiPAP this admission but cannot tolerate the high pressures and high flows. I will initiate noninvasive ventilation with the AVAPS mode. 01/04/2024 the patient told me she could not tolerate the by pressures last night and had difficulty sleeping. I placed her on a noninvasive ventilation with the AVAPS mode and adjusted the settings for comfort resulting in: Respiratory rate 14, tidal volume 500, EPAP 8, minimal inspiratory pressure 9, maximal inspiratory pressure 25, inspiratory time 0.8, rise of 1 (fastest), 32% FiO2. peak inspiratory pressure was 11 and saturations were 100%. Patient tells me these settings are comfortable and she will be able to wear this tonight. Plan: Continue AVAPS p.r.n. during the day and tonight when she sleeps. I will check an ApneaLink and an ABG prior to removal of the AVAPS in the morning. 01/04/2025: Patient wore the noninvasive ventilator with the AVAPS mode on 32% FiO2 and had an overnight oximetry with recording duration of 6 hours and 58 minutes. Average saturation 92%. Low saturation 77%. Time with saturation less than or equal to 88% was 49 minutes. Oxygen desaturation index 8. Patient tells me she had an ABG prior to removal of the mass but there are no results in the computer. Plan: Patient tells me she slept well and was comfortable on the machine. I will continue current settings and check a blood gas in the morning prior to removal of AVAPS. I will increase her FiO2 to 40% and check an overnight oximetry on these settings with 40%. Tomorrow when the special events coordinator is in the office, will initiate the process for a home noninvasive ventilator through her [employer]. 01/05/25: the patient is feeling better. She states she is breathing normal. She denies cough, phlegm or hemoptysis. Currently she is on 4 L nasal cannula saturations 94%. Patient wore the hospital noninvasive ventilator with 40% FiO2 last night and slept well. Overnight oximetry with recording duration of 7 hours and 36 minutes. Average saturation 95%. Low saturation 87%. Time with saturation less than or equal to 88% was 1 minute, oxygen desaturation index 10. BNP has improved from 1790 on [id number] on 01/05/2025. Patient is -280 mL yesterday and cumulative she is -3.4 L since admission. Chest x-ray today shows unchanged cardiomegaly, perihilar congestion with no pleural effusions. Plan: Current settings of AVAPS: Respiratory rate 14, tidal volume 500, EPAP 8, minimal inspiratory pressure 9, maximal inspiratory pressure 25, inspiratory time 0.8, rise of 1 (fastest), 40% FiO2 Provide adequate ventilation and oxygenation. discussed with special events coordinator and will initiate home noninvasive ventilator set up through [facility]. Discussed with Dr. Tracey, will follow with you (2) Acute exacerbation of CHF (congestive heart failure): Qualifiers: Heart failure type: unspecified Qualified Code(s): I50.9 - Heart failure, unspecified Code(s): I50.9 - Heart failure, unspecified Status: Acute Assessment and Plan: Chronic hypoxemic respiratory failure: pain is on 3 L rest, 3 L activity and 3 L bleed in at night with her BiPAP. 01/04/2024 patient is sitting in chair on 6 L nasal cannula with saturations 94%. Overall the patient tells me she is breathing better. She denied fever, chills, rigors. Overall she tells me she is breathing back to her normal. White blood cell count 4.5, creatinine 0.96, BNP improved from 3160 on 01/01/2025 to 1790. Since admission she has diuresed 2.4 L. Plan: agree with as aggressive diuresis as tolerated by her cardiac and renal systems. Currently she is on Lasix 40 IV q.12 hours. Continue amiodarone 200 b.i.d., apixaban 5 q.12, losartan 50 q.day, carvedilol 12.5 q.12 per hospitalist team. Goal saturation 90-94%, adjust oxygen accordingly. Later in the day echocardiogram demonstrated EF 35-40%, right ventricular normal size with reduced function, PASP 69. Last echo on 09/14/2022 showed an EF 55-60, grade 1 diastolic dysfunction, moderately enlarged right ventricle with reduced systolic function, PASP 56. 01/04/2025: patient is out of the bed sitting in a chair. She is breathing normal in tells me she is breathing better than she has in the last year. She slept well with the noninvasive ventilator in the fullface mask. She has no cough, phlegm or hemoptysis. She is afebrile. White blood cell count 4.4, creatinine 0.87. She diuresed 640 mL yesterday and cumulative she has diuresed 3.5 L since admission. Her weight is 146.7 kg With an admission weight listed as 144.2. when I enter the room she was on 7 L nasal cannula with saturations 96%. I decreased her to 5 L nasal cannula her saturations were 94%. Plan: agree with as aggressive diuresis as tolerated by her cardiac and renal systems currently on Lasix 40 IV b.i.d., amiodarone, apixaban, losartan and carvedilol Per hospitalist team. Goal saturation 90-94%, adjust accordingly. 01/05/25: the patient is feeling better. She states she is breathing normal. She denies cough, phlegm or hemoptysis. Currently she is on 4 L nasal cannula saturations 94%. P BNP has improved from 1790 on 01/03 to 1010 on 01/05/2025. Patient is -280 mL yesterday and cumulative she is -3.4 L since admission. Chest x-ray today shows unchanged cardiomegaly, perihilar congestion with no pleural effusions. Plan: Suspect etiology of patient's pulmonary hypertension and decreased right ventricular function is related to LV dysfunction, untreated obesity hypoventilation syndrome, chronic hypoxemia. have initiated noninvasive ventilation as above. Patient is being treated with Lasix 40 IV b.i.d., Jardiance, spironolactone, Coreg and losartan per hospitalist team. Subjective Date/time seen: 01/05/25 08:28 Interval history: 01/03/2025: This is a new pulmonary consult for hypoxemic and hypercarbic respiratory failure. 74-year-old with a history of hypertension, diabetes, chronic venous stasis, AFib on eliquis, pulmonary hypertension, Chronic hypoxemic respiratory failure on 3 L nasal cannula, and obstructive sleep apnea on BiPAp 08/31 with 3 L bleed in. Patient is followed in the [facility]monary [facility] in last seen on 10/14/2024. this is a copy of the note. Last visit 03/2024 Kelly is here for follow up regarding LEVI and respiratory failure with hypoxia. PCP is REUBEN Mcnamara. * Hx: diastolic CHF, respiratory failure, sleep apnea, MDD, HLD, HTN, obesity, CAD. 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 * Patient was hospitalized for 5 nights back in August 2022 for acute respiratory failure with hypoxia, CHF exacerbation, pneumonia, and cellulitis. Patient has shortness of breath and was found to have pneumonia on the chest x-ray and was given antibiotics. She was given increased dose of Lasix to help with some fluid volume overload. She was evaluated for home O2 and she required 2L 16/04. This was new for her.Today she reports much has changed with her health since our last visit. She states Jul 2024 she had a ruptured hernia requiring surgery and she was on a ventilator for 20 days. This was at [facility]. Required multiple blood transfusions. She discharged end of Jul 2024 to rehab at [facility] and still there. She is doing PT/OT 6 days per week and also doing speech therapy as she's had dysphagia after being intubated that long. Previously she was living at [facility] since 2022. She anticipates a heart surgery 10/22/24 at [facility]. She reports she saw cardiolo robb, Dr Aguilar, after her hospital discharge. Will request records. ROMERO stable. She is in a wheelchair for longer distances today but working on walking with a rollator walker at rehab. Reports she is a shallow breather. Large abdomen compressing her breathing she says. Last week had URI symptoms with sore throat, sneezing, runny nose, overall improved now. Not much coughing. Denies wheezing. She is not on any inhaled medications. She has supplemental O2 for home use. Her last walk study was 10/2022 and showed a requirement for 3L/min with activity and none at rest. Today she tells me she uses 3L/min O2 all day and night - with rest, walking. She has small portable tanks and wants to get a portable oxygen concentrator. She is prescribed BiPAP 12/8cm, she is using more than she was at last visit but still having trouble she says. Currently wearing BiPAP nightly for avg of 4 to 5 hours. SOB with laying flat and trouble tolerating BiPAP mask due to claustrophobia and anxiety. She got a new practice coordinator/lounger recliner chair she wants to start sleeping in. She was a never smoker. 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 01/01/2025: Patient went to her PCP office visit with shortness of breath for a month and on her home 3 L nasal cannula her saturations were ranged between 40 and 60. Her weight was 318 and she was sent to the emergency department. The patient tells me she had not been using her home BiPAP since approximately 12/06/2024. In the emergency department her blood pressure is 115/65, heart rate 78, respirations 18, saturations on 3 L nasal cannula 89%. White blood cell count was 7.3, creatinine was 0.97, BNP was 3160, COVID, influenza, RSV RT PCR. Negative. Patient had a blood gas on 5 L nasal cannula the pH of 7.34/70/65 and was placed on BiPAP 12/6 with a repeat blood gas 7.36 / 72/94. Her BiPAP was increased to 20/5 with a repeat blood gas of 7.40/64/83 on 35% FiO2. Patient was treated for fluid overload with IV Lasix. 01/03/2025 patient is sitting in chair on 6 L nasal cannula with saturations 94%. Overall the patient tells me she is breathing better. She denied fever, chills, rigors. Overall she tells me she is breathing back to her normal. White blood cell count 4.5, creatinine 0.96, BNP improved to 1790. Since admission she has diuresed 2.4 L. the patient told me she could not tolerate the by pressures last night and had difficulty sleeping. I placed her on a noninvasive ventilation with the AVAPS mode and adjusted the settings for comfort resulting in: Respiratory rate 14, tidal volume 500, EPAP 8, minimal inspiratory pressure 9, maximal inspiratory pressure 25, inspiratory time 0.8, rise of 1, 32% FiO2. peak inspiratory pressure was 11 and saturations were 100%. 01/04/2025: patient is out of the bed sitting in a chair. She is breathing normal in tells me she is breathing better than she has in the last year. She slept well with the noninvasive ventilator in the fullface mask. She has no cough, phlegm or hemoptysis. She is afebrile. White blood cell count 4.4, creatinine 0.87. She diuresed 640 mL yesterday and cumulative she has diuresed 3.5 L since admission. Her weight is 146.7 kg With an admission weight listed as 144.2. When I enter the room she was on 7 L nasal cannula with saturations 96%. I decreased her to 5 L nasal cannula her saturations were 94%. Patient wore the noninvasive ventilator with the AVAPS mode on 32% FiO2 and had an overnight oximetry with recording duration of 6 hours and 58 minutes. Average saturation 92%. Low saturation 77%. Time with saturation less than or equal to 88% was 49 minutes. Oxygen desaturation index 8. Patient tells me she had an ABG prior to removal of the mask but there are no results in the computer. Later in the day found ABG results: ABG at 5:20 a.m. this morning was obtained and did not cross over to the computer. PH 7.42/61/82. This demonstrates adequate ventilation on her current noninvasive ventilator settings. Will not perform ABG in the morning. 01/05/25: the patient is feeling better. She states she is breathing normal. She denies cough, phlegm or hemoptysis. Currently she is on 4 L nasal cannula saturations 94%. Patient wore the hospital noninvasive ventilator with 40% FiO2 last night and slept well. Overnight oximetry with recording duration of 7 hours and 36 minutes. Average saturation 95%. Low saturation 87%. Time with saturation less than or equal to 88% was 1 minute, oxygen desaturation index 10. BNP has improved from 1790 on [id number] on 01/05/2025. Patient is -280 mL yesterday and cumulative she is -3.4 L since admission. Chest x-ray today shows unchanged cardiomegaly, perihilar congestion with no pleural effusions. DATA: 01/03/25: Echo Summary 1. The left ventricle is mildly dilated with moderately reduced systolic function. There is severe concentric left ventricular hypertrophy. The left ventricular ejection fraction is visually estimated to be 35-40%. 2. The right ventricle is normal size mildly reduced systolic function. 3. There is moderate pulmonary hypertension. The PASP is calculated to be 69 mm Hg. 4. There is no [id number] shunt on bubble study. 5. The left atrium is severely dilated. 6. The right atrium is moderately dilated. Right Ventricle The right ventricle is normal size mildly reduced systolic function. Left Atria The left atrium is severely dilated. Right Atria The right atrium is moderately dilated. Download 09/10/2024 through 10/09/2024. Patient is on BiPAP spontaneous mode, pressures 12/8. Room usage days greater than or equal to 4 hours was 67%. AHI 2.8, apnea index 2.5, hypopnea index 0.3, central apnea index 0.0, median leak 108, 95th percentile leak 119, maximal leak 119. Median tidal volume 207, median respiratory rate 22, median minute ventilation 4.7. I interpret this download as poor compliance, low tidal volume, adequate pressures and high leak. * 11/23/22 - Split PSG - Severe LEVI with AHI 54.4 and desaturation to 81%. BiPAP 12/8cmH2O with 2L/min O2 bleed in recommended. * 11/21/22 - PFT - There is a moderate obstructive ventilatory impairment with good response to bronchodilator, normal lung volumes, normal diffusion. No prior studies are available to compare. * 11/21/22 - Home O2 eval - Patient requires 3L/min O2 with activity and none at rest. * Home O2 Eval 09/18/22 - need 2L O2 rest+activity. * Chest CT 09/14/22 - Patchy bibasilar consolidation. Findings are suspicious for pneumonia versus possibly bibasilar atelectatic change. Indeterminate 2.5 cm right adrenal nodule (PCP following this). Patient reports nodule was benign. Echo 09/14/22 - Summary 1. Left ventricular chamber dimension is mildly enlarged. 2. Left ventricular systolic function is normal, estimated at 55-60%. 3. There is mildly increased left ventricular wall thickness. 4. The left ventricular diastolic function is grade I diastolic dysfunction. 5. The basal inferolateral wall is hypokinetic. 6. Right ventricular chamber dimension is moderately enlarged. 7. Right ventricular systolic function is reduced. 8. Left atrial chamber dimension is mildly enlarged. 9. There is mild mitral valve regurgitation. 10. There is mild tricuspid valve regurgitation. 11. Moderate pulmonary hypertension, estimated pulmonary arterial systolic pressure is 56 mmHg. Left Ventricle Left ventricular chamber dimension is mildly enlarged. Left ventricular systolic function is normal, estimated at 55-60%. There is mildly increased left ventricular wall thickness. The left ventricular diastolic function is grade I diastolic dysfunction. The basal inferolateral wall is hypokinetic. Right Ventricle Right ventricular chamber dimension is moderately enlarged. Right ventricular systolic function is reduced. Left Atria Left atrial chamber dimension is mildly enlarged. Right Atria Right atrial chamber dimension is normal. Atrial Septum Intact interatrial septum visualized by color flow imaging. * HST 03/09/22 through [facility] - mild sleep apnea, AHI 9.9, avg saturation 86%, minimum sleep saturation 55%. 192 minutes spent below 88%. Review of Systems Constitutional: Constitutional: Reports no additional constitutional complaints Eyes: Eyes: Reports no additional eye complaints ENT: Reports system reviewed and no additional complaints, except as documented Cardiovascular: Cardiovascular: Reports no additional cardiovascular complaints Respiratory: Respiratory: Reports no additional respiratory complaints Gastrointestinal: Gastrointestinal: Reports no additional gastrointestinal complaints Musculoskeletal: Musculoskeletal: Reports no additional musculoskeletal complaints Neurologic: Reports system reviewed and no additional complaints, except as documented Psychiatric: Psychiatric: Reports no additional psychiatric complaints Endocrine: Endocrine: Reports no additional endocrine complaints Hematologic/Lymphatic: Hematologic/Lymphatic: Reports no additional hematologic/lymphatic complaints Allergic/Immunologic: Allergic/Immunologic: Reports no additional allergic/immunologic complaints Exam Const: General: cooperative and comfortable Orientation/consciousness: oriented to person, oriented to place and oriented to time Other: Morbidly obese HENMT: Head: normal to inspection Ears: hearing grossly normal bilaterally Eyes: General: appearance normal, both eyes and all related structures Neck: Neck: normal visual inspection Chest: Chest palpation & inspection: normal inspection of the chest Resp: Effort & Inspection: normal respiratory effort and able to speak in complete sentences Auscultation: no crackles, no rales, no rhonchi, no wheezes and diminished lung sounds Other: morbidly obese, no wheezes Cardio: Jugular venous distension: no JVD GI: Inspection: normal to inspection Skin: General skin exam: normal color Neuro: General: oriented to person, oriented to place and oriented to time Extrem: General: normal to inspection and edema Psych: Appearance: grossly normal Objective Data Vital Signs Vital Signs: Vital Signs - 24 hr 01/04/25 08:57 01/04/25 10:00 01/04/25 11:50 Temperature 36.4 C L Pulse Rate 53 L 56 L Respiratory Rate 16 Blood Pressure 109/40 L Pulse Oximetry 97 96 Oxygen Delivery High Flow Nasal Cannula Oxygen Flow Rate 4 Fraction of Inspired Oxygen 01/04/25 11:51 01/04/25 12:00 01/04/25 12:00 Temperature Pulse Rate 50 L Respiratory Rate Blood Pressure 108/37 L Pulse Oximetry 96 Oxygen Delivery High Flow Nasal Cannula Oxygen Flow Rate 6 Fraction of Inspired Oxygen 01/04/25 14:00 01/04/25 16:00 01/04/25 16:00 Temperature 36.8 C Pulse Rate 52 L 52 L 53 L Respiratory Rate 22 H Blood Pressure 146/67 H Pulse Oximetry 94 Oxygen Delivery Oxygen Flow Rate Fraction of Inspired Oxygen 01/04/25 16:00 01/04/25 17:08 01/04/25 18:00 Temperature Pulse Rate 58 L 72 Respiratory Rate Blood Pressure Pulse Oximetry 97 Oxygen Delivery High Flow Nasal Cannula Oxygen Flow Rate 6 Fraction of Inspired Oxygen 01/04/25 20:00 01/04/25 20:00 01/04/25 20:30 Temperature 36.7 C Pulse Rate 59 L 58 L Respiratory Rate 20 Blood Pressure 124/40 L Pulse Oximetry 96 97 Oxygen Delivery High Flow Nasal Cannula Oxygen Flow Rate 6 Fraction of Inspired Oxygen 01/04/25 20:59 01/04/25 21:00 01/04/25 21:17 Temperature Pulse Rate 59 L 65 Respiratory Rate 28 H Blood Pressure Pulse Oximetry 96 96 Oxygen Delivery High Flow Nasal Cannula BiPAP Oxygen Flow Rate 6 Fraction of Inspired Oxygen 01/04/25 22:00 01/05/25 00:00 01/05/25 00:00 Temperature Pulse Rate 50 L 46 L 46 L Respiratory Rate 20 Blood Pressure 127/68 Pulse Oximetry 98 Oxygen Delivery Oxygen Flow Rate Fraction of Inspired Oxygen 01/05/25 00:10 01/05/25 02:00 01/05/25 02:15 Temperature Pulse Rate 45 L 45 L Respiratory Rate 17 Blood Pressure Pulse Oximetry 97 96 Oxygen Delivery BiPAP BiPAP Oxygen Flow Rate Fraction of Inspired Oxygen 40 01/05/25 04:00 01/05/25 04:00 01/05/25 04:10 Temperature 36.8 C Pulse Rate 86 45 L Respiratory Rate 18 Blood Pressure 140/78 Pulse Oximetry 99 96 Oxygen Delivery BiPAP Oxygen Flow Rate Fraction of Inspired Oxygen 40 01/05/25 06:00 01/05/25 07:20 01/05/25 08:04 Temperature 36.6 C Pulse Rate 42 L 57 L Respiratory Rate 18 Blood Pressure 145/71 H Pulse Oximetry 97 93 Oxygen Delivery High Flow Nasal Cannula Oxygen Flow Rate 4 Fraction of Inspired Oxygen Intake/Output Intake/Output: Intake & Output 01/02/25 01/03/25 01/04/25 01/05/25 23:59 23:59 23:59 23:59 Intake Total 1270 1460 2520 Output Total 1500 2100 2800 1300 Balance -230 -640 -280 -1300 Meds/Results Medications: Active Medications Generic Name Dose Route Start Last Admin Trade Name Freq PRN Reason Stop Dose Admin Acetaminophen 650 mg 01/01/25 21:15 Acetaminophen 325 Mg Tablet PO Q6H PRN Mild Pain (1-3) Or Fever Alendronate Sodium 35 mg 01/05/25 09:00 Alendronate Sodium 35 Mg Tablet PO WEEKLY GARY Amiodarone HCl 200 mg 01/02/25 09:00 01/04/25 17:08 Amiodarone Hcl 200 Mg Tablet PO 200 mg BID GARY Administration Apixaban 5 mg 01/02/25 09:00 01/04/25 20:59 Apixaban 5 Mg Tablet PO 5 mg Q12HR GARY Administration Aspirin 81 mg 01/02/25 21:00 01/04/25 20:59 Aspirin 81 Mg Enteric Tablet PO 81 mg HS GARY Administration Carvedilol 12.5 mg 01/02/25 09:00 01/04/25 20:59 Carvedilol 12.5 Mg Tablet PO 12.5 mg Q12HR GARY Administration Empagliflozin 10 mg 01/04/25 09:00 01/04/25 08:27 Empagliflozin 10 Mg Tablet PO 10 mg DAILY GARY Administration Fenofibrate 145 mg 01/03/25 09:00 01/04/25 08:26 Fenofibrate Nanocrystallized 145 Mg Tablet PO 145 mg QAM GARY Administration Furosemide 40 mg 01/01/25 21:00 01/04/25 21:01 Furosemide Inj 40 Mg/4 Ml Vial IV PUSH 40 mg Q12HR GARY Administration Losartan Potassium 50 mg 01/02/25 09:00 01/04/25 08:27 Losartan Potassium 50 Mg Tablet PO 50 mg DAILY GARY Administration Pantoprazole Sodium 40 mg 01/02/25 09:00 01/04/25 08:27 Pantoprazole 40 Mg Tablet PO 40 mg DAILY GARY Administration Potassium Chloride 20 meq 01/02/25 09:00 01/03/25 09:43 Potassium Chloride 20 Meq Er Tablet PO 20 meq DAILY GARY Administration Prochlorperazine Maleate 5 mg 01/02/25 05:13 01/02/25 20:26 Prochlorperazine Maleate 5 Mg Tablet PO 5 mg Q6H PRN Administration Nausea And Vomiting Sertraline HCl 50 mg 01/02/25 09:00 01/04/25 20:59 Sertraline Hcl 50 Mg Tablet PO 50 mg Q12HR GARY Administration Silver Sulfadiazine 1 applic 01/02/25 09:00 01/04/25 08:30 Silver Sulfadiazine 1% Cr 400 Gm Jar (*Bkc) TOPICAL Not Given DAILY [facility] Spironolactone 25 mg 01/04/25 09:00 01/04/25 08:26 Spironolactone 25 Mg Tablet PO 25 mg QAM GARY Administration Radiology Results: ITS Impressions Chest X-Ray 01/05/25 07:59 Impression: Central congestive change and possible minimal bibasilar pulmonary edema. Stable cardiomegaly. Labs Labs: Laboratory Results - last 24 hr 01/05/25 07:31 WBC 4.2 L RBC 3.73 L Hgb 9.3 L Hct 32.8 L MCV 87.9 MCH 24.9 L MCHC 28.4 L RDW 17.2 H Plt Count 126 L MPV 8.7 Immature Gran % (Auto) 0.2 Neut % (Auto) 62.9 Lymph % (Auto) 21.1 Tyrrell % (Auto) 12.7 H Eos % (Auto) 2.6 Baso % (Auto) 0.5 Lymph # (Auto) 0.88 L Tyrrell # (Auto) 0.5 Eos # (Auto) 0.1 Baso # (Auto) 0.0 Abs Immat Gran (auto) 0.01 Absolute Neuts (auto) 2.6 Absolute Nucleated RBC 0.000 Band Neutrophils % Not Reportable Nucleated RBC % 0.0 Atypical Lymphocytes Present Platelet Estimate Slightly decreased Hypochromasia 2+ Anisocytosis 1+ Schistocytes None seen Sodium 141 Potassium 4.1 Chloride 93 L Carbon Dioxide > 40 H Anion Gap BUN 28 H Creatinine 1.08 H Estim Creat Clear Calc 59 Estimated GFR 50 L Glucose 81 Calcium 8.9 Phosphorus 5.1 H Magnesium 2.1 NT-Pro-B Natriuret Pep 1010 H Albumin 3.7
[2025-01-05] MEDS: FENOFIBRATE NANOCRYSTALLIZED 145 MG TABLET PO (08:52)
[2025-01-05] MEDS: SPIRONOLACTONE 25 MG TABLET PO (08:52)
[2025-01-05] MEDS: PANTOPRAZOLE 40 MG TABLET PO (08:52)
[2025-01-05] MEDS: EMPAGLIFLOZIN 10 MG TABLET PO (08:53)
[2025-01-05] MEDS: APIXABAN 5 MG TABLET PO ×2 (08:53→20:43)
[2025-01-05] MEDS: carvediloL 12.5 MG TABLET PO ×2 (08:53→20:43)
[2025-01-05] MEDS: SERTRALINE HCL 50 MG TABLET PO ×2 (08:53→20:43)
[2025-01-05] MEDS: FUROSEMIDE INJ 40 MG/4 ML VIAL IV PUSH ×2 (08:53→20:45)
[2025-01-05] MEDS: AMIODARONE HCL 200 MG TABLET PO ×2 (08:53→16:36)
[2025-01-05] MEDS: ALENDRONATE SODIUM 35 MG TABLET PO (08:53)
[2025-01-05] MEDS: LOSARTAN POTASSIUM 50 MG TABLET PO (08:53)
[2025-01-05] MEDS: SILVER SULFADIAZINE 1% CR 400 GM JAR (*BKC) 1 APPLIC TOPICAL (08:54)
--- NOTE | 2025-01-05 10:14 | P.PNIM_ITS ---
Progress Note: A&P Assessment and Plan (1) Acute on chronic respiratory failure with hypoxia and hypercapnia: Code(s): J96.21 - Acute and chronic respiratory failure with hypoxia; J96.22 - Acute and chronic respiratory failure with hypercapnia Status: Acute Assessment and Plan: Baseline requirement of 3L and she is noncompliant with bipap. ABG 7.34/70.4/65.4 5L. BiPAP started CXR showed cardiomegaly with pulmonary vascular congestion and an unchanged opacity at the lateral LLL BNP 3160. Viral PCR negative. Echo as mentioned below Acute/chronic respiratory failure felt to be secondary to possible CHF and/or obesity hypoventilation syndrome. Possible anemia component. Low suspicion for pneumonia with no leukocytosis. Discussed with pulmonary. Better with bipap treatment. Able to wean down on bipap Continue bipap at night, with naps and as needed. Continue diuresis- currently on 40 mg IV lasix BID. monitor kidney function closely Wean O2 to baseline 3L. Encourage BiPAP compliance apnea link/abg in am noninvasive vent AVAPS mode (2) Acute exacerbation of CHF (congestive heart failure): Qualifiers: Heart failure type: unspecified Qualified Code(s): I50.9 - Heart failure, unspecified Code(s): I50.9 - Heart failure, unspecified Status: Acute Assessment and Plan: BNP 3160. Echo in 2021 showed EF of 55-60%, grade 1 diastolic dysfunction, moderate pulmonary HTN. Echo at [place] in July with EF 54% Echo here showing mildly dilated and moderately reduced systolic fxn with EF 35- 40%,reduced RV systolic function, moderate pHTN, severely dilated left atrium and moderately dilated right atrium. EF lower then baseline. LHC in 2019 showed minimal coronary disease. Patient with acute on chronic systolic CHF. Lower EF could be related to recent cardiac arrest when hospitalized at [place] in July 2024. Good UOP with negative fluid balance. Continue IV Lasix. Continue Coreg and Cozaar. Aldactone and Empagliflozin added. Monitor I&Os and daily weights. (3) Anemia: Qualifiers: Anemia type: unspecified type Qualified Code(s): D64.9 - Anemia, unspecified Code(s): D64.9 - Anemia, unspecified Status: Acute Assessment and Plan: Hgb 9.3, previously 14.3 on 12/12/2023. Iron and TIBC normal with iron sat 8% and ferritin 42. B12 low end of normal. TSH 5.1 with normal FT4. Denies bleeding, will continue home Eliquis at this time. Follow HH. hg/hct 9.3/32.8 (4) Hypertension: Qualifiers: Hypertension type: primary hypertension Qualified Code(s): I10 - Essential (primary) hypertension Code(s): I10 - Essential (primary) hypertension Status: Chronic Assessment and Plan: Patient's blood pressure reviewed and stable Will continue to follow. (5) Obstructive sleep apnea: Code(s): G47.33 - Obstructive sleep apnea (adult) (pediatric) Status: Chronic Assessment and Plan: As above (6) Atrial fibrillation: Code(s): I48.91 - Unspecified atrial fibrillation Status: Acute Assessment and Plan: EKG on admission showing NSR With first degree AVB, LAD and LBBB. She was seen by Cards in August and taken of her Amio. Eliquis was on hold due to recent gastric ulcer perforation. Plan was for her to be referred for Watchman procedure. She presents here back on Eliquis and AMio which was continued Monitor on tele. Plan DVT Prophylaxis: Eliquis Code Status: Full code Time Spent With Patient Time with patient: 25 - 35 minutes Subjective Date/time seen: 01/05/25 10:14 Interval history: 74yo female with HTN, CAD, CHF, CKD, prediabetes, HLD, TORRE, asthma, LEVI, MDD, chronic venostasis, recurrent cellulitis, and obesity presents here with hypoxia. Assuming care. Pt is seen and examined. Pulm. following. She is working with PT/OT. She is current;y on o2 per nc and doing well. She reports no sob. has two friends at a bedside visiting. she is pleasant and in a good spirit. Review of Systems Review of Systems: All systems reviewed & are unremarkable except as noted in HPI and below Exam Narrative: AF 97.5 108/37 56 16 96% 5L Gen - NARD sitting up in chair Chest - bibasilar crackles, nml RR CV - RRR S1/S2. Tele showing sinus joe at times Abd - Soft, obese, NT Ext - 1-2+ pedal edema that are VARSHA wrapped Psych - Nml mood and affect Skin - Warm and dry. Const: General: comfortable and no acute distress Other: , female, nontoxic appearance, obese body habitus HENMT: Face/Nose/Sinus: Normal nares present Mouth: Yes dry mucous membranes Eyes: General: appearance normal, both eyes and all related structures Sclera: sclerae normal Pupils: Equal, round and reactive pupils present EOM: EOMs intact bilaterally Resp: Other: + tachypnea without accessory muscle use . Tolerating BiPAP. No adventitious lung sounds on exam. Cardio: Rate: regular rate Rhythm: regular rhythm Other: S1-S2 present without murmur, rub, ectopy GI: Other: Abdomen soft, nondistended, nontender. Normoactive bowel sounds in all quadrants. Skin: Other: erythema to anterior left paz, small skin tear/abrasion without signs of in fection. scant erythema to right paz. 1+ pitting edema that is symmetric bilaterally. Neuro: Cranial nerves: Yes Equal, round and reactive pupils present Speech: normal speech Motor exam (neuro): 5/5 motor strength present throughout Sensory Exam: normal sensation Other: A&O x4 Extrem: General: normal exam except as noted (See skin exam) Psych: Mental Status: mental status grossly normal Affect: normal affect Other: Good insight and judgment, pleasant Objective Data Vital Signs Vital Signs: Vital Signs - 24 hr 01/04/25 11:50 01/04/25 11:51 01/04/25 12:00 Temperature 97.5 F L Pulse Rate 56 L Respiratory Rate 16 Blood Pressure 109/40 L 108/37 L Pulse Oximetry 96 96 Oxygen Delivery High Flow Nasal Cannula Oxygen Flow Rate 6 Fraction of Inspired Oxygen 01/04/25 12:00 01/04/25 14:00 01/04/25 16:00 Temperature 98.2 F Pulse Rate 50 L 52 L 52 L Respiratory Rate 22 H Blood Pressure 146/67 H Pulse Oximetry 94 Oxygen Delivery Oxygen Flow Rate Fraction of Inspired Oxygen 01/04/25 16:00 01/04/25 16:00 01/04/25 17:08 Temperature Pulse Rate 53 L 58 L Respiratory Rate Blood Pressure Pulse Oximetry 97 Oxygen Delivery High Flow Nasal Cannula Oxygen Flow Rate 6 Fraction of Inspired Oxygen 01/04/25 18:00 01/04/25 20:00 01/04/25 20:00 Temperature 98.1 F Pulse Rate 72 59 L 58 L Respiratory Rate 20 Blood Pressure 124/40 L Pulse Oximetry 96 Oxygen Delivery Oxygen Flow Rate Fraction of Inspired Oxygen 01/04/25 20:30 01/04/25 20:59 01/04/25 21:00 Temperature Pulse Rate 59 L Respiratory Rate Blood Pressure Pulse Oximetry 97 96 Oxygen Delivery High Flow Nasal Cannula High Flow Nasal Cannula Oxygen Flow Rate 6 6 Fraction of Inspired Oxygen 01/04/25 21:17 01/04/25 22:00 01/05/25 00:00 Temperature Pulse Rate 65 50 L 46 L Respiratory Rate 28 H 20 Blood Pressure 127/68 Pulse Oximetry 96 98 Oxygen Delivery BiPAP Oxygen Flow Rate Fraction of Inspired Oxygen 01/05/25 00:00 01/05/25 00:10 01/05/25 02:00 Temperature Pulse Rate 46 L 45 L Respiratory Rate Blood Pressure Pulse Oximetry 97 Oxygen Delivery BiPAP Oxygen Flow Rate Fraction of Inspired Oxygen 40 01/05/25 02:15 01/05/25 04:00 01/05/25 04:00 Temperature 98.3 F Pulse Rate 45 L 86 45 L Respiratory Rate 17 18 Blood Pressure 140/78 Pulse Oximetry 96 99 Oxygen Delivery BiPAP Oxygen Flow Rate Fraction of Inspired Oxygen 01/05/25 04:10 01/05/25 06:00 01/05/25 07:20 Temperature 97.8 F Pulse Rate 42 L 57 L Respiratory Rate 18 Blood Pressure 145/71 H Pulse Oximetry 96 97 Oxygen Delivery BiPAP Oxygen Flow Rate Fraction of Inspired Oxygen 40 01/05/25 08:04 01/05/25 08:53 01/05/25 08:53 Temperature Pulse Rate 65 65 Respiratory Rate Blood Pressure Pulse Oximetry 93 Oxygen Delivery High Flow Nasal Cannula Oxygen Flow Rate 4 Fraction of Inspired Oxygen Intake/Output Intake/Output: Intake & Output 01/02/25 01/03/25 01/04/25 01/05/25 23:59 23:59 23:59 23:59 Intake Total 1270 1460 2520 240 Output Total 1500 2100 2800 8251 Balance -230 -640 -280 -1060 Meds/Results Medications: Active Medications Generic Name Dose Route Start Last Admin Trade Name Freq PRN Reason Stop Dose Admin Acetaminophen 650 mg 01/01/25 21:15 Acetaminophen 325 Mg Tablet PO Q6H PRN Mild Pain (1-3) Or Fever Alendronate Sodium 35 mg 01/05/25 09:00 01/05/25 08:53 Alendronate Sodium 35 Mg Tablet PO 35 mg WEEKLY GARY Administration Amiodarone HCl 200 mg 01/02/25 09:00 01/05/25 08:53 Amiodarone Hcl 200 Mg Tablet PO 200 mg BID GARY Administration Apixaban 5 mg 01/02/25 09:00 01/05/25 08:53 Apixaban 5 Mg Tablet PO 5 mg Q12HR GARY Administration Aspirin 81 mg 01/02/25 21:00 01/04/25 20:59 Aspirin 81 Mg Enteric Tablet PO 81 mg HS GARY Administration Carvedilol 12.5 mg 01/02/25 09:00 01/05/25 08:53 Carvedilol 12.5 Mg Tablet PO 12.5 mg Q12HR GARY Administration Empagliflozin 10 mg 01/04/25 09:00 01/05/25 08:53 Empagliflozin 10 Mg Tablet PO 10 mg DAILY GARY Administration Fenofibrate 145 mg 01/03/25 09:00 01/05/25 08:52 Fenofibrate Nanocrystallized 145 Mg Tablet PO 145 mg QAM GARY Administration Furosemide 40 mg 01/01/25 21:00 01/05/25 08:53 Furosemide Inj 40 Mg/4 Ml Vial IV PUSH 40 mg Q12HR GARY Administration Losartan Potassium 50 mg 01/02/25 09:00 01/05/25 08:53 Losartan Potassium 50 Mg Tablet PO 50 mg DAILY GARY Administration Pantoprazole Sodium 40 mg 01/02/25 09:00 01/05/25 08:52 Pantoprazole 40 Mg Tablet PO 40 mg DAILY GARY Administration Potassium Chloride 20 meq 01/02/25 09:00 01/03/25 09:43 Potassium Chloride 20 Meq Er Tablet PO 20 meq DAILY GARY Administration Prochlorperazine Maleate 5 mg 01/02/25 05:13 01/02/25 20:26 Prochlorperazine Maleate 5 Mg Tablet PO 5 mg Q6H PRN Administration Nausea And Vomiting Sertraline HCl 50 mg 01/02/25 09:00 01/05/25 08:53 Sertraline Hcl 50 Mg Tablet PO 50 mg Q12HR GARY Administration Silver Sulfadiazine 1 applic 01/02/25 09:00 01/05/25 08:54 Silver Sulfadiazine 1% Cr 400 Gm Jar (*Bkc) TOPICAL 1 applic DAILY GARY Administration Spironolactone 25 mg 01/04/25 09:00 01/05/25 08:52 Spironolactone 25 Mg Tablet PO 25 mg QAM GARY Administration Radiology Results: ITS Impressions Chest X-Ray 01/05/25 07:59 Impression: Central congestive change and possible minimal bibasilar pulmonary edema. Stable cardiomegaly. Labs Labs: Laboratory Results - last 24 hr 01/05/25 07:31 WBC 4.2 L RBC 3.73 L Hgb 9.3 L Hct 32.8 L MCV 87.9 MCH 24.9 L MCHC 28.4 L RDW 17.2 H Plt Count 126 L MPV 8.7 Immature Gran % (Auto) 0.2 Neut % (Auto) 62.9 Lymph % (Auto) 21.1 Gulf % (Auto) 12.7 H Eos % (Auto) 2.6 Baso % (Auto) 0.5 Lymph # (Auto) 0.88 L Gulf # (Auto) 0.5 Eos # (Auto) 0.1 Baso # (Auto) 0.0 Abs Immat Gran (auto) 0.01 Absolute Neuts (auto) 2.6 Absolute Nucleated RBC 0.000 Band Neutrophils % Not Reportable Nucleated RBC % 0.0 Atypical Lymphocytes Present Platelet Estimate Slightly decreased Hypochromasia 2+ Anisocytosis 1+ Schistocytes None seen Sodium 141 Potassium 4.1 Chloride 93 L Carbon Dioxide > 40 H Anion Gap BUN 28 H Creatinine 1.08 H Estim Creat Clear Calc 59 Estimated GFR 50 L Glucose 81 Calcium 8.9 Phosphorus 5.1 H Magnesium 2.1 NT-Pro-B Natriuret Pep 1010 H Albumin 3.7 Quality VTE Prophylaxis VTE prophylaxis: pharmacologic ordered
[2025-01-05 10:54] LABS: PCO2 ABG 60.9 mmHg (35.0-45.0)
[2025-01-05 10:57] LABS: Device NON-INVASIVE VENT; Non-Invasive Vent Rate 14 /MIN
[2025-01-05 10:58] LABS: Non-Invasive Expiratory Pressure 8 CMH2O
--- NOTE | 2025-01-05 20:31 | PC.NURSE ---
This patient, Kelly Atkinson, was transferred to [ [id number]] on 01/05/25 at 2024 . Personal belongings sent with patient. Report given to [Judy Smith RN ]. Appropriate documentation sent with patient.
[2025-01-05] MEDS: ASPIRIN 81 MG ENTERIC TABLET PO (20:43)
[2025-01-06] VITALS (17 sets, daily range): BP systolic 116–152; BP diastolic 50–75; PULSE 45–90; RESP 15–20; TEMP 36.7–37.1; O2SAT 87–100
--- NOTE | 2025-01-06 08:10 | P.PNPL_ITS ---
Progress Note: A&P Assessment and Plan (1) Obesity hypoventilation syndrome: Code(s): E66.2 - Morbid (severe) obesity with alveolar hypoventilation Status: Acute Assessment and Plan: patient with morbid obesity, BMI 56.7, chronic hypercarbic respiratory failure with a ABG on 5 L of 7.34/70/65. free T4 1.29 on 01/02/2025. Patient has obesity hypoventilation syndrome and would benefit from a noninvasive ventilator to prevent further deterioration and subsequent hospitalizations. Patient has been on outpatient BiPAP but Her compliance is low and she cannot tolerate this at home. She has been on BiPAP this admission but cannot tolerate the high pressures and high flows. I will initiate noninvasive ventilation with the AVAPS mode. 01/04/2024 the patient told me she could not tolerate the by pressures last night and had difficulty sleeping. I placed her on a noninvasive ventilation with the AVAPS mode and adjusted the settings for comfort resulting in: Respiratory rate 14, tidal volume 500, EPAP 8, minimal inspiratory pressure 9, maximal inspiratory pressure 25, inspiratory time 0.8, rise of 1 (fastest), 32% FiO2. peak inspiratory pressure was 11 and saturations were 100%. Patient tells me these settings are comfortable and she will be able to wear this tonight. Plan: Continue AVAPS p.r.n. during the day and tonight when she sleeps. I will check an ApneaLink and an ABG prior to removal of the AVAPS in the morning. 01/04/2025: Patient wore the noninvasive ventilator with the AVAPS mode on 32% FiO2 and had an overnight oximetry with recording duration of 6 hours and 58 minutes. Average saturation 92%. Low saturation 77%. Time with saturation less than or equal to 88% was 49 minutes. Oxygen desaturation index 8. Patient tells me she had an ABG prior to removal of the mass but there are no results in the computer. Plan: Patient tells me she slept well and was comfortable on the machine. I will continue current settings and check a blood gas in the morning prior to removal of AVAPS. I will increase her FiO2 to 40% and check an overnight oximetry on these settings with 40%. Tomorrow when the hospice spiritual care coordinator is in the office, will initiate the process for a home noninvasive ventilator through her [employer]. 01/05/25: the patient is feeling better. She states she is breathing normal. She denies cough, phlegm or hemoptysis. Currently she is on 4 L nasal cannula saturations 94%. Patient wore the hospital noninvasive ventilator with 40% FiO2 last night and slept well. Overnight oximetry with recording duration of 7 hours and 36 minutes. Average saturation 95%. Low saturation 87%. Time with saturation less than or equal to 88% was 1 minute, oxygen desaturation index 10. BNP has improved from 1790 on [id number] on 01/05/2025. Patient is -280 mL yesterday and cumulative she is -3.4 L since admission. Chest x-ray today shows unchanged cardiomegaly, perihilar congestion with no pleural effusions. Plan: Current settings of AVAPS: Respiratory rate 14, tidal volume 500, EPAP 8, minimal inspiratory pressure 9, maximal inspiratory pressure 25, inspiratory time 0.8, rise of 1 (fastest), 40% FiO2 Provide adequate ventilation and oxygenation. discussed with hospice spiritual care coordinator and will initiate home noninvasive ventilator set up through [employer]. Later in the day [facility] RAMILA TT V-VAPS-AE with rate of 14, target tidal volume 500, EPAP minimum 5, EPAP maximum 15, pressure support minimum 6, pressure support maximum 25, inspiratory time 1.0 and 5 L bleed in. 01/06/2025: Patient tells me she is breathing better than her normal. She walked 110 ft yesterday. She denies cough, phlegm, hemoptysis. She has the hospital noninvasive ventilator with the AVAPS and a fullface mask and slept good. When I enter the room she was on 3 L nasal cannula with saturations 96%. I decreased her to 2 L nasal cannula and her saturations remain 94. Yesterday she diuresed 2 point 9 L and cumulative she has diuresed 5.8 L since admission. Her weight today is 141.3 kg. Plan: Plan for home noninvasive ventilator to be set up in the [facility] with 5 L bleed in. Will perform overnight oximetry and ABG prior to removal. If testing is acceptable potential discharge on 01/07/2025. Discussed with Angela Redman, will follow with you (2) Acute exacerbation of CHF (congestive heart failure): Qualifiers: Heart failure type: unspecified Qualified Code(s): I50.9 - Heart failure, unspecified Code(s): I50.9 - Heart failure, unspecified Status: Acute Assessment and Plan: Chronic hypoxemic respiratory failure: pain is on 3 L rest, 3 L activity and 3 L bleed in at night with her BiPAP. 01/04/2024 patient is sitting in chair on 6 L nasal cannula with saturations 94%. Overall the patient tells me she is breathing better. She denied fever, chills, rigors. Overall she tells me she is breathing back to her normal. White blood cell count 4.5, creatinine 0.96, BNP improved from 3160 on 01/01 to 1790. Since admission she has diuresed 2.4 L. Plan: agree with as aggressive diuresis as tolerated by her cardiac and renal systems. Currently she is on Lasix 40 IV q.12 hours. Continue amiodarone 200 b.i.d., apixaban 5 q.12, losartan 50 q.day, carvedilol 12.5 q.12 per hospitalist team. Goal saturation 90-94%, adjust oxygen accordingly. Later in the day echocardiogram demonstrated EF 35-40%, right ventricular normal size with reduced function, PASP 69. Last echo on 09/14/2022 showed an EF 55-60, grade 1 diastolic dysfunction, moderately enlarged right ventricle with reduced systolic function, PASP 56. 01/04/2025: patient is out of the bed sitting in a chair. She is breathing normal in tells me she is breathing better than she has in the last year. She slept well with the noninvasive ventilator in the fullface mask. She has no cough, phlegm or hemoptysis. She is afebrile. White blood cell count 4.4, creatinine 0.87. She diuresed 640 mL yesterday and cumulative she has diuresed 3.5 L since admission. Her weight is 146.7 kg With an admission weight listed as 144.2. when I enter the room she was on 7 L nasal cannula with saturations 96%. I decreased her to 5 L nasal cannula her saturations were 94%. Plan: agree with as aggressive diuresis as tolerated by her cardiac and renal systems currently on Lasix 40 IV b.i.d., amiodarone, apixaban, losartan and carvedilol Per hospitalist team. Goal saturation 90-94%, adjust accordingly. 01/05/25: the patient is feeling better. She states she is breathing normal. She denies cough, phlegm or hemoptysis. Currently she is on 4 L nasal cannula saturations 94%. P BNP has improved from 1790 on 01/03 to 1010 on 01/05/2025. Patient is -280 mL yesterday and cumulative she is -3.4 L since admission. Chest x-ray today shows unchanged cardiomegaly, perihilar congestion with no pleural effusions. Plan: Suspect etiology of patient's pulmonary hypertension and decreased right ventricular function is related to LV dysfunction, untreated obesity hypoventilation syndrome, chronic hypoxemia. have initiated noninvasive ventilation as above. Patient is being treated with Lasix 40 IV b.i.d., Jardiance, spironolactone, Coreg and losartan per hospitalist team. 01/06/25: When I enter the room she was on 3 L nasal cannula with saturations 96%. I decreased her to 2 L nasal cannula and her saturations remain 94. Yesterday she diuresed 2 point 9 L and cumulative she has diuresed 5.8 L since admission. Her weight today is 141.3 kg. Plan: Patient is being treated with Lasix 40 IV b.i.d., Jardiance, spironolactone, Coreg and losartan per hospitalist team. Subjective Date/time seen: 01/06/25 08:10 Interval history: 01/03/2025: This is a new pulmonary consult for hypoxemic and hypercarbic respiratory failure. 74-year-old with a history of hypertension, diabetes, chronic venous stasis, AFib on eliquis, pulmonary hypertension, Chronic hypoxemic respiratory failure on 3 L nasal cannula, and obstructive sleep apnea on BiPAp 08/31 with 3 L bleed in. Patient is followed in the [facility] in last seen on 10/14/2024. this is a copy of the note. Last visit 03/2024 Kelly is here for follow up regarding LEVI and respiratory failure with hypoxia. PCP is REUBEN Mcnamara. * Hx: diastolic CHF, respiratory failure, sleep apnea, MDD, HLD, HTN, obesity, CAD. 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 * Patient was hospitalized for 5 nights back in August 2022 for acute respiratory failure with hypoxia, CHF exacerbation, pneumonia, and cellulitis. Patient has shortness of breath and was found to have pneumonia on the chest x-ray and was given antibiotics. She was given increased dose of Lasix to help with some fluid volume overload. She was evaluated for home O2 and she required 2L 24/7. This was new for her.Today she reports much has changed with her health since our last visit. She states Jul 2024 she had a ruptured hernia requiring surgery and she was on a ventilator for 20 days. This was at [place]. Required multiple blood transfusions. She discharged end of Jul 2024 to rehab at [facility] and still there. She is doing PT/OT 6 days per week and also doing speech therapy as she's had dysphagia after being intubated that long. Previously she was living at [facility] since 2022. She anticipates a heart surgery 10/22/24 at [place]. She reports she saw cardiology, Dr Aguilar, after her hospital discharge. Will request records. ROMERO stable. She is in a wheelchair for longer distances today but working on walking with a rollator walker at rehab. Reports she is a shallow breather. Large abdomen compressing her breathing she says. Last week had URI symptoms with sore throat, sneezing, runny nose, overall improved now. Not much coughing. Denies wheezing. She is not on any inhaled medications. She has supplemental O2 for home use. Her last walk study was 10/2022 and showed a requirement for 3L/min with activity and none at rest. Today she tells me she uses 3L/min O2 all day and night - with rest, walking. She has small portable tanks and wants to get a portable oxygen concentrator. She is prescribed BiPAP 12/8cm, she is using more than she was at last visit but still having trouble she says. Currently wearing BiPAP nightly for avg of 4 to 5 hours. SOB with laying flat and trouble tolerating BiPAP mask due to claustrophobia and anxiety. She got a new stopper maker/lounger recliner chair she wants to start sleeping in. She was a never smoker. 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 01/01/2025: Patient went to her PCP office visit with shortness of breath for a month and on her home 3 L nasal cannula her saturations were ranged between 40 and 60. Her weight was 318 and she was sent to the emergency department. The patient tells me she had not been using her home BiPAP since approximately 12/06/2024. In the emergency department her blood pressure is 115/65, heart rate 78, respirations 18, saturations on 3 L nasal cannula 89%. White blood cell count was 7.3, creatinine was 0.97, BNP was 3160, COVID, influenza, RSV RT PCR. Negative. Patient had a blood gas on 5 L nasal cannula the pH of 7.34/70/65 and was placed on BiPAP 12/6 with a repeat blood gas 7.36 / 72/94. Her BiPAP was increased to 20/5 with a repeat blood gas of 7.40/64/83 on 35% FiO2. Patient was treated for fluid overload with IV Lasix. 01/03/2025 patient is sitting in chair on 6 L nasal cannula with saturations 94%. Overall the patient tells me she is breathing better. She denied fever, chills, rigors. Overall she tells me she is breathing back to her normal. White blood cell count 4.5, creatinine 0.96, BNP improved to 1790. Since admission she has diuresed 2.4 L. the patient told me she could not tolerate the by pressures last night and had difficulty sleeping. I placed her on a noninvasive ventilation with the AVAPS mode and adjusted the settings for comfort resulting in: Respiratory rate 14, tidal volume 500, EPAP 8, minimal inspiratory pressure 9, maximal inspiratory pressure 25, inspiratory time 0.8, rise of 1, 32% FiO2. peak inspiratory pressure was 11 and saturations were 100%. 01/04/2025: patient is out of the bed sitting in a chair. She is breathing normal in tells me she is breathing better than she has in the last year. She slept well with the noninvasive ventilator in the fullface mask. She has no cough, phlegm or hemoptysis. She is afebrile. White blood cell count 4.4, creatinine 0.87. She diuresed 640 mL yesterday and cumulative she has diuresed 3.5 L since admission. Her weight is 146.7 kg With an admission weight listed as 144.2. When I enter the room she was on 7 L nasal cannula with saturations 96%. I decreased her to 5 L nasal cannula her saturations were 94%. Patient wore the noninvasive ventilator with the AVAPS mode on 32% FiO2 and had an overnight oximetry with recording duration of 6 hours and 58 minutes. Average saturation 92%. Low saturation 77%. Time with saturation less than or equal to 88% was 49 minutes. Oxygen desaturation index 8. Patient tells me she had an ABG prior to removal of the mask but there are no results in the computer. Later in the day found ABG results: ABG at 5:20 a.m. this morning was obtained and did not cross over to the computer. PH 7.42/61/82. This demonstrates adequate ventilation on her current noninvasive ventilator settings. Will not perform ABG in the morning. 01/05/25: the patient is feeling better. She states she is breathing normal. She denies cough, phlegm or hemoptysis. Currently she is on 4 L nasal cannula saturations 94%. Patient wore the hospital noninvasive ventilator with 40% FiO2 last night and slept well. Overnight oximetry with recording duration of 7 hours and 36 minutes. Average saturation 95%. Low saturation 87%. Time with saturation less than or equal to 88% was 1 minute, oxygen desaturation index 10. BNP has improved from 1790 on [id number] on 01/05/2025. Patient is -280 mL yesterday and cumulative she is -3.4 L since admission. Chest x-ray today shows unchanged cardiomegaly, perihilar congestion with no pleural effusions. Later in the day filled out noninvasive ventilation [facility] for RAMILA TT V-VAPS-AE with rate of 14, target tidal volume 500, EPAP minimum 5, EPAP maximum 15, pressure support minimum 6, pressure support maximum 25, inspiratory time 1.0 and 5 L bleed in. 01/06/2025: Patient tells me she is breathing better than her normal. She walked 110 ft yesterday. She denies cough, phlegm, hemoptysis. She has the hospital noninvasive ventilator with the AVAPS and a fullface mask and slept good. When I enter the room she was on 3 L nasal cannula with saturations 96%. I decreased her to 2 L nasal cannula and her saturations remain 94. Yesterday she diuresed 2 point 9 L and cumulative she has diuresed 5.8 L since admission. Her weight today is 141.3 kg. DATA: 01/03/25: Echo Summary 1. The left ventricle is mildly dilated with moderately reduced systolic function. There is severe concentric left ventricular hypertrophy. The left ventricular ejection fraction is visually estimated to be 35-40%. 2. The right ventricle is normal size mildly reduced systolic function. 3. There is moderate pulmonary hypertension. The PASP is calculated to be 69 mm Hg. 4. There is no [id number] shunt on bubble study. 5. The left atrium is severely dilated. 6. The right atrium is moderately dilated. Right Ventricle The right ventricle is normal size mildly reduced systolic function. Left Atria The left atrium is severely dilated. Right Atria The right atrium is moderately dilated. Download 09/10/2024 through 10/09/2024. Patient is on BiPAP spontaneous mode, pressures 12/8. Room usage days greater than or equal to 4 hours was 67%. AHI 2.8, apnea index 2.5, hypopnea index 0.3, central apnea index 0.0, median leak 108, 95th percentile leak 119, maximal leak 119. Median tidal volume 207, median respiratory rate 22, median minute ventilation 4.7. I interpret this download as poor compliance, low tidal volume, adequate pressures and high leak. * 11/23/22 - Split PSG - Severe LEVI with AHI 54.4 and desaturation to 81%. BiPAP 12/8cmH2O with 2L/min O2 bleed in recommended. * 11/21/22 - PFT - There is a moderate obstructive ventilatory impairment with good response to bronchodilator, normal lung volumes, normal diffusion. No prior studies are available to compare. * 11/21/22 - Home O2 eval - Patient requires 3L/min O2 with activity and none at rest. * Home O2 Eval 09/18/22 - need 2L O2 rest+activity. * Chest CT 09/14/22 - Patchy bibasilar consolidation. Findings are suspicious for pneumonia versus possibly bibasilar atelectatic change. Indeterminate 2.5 cm right adrenal nodule (PCP following this). Patient reports nodule was benign. Echo 09/14/22 - Summary 1. Left ventricular chamber dimension is mildly enlarged. 2. Left ventricular systolic function is normal, estimated at 55-60%. 3. There is mildly increased left ventricular wall thickness. 4. The left ventricular diastolic function is grade I diastolic dysfunction. 5. The basal inferolateral wall is hypokinetic. 6. Right ventricular chamber dimension is moderately enlarged. 7. Right ventricular systolic function is reduced. 8. Left atrial chamber dimension is mildly enlarged. 9. There is mild mitral valve regurgitation. 10. There is mild tricuspid valve regurgitation. 11. Moderate pulmonary hypertension, estimated pulmonary arterial systolic pressure is 56 mmHg. Left Ventricle Left ventricular chamber dimension is mildly enlarged. Left ventricular systolic function is normal, estimated at 55-60%. There is mildly increased left ventricular wall thickness. The left ventricular diastolic function is grade I diastolic dysfunction. The basal inferolateral wall is hypokinetic. Right Ventricle Right ventricular chamber dimension is moderately enlarged. Right ventricular systolic function is reduced. Left Atria Left atrial chamber dimension is mildly enlarged. Right Atria Right atrial chamber dimension is normal. Atrial Septum Intact interatrial septum visualized by color flow imaging. * HST 03/09/22 through [facility] - mild sleep apnea, AHI 9.9, avg saturation 86%, minimum sleep saturation 55%. 192 minutes spent below 88%. Review of Systems Constitutional: Constitutional: Reports no additional constitutional complaints Eyes: Eyes: Reports no additional eye complaints ENT: Reports system reviewed and no additional complaints, except as documented Cardiovascular: Cardiovascular: Reports no additional cardiovascular complaints Respiratory: Respiratory: Reports no additional respiratory complaints Gastrointestinal: Gastrointestinal: Reports no additional gastrointestinal complaints Musculoskeletal: Musculoskeletal: Reports no additional musculoskeletal complaints Neurologic: Reports system reviewed and no additional complaints, except as documented Psychiatric: Psychiatric: Reports no additional psychiatric complaints Endocrine: Endocrine: Reports no additional endocrine complaints Hematologic/Lymphatic: Hematologic/Lymphatic: Reports no additional hematologic/lymphatic complaints Allergic/Immunologic: Allergic/Immunologic: Reports no additional allergic/immunologic complaints Exam Const: General: cooperative and comfortable Orientation/consciousness: oriented to person, oriented to place and oriented to time Other: Morbidly obese HENMT: Head: normal to inspection Ears: hearing grossly normal bilaterally Eyes: General: appearance normal, both eyes and all related structures Neck: Neck: normal visual inspection Chest: Chest palpation & inspection: normal inspection of the chest Resp: Effort & Inspection: normal respiratory effort and able to speak in complete sentences Auscultation: no crackles, no rales, no rhonchi, no wh eezes and diminished lung sounds Other: morbidly obese, no wheezes Cardio: Jugular venous distension: no JVD GI: Inspection: normal to inspection Skin: General skin exam: normal color Neuro: General: oriented to person, oriented to place and oriented to time Extrem: General: normal to inspection and edema Psych: Appearance: grossly normal Objective Data Vital Signs Vital Signs: Vital Signs - 24 hr 01/05/25 08:53 01/05/25 08:53 01/05/25 10:00 Temperature Pulse Rate 65 65 53 L Respiratory Rate Blood Pressure Pulse Oximetry Oxygen Delivery Oxygen Flow Rate Fraction of Inspired Oxygen 01/05/25 11:42 01/05/25 12:00 01/05/25 14:00 Temperature 36.8 C Pulse Rate 59 L 54 L 59 L Respiratory Rate 22 H Blood Pressure 125/54 L Pulse Oximetry 91 Oxygen Delivery Oxygen Flow Rate Fraction of Inspired Oxygen 01/05/25 15:45 01/05/25 19:22 01/05/25 20:00 Temperature 36.6 C 36.8 C Pulse Rate 55 L 64 Respiratory Rate 18 18 Blood Pressure 118/54 L 133/41 L Pulse Oximetry 95 96 96 Oxygen Delivery Nasal Cannula Oxygen Flow Rate 3 Fraction of Inspired Oxygen 01/05/25 20:39 01/05/25 20:43 01/05/25 23:35 Temperature 36.8 C Pulse Rate 61 61 48 L Respiratory Rate 16 23 H Blood Pressure 127/53 L Pulse Oximetry 96 98 Oxygen Delivery BiPAP Oxygen Flow Rate Fraction of Inspired Oxygen 01/05/25 23:35 01/06/25 00:00 01/06/25 02:25 Temperature 36.7 C Pulse Rate 60 45 L Respiratory Rate 16 15 Blood Pressure 116/50 L Pulse Oximetry 98 98 95 Oxygen Delivery Mechanical Ventilation BiPAP Oxygen Flow Rate Fraction of Inspired Oxygen 28 01/06/25 04:01/06/25 07:56 Temperature 36.7 C 37.1 C Pulse Rate 60 55 L Respiratory Rate 16 16 Blood Pressure 142/63 H 128/50 L Pulse Oximetry 93 95 Oxygen Delivery Oxygen Flow Rate Fraction of Inspired Oxygen Intake/Output Intake/Output: Intake & Output 01/03/25 01/04/25 01/05/25 01/06/25 23:59 23:59 23:59 23:59 Intake Total 1460 2520 720 200 Output Total 2100 2800 5865 950 [facility] -[phone] -[phone] -750 Meds/Results Medications: Active Medications Generic Name Dose Route Start Last Admin Trade Name Freq PRN Reason Stop Dose Admin Acetaminophen 650 mg 01/01/25 21:15 Acetaminophen 325 Mg Tablet PO Q6H PRN Mild Pain (1-3) Or Fever Alendronate Sodium 35 mg 01/05/25 09:00 01/05/25 08:53 Alendronate Sodium 35 Mg Tablet PO 35 mg WEEKLY GARY Administration Amiodarone HCl 200 mg 01/02/25 09:00 01/05/25 16:36 Amiodarone Hcl 200 Mg Tablet PO 200 mg BID GARY Administration Apixaban 5 mg 01/02/25 09:00 01/05/25 20:43 Apixaban 5 Mg Tablet PO 5 mg Q12HR GARY Administration Aspirin 81 mg 01/02/25 21:00 01/05/25 20:43 Aspirin 81 Mg Enteric Tablet PO 81 mg HS GARY Administration Carvedilol 12.5 mg 01/02/25 09:00 01/05/25 20:43 Carvedilol 12.5 Mg Tablet PO 12.5 mg Q12HR GARY Administration Empagliflozin 10 mg 01/04/25 09:00 01/05/25 08:53 Empagliflozin 10 Mg Tablet PO 10 mg DAILY GARY Administration Fenofibrate 145 mg 01/03/25 09:00 01/05/25 08:52 Fenofibrate Nanocrystallized 145 Mg Tablet PO 145 mg QAM GARY Administration Furosemide 40 mg 01/01/25 21:00 01/05/25 20:45 Furosemide Inj 40 Mg/4 Ml Vial IV PUSH 40 mg Q12HR GARY Administration Losartan Potassium 50 mg 01/02/25 09:00 01/05/25 08:53 Losartan Potassium 50 Mg Tablet PO 50 mg DAILY GARY Administration Pantoprazole Sodium 40 mg 01/02/25 09:00 01/05/25 08:52 Pantoprazole 40 Mg Tablet PO 40 mg DAILY GARY Administration Potassium Chloride 20 meq 01/02/25 09:00 01/03/25 09:43 Potassium Chloride 20 Meq Er Tablet PO 20 meq DAILY GARY Administration Prochlorperazine Maleate 5 mg 01/02/25 05:13 01/02/25 20:26 Prochlorperazine Maleate 5 Mg Tablet PO 5 mg Q6H PRN Administration Nausea And Vomiting Sertraline HCl 50 mg 01/02/25 09:00 01/05/25 20:43 Sertraline Hcl 50 Mg Tablet PO 50 mg Q12HR GARY Administration Silver Sulfadiazine 1 applic 01/02/25 09:00 01/05/25 08:54 Silver Sulfadiazine 1% Cr 400 Gm Jar (*Bkc) TOPICAL 1 applic DAILY GARY Administration Spironolactone 25 mg 01/04/25 09:00 01/05/25 08:52 Spironolactone 25 Mg Tablet PO 25 mg QAM GARY Administration Radiology Results: ITS Impressions Chest X-Ray 01/05/25 07:59 Impression: Central congestive change and possible minimal bibasilar pulmonary edema. Stable cardiomegaly. Labs Labs: Laboratory Results - last 24 hr 01/04/25 01/05/25 05:06 07:31 Band Neutrophils % Not Reportable Atypical Lymphocytes Present Platelet Estimate Slightly decreased Hypochromasia 2+ Anisocytosis 1+ Schistocytes None seen Puncture Site Not Reportable ABG pH 7.417 ABG pCO2 60.9 H* ABG pO2 82.4 ABG PO2/FiO2 Ratio 2.58 ABG HCO3 38.3 H ABG O2 Saturation 96.0 ABG O2 Content 13.2 L ABG Base Excess 12.0 A-a Gradient 74.5 Oxyhemoglobin 94.1 Total Hemoglobin 9.9 L O2 Delivery Device Non-invasive vent O2 Liters/Min Not Reportable Vent Rate 14 FiO2 32 Expiratory Pressure 8 Inspiratory Pressure Not Reportable NT-Pro-B Natriuret Pep 1010 H
[2025-01-06] MEDS: carvediloL 12.5 MG TABLET PO ×2 (08:30→20:20)
[2025-01-06] MEDS: PANTOPRAZOLE 40 MG TABLET PO (08:31)
[2025-01-06] MEDS: EMPAGLIFLOZIN 10 MG TABLET PO (08:31)
[2025-01-06] MEDS: LOSARTAN POTASSIUM 50 MG TABLET PO (08:31)
[2025-01-06] MEDS: FENOFIBRATE NANOCRYSTALLIZED 145 MG TABLET PO (08:31)
[2025-01-06] MEDS: AMIODARONE HCL 200 MG TABLET PO ×2 (08:31→17:05)
[2025-01-06] MEDS: SPIRONOLACTONE 25 MG TABLET PO (08:31)
[2025-01-06] MEDS: APIXABAN 5 MG TABLET PO ×2 (08:31→20:20)
[2025-01-06] MEDS: SERTRALINE HCL 50 MG TABLET PO ×2 (08:31→20:19)
[2025-01-06] MEDS: SILVER SULFADIAZINE 1% CR 400 GM JAR (*BKC) 1 APPLIC TOPICAL (08:33)
--- NOTE | 2025-01-06 08:35 | P.PNIM_ITS ---
Progress Note: A&P Assessment and Plan (1) Acute on chronic respiratory failure with hypoxia and hypercapnia: Code(s): J96.21 - Acute and chronic respiratory failure with hypoxia; J96.22 - Acute and chronic respiratory failure with hypercapnia Status: Acute Assessment and Plan: Baseline requirement of 3L and she is noncompliant with bipap. ABG 7.34/70.4/65.4 5L. BiPAP started CXR showed cardiomegaly with pulmonary vascular congestion and an unchanged opacity at the lateral LLL BNP 3160. Viral PCR negative. Echo as mentioned below Acute/chronic respiratory failure felt to be secondary to possible CHF and/or obesity hypoventilation syndrome. Possible anemia component. Low suspicion for pneumonia with no leukocytosis. Discussed with pulmonary. Better with bipap treatment. Able to wean down on bipap Continue bipap at night, with naps and as needed. Continue diuresis- currently on 40 mg IV lasix BID. monitor kidney function closely Wean O2 to baseline 3L. Encourage BiPAP compliance apnea link/abg in am noninvasive vent AVAPS mode-tolerated well pulm folloing for home recommendations continue to titrate oxygen down (2) Acute exacerbation of CHF (congestive heart failure): Qualifiers: Heart failure type: unspecified Qualified Code(s): I50.9 - Heart failure, unspecified Code(s): I50.9 - Heart failure, unspecified Status: Acute Assessment and Plan: BNP 3160. Echo in 2021 showed EF of 55-60%, grade 1 diastolic dysfunction, moderate pulmonary HTN. Echo at [place] in July with EF 54% Echo here showing mildly dilated and moderately reduced systolic fxn with EF 35- 40%,reduced RV systolic function, moderate pHTN, severely dilated left atrium and moderately dilated right atrium. EF lower then baseline. LHC in 2019 showed minimal coronary disease. Patient with acute on chronic systolic CHF. Lower EF could be related to recent cardiac arrest when hospitalized at [place] in July 2024. Good UOP with negative fluid balance. Continue IV Lasix. Continue Coreg and Cozaar. Aldactone and Empagliflozin added. Monitor I&Os and daily weights. - diuresed well overnight-will switch lasix to po today-80 mg daily and continue to monitor (3) Anemia: Qualifiers: Anemia type: unspecified type Qualified Code(s): D64.9 - Anemia, unspecified Code(s): D64.9 - Anemia, unspecified Status: Acute Assessment and Plan: Hgb 9.3, previously 14.3 on 12/12/2023. Iron and TIBC normal with iron sat 8% and ferritin 42. B12 low end of normal. TSH 5.1 with normal FT4. Denies bleeding, will continue home Eliquis at this time. Follow HH. hg/hct 9.3/32.8 (4) Hypertension: Qualifiers: Hypertension type: primary hypertension Qualified Code(s): I10 - Essential (primary) hypertension Code(s): I10 - Essential (primary) hypertension Status: Chronic Assessment and Plan: Patient's blood pressure reviewed and stable Will continue to follow. (5) Obstructive sleep apnea: Code(s): G47.33 - Obstructive sleep apnea (adult) (pediatric) Status: Chronic Assessment and Plan: As above (6) Atrial fibrillation: Code(s): I48.91 - Unspecified atrial fibrillation Status: Acute Assessment and Plan: EKG on admission showing NSR With first degree AVB, LAD and LBBB. She was seen by Cards in August and taken of her Amio. Eliquis was on hold due to recent gastric ulcer perforation. Plan was for her to be referred for Watchman procedure. She presents here back on Eliquis and AMio which was continued Monitor on tele. Plan DVT Prophylaxis: Eliquis Code Status: Full code Time Spent With Patient Time with patient: 25 - 35 minutes Subjective Date/time seen: 01/06/25 08:35 Interval history: 74yo female with HTN, CAD, CHF, CKD, prediabetes, HLD, TORRE, asthma, LEVI, MDD, chronic venostasis, recurrent cellulitis, and obesity presents here with hypoxia. Assuming care. Pt is seen and examined. Pulm. following. She is working with PT/OT. She is current;y on o2 per nc and doing well. She reports no sob. has two friends at a bedside visiting. she is pleasant and in a good spirit. 01/06- she is feeling betetr. eager to go home- diuresed well. Tolerated AVAPS well. continue to decrease oxygen today-anticipate home tomororw. Review of Systems Review of Systems: All systems reviewed & are unremarkable except as noted in HPI and below Exam Narrative: AF 97.5 108/37 56 16 96% 5L Gen - NARD sitting up in chair Chest - bibasilar crackles, nml RR CV - RRR S1/S2. Tele showing sinus jeo at times Abd - Soft, obese, NT Ext - 1-2+ pedal edema that are VARSHA wrapped Psych - Nml mood and affect Skin - Warm and dry. Const: General: comfortable and no acute distress Other: , female, nontoxic appearance, obese body habitus HENMT: Face/Nose/Sinus: Normal nares present Mouth: Yes dry mucous membranes Eyes: General: appearance normal, both eyes and all related structures Scle ra: sclerae normal Pupils: Equal, round and reactive pupils present EOM: EOMs intact bilaterally Resp: Other: + tachypnea without accessory muscle use . Tolerating BiPAP. No adventitious lung sounds on exam. Cardio: Rate: regular rate Rhythm: regular rhythm Other: S1-S2 present without murmur, rub, ectopy GI: Other: Abdomen soft, nondistended, nontender. Normoactive bowel sounds in all quadrants. Skin: Other: erythema to anterior left apz, small skin tear/abrasion without signs of infection. scant erythema to right paz. 1+ pitting edema that is symmetric bilaterally. Neuro: Cranial nerves: Yes Equal, round and reactive pupils present Speech: normal speech Motor exam (neuro): 5/5 motor strength present throughout Sensory Exam: normal sensation Other: A&O x4 Extrem: General: normal exam except as noted (See skin exam) Psych: Mental Status: mental status grossly normal Affect: normal affect Other: Good insight and judgment, pleasant Objective Data Vital Signs Vital Signs: Vital Signs - 24 hr 01/05/25 08:53 01/05/25 08:53 01/05/25 10:00 Temperature Pulse Rate 65 65 53 L Respiratory Rate Blood Pressure Pulse Oximetry Oxygen Delivery Oxygen Flow Rate Fraction of Inspired Oxygen 01/05/25 11:42 01/05/25 12:00 01/05/25 14:00 Temperature 98.3 F Pulse Rate 59 L 54 L 59 L Respiratory Rate 22 H Blood Pressure 125/54 L Pulse Oximetry 91 Oxygen Delivery Oxygen Flow Rate Fraction of Inspired Oxygen 01/05/25 15:45 01/05/25 19:22 01/05/25 20:00 Temperature 98 F 98.2 F Pulse Rate 55 L 64 Respiratory Rate 18 18 Blood Pressure 118/54 L 133/41 L Pulse Oximetry 95 96 96 Oxygen Delivery Nasal Cannula Oxygen Flow Rate 3 Fraction of Inspired Oxygen 01/05/25 20:39 01/05/25 20:43 01/05/25 23:35 Temperature 98.3 F Pulse Rate 61 61 48 L Respiratory Rate 16 23 H Blood Pressure 127/53 L Pulse Oximetry 96 98 Oxygen Delivery BiPAP Oxygen Flow Rate Fraction of Inspired Oxygen 01/05/25 23:35 01/06/25 00:00 01/06/25 02:25 Temperature 98.1 F Pulse Rate 60 45 L Respiratory Rate 16 15 Blood Pressure 116/50 L Pulse Oximetry 98 98 95 Oxygen Delivery Mechanical Ventilation BiPAP Oxygen Flow Rate Fraction of Inspired Oxygen 28 01/06/25 04:00 01/06/25 07:56 01/06/25 08:30 Temperature 98.1 F 98.8 F Pulse Rate 60 55 L 55 L Respiratory Rate 16 16 Blood Pressure 142/63 H 128/50 L Pulse Oximetry 93 95 Oxygen Delivery Oxygen Flow Rate Fraction of Inspired Oxygen 01/06/25 08:31 Temperature Pulse Rate 55 L Respiratory Rate Blood Pressure Pulse Oximetry Oxygen Delivery Oxygen Flow Rate Fraction of Inspired Oxygen Intake/Output Intake/Output: Intake & Output 01/03/25 01/04/25 01/05/25 01/06/25 23:59 23:59 23:59 23:59 Intake Total 1460 2520 720 200 Output Total 2100 2800 3625 950 Balance -640 -280 -2905 -750 Meds/Results Medications: Active Medications Generic Name Dose Route Start Last Admin Trade Name Freq PRN Reason Stop Dose Admin Acetaminophen 650 mg 01/01/25 21:15 Acetaminophen 325 Mg Tablet PO Q6H PRN Mild Pain (1-3) Or Fever Alendronate Sodium 35 mg 01/05/25 09:00 01/05/25 08:53 Alendronate Sodium 35 Mg Tablet PO 35 mg WEEKLY GARY Administration Amiodarone HCl 200 mg 01/02/25 09:00 01/06/25 08:31 Amiodarone Hcl 200 Mg Tablet PO 200 mg BID GARY Administration Apixaban 5 mg 01/02/25 09:00 01/06/25 08:31 Apixaban 5 Mg Tablet PO 5 mg Q12HR GARY Administration Aspirin 81 mg 01/02/25 21:00 01/05/25 20:43 Aspirin 81 Mg Enteric Tablet PO 81 mg HS GARY Administration Carvedilol 12.5 mg 01/02/25 09:00 01/06/25 08:30 Carvedilol 12.5 Mg Tablet PO 12.5 mg Q12HR GARY Administration Empagliflozin 10 mg 01/04/25 09:00 01/06/25 08:31 Empagliflozin 10 Mg Tablet PO 10 mg DAILY GARY Administration Fenofibrate 145 mg 01/03/25 09:00 01/06/25 08:31 Fenofibrate Nanocrystallized 145 Mg Tablet PO 145 mg QAM GARY Administration Furosemide 80 mg 01/06/25 09:00 Furosemide 80 Mg Tablet PO DAILY GARY Losartan Potassium 50 mg 01/02/25 09:00 01/06/25 08:31 Losartan Potassium 50 Mg Tablet PO 50 mg DAILY GARY Administration Pantoprazole Sodium 40 mg 01/02/25 09:00 01/06/25 08:31 Pantoprazole 40 Mg Tablet PO 40 mg DAILY GARY Administration Potassium Chloride 20 meq 01/02/25 09:00 01/03/25 09:43 Potassium Chloride 20 Meq Er Tablet PO 20 meq DAILY GARY Administration Prochlorperazine Maleate 5 mg 01/02/25 05:13 01/02/25 20:26 Prochlorperazine Maleate 5 Mg Tablet PO 5 mg Q6H PRN Administration Nausea And Vomiting Sertraline HCl 50 mg 01/02/25 09:00 01/06/25 08:31 Sertraline Hcl 50 Mg Tablet PO 50 mg Q12HR GARY Administration Silver Sulfadiazine 1 applic 01/02/25 09:00 01/06/25 08:33 Silver Sulfadiazine 1% Cr 400 Gm Jar (*Bkc) TOPICAL 1 applic DAILY GARY Administration Spironolactone 25 mg 01/04/25 09:00 01/06/25 08:31 Spironolactone 25 Mg Tablet PO 25 mg QAM GARY Administration Radiology Results: ITS Impressions Chest X-Ray 01/05/25 07:59 Impression: Central congestive change and possible minimal bibasilar pulmonary edema. Stable cardiomegaly. Labs Labs: Laboratory Results - last 24 hr 01/04/25 05:06 Puncture Site Not Reportable ABG pH 7.417 ABG pCO2 60.9 H* ABG pO2 82.4 ABG PO2/FiO2 Ratio 2.58 ABG HCO3 38.3 H ABG O2 Saturation 96.0 ABG O2 Content 13.2 L ABG Base Excess 12.0 A-a Gradient 74.5 Oxyhemoglobin 94.1 Total Hemoglobin 9.9 L O2 Delivery Device Non-invasive vent O2 Liters/Min Not Reportable Vent Rate 14 FiO2 32 Expiratory Pressure 8 Inspiratory Pressure Not Reportable Quality VTE Prophylaxis VTE prophylaxis: pharmacologic ordered
[2025-01-06] MEDS: FUROSEMIDE 80 MG TABLET PO (08:55)
--- NOTE | 2025-01-06 11:01 | PCRCNOTE ---
Home O2 eval done, pt requires 3 liters at rest and 4 liters with exertion. Pt has DME [facility] for Home O2. Manager Crisis will bring a tank from home when she D/C back. Has all O2 needs at home DME for [facility] is [facility].
--- NOTE | 2025-01-06 11:03 | HOMEO2EVAL ---
Evaluation was performed at [facility] Home Oxygen Evaluation RC: Home Oxygen (O2) Evaluation Start: 01/06/25 09:10 Freq: ONCE Status: Active Protocol: RPE Activity Type Activity Date Activity User E-sign Co-sign Detail Recorded Client Recorded Date Recorded By Document 01/06/25 10:30 HERNAN [email or web address] 01/06/25 11:01 HERNAN Document 01/06/25 10:31 HERNAN [email or web address] 01/06/25 11:01 HERNAN Document 01/06/25 10:32 HERNAN [email or web address] 01/06/25 11:01 HERNAN Document 01/06/25 10:33 HERNAN [email or web address] 01/06/25 11:01 HERNAN Document 01/06/25 10:34 HERNAN [email or web address] 01/06/25 11:01 HERNAN Document 01/06/25 10:45 HERNAN [email or web address] 01/06/25 11:01 HERNAN 01/06/25 01/06/25 01/06/25 10:30 10:31 10:32 Home O2 Evaluation [Oxygen] -Test Phase Resting Resting Resting -Oxygen Delivery Room Air Nasal Cannula Nasal Cannula -Oxygen Flow Rate (L/min) 2 3 [Pulse Oximetry] -Pulse Oximetry (90-100 %) 87 L 89 L 92 [Pulse Rate] -Pulse Rate (60-100 beats/min) 56 L [Exercise] -Ambulation Distance (feet) -Ambulation Distance (meters) [Comments] -Home Oxygen Evaluation Comments [Charges] -Evaluation Charges O2 Evaluation by Pulmonary 01/06/25 01/06/25 01/06/25 10:33 10:34 10:45 Home O2 Evaluation [Oxygen] -Test Phase Exercise Exercise Resting -Oxygen Delivery Nasal Cannula Nasal Cannula Nasal Cannula -Oxygen Flow Rate (L/min) 3 4 3 [Pulse Oximetry] -Pulse Oximetry (90-100 %) 87 L 90 93 [Pulse Rate] -Pulse Rate (60-100 beats/min) 90 90 61 [Exercise] -Ambulation Distance (feet) 100 -Ambulation Distance (meters) 30.47 [Comments] -Home Oxygen Evaluation Comments Pt requires 3 liters resting and 4 liters with exertion [Charges] -Evaluation Charges
--- NOTE | 2025-01-06 11:51 | PCPTNOTE ---
Patient refused treatment this session. Patient reported she just walked with respiratory therapy for home O2 and just wanted to sit and wait for lunch.
[2025-01-06] MEDS: ASPIRIN 81 MG ENTERIC TABLET PO (20:19)
[2025-01-07 01:38] LABS: Methylmalonic Acid 422 nmol/L (69-390)
[2025-01-07 04:00] VITALS: BP 135/75; PULSE 54; RESP 20; TEMP 36.3; O2SAT 94
[2025-01-07 04:57] VITALS: O2SAT 97
[2025-01-07 05:01] LABS: Alveolar/Arterial O2 Gradient 118.3 mmHg; Base Excess ABG 9.9 mEq/l (+/-2.0); Fractional Inspired Oxygen 40 %; HCO3 ABG 35.7 mEq/l (22.0-26.0); Oxygen Content ABG 13.8 %vol (16.0-22.0); Oxygen Saturation ABG 97.7 % (95.0-100.0); Oxyhemoglobin 97.1 % THb (90.0-100.0); PCO2 ABG 55.2 mmHg (35.0-45.0); PO2 ABG 103.4 mmHg (80.0-100.0); PO2 FiO2 Ratio Arterial Blood 2.59 %; pH ABG 7.428 (7.350-7.450)
[2025-01-07 05:03] LABS: Modified Allen's Test Pass; Site Drawn RIGHT RADIAL
[2025-01-07 05:04] LABS: Device NON-INVASIVE VENT
[2025-01-07 07:44] LABS: Hematocrit 33.9 % (37.0-47.0); Hemoglobin 9.5 g/dL (12.0-15.0); Mean Corpuscular Hemoglobin 24.7 pg (26-34); Mean Corpuscular Volume 88.1 fl (80-100); Platelet Count Result 151 k/mm3 (150-375); Red Blood Count 3.85 M/mm3 (4.2-5.4); Red Cell Distribution Width 17.5 % (11.5-14.5); White Blood Count 5.2 K/mm3 (4.5-10.0)
[2025-01-07 08:19] LABS: Alanine Aminotransferase 18 U/L (6-35); Albumin Level 3.8 g/dL (3.5-5.1); Alkaline Phosphatase 57 U/L (38-126); Aspartate Amino Transferase 22 U/L (14-36); Bilirubin,Total 0.5 mg/dL (0.2-1.3); Blood Urea Nitrogen 26 mg/dL (7-17); Calcium 8.8 mg/dL (8.4-10.2); Carbon Dioxide > 40 mmol/L (22-30); Chloride 96 mmol/L (98-107); Estimated CRCL calculation 50 ml/min; Estimated Glomerular Filt Rate 42; Glucose 110 mg/dL (65-110); Sodium 140 mmol/L (137-145)
--- NOTE | 2025-01-07 08:24 | P.PNPL_ITS ---
Progress Note: A&P Assessment and Plan (1) Obesity hypoventilation syndrome: Code(s): E66.2 - Morbid (severe) obesity with alveolar hypoventilation Status: Acute Assessment and Plan: patient with morbid obesity, BMI 56.7, chronic hypercarbic respiratory failure with a ABG on 5 L of 7.34/70/65. free T4 1.29 on 01/02/2025. Patient has obesity hypoventilation syndrome and would benefit from a noninvasive ventilator to prevent further deterioration and subsequent hospitalizations. Patient has been on outpatient BiPAP but Her compliance is low and she cannot tolerate this at home. She has been on BiPAP this admission but cannot tolerate the high pressures and high flows. I will initiate noninvasive ventilation with the AVAPS mode. 01/04/2024 the patient told me she could not tolerate the by pressures last night and had difficulty sleeping. I placed her on a noninvasive ventilation with the AVAPS mode and adjusted the settings for comfort resulting in: Respiratory rate 14, tidal volume 500, EPAP 8, minimal inspiratory pressure 9, maximal inspiratory pressure 25, inspiratory time 0.8, rise of 1 (fastest), 32% FiO2. peak inspiratory pressure was 11 and saturations were 100%. Patient tells me these settings are comfortable and she will be able to wear this tonight. Plan: Continue AVAPS p.r.n. during the day and tonight when she sleeps. I will check an ApneaLink and an ABG prior to removal of the AVAPS in the morning. 01/04/2025: Patient wore the noninvasive ventilator with the AVAPS mode on 32% FiO2 and had an overnight oximetry with recording duration of 6 hours and 58 minutes. Average saturation 92%. Low saturation 77%. Time with saturation less than or equal to 88% was 49 minutes. Oxygen desaturation index 8. Patient tells me she had an ABG prior to removal of the mass but there are no results in the computer. Plan: Patient tells me she slept well and was comfortable on the machine. I will continue current settings and check a blood gas in the morning prior to removal of AVAPS. I will increase her FiO2 to 40% and check an overnight oximetry on these settings with 40%. Tomorrow when the student records coordinator is in the office, will initiate the process for a home noninvasive ventilator through her [employer]. 01/05/25: the patient is feeling better. She states she is breathing normal. She denies cough, phlegm or hemoptysis. Currently she is on 4 L nasal cannula saturations 94%. Patient wore the hospital noninvasive ventilator with 40% FiO2 last night and slept well. Overnight oximetry with recording duration of 7 hours and 36 minutes. Average saturation 95%. Low saturation 87%. Time with saturation less than or equal to 88% was 1 minute, oxygen desaturation index 10. BNP has improved from 1790 on [id number] on 01/05/2025. Patient is -280 mL yesterday and cumulative she is -3.4 L since admission. Chest x-ray today shows unchanged cardiomegaly, perihilar congestion with no pleural effusions. Plan: Current settings of AVAPS: Respiratory rate 14, tidal volume 500, EPAP 8, minimal inspiratory pressure 9, maximal inspiratory pressure 25, inspiratory time 0.8, rise of 1 (fastest), 40% FiO2 Provide adequate ventilation and oxygenation. discussed with student records coordinator and will initiate home noninvasive ventilator set up through [employer]. Later in the day filled out noninvasive ventilation orders with [employer] for RAMILA TT V-VAPS-AE with rate of 14, target tidal volume 500, EPAP minimum 5, EPAP maximum 15, pressure support minimum 6, pressure support maximum 25, inspiratory time 1.0 and 5 L bleed in. 01/06/2025: Patient tells me she is breathing better than her normal. She walked 110 ft yesterday. She denies cough, phlegm, hemoptysis. She has the hospital noninvasive ventilator with the AVAPS and a fullface mask and slept good. When I enter the room she was on 3 L nasal cannula with saturations 96%. I decreased her to 2 L nasal cannula and her saturations remain 94. Yesterday she diuresed 2 point 9 L and cumulative she has diuresed 5.8 L since admission. Her weight today is 141.3 kg. Plan: Plan for home noninvasive ventilator to be set up in the hospital [facility] with 5 L bleed in. Will perform overnight oximetry and ABG prior to removal. If testing is acceptable potential discharge on 01/07/2025. Later in the day: Home noninvasive ventilator set up in the hospital through [employer]. 01/07/25: patient tells me she is breathing normal. She denies cough, phlegm, hemoptysis. Currently she is on 3 L nasal cannula saturation 97%. Patient wore her home noninvasive ventilator with the settings above and said that she slept great and there were no issues with the mask or machine. Patient had an ABG prior to removal of 7.43. Patient had an over night oximetry with recording duration of 6 hours and 56 minutes. Average saturation 94 minutes. Low saturation 85%. Time with saturation less than or equal to 88% was 4 minutes. Oxygen desaturation index 6.2. Current noninvasive ventilator with a TT V-AVAPS -AE and 5 L bleed in provide good ventilation and oxygenation. From a pulmonary perspective patient can be discharged on these pulmonary medications: Oxygen 3 L at rest and 4 with activity. When she naps or sleeps: Noninvasive ventilator with [employer] for RAMILA TT V-VAPS-AE with rate of 14, target tidal volume 500, EPAP minimum 5, EPAP maximum 15, pressure support minimum 6, pressure support maximum 25, inspiratory time 1.0 and 5 L bleed in. Diuretics per hospitalist team. Patient was admitted with 80 mg p.o. as a home dose and came in with fluid overload. Currently she is on 80 p.o. q.day, spironolactone and Jardiance have been added. Patient will follow-up in the Pulmonary Clinic on her previously scheduled appointment on 01/20/2025 at 11:30 a.m. or in 4 weeks to assess her 4 week non invasive ventilation compliance. I will inform our cocoa milling machine operator. Discussed with Ada Bullock, will follow with you (2) Acute exacerbation of CHF (congestive heart failure): Qualifiers: Heart failure type: unspecified Qualified Code(s): I50.9 - Heart failure, unspecified Code(s): I50.9 - Heart failure, unspecified Status: Acute Assessment and Plan: Chronic hypoxemic respiratory failure: pain is on 3 L rest, 3 L activity and 3 L bleed in at night with her BiPAP. 01/04/2024 patient is sitting in chair on 6 L nasal cannula with saturations 94%. Overall the patient tells me she is breathing better. She denied fever, chills, rigors. Overall she tells me she is breathing back to her normal. White blood cell count 4.5, creatinine 0.96, BNP improved from 3160 on 01/01/2025 to 1790. Since admission she has diuresed 2.4 L. Plan: agree with as aggressive diuresis as tolerated by her cardiac and renal systems. Currently she is on Lasix 40 IV q.12 hours. Continue amiodarone 200 b.i.d., apixaban 5 q.12, losartan 50 q.day, carvedilol 12.5 q.12 per hospitalist team. Goal saturation 90-94%, adjust oxygen accordingly. Later in the day echocardiogram demonstrated EF 35-40%, right ventricular normal size with reduced function, PASP 69. Last echo on 09/14/2022 showed an EF 55-60, grade 1 diastolic dysfunction, moderately enlarged right ventricle with reduced systolic function, PASP 56. 01/04/2025: patient is out of the bed sitting in a chair. She is breathing normal in tells me she is breathing better than she has in the last year. She slept well with the noninvasive ventilator in the fullface mask. She has no cough, phlegm or hemoptysis. She is afebrile. White blood cell count 4.4, creatinine 0.87. She diuresed 640 mL yesterday and cumulative she has diuresed 3.5 L since admission. Her weight is 146.7 kg With an admission weight listed as 144.2. when I enter the room she was on 7 L nasal cannula with saturations 96%. I decreased her to 5 L nasal cannula her saturations were 94%. Plan: agree with as aggressive diuresis as tolerated by her cardiac and renal systems currently on Lasix 40 IV b.i.d., amiodarone, apixaban, losartan and carvedilol Per hospitalist team. Goal saturation 90-94%, adjust accordingly. 01/05/25: the patient is feeling better. She states she is breathing normal. She denies cough, phlegm or hemoptysis. Currently she is on 4 L nasal cannula saturations 94%. P BNP has improved from 1790 on 01/03 to 1010 on 01/05/2025. Patient is -280 mL yesterday and cumulative she is -3.4 L since admission. Chest x-ray today shows unchanged cardiomegaly, perihilar congestion with no pleural effusions. Plan: Suspect etiology of patient's pulmonary hypertension and decreased right ventricular function is related to LV dysfunction, untreated obesity hypoventilation syndrome, chronic hypoxemia. have initiated noninvasive ventilation as above. Patient is being treated with Lasix 40 IV b.i.d., Jardiance, spironolactone, Coreg and losartan per hospitalist team. 01/06/25: When I enter the room she was on 3 L nasal cannula with saturations 96%. I decreased her to 2 L nasal cannula and her saturations remain 94. Yesterday she diuresed 2 point 9 L and cumulative she has diuresed 5.8 L since admission. Her weight today is 141.3 kg. Plan: Patient is being treated with Lasix 40 IV b.i.d., Jardiance, spironolactone, Coreg and losartan per hospitalist team. Later in the day: Home O2 assessment: rest room air saturation 87%. Rest nasal cannula 2 L saturation 89%. Rest nasal cannula 3 L saturation 92%. Exercise nasal cannula 3 L saturation 87%. Exercise 4 L nasal cannula saturation 90%. Patient walked 30 m. 01/07/25: Patient diuresed 1.4 L yesterday with a cumulative diuresis of 7.1 L since admission. Her weight today is 140.1 kg. Admission weight 144.2. lower extremity edema is improved but still present. Plan: Currently patient is on Lasix 80 p.o. q.day, Spironolactone, Jardiance, Vanlue Reg and losartan per hospitalist team. Subjective Date/time seen: 01/07/25 08:24 Interval history: 01/03/2025: This is a new pulmonary consult for hypoxemic and hypercarbic respiratory failure. 74-year-old with a history of hypertension, diabetes, chronic venous stasis, AFib on eliquis, pulmonary hypertension, Chronic hypoxemic respiratory failure on 3 L nasal cannula, and obstructive sleep apnea on BiPAp 08/31 with 3 L bleed in. Patient is followed in the Pulmonary Clinic in last seen on 10/14/2024. this is a copy of the note. Last visit 03/2024 Kelly is here for follow up regarding LEVI and respiratory failure with hypoxia. PCP is REUBEN Mcnamara. * Hx: diastolic CHF, respiratory failure, sleep apnea, MDD, HLD, HTN, obesity, CAD. 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 Mendoza, wire spring relay adjuster. * Patient was hospitalized for 5 nights back in August 2022 for acute respiratory failure with hypoxia, CHF exacerbation, pneumonia, and cellulitis. Patient has shortness of breath and was found to have pneumonia on the chest x-ray and was given antibiotics. She was given increased dose of Lasix to help with some fluid volume overload. She was evaluated for home O2 and she required 2L 24/. This was new for her.Today she reports much has changed with her health since our last visit. She states Jul 2024 she had a ruptured hernia requiring surgery and she was on a ventilator for 20 days. This was at [place]. Required multiple blood transfusions. She discharged end of Jul 2024 to rehab at [facility] and still there. She is doing PT/OT 6 days per week and also doing speech therapy as she's had dysphagia after being intubated that long. Previously she was living at [facility] since 2022. She anticipates a heart surgery 10/22/24 at [place]. She reports she saw cardiology, Dr Aguilar, after her hospital discharge. Will request records. ROMERO stable. She is in a wheelchair for longer distances today but working on walking with a rollator walker at rehab. Reports she is a shallow breather. Large abdomen compressing her breathing she says. Last week had URI symptoms with sore throat, sneezing, runny nose, overall improved now. Not much coughing. Denies wheezing. She is not on any inhaled medications. She has supplemental O2 for home use. Her last walk study was 10/2022 and showed a requirement for 3L/min with activity and none at rest. Today she tells me she uses 3L/min O2 all day and night - with rest, walking. She has small portable tanks and wants to get a portable oxygen concentrator. She is prescribed BiPAP 12/8cm, she is using more than she was at last visit but still having trouble she says. Currently wearing BiPAP nightly for avg of 4 to 5 hours. SOB with laying flat and trouble tolerating BiPAP mask due to claustrophobia and anxiety. She got a new inside phone sales/lounger recliner chair she wants to start sleeping in. She was a never smoker. 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 01/01/2025: Patient went to her PCP office visit with shortness of breath for a month and on her home 3 L nasal cannula her saturations were ranged between 40 and 60. Her weight was 318 and she was sent to the emergency department. The patient tells me she had not been using her home BiPAP since approximately 12/06/2024. In the emergency department her blood pressure is 115/65, heart rate 78, respirations 18, saturations on 3 L nasal cannula 89%. White blood cell count was 7.3, creatinine was 0.97, BNP was 3160, COVID, influenza, RSV RT PCR. Negative. Patient had a blood gas on 5 L nasal cannula the pH of 7.34/70/65 and was placed on BiPAP 12/6 with a repeat blood gas 7.36 / 72/94. Her BiPAP was increased to 20/5 with a repeat blood gas of 7.40/64/83 on 35% FiO2. Patient was treated for fluid overload with IV Lasix. 01/03/2025 patient is sitting in chair on 6 L nasal cannula with saturations 94%. Overall the patient tells me she is breathing better. She denied fever, chills, rigors. Overall she tells me she is breathing back to her normal. White blood cell count 4.5, creatinine 0.96, BNP improved to 1790. Since admission she has diuresed 2.4 L. the patient told me she could not tolerate the by pressures last night and had difficulty sleeping. I placed her on a noninvasive ventilation with the AVAPS mode and adjusted the settings for comfort resulting in: Respiratory rate 14, tidal volume 500, EPAP 8, minimal inspiratory pressure 9, maximal inspiratory pressure 25, inspiratory time 0.8, rise of 1, 32% FiO2. peak inspiratory pressure was 11 and saturations were 100%. 01/04/2025: patient is out of the bed sitting in a chair. She is breathing normal in tells me she is breathing better than she has in the last year. She slept well with the noninvasive ventilator in the fullface mask. She has no cough, phlegm or hemoptysis. She is afebrile. White blood cell count 4.4, creatinine 0.87. She diuresed 640 mL yesterday and cumulative she has diuresed 3.5 L since admission. Her weight is 146.7 kg With an admission weight listed as 144.2. When I enter the room she was on 7 L nasal cannula with saturations 96%. I decreased her to 5 L nasal cannula her saturations were 94%. Patient wore the noninvasive ventilator with the AVAPS mode on 32% FiO2 and had an overnight oximetry with recording duration of 6 hours and 58 minutes. Average saturation 92%. Low saturation 77%. Time with saturation less than or equal to 88% was 49 minutes. Oxygen desaturation index 8. Patient tells me she had an ABG prior to removal of the mask but there are no results in the computer. Later in the day found ABG results: ABG at 5:20 a.m. this morning was obtained and did not cross over to the computer. PH 7.42/61/82. This demonstrates adequate ventilation on her current noninvasive ventilator settings. Will not perform ABG in the morning. 01/05/25: the patient is feeling better. She states she is breathing normal. She denies cough, phlegm or hemoptysis. Currently she is on 4 L nasal cannula saturations 94%. Patient wore the hospital noninvasive ventilator with 40% FiO2 last night and slept well. Overnight oximetry with recording duration of 7 hours and 36 minutes. Average saturation 95%. Low saturation 87%. Time with saturation less than or equal to 88% was 1 minute, oxygen desaturation index 10. BNP has improved from 1790 on [id number] on 01/05/2025. Patient is -280 mL yesterday and cumulative she is -3.4 L since admission. Chest x-ray today shows unchanged cardiomegaly, perihilar congestion with no pleural effusions. Later in the day filled out noninvasive ventilation orders with [employer] for RAMILA TT V-VAPS-AE with rate of 14, target tidal volume 500, EPAP minimum 5, EPAP maximum 15, pressure support minimum 6, pressure support maximum 25, inspiratory time 1.0 and 5 L bleed in. 01/06/2025: Patient tells me she is breathing better than her normal. She walked 110 ft yesterday. She denies cough, phlegm, hemoptysis. She has the hospital noninvasive ventilator with the AVAPS and a fullface mask and slept good. When I enter the room she was on 3 L nasal cannula with saturations 96%. I decreased her to 2 L nasal cannula and her saturations remain 94. Yesterday she diuresed 2 point 9 L and cumulative she has diuresed 5.8 L since admission. Her weight today is 141.3 kg. later in the day: Home noninvasive ventilator set up in the hospital through [employer]. Later in the day: Home O2 assessment: rest room air saturation 87%. Rest nasal cannula 2 L saturation 89%. Rest nasal cannula 3 L saturation 92%. Exercise nasal cannula 3 L saturation 87%. Exercise 4 L nasal cannula saturation 90%. Patient walked 30 m. 01/07/25: patient tells me she is breathing normal. She denies cough, phlegm, hemoptysis. Currently she is on 3 L nasal cannula saturation 97%. Patient diuresed 1.4 L yesterday with a cumulative diuresis of 7.1 L since admission. Her weight today is 140.1 kg. Patient wore her home noninvasive ventilator with the settings above and said that she slept great and there were no issues with the mask or machine. Patient had an ABG prior to removal of 7.43/103. Patient had an over night oximetry with recording duration of 6 hours and 56 minutes. Average saturation 94 minutes. Low saturation 85%. Time with saturation less than or equal to 88% was 4 minutes. Oxygen desaturation index 6.2. DATA: 01/03/25: Echo Summary 1. The left ventricle is mildly dilated with moderately reduced systolic function. There is severe concentric left ventricular hypertrophy. The left ventricular ejection fraction is visually estimated to be 35-40%. 2. The right ventricle is normal size mildly reduced systolic function. 3. There is moderate pulmonary hypertension. The PASP is calculated to be 69 mm Hg. 4. There is no [id number] shunt on bubble study. 5. The left atrium is severely dilated. 6. The right atrium is moderately dilated. Right Ventricle The right ventricle is normal size mildly reduced systolic function. Left Atria The left atrium is severely dilated. Right Atria The right atrium is moderately dilated. Download 09/10/2024 through 10/09/2024. Patient is on BiPAP spontaneous mode, pressures 12/8. Room usage days greater than or equal to 4 hours was 67%. AHI 2.8, apnea index 2.5, hypopnea index 0.3, central apnea index 0.0, median leak 108, 95th percentile leak 119, maximal leak 119. Median tidal volume 207, median respiratory rate 22, median minute ventilation 4.7. I interpret this download as poor compliance, low tidal volume, adequate pressures and high leak. * 11/23/22 - Split PSG - Severe LEVI with AHI 54.4 and desaturation to 81%. BiPAP 12/8cmH2O with 2L/min O2 bleed in recommended. * 11/21/22 - PFT - There is a moderate obstructive ventilatory impairment with good response to bronchodilator, normal lung volumes, normal diffusion. No prior studies are available to compare. * 11/21/22 - Home O2 eval - Patient requires 3L/min O2 with activity and none at rest. * Home O2 Eval 09/18/22 - need 2L O2 rest+activity. * Chest CT 09/14/22 - Patchy bibasilar consolidation. Findings are suspicious for pneumonia versus possibly bibasilar atelectatic change. Indeterminate 2.5 cm right adrenal nodule (PCP following this). Patient reports nodule was benign. Echo 09/14/22 - Summary 1. Left ventricular chamber dimension is mildly enlarged. 2. Left ventricular systolic function is normal, estimated at 55-60%. 3. There is mildly increased left ventricular wall thickness. 4. The left ventricular diastolic function is grade I diastolic dysfunction. 5. The basal inferolateral wall is hypokinetic. 6. Right ventricular chamber dimension is moderately enlarged. 7. Right ventricular systolic function is reduced. 8. Left atrial chamber dimension is mildly enlarged. 9. There is mild mitral valve regurgitation. 10. There is mild tricuspid valve regurgitation. 11. Moderate pulmonary hypertension, estimated pulmonary arterial systolic pressure is 56 mmHg. Left Ventricle Left ventricular chamber dimension is mildly enlarged. Left ventricular systolic function is normal, estimated at 55-60%. There is mildly increased left ventricular wall thickness. The left ventricular diastolic function is grade I diastolic dysfunction. The basal inferolateral wall is hypokinetic. Right Ventricle Right ventricular chamber dimension is moderately enlarged. Right ventricular systolic function is reduced. Left Atria Left atrial chamber dimension is mildly enlarged. Right Atria Right atrial chamber dimension is normal. Atrial Septum Intact interatrial septum visualized by color flow imaging. * HST 03/09/22 through [facility] - mild sleep apnea, AHI 9.9, avg saturation 86%, minimum sleep saturation 55%. 192 minutes spent below 88%. Review of Systems Constitutional: Constitutional: Reports no additional constitutional complaints Eyes: Eyes: Reports no additional eye complaints ENT: Reports system reviewed and no additional complaints, except as documen hammad Cardiovascular: Cardiovascular: Reports no additional cardiovascular complaints Respiratory: Respiratory: Reports no additional respiratory complaints Gastrointestinal: Gastrointestinal: Reports no additional gastrointestinal complaints Musculoskeletal: Musculoskeletal: Reports no additional musculoskeletal complaints Neurologic: Reports system reviewed and no additional complaints, except as documented Psychiatric: Psychiatric: Reports no additional psychiatric complaints Endocrine: Endocrine: Reports no additional endocrine complaints Hematologic/Lymphatic: Hematologic/Lymphatic: Reports no additional hematologic/lymphatic complaints Allergic/Immunologic: Allergic/Immunologic: Reports no additional allergic/immunologic complaints Exam Const: General: cooperative and comfortable Orientation/consciousness: oriented to person, oriented to place and oriented to time Other: Morbidly obese HENMT: Head: normal to inspection Ears: hearing grossly normal bilaterally Eyes: General: appearance normal, both eyes and all related structures Neck: Neck: normal visual inspection Chest: Chest palpation & inspection: normal inspection of the chest Resp: Effort & Inspection: normal respiratory effort and able to speak in complete sentences Auscultation: no crackles, no rales, no rhonchi, no wheezes and diminished lung sounds Other: morbidly obese, no wheezes Cardio: Jugular venous distension: no JVD GI: Inspection: normal to inspection Skin: General skin exam: normal color Neuro: General: oriented to person, oriented to place and oriented to time Extrem: General: normal to inspection and edema Other: improved edema Psych: Appearance: grossly normal Objective Data Vital Signs Vital Signs: Vital Signs - 24 hr 01/06/25 08:30 01/06/25 08:30 01/06/25 08:31 Temperature Pulse Rate 55 L 55 L Respiratory Rate Blood Pressure Pulse Oximetry 95 Oxygen Delivery Nasal Cannula Oxygen Flow Rate 3 Fraction of Inspired Oxygen 01/06/25 10:30 01/06/25 10:31 01/06/25 10:32 Temperature Pulse Rate 56 L Respiratory Rate Blood Pressure Pulse Oximetry 87 L 89 L 92 Oxygen Delivery Room Air Nasal Cannula Nasal Cannula Oxygen Flow Rate 2 3 Fraction of Inspired Oxygen 01/06/25 10:33 01/06/25 10:34 01/06/25 10:45 Temperature Pulse Rate 90 90 61 Respiratory Rate Blood Pressure Pulse Oximetry 87 L 90 93 Oxygen Delivery Nasal Cannula Nasal Cannula Nasal Cannula Oxygen Flow Rate 3 4 3 Fraction of Inspired Oxygen 01/06/25 12:00 01/06/25 17:05 01/06/25 20:00 Temperature 37.0 C 36.9 C Pulse Rate 57 L 57 L 56 L Respiratory Rate 16 20 Blood Pressure 132/63 152/75 H Pulse Oximetry 94 100 Oxygen Delivery Oxygen Flow Rate Fraction of Inspired Oxygen 01/06/25 20:00 01/06/25 20:20 01/06/25 22:07 Temperature Pulse Rate 57 L Respiratory Rate Blood Pressure Pulse Oximetry 100 100 Oxygen Delivery Nasal Cannula Oxygen Flow Rate 3 5 Fraction of Inspired Oxygen 40 01/07/25 04:00 01/07/25 04:57 Temperature 36.3 C L Pulse Rate 54 L Respiratory Rate 20 Blood Pressure 135/75 Pulse Oximetry 94 97 Oxygen Delivery Oxygen Flow Rate Fraction of Inspired Oxygen Intake/Output Intake/Output: Intake & Output 01/04/25 01/05/25 01/06/25 01/07/25 23:59 23:59 23:59 23:59 Intake Total 2520 720 920 150 Output Total 2800 3625 2400 800 Balance -280 -2905 -1480 -650 Meds/Results Medications: Active Medications Generic Name Dose Route Start Last Admin Trade Name Freq PRN Reason Stop Dose Admin Acetaminophen 650 mg 01/01/25 21:15 Acetaminophen 325 Mg Tablet PO Q6H PRN Mild Pain (1-3) Or Fever Alendronate Sodium 35 mg 01/05/25 09:00 01/05/25 08:53 Alendronate Sodium 35 Mg Tablet PO 35 mg WEEKLY GARY Administration Amiodarone HCl 200 mg 01/02/25 09:00 01/06/25 17:05 Amiodarone Hcl 200 Mg Tablet PO 200 mg BID GARY Administration Apixaban 5 mg 01/02/25 09:00 01/06/25 20:20 Apixaban 5 Mg Tablet PO 5 mg Q12HR GARY Administration Aspirin 81 mg 01/02/25 21:00 01/06/25 20:19 Aspirin 81 Mg Enteric Tablet PO 81 mg HS GARY Administration Carvedilol 12.5 mg 01/02/25 09:00 01/06/25 20:20 Carvedilol 12.5 Mg Tablet PO 12.5 mg Q12HR GARY Administration Empagliflozin 10 mg 01/04/25 09:00 01/06/25 08:31 Empagliflozin 10 Mg Tablet PO 10 mg DAILY GARY Administration Fenofibrate 145 mg 01/03/25 09:00 01/06/25 08:31 Fenofibrate Nanocrystallized 145 Mg Tablet PO 145 mg QAM GARY Administration Furosemide 80 mg 01/06/25 09:00 01/06/25 08:55 Furosemide 80 Mg Tablet PO 80 mg DAILY GARY Administration Losartan Potassium 50 mg 01/02/25 09:00 01/06/25 08:31 Losartan Potassium 50 Mg Tablet PO 50 mg DAILY GARY Administration Pantoprazole Sodium 40 mg 01/02/25 09:00 01/06/25 08:31 Pantoprazole 40 Mg Tablet PO 40 mg DAILY GARY Administration Potassium Chloride 20 meq 01/02/25 09:00 01/03/25 09:43 Potassium Chloride 20 Meq Er Tablet PO 20 meq DAILY GARY Administration Prochlorperazine Maleate 5 mg 01/02/25 05:13 01/02/25 20:26 Prochlorperazine Maleate 5 Mg Tablet PO 5 mg Q6H PRN Administration Nausea And Vomiting Sertraline HCl 50 mg 01/02/25 09:00 01/06/25 20:19 Sertraline Hcl 50 Mg Tablet PO 50 mg Q12HR GARY Administration Silver Sulfadiazine 1 applic 01/02/25 09:00 01/06/25 08:33 Silver Sulfadiazine 1% Cr 400 Gm Jar (*Bkc) TOPICAL 1 applic DAILY GARY Administration Spironolactone 25 mg 01/04/25 09:00 01/06/25 08:31 Spironolactone 25 Mg Tablet PO 25 mg QAM GARY Administration Radiology Results: ITS Impressions Chest X-Ray 01/05/25 07:59 Impression: Central congestive change and possible minimal bibasilar pulmonary edema. Stable cardiomegaly. Labs Labs: Laboratory Results - last 24 hr 01/03/25 01/07/25 01/07/25 05:22 04:53 07:32 WBC 5.2 RBC 3.85 L Hgb 9.5 L Hct 33.9 L MCV 88.1 MCH 24.7 L MCHC 28.0 L RDW 17.5 H Plt Count 151 MPV 9.0 Puncture Site Right radial ABG pH 7.428 ABG pCO2 55.2 H ABG pO2 103.4 H ABG PO2/FiO2 Ratio 2.59 ABG HCO3 35.7 H ABG O2 Saturation 97.7 ABG O2 Content 13.8 L ABG Base Excess 9.9 A-a Gradient 118.3 Oxyhemoglobin 97.1 Total Hemoglobin 10.0 L O2 Delivery Device Non-invasive vent O2 Liters/Min 5.0 Vent Rate Not Reportable FiO2 40 Expiratory Pressure Not Reportable Inspiratory Pressure Not Reportable Sodium 140 Potassium 4.0 Chloride 96 L Carbon Dioxide > 40 H Anion Gap BUN 26 H Creatinine 1.25 H Estim Creat Clear Calc 50 Estimated GFR 42 L Glucose 110 Calcium 8.8 Total Bilirubin 0.5 AST 22 ALT 18 Alkaline Phosphatase 57 Total Protein 7.0 Albumin 3.8 Methylmalonic Acid 422 H
[2025-01-07 08:39] VITALS: PULSE 54
[2025-01-07] MEDS: EMPAGLIFLOZIN 10 MG TABLET PO (08:39)
[2025-01-07] MEDS: FENOFIBRATE NANOCRYSTALLIZED 145 MG TABLET PO (08:39)
[2025-01-07] MEDS: SPIRONOLACTONE 25 MG TABLET PO (08:39)
[2025-01-07] MEDS: LOSARTAN POTASSIUM 50 MG TABLET PO (08:39)
[2025-01-07] MEDS: AMIODARONE HCL 200 MG TABLET PO (08:39)
[2025-01-07 08:40] VITALS: PULSE 54; O2SAT 97
[2025-01-07] MEDS: APIXABAN 5 MG TABLET PO (08:40)
[2025-01-07] MEDS: FUROSEMIDE 80 MG TABLET PO (08:40)
[2025-01-07] MEDS: SILVER SULFADIAZINE 1% CR 400 GM JAR (*BKC) 1 APPLIC TOPICAL (08:40)
[2025-01-07] MEDS: SERTRALINE HCL 50 MG TABLET PO (08:40)
[2025-01-07] MEDS: carvediloL 12.5 MG TABLET PO (08:40)
[2025-01-07] MEDS: PANTOPRAZOLE 40 MG TABLET PO (08:40)
--- NOTE | 2025-01-07 13:54 | P.DS_ITS ---
DS: Admitting Diagnosis Discharge Date 01/07/2025 Admitting Diagnosis Acute on chronic respiratory failure with hypoxia hypercapnia Acute exacerbation of CHF Anemia Hypertension LEVI AFib DS: Discharge Diagnosis Discharge Diagnosis (1) Acute on chronic respiratory failure with hypoxia and hypercapnia: Code(s): J96.21 - Acute and chronic respiratory failure with hypoxia; J96.22 - Acute and chronic respiratory failure with hypercapnia Status: Acute (2) Acute exacerbation of CHF (congestive heart failure): Qualifiers: Heart failure type: unspecified Qualified Code(s): I50.9 - Heart failure, unspecified Code(s): I50.9 - Heart failure, unspecified Status: Acute (3) Anemia: Qualifiers: Anemia type: unspecified type Qualified Code(s): D64.9 - Anemia, unspecified Code(s): D64.9 - Anemia, unspecified Status: Acute (4) Hypertension: Qualifiers: Hypertension type: primary hypertension Qualified Code(s): I10 - Essential (primary) hypertension Code(s): I10 - Essential (primary) hypertension Status: Chronic (5) Obstructive sleep apnea: Code(s): G47.33 - Obstructive sleep apnea (adult) (pediatric) Status: Chronic (6) Atrial fibrillation: Code(s): I48.91 - Unspecified atrial fibrillation Status: Acute DS: Summary Hospital Course Reason for hospitalization: Acute on chronic respiratory failure with hypoxia hypercapnia Acute exacerbation of CHF Anemia Hypertension LEVI AFib Hospital Course: 74 year old female with past medical history of HTN, CAD, CHF, CKD, prediabetes, HLD, TORRE, asthma, LEVI, MDD, chronic venostasis, recurrent cellulitis, and obesity presents to the hospital with hypoxia. She is on 3L NC baseline, however on admission ABG showed a CO2 of 70.4 and mild acidosis thus patient was placed BIPAP. Chronic respiratory failure felt to be secondary to possible CHF factors versus obesity hypoventilation syndrome. CXR showed cardiomegaly with pulmonary vascular congestion and an unchanged opacity at the lateral left lower lung zone most likely persistent lingular atelectasis/scarring along side a prominent left paracardial fat pad although the differential includes less likely pneumonia or small pleural effusion. Low suspicion for pneumonia with no leukocytosis. Started on IV lasix and remained on GDMT. Echo showed LVEF 35-40% with moderate pulmonary hypertension. At time of discharge acute exacerbation had resolved, patient remains on lasix 80 mg daily, coreg and cozaar. Started on aldactone and jardiance. Lasix dose was not increased due to elevated creatinine level and the start of new medications. Patient is to follow up with her electrical technician instructor as scheduled in january. Discussed with patient that she is to weigh herself each morning and call her electrical technician instructor with weight discrepancies. She states understanding. During admission there was also concern for obesity hypoventilation syndrome. Pulmonology following. Patient was to be on bipap outpatient however was consistently noncompliant. Patient started on AVAPs during admission with settings adjusted daily per pulmonology. Repeat chest XR showed unchanged cardiomegaly and perihilar congestion with no pleural effusions. Per pulmonology patient ready to discharge on oxygen 3 L at rest and 4 with activity as well as Noninvasive ventilator with [employer] for RAMILA TT V-VAPS-AE with rate of 14, target tidal volume 500, EPAP minimum 5, EPAP maximum 15, pressure support minimum 6, pressure support maximum 25, inspiratory time 1.0 and 5 L bleed in when she naps and/or sleeps. At time of discharge patient states she feels back at her baseline and is ready to be discharged. She has no complaints denying chest pain, shortness of breath, palpitations, bro[place] sea/vomiting and abdominal pain. Patient discharged back to her assisted living in stable condition. She is to follow up with her primary care provider in 1 week. She is also to follow up with Cardiology and pulmonology as scheduled. Status at Discharge Functional status at discharge: uses cane/walker Time Spent with Patient Time attestation: Total time spent providing and/or coordinating discharge services: Time spent: Greater than 30 minutes Exam Narrative: AF HR 54 RR 20 SpO2 97 3L baseline BP 135/75 General: female in no acute respiratory distress who is nontoxic appearing, sitting up in chair HEENT: Normocephalic. Atraumatic. Extraocular movement intact. Sclera clear and anicteric. No facial asymmetry. Chest: Lungs are clear to auscultation bilaterally. 3L NC baseline. CV: Heart was regular rate and rhythm. Abd: Abdomen was soft. Nontender. Nondistended. Positive bowel sounds. Ext: No clubbing, cyanosis, or edema. DP pulses bilaterally. Neuro: Patient is alert and oriented x4. Speech is clear. DS: Data Data Completed and Pending Completed studies during hospitalization: Chest x-ray Chest x-ray Labs on day of discharge: Labs from last 24 hours 01/07/25 01/07/25 01/03/25 07:32 04:53 05:22 WBC 5.2 RBC 3.85 L Hgb 9.5 L Hct 33.9 L MCV 88.1 MCH 24.7 L MCHC 28.0 L RDW 17.5 H Plt Count 151 MPV 9.0 Puncture Site Right radial ABG pH 7.428 ABG pCO2 55.2 H ABG pO2 103.4 H ABG PO2/FiO2 Ratio 2.59 ABG HCO3 35.7 H ABG O2 Saturation 97.7 ABG O2 Content 13.8 L ABG Base Excess 9.9 A-a Gradient 118.3 Oxyhemoglobin 97.1 Total Hemoglobin 10.0 L O2 Delivery Device Non-invasive vent O2 Liters/Min 5.0 Vent Rate Not Reportable FiO2 40 Expiratory Pressure Not Reportable Inspiratory Pressure Not Reportable Sodium 140 Potassium 4.0 Chloride 96 L Carbon Dioxide > 40 H Anion Gap BUN 26 H Creatinine 1.25 H Estim Creat Clear Calc 50 Estimated GFR 42 L Glucose 110 Calcium 8.8 Total Bilirubin 0.5 AST 22 ALT 18 Alkaline Phosphatase 57 Total Protein 7.0 Albumin 3.8 Methylmalonic Acid 422 H Discharge Plan Discharge Attending physician on discharge: Mercedes Ortiz Consulting providers: Singh Kinney Discharging Clinician: Sarah Bullock Anticipated Discharge Date/Time: 01/07/25 13:38 Patient Disposition: NH Longterm/Asst Living Activity: as tolerated Diet: as tolerated and heart healthy Discharge Instructions: Discharge disposition: Patient admitted to the hospital for hypoxia secondary to heart failure exacerbation versus obesity hypoventilation syndrome Echo showing LVEF 35-40% Take medications as prescribed Continue carvedilol 12.5 mg daily and lasix 80 mg daily Started on spironolactone 25 mg daily and jardiance 10 mg daily Attached is information on this medication Maintain a cardiac diet, 2 g sodium, do not over hydrate Remain active Monitor urine output Daily weights, if you gain more than 3 lb within 1 day or 5 lb in 1 week notify your primary care provider Follow-up with cardiology closely, keep scheduled appointment in January Patient evaluated by pulmonology for obesity hypoventilation syndrome Patient will follow-up in the Pulmonary Clinic on 01/20/2025 at 11:30 a.m. Continue these medications as prescribed Oxygen 3L at rest and 4L with activity Naps or sleeps: Noninvasive ventilator with [employer] for RAMILA TT V-VAPS-AE with rate of 14, target tidal volume 500, EPAP minimum 5, EPAP maximum 15, press ure support minimum 6, pressure support maximum 25, inspiratory time 1.0 and 5 L bleed in. Monitor blood pressures Take caution while standing, rising, or moving Change positions slowly taking a break between each position change If you standing feel dizzy sit back down and take a break Encouraged to continue with yearly vaccinations Return to the emergency department if he developed sudden shortness of breath, chest pain, nausea, vomiting, upset stomach or intractable diarrhea Return to the emergency department if you develop fever greater than 101.5 Follow-up with the primary care physician within 1-2 weeks Thank you for choosing [facility] for your healthcare needs Patient Instructions: Antibiotic Form, Spironolactone (By mouth), Apixaban (By mouth), Empagliflozin (By mouth), Heart Failure (DC), Low-Sodium Diet (DC), Low- Sodium Diet (GEN), Blood Thinners (DC) Patient Language: Tajik Stand Alone Forms: General Discharge Information Follow-up/Referrals: Chandler Petit MD [Primary Care Provider] - 1 Week Singh Kinney MD [Physician] - Keep Reg. Scheduled Appt. Discharge Medications: New spironolactone 25 mg Tablet 25 mg PO QAM Qty: 30 0RF Jardiance 10 mg Tablet 10 mg PO DAILY Qty: 30 0RF Continued silver sulfadiazine 1 % cream 1 applic TOPICAL DAILY acetaminophen [Mapap (acetaminophen)] 325 mg Tablet 650 mg PO Q6H PRN (Reason: Mild Pain (1-3) Or Fever) Qty: 8 0RF aspirin [Aspir-81] 81 mg tablet,delayed release (DR/EC) 81 mg PO HS potassium chloride 20 mEq tablet extended release See Rx Instructions .ROUTE .COMPLEX Qty: 90 0RF Dose Instruction: TAKE 1 TABLET BY MOUTH DAILY Rx Instructions: TAKE 1 TABLET BY MOUTH DAILY sertraline 50 mg tablet See Rx Instructions .ROUTE .COMPLEX Qty: 180 1RF Dose Instruction: TAKE 1 TABLET BY MOUTH TWICE A DAY Rx Instructions: TAKE 1 TABLET BY MOUTH TWICE A DAY carvedilol 12.5 mg tablet See Rx Instructions .ROUTE .COMPLEX Qty: 180 0RF Dose Instruction: TAKE 1 TABLET BY MOUTH EVERY 12 HOURS-MUST ADMINISTER WITH A MEAL/FOOD Rx Instructions: TAKE 1 TABLET BY MOUTH EVERY 12 HOURS-MUST ADMINISTER WITH A MEAL/FOOD fenofibrate 160 mg tablet See Rx Instructions .ROUTE .COMPLEX Qty: 90 0RF Dose Instruction: TAKE 1 TABLET BY MOUTH EVERY DAY Rx Instructions: TAKE 1 TABLET BY MOUTH EVERY DAY alendronate 35 mg tablet See Rx Instructions .ROUTE .COMPLEX Qty: 12 1RF Dose Instruction: TAKE 1 TABLET (35 MG) BY MOUTH WEEKLY ON SUNDAY Rx Instructions: TAKE 1 TABLET (35 MG) BY MOUTH WEEKLY ON SUNDAY amiodarone 200 mg tablet 200 mg PO BID furosemide 80 mg tablet 80 mg PO QAM Eliquis 5 mg tablet 5 mg PO BID losartan 50 mg tablet 50 mg PO DAILY pantoprazole 40 mg tablet,delayed release (DR/EC) 40 mg PO DAILY Date of admission: 01/01/25 17:12 Primary Care Provider: Chandler Petit Admitting Provider: James Tracey Attending physician on admission: Sarah Bullock Condition: Stable Hospitalist MIPS Heart Failure (Exclusion) Patient has history of Heart Transplant or Left Ventricular Assistive Device?: No IF YES, STOP HERE Heart Failure (Qualifier) Patient has current or prior documentation of LVEF less than or equal to 40%, or mod/servere depressed LVSF?: Yes IF NO, STOP HERE If Yes, Heart Failure (Qualifier) Patient was prescribed or already taking an Angiotensin-Converting Enzyme (VARSHA) Inhibitor, or Antiotensin Receptor Bella (ARB): Yes Patient was prescribed or already taking bisoprolol, carvedilol, or sustained release metoprolol succinate: Yes
[2025-01-07 13:59] VITALS: BP 97/47; PULSE 54; RESP 19; TEMP 36.8; O2SAT 93
[2025-01-07 15:15] VITALS: BP 132/76
== END 2025-01-07 17:20 | DRG 291 ==
LOC: ANHED 14:48 → ANHIMU 16:34 → ANH2MED 01-05 20:29
PROVIDERS: Emergency Medicine; Internal Medicine Pulmonary Disease; Student in an Organized Health Care Education/Training Program; Admitting Provider Internal Medicine; Emergency Provider Physician Assistant; PCP Family Medicine; Visit Provider Student in an Organized Health Care Education/Training Program
DX: I13.0 Hypertensive heart and chronic kidney disease with heart failure and stage 1 through stage 4 chronic kidney disease, or unspecified chronic kidney disease (principal); I50.23 Acute on chronic systolic (congestive) heart failure; J96.21 Acute and chronic respiratory failure with hypoxia; J96.22 Acute and chronic respiratory failure with hypercapnia; E66.2 Morbid (severe) obesity with alveolar hypoventilation; F33.9 Major depressive disorder, recurrent, unspecified; I48.20 Chronic atrial fibrillation, unspecified; Z68.43 Body mass index [BMI] 50.0-59.9, adult; N18.30 Chronic kidney disease, stage 3 unspecified; I87.8 Other specified disorders of veins; I27.20 Pulmonary hypertension, unspecified; E78.5 Hyperlipidemia, unspecified; K57.30 Diverticulosis of large intestine without perforation or abscess without bleeding; K75.81 Nonalcoholic steatohepatitis (NASH); Z20.822 Contact with and (suspected) exposure to COVID-19; Z96.641 Presence of right artificial hip joint; I25.2 Old myocardial infarction; Z99.81 Dependence on supplemental oxygen; Z79.01 Long term (current) use of anticoagulants; Z79.82 Long term (current) use of aspirin; Z91.199 Patient's noncompliance with other medical treatment and regimen due to unspecified reason
CPT/HCPCS: 36415; 36600; 71045; 80048; 80053; 80069; 82375; 82607; 82728; 82746; 82805; 83050; 83540; 83550; 83735; 83880; 83921; 84439; 84443; 84480; 84484; 85018; 85025; 85027; 85610; 85730; 87637; 93005; 94002; 94003; 94618; 94762; 96374; 96375; 97110; 97161; 97165; 97530; 99285; A9270; C8929; G0378; J1938; Q9957

== ENCOUNTER 2025-09-01 10:56 | Outpatient (CLI) | payer MEDICARE, SELFPAY | END 2025-09-01 10:57 | disposition home or self-care (01) | LOC: ANHAUDIO 10:57 | PROVIDERS: PCP Family Medicine; Visit Provider Physician Assistant Medical | DX: H90.3 Sensorineural hearing loss, bilateral (principal) | CPT/HCPCS: 92557; 92567 ==